=== PATIENT | male | born 1970 | race African-American/Black ===

== ENCOUNTER 2022-06-26 11:44 | Emergency (ER) | payer OTHER, MEDICAID, SELFPAY ==
[2022-06-26] VITALS (10 sets, daily range): BP systolic 149–173; BP diastolic 75–88; PULSE 65–74; RESP 14–33; TEMP 36.2; O2SAT 97–100
--- NOTE | ~2022-06-26 | CT_ITS ---
EXAMINATION: CT brain wo con DATE: 06/26/2022 12:21 INDICATION: Slurred speech. Right hemiparesis. TECHNIQUE: Computed tomography (CT) of the head was performed without intravenous contrast. The mA wa s adjusted according to patient size. Iterative reconstruction technique was employed. The dose-lengt h product was 605.33 mGy-cm. COMPARISON: Head CT 07/01/2013, brain MRI 07/01/2013 FINDINGS: There is a 6 mm hyperdense mass in the jagruti. There are scattered areas of low attenuation i n the cerebral white matter. There is an old infarct in right cerebellum. There is no acute ischemic infarct. The ventricles are normal in size. There is mild mucosal thickening in the paranasal sinuses . There are likely changes of left ocular lens replacement surgery. The mastoid air cells are normal. IMPRESSION: 1. 6 mm hyperdense mass in the jagruti, new from 07/01/2013. The differential diagnosis includes acute he morrhage, neoplasm, and cavernoma. Brain MRI without and with contrast is recommended. 2. Old infarct in right cerebellum. 3. Moderate nonspecific cerebral white matter disease, which likely represents chronic small vessel i schemic disease, worsened from 07/01/2013. Reviewed, dictated and finalized at location A. IMPRESSION: 1. 6 mm hyperdense mass in the jagruti, new from 07/01/2013. The differential diagn osis includes acute hemorrhage, neoplasm, and cavernoma. Brain MRI without and with contrast is recommended. 2. Old infarct in right cerebellum. 3. Moderate nonspecific cerebral white matter disease, which likely represents chronic small vessel ischemic disease, worsened from 07/01/2013.
--- NOTE | ~2022-06-26 | XR_ITS ---
EXAMINATION: XR chest 1V DATE: 06/26/2022 12:25 INDICATION: Right hemiparesis. TECHNIQUE: A single frontal view of the chest was obtained. COMPARISON: Chest 2 views 03/27/2015 FINDINGS: There is mild atelectasis in the lower lung zones. No pleural effusion or pneumothorax. The heart size is normal. IMPRESSION: 1. Mild atelectasis in the lower lung zones. Reviewed, dictated and finalized at location A.
--- NOTE | 2022-06-26 11:49 | ECG_ITS ---
Measurements Intervals [place] Rate: 65 P: 38 MD: 167 QRS: 54 QRSD: 88 T: 209 QT: 415 QTc: 431 Interpretive Statements SINUS RHYTHM LEFT VENTRICULAR HYPERTROPHY AND ST-T CHANGE PROBABLE REPOLARIZATION ABNORMALITY ABNORMAL ECG NO PREVIOUS ECG AVAILABLE FOR COMPARISON Electronically Signed On 06-26-2022 16:50:28 CDT by Mac Danielson M.D.
[2022-06-26 11:56] LABS: Glucose Point of Care 399 mg/dl (65-105)
[2022-06-26 12:22] LABS: Basophils Absolute Auto 0.1 K/mm3 (0.0-0.1); Basophils Percent Auto 1.1 % (0.2-1.2); Eosinophils Absolute Auto 0.3 K/mm3 (0-0.3); Eosinophils Percent Auto 3.3 % (0-4.4); Hematocrit 40.4 % (42.0-52.0); Hemoglobin 14.1 g/dL (14.0-18.0); Immature Granulocyte Absolute 0.03 K/mm3 (0.00-0.031); Immature Granulocyte Percent A 0.3 % (0-0.5); Lymphocytes Absolute Auto 1.46 K/mm3 (0.9-3.2); Lymphocytes Percent Auto 16.5 % (18.3-44.2); Mean Corpuscular HGB Conc 34.9 g/dl (32-36); Mean Corpuscular Hemoglobin 29.1 pg (26-34); Mean Corpuscular Volume 83.5 fl (80-100); Mean Platelet Volume 12.3 fl (7.4-10.4); Monocytes Absolute Auto 0.6 K/mm3 (0.1-0.6); Monocytes Percent Auto 6.2 % (2.6-8.5); Neutrophils Absolute Auto 6.4 K/mm3 (1.3-6.7); Neutrophils Percent Auto 72.6 % (45.5-73.1); Platelet Count Result 209 k/mm3 (150-375); Red Blood Count 4.84 M/mm3 (4.6-6.20); Red Cell Distribution Width 12.4 % (11.5-14.5); White Blood Count 8.9 K/mm3 (4.5-10.0)
[2022-06-26 12:29] LABS: INR 1.1; Prothrombin Time 13.6 Seconds (11.1-14.7)
[2022-06-26 12:35] LABS: Alanine Aminotransferase 67 U/L (6-50); Albumin Level 4.5 g/dL (3.5-5.1); Alkaline Phosphatase 127 U/L (38-126); Anion Gap 14 mmol/L (8-16); Aspartate Amino Transferase 34 U/L (17-59); Bilirubin,Total 0.4 mg/dL (0.2-1.3); Blood Urea Nitrogen 34 mg/dL (9-20); Calcium 9.3 mg/dL (8.4-10.2); Carbon Dioxide 25 mmol/L (22-30); Chloride 97 mmol/L (98-107); Estimated CRCL calculation 72 ml/min; Estimated Glomerular Filt Rate 60; Glucose 376 mg/dL (65-110); Potassium 4.4 mmol/L (3.4-5.0); Sodium 136 mmol/L (137-145)
[2022-06-26 12:44] LABS: Troponin I 0.027 ng/mL (0.000-0.034)
--- NOTE | 2022-06-26 13:14 | ED.NEUROSD ---
HPI - Neuro Symptoms/Deficit General Chief Complaint: Suspected CVA Stated Complaint: slurred speech and weakness Time Seen by Provider: 06/26/22 12:58 History of Present Illness HPI Narrative: Patient is a 52-year-old male who presents ER with concern for new stroke symptoms. Patient has history of CVA in the past that left him with residual right-sided weakness where he drags his right foot while walking and has some tremor in his right arm. Last known normal was yesterday 06/25/2022 at 10 AM. He then had multiple falls at home. He began slurring his speech more began having more difficulty using his right side. He seems to have persistently poor balance since yesterday. There is mild improvement after eating patient declined going to be evaluated. He had a PCP appointment today but after going to his mother's house it was decided he should be evaluated in the emergency room. Patient takes a baby aspirin. He denies any injury or pain at this time. He reports he has taken his antihypertensives but has not taken any of his diabetes medication. Related Data Home Medications Medication Instructions Recorded Confirmed aspirin 81 mg tablet,delayed 81 mg PO DAILY 02/20/21 04/07/22 release (Adult Low Dose Aspirin) baclofen 10 mg tablet 10 mg PO QHS 07/21/21 04/07/22 clonidine HCl 0.2 mg tablet 0.2 mg PO BID 10/13/21 04/07/22 Allergies Allergy/AdvReac Type Severity Reaction Status Date / Time No Known Allergies Allergy Verified 06/26/22 13:18 Review of Systems Review of Systems: All systems reviewed & are unremarkable except as noted in HPI and below Constitutional: Constitutional: Denies chills, Denies fever(s) and Denies headache(s) Eyes: Eyes: Denies change in vision and Denies photophobia ENT: Denies nasal congestion and Denies sore throat Cardiovascular: Cardiovascular: Denies chest pain and Denies palpitations [facility] Past Medical History Medical History CKD (chronic kidney disease) stage 3, GFR 30-59 ml/min Dyslipidemia Essential (primary) hypertension History of stroke with residual effects Type 2 diabetes mellitus without complications Family History Family History Other Diabetes mellitus Family history of allergic disorder Family history of coronary artery disease Social History Social History (Updated 04/07/22 @ 13:35 by Sintia Parnell) Smoking status: Never smoker Alcohol intake: current Substance use: never Substance use type: does not use Gender identity (if verbalized by the patient): Male Exam Narrative: GENERAL: Well-appearing, well-nourished, and in no acute distress. HEAD: Normocephalic, atraumatic. EYES: PERRL and EOMI. ENT: Mucous membranes moist. CHEST: Clear to auscultation. No respiratory distress. HEART: Regular rate and rhythm. Normal peripheral pulses. ABDOMEN: Soft, nontender, nondistended. EXTREMITIES: Normal range of motion. No edema. SKIN: Warm, dry, no rash. NEURO: Mild expressive aphasia and dysarthria. Right upper extremity drift with difficulty with finger-nose testing the affected extremity. No lower extremity drift. No facial droop. Alert and oriented x3. Course Course Emergency Course: Discussed case with Kennedy MALIK at [facility] with the neurosurgical team. Recommends transfer to the [facility] ER and also recommends Cardene drip with a goal systolic blood pressure of less than 160 [address]iscuss[address] case with Dr. Jay in the ER who has accepted the patient. Vital Signs Vital signs: Vital Signs Temperature 97.2 F L 06/26/22 11:52 Pulse Rate 66 06/26/22 11:52 Respiratory Rate 14 06/26/22 11:52 Blood Pressure 165/83 H 06/26/22 11:52 Pulse Oximetry 100 06/26/22 11:52 Oxygen Delivery Room Air 06/26/22 11:52 Temperature 97.2 F L 06/26/22 11:52 Pulse Rate 67 06/26/22 13:15 Respiratory Rate 33 H
--- NOTE | 2022-06-26 13:18 | PC.NURSE ---
Pt has PMH of CVA, has left sided residuals to RIGHT leg and RIGHT arm/hand.
[2022-06-26] MEDS: niCARdipine 20 MG/200 ML 20 MG/200 ML BAG 50 MG IV CONT (13:36)
== END 2022-06-26 14:21 | disposition short-term general hospital (02) ==
PROVIDERS: Emergency Medicine; Emergency Provider Emergency Medicine; PCP Family Medicine
DX: I61.3 Nontraumatic intracerebral hemorrhage in brain stem (principal); E11.22 Type 2 diabetes mellitus with diabetic chronic kidney disease; I12.9 Hypertensive chronic kidney disease with stage 1 through stage 4 chronic kidney disease, or unspecified chronic kidney disease; N18.30 Chronic kidney disease, stage 3 unspecified; Z79.82 Long term (current) use of aspirin
CPT/HCPCS: 36415; 70450; 71045; 80053; 82948; 84484; 85025; 85610; 85730; 93005; 96365; 99285

== ENCOUNTER 2022-08-07 11:17 | Observation (INO) | payer OTHER, MEDICAID, SELFPAY ==
[2022-08-07] VITALS (34 sets, daily range): BP systolic 165–211; BP diastolic 83–99; PULSE 66–106; RESP 17–32; TEMP 36.4; O2SAT 87–100
--- NOTE | ~2022-08-07 | XR_ITS ---
EXAMINATION: XR abdomen/kub 1V DATE: 08/08/2022 00:06 INDICATION: Abdominal distention TECHNIQUE: A supine view of the abdomen on 2 radiographs was obtained. COMPARISON: None. FINDINGS: Large amount of gas throughout the colon. Small to moderate amount of colonic stool primarily in the proximal colon. No dilated small bowel to suggest obstruction. Lung bases are clear. Heart size is no rmal. Mild to moderate lower lumbar spondylosis. IMPRESSION: 1. Nonspecific large amount of gas scattered throughout the colon with no dilated gas-filled small raul wel to suggest obstruction. Reviewed, dictated and finalized at location A. HOUSE COORDINATOR IMPRESSION: 1. Nonspecific large amount of gas scattered throughout the colon with no dilat ed gas-filled small bowel to suggest obstruction.
--- NOTE | ~2022-08-07 | XR_ITS ---
XR chest 1V portable 08/07/2022 14:57 Indication: Weakness. History of hypertension. Stroke. Procedure: AP portable chest Comparison: 06/26/2022 Findings: Mildly elevated right diaphragm. Right basilar atelectasis. No evidence for pleural effusio n, edema or pneumothorax. Impression: 1: Right basilar atelectasis. Reviewed, dictated and finalized at location A. AND ALCOHOL TREATMENT SPECIALIST Impression: 1: Right basilar atelectasis.
--- NOTE | ~2022-08-07 | CT_ITS ---
EXAMINATION: CT brain wo con DATE: 08/07/2022 15:22 INDICATION: Increased lethargy. TECHNIQUE: Computed tomography (CT) of the head was performed without intravenous contrast. The dose- length product was 605.33 mGy-cm. Automated exposure control and iterative reconstruction technique w ere employed. COMPARISON: CT dated 06/26/2022 FINDINGS: Decreased size of hyperdense lesion in the jagruti, likely resolving hemorrhage. There is a ch ronic infarct of the left side of the jagruti there is a chronic right cerebellar infarction. No ventric ulomegaly or midline shift. There are scattered moderate periventricular and subcortical white matter changes, most likely related to small vessel ischemic disease (microangiopathy). Paranasal sinuses a nd mastoids are pneumatized. No significant mucosal thickening. No depressed skull fractures. IMPRESSION: 1. Decreased size of hyperdense focus in the posterior aspect of the jagruti, likely resolving hemorrhag e, compared with 06/26/2022. Consider correlation with MRI without and with contrast. 2: Chronic lacunar infarction of the jagruti. Chronic right cerebellar infarction. 3: Chronic age-related findings. Reviewed, dictated and finalized at location A. GER OF SECURITY IMPRESSION: 1. Decreased size of hyperdense focus in the posterior aspect of the jagruti, like ly resolving hemorrhage, compared with 06/26/2022. Consider correlation with MR I without and with contrast. 2: Chronic lacunar infarction of the jagruti. Chronic right cerebellar infarction . 3: Chronic age-related findings.
--- NOTE | 2022-08-07 11:43 | ECG_ITS ---
Measurements Intervals [place] Rate: 71 P: 39 CT: 175 QRS: 66 QRSD: 89 T: 180 QT: 371 QTc: 404 Interpretive Statements SINUS RHYTHM POSSIBLE LEFT ATRIAL ENLARGEMENT [-0.1mV P-WAVE IN V1/V2] LEFT VENTRICULAR HYPERTROPHY WITH SECONDARY REPOLARIZATION ABNORMALITIES COMPARED TO ECG 06/26/2022 12:00:49 NO SIGNIFICANT CHANGES Electronically Signed On 08-07-2022 17:25:34 MUD CLEANER OPERATOR by Ariel Lott M.D.
[2022-08-07 12:52] LABS: Basophils Absolute Auto 0.1 K/mm3 (0.0-0.1); Basophils Percent Auto 1.1 % (0.2-1.2); Eosinophils Absolute Auto 0.5 K/mm3 (0-0.3); Eosinophils Percent Auto 5.6 % (0-4.4); Hematocrit 39.7 % (42.0-52.0); Hemoglobin 13.3 g/dL (14.0-18.0); Immature Granulocyte Absolute 0.02 K/mm3 (0.00-0.031); Immature Granulocyte Percent A 0.2 % (0-0.5); Lymphocytes Absolute Auto 1.47 K/mm3 (0.9-3.2); Lymphocytes Percent Auto 18.3 % (18.3-44.2); Mean Corpuscular HGB Conc 33.5 g/dl (32-36); Mean Corpuscular Volume 86.5 fl (80-100); Mean Platelet Volume 11.7 fl (7.4-10.4); Monocytes Absolute Auto 0.6 K/mm3 (0.1-0.6); Monocytes Percent Auto 7.2 % (2.6-8.5); Neutrophils Absolute Auto 5.4 K/mm3 (1.3-6.7); Neutrophils Percent Auto 67.6 % (45.5-73.1); Platelet Count Result 260 k/mm3 (150-375); Red Blood Count 4.59 M/mm3 (4.6-6.20); Red Cell Distribution Width 12.3 % (11.5-14.5); White Blood Count 8.1 K/mm3 (4.5-10.0)
[2022-08-07 13:01] LABS: Alanine Aminotransferase 22 U/L (6-50); Albumin Level 4.8 g/dL (3.5-5.1); Alkaline Phosphatase 96 U/L (38-126); Anion Gap 6 mmol/L (8-16); Aspartate Amino Transferase 28 U/L (17-59); Bilirubin,Total 0.3 mg/dL (0.2-1.3); Blood Urea Nitrogen 41 mg/dL (9-20); Calcium 9.7 mg/dL (8.4-10.2); Carbon Dioxide 28 mmol/L (22-30); Chloride 104 mmol/L (98-107); Estimated Glomerular Filt Rate 56; Glucose 104 mg/dL (65-110); Potassium 4.7 mmol/L (3.4-5.0); Sodium 138 mmol/L (137-145)
[2022-08-07 13:02] LABS: INR 1.1; Prothrombin Time 13.9 Seconds (11.1-14.7)
[2022-08-07 13:03] LABS: Partial Thromboplastin Time 35.2 SECONDS (22.3-36.8)
[2022-08-07] MEDS: SODIUM CHLORIDE 0.9% IV 1,000 ML 999 ML IV CONT (15:01)
--- NOTE | 2022-08-07 15:28 | ED.AMS ---
HPI - Altered Mental Status General Chief Complaint: Altered Mental Status Stated Complaint: altered mental A&Ox2 normal, current, CVA 1 month Time Seen by Provider: 08/07/22 14:24 Source: patient, family (mother) and RN notes reviewed Mode of arrival: wheelchair Limitations: other (aphasia from CVA) History of Present Illness HPI narrative: This is a 52 year old male with history of uncontrolled hypertension, CVA with right side deficits who presents from home for evaluation of increased lethargy. His mother is at bedside to assist in history. She states patient has history of 2 CVA. He suffered his first stroke years ago and he has right side weakness from that CVA, and he suffered a hemorrhagic CVA 2 months. After this most recent stroke he had worsening right side weakness and new aphasia. [facility] was [facility]. He was discharged from [facility] 3 weeks ago to home. He has home health coming to the house. She states patient has been more lethargic today . She did not give patient any of his medications today. She states patient had been dealing with constipation so she had to give him Sennakot and he had diarrhea last night and the previous night. Patient denies chest pain or abdominal pain. Related Data Home Medications Medication Instructions Recorded Confirmed aspirin 81 mg tablet,delayed 81 mg PO DAILY 02/20/21 04/07/22 release (Adult Low Dose Aspirin) Allergies Allergy/AdvReac Type Severity Reaction Status Date / Time No Known Allergies Allergy Verified 08/07/22 11:17 Review of Systems Review of Systems: All systems reviewed & are unremarkable except as noted in HPI and below Constitutional: Constitutional: Denies chills, Reports fatigue and Denies fever(s) ENT: Denies nasal congestion and Denies sore throat Cardiovascular: Cardiovascular: Denies chest pain, Denies rapid heart rate and Denies radiating jaw, neck or arm pain Respiratory: Respiratory: Denies chest congestion and Denies dyspnea Gastrointestinal: Gastrointestinal: Denies abdominal pain, Denies nausea and Denies vomiting Neurologic: Denies dizziness, Denies headache(s) and Reports focal weakness PMFSH Past Medical History Medical History CKD (chronic kidney disease) stage 3, GFR 30-59 ml/min Dyslipidemia Essential (primary) hypertension History of stroke with residual effects Type 2 diabetes mellitus without complications Family History Family History Other Diabetes mellitus Family history of allergic disorder Family history of coronary artery disease Social History Social History Smoking status: Never smoker Alcohol intake: current Substance use: never Substance use type: does not use Gender identity (if verbalized by the patient): Male Exam Const: General: alert and ill appearing Other: oriented x 2, baseline, some aphasia able HENMT: Head: normal to inspection Throat: posterior oropharynx normal and uvula midline Eyes: Pupils: Equal, round and reactive pupils present EOM: EOMs intact bilaterally Chest: Chest palpation & inspection: normal inspection of the chest Resp: Effort & Inspection: normal respiratory effort Auscultation: clear to auscultation bilaterally Cardio: Rate: regular rate Rhythm: regular rhythm Heart sounds: no murmurs GI: GI Palp: Yes Soft to palpation, No Tenderness to palpation present (GI), No Guarding due to palpation present (GI) and No Rigid due to palpation Auscultation: normal bowel sounds Skin: General skin exam: normal color Rashes: no rashes Wounds: no wounds Neuro: General: oriented to person, oriented to place and CN's II-XI intact bilaterally Cranial nerves: Yes CN's II-XII intact bilaterally Speech: aphasia Motor exam (neuro): Abnormal motor strength present
[2022-08-07 15:58] LABS: Influenza A QL RT-PCR Negative (Negative); Influenza B QL RT-PCR Negative (Negative); SARS-CoV-2 RNA PCR Negative
[2022-08-07 16:41] LABS: INR 1.1
[2022-08-07 16:42] LABS: Partial Thromboplastin Time 34.8 SECONDS (22.3-36.8)
[2022-08-07] MEDS: carvediloL 3.125 MG TABLET PO (16:42)
[2022-08-07] MEDS: amLODIPine BESYLATE 5 MG TABLET 10 MG PO (16:43)
[2022-08-07] MEDS: hydrALAZINE HCL 20 MG/ML VIAL 10 MG IV PUSH ×3 (16:43→23:29)
[2022-08-07 17:21] LABS: Appearance Urine Clear (Clear); Bilirubin Urine Negative (Negative); Blood Urine Negative (Negative); Color Urine Yellow (Yellow); Glucose Urine UA Trace mg/dL (Negative); Ketones Urine Negative (Negative); Leukocyte Esterase Ur 1+ LEU/UL (Negative); Nitrate Urine Negative (Negative); Protein Urine 1+ mg/dL (Negative); Urobilinogen Urine 0.2 mg/dL (<2.0); pH Urine 5.5 (5.0-9.0)
[2022-08-07 17:28] LABS: Bacteria Urine Trace /hpf; Mucus Urine Rare /lpf; RBC Urine 0-2 /hpf (0-2); Squamous Epithelial Cell Urine Rare /hpf (Few); WBC Urine 21-30 /hpf
[2022-08-07 17:29] LABS: Add Urine Microscopic? YES
[2022-08-07 17:43] LABS: Glucose Point of Care 113 mg/dl (65-105)
[2022-08-07] MEDS: LABETALOL HCL INJ 100 MG/20 ML VIAL 20 MG IV PUSH (18:36)
--- NOTE | 2022-08-07 20:42 | PM.IMHP ---
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 The patient was discharged from [facility] and was taken to [facility]. The patient recently was discharged from the rehab unit and is staying with his mother. He has a history of uncontrolled hypertension. The patient had his 1st stroke years ago and he has right-sided weakness from that CVA, and he suffered a hemorrhagic CVA 2 months ago. The patient has been receiving home health and they noticed that the patient was more lethargic today. The patient's abdomen is distended and he went a week without having a bowel movement. His mother gave him several medications and then gave him Senokot had diarrhea last night and the previous night. When I touch the patient's abdomen he was crying and saying I am sorry mom sorry mom. Head CT today was read as the following1. Decreased size of hyperdense focus in the posterior aspect of the jagruti, likely resolving hemorrhage, compared with 06/26/2022. Consider correlation with MRI without and with contrast. 2:? Chronic lacunar infarction of the jagruti. Chronic right cerebellar infarction. 3:? Chronic age-related findings. Chest x-ray was read as right basilar atelectasis. H&H is 13.3 and 39.7. Creatinine is 1.6 which appears to be his baseline. His blood sugars 113. The patient is negative for influenza A/B and COVID. Urinalysis was negative. Patient's blood pressure was elevated today and family was having difficulty getting his blood pressure down. The patient had a blood pressure of 211/94. The patient was given IV fluids, Norvasc, Coreg, hydralazine x3, labetalol, clonidine and Rocephin x1. For possible UTI. Neurology has been consulted. The patient is being admitted to observation status on the date of service of 08/07/2022. Review of Systems Review of Systems: See HPI All systems reviewed & are unremarkable except as noted in HPI and below Constitutional: Constitutional: Reports as per HPI and Reports no additional constitutional complaints Eyes: Eyes: Reports as per HPI and Reports no additional eye complaints ENT: Reports system reviewed and no additional complaints, except as documented and Reports Normal hearing present Cardiovascular: Cardiovascular: Reports no additional cardiovascular complaints Respiratory: Respiratory: Reports no additional respiratory complaints and Reports no additional respiratory complaints Gastrointestinal: Gastrointestinal: Reports as per HPI and Reports no additional gastrointestinal complaints Musculoskeletal: Musculoskeletal: Reports no additional musculoskeletal complaints Integumentary/Breasts: Skin/Breast: Reports system reviewed and no additional complaints, except as docu and Reports as per HPI Neurologic: Reports system reviewed and no additional complaints, except as documented, Reports as per HPI and Reports Normal hearing present Psychiatric: Psychiatric: Reports no additional psychiatric complaints and Reports as per HPI Endocrine: Endocrine: Reports no additional endocrine complaints Hematologic/Lymphatic: Hematologic/Lymphatic: Reports no additional hematologic/lymphatic complaints Allergic/Immunologic: Allergic/Immunologic: Reports no additional allergic/immunologic complaints [facility] Past Medical History Medical History (Updated 08/07/22 @ 22:58 by Ashley Austin NP) CKD (chronic kidney disease) stage 3, GFR 30-59 ml/min Dyslipidemia Essential (primary) hypertension History of seizure History of stroke with residual effects Type 2 diabetes mellitus without complications Family History Family History Other Diabetes mellitus Family history of allergic disorder Family history of coronary artery disease Social History
[2022-08-07] MEDS: LORazepam INJ (*CRX) 2 MG/ML VIAL 0.5 MG IV PUSH (23:29)
[2022-08-07] MEDS: ONDANSETRON INJ 4 MG/2 ML VIAL IV PUSH (23:29)
[2022-08-08] VITALS (87 sets, daily range): BP systolic 149–187; BP diastolic 69–137; PULSE 86–113; RESP 12–38; TEMP 36.8–37.1; O2SAT 96–100
[2022-08-08 00:10] LABS: Hemoglobin A1C 10.4 % (<5.7); Lactic Acid Reflex 1.1 mmol/L (0.7-2.0)
[2022-08-08] MEDS: ONDANSETRON INJ 4 MG/2 ML VIAL IV PUSH ×2 (04:43→10:52)
[2022-08-08 05:56] LABS: Basophils Absolute Auto 0.1 K/mm3 (0.0-0.1); Basophils Percent Auto 0.8 % (0.2-1.2); Eosinophils Absolute Auto 0.3 K/mm3 (0-0.3); Eosinophils Percent Auto 2.8 % (0-4.4); Hematocrit 38.7 % (42.0-52.0); Hemoglobin 12.9 g/dL (14.0-18.0); Immature Granulocyte Absolute 0.04 K/mm3 (0.00-0.031); Immature Granulocyte Percent A 0.3 % (0-0.5); Lymphocytes Absolute Auto 1.09 K/mm3 (0.9-3.2); Lymphocytes Percent Auto 9.5 % (18.3-44.2); Mean Corpuscular HGB Conc 33.3 g/dl (32-36); Mean Platelet Volume 11.9 fl (7.4-10.4); Monocytes Absolute Auto 0.7 K/mm3 (0.1-0.6); Monocytes Percent Auto 5.7 % (2.6-8.5); Neutrophils Absolute Auto 9.3 K/mm3 (1.3-6.7); Neutrophils Percent Auto 80.9 % (45.5-73.1); Platelet Count Result 267 k/mm3 (150-375); Red Blood Count 4.45 M/mm3 (4.6-6.20); Red Cell Distribution Width 12.3 % (11.5-14.5); White Blood Count 11.4 K/mm3 (4.5-10.0)
[2022-08-08 06:04] LABS: Lactic Acid Reflex 1.1 mmol/L (0.7-2.0)
[2022-08-08 06:05] LABS: Alanine Aminotransferase 25 U/L (6-50); Albumin Level 4.9 g/dL (3.5-5.1); Alkaline Phosphatase 99 U/L (38-126); Anion Gap 11 mmol/L (8-16); Aspartate Amino Transferase 30 U/L (17-59); Bilirubin,Total 0.5 mg/dL (0.2-1.3); Blood Urea Nitrogen 31 mg/dL (9-20); Calcium 9.8 mg/dL (8.4-10.2); Carbon Dioxide 26 mmol/L (22-30); Chloride 102 mmol/L (98-107); Estimated Glomerular Filt Rate > 60; Glucose 160 mg/dL (65-110); Lipase 156 U/L (23-300); Magnesium 1.5 mg/dL (1.6-2.3); Phosphorus 3.4 mg/dL (2.5-4.5); Potassium 4.7 mmol/L (3.4-5.0); Sodium 139 mmol/L (137-145)
--- NOTE | 2022-08-08 10:21 | WPDNEURCNPN ---
Assessment and Plan Assessment and plan (1) UTI (urinary tract infection): Code(s): N39.0 - Urinary tract infection, site not specified Status: Acute (2) Hypertension, uncontrolled: Code(s): I10 - Essential (primary) hypertension Status: Acute (3) History of stroke with residual effects: Code(s): I69.30 - Unspecified sequelae of cerebral infarction Status: Acute Plan Mr. Bland is a 52 year old male with a history of HTN, HLD, CKD, DM, and pontinue hemorrhage, presenting for worsening lethargy. CT head showed resolving hemorrhage and no acute changes. His UA was concerning for UTI, which is likely the cause of lethargy. He has improved since starting on antibiotics. - No further neurological work-up needed at this time. Consult date: 08/08/22 Time Seen: 10:22 Reason for consult: Lethargy HPI: Corky Bland is a 52 year old male with a history of prior strokes, including most recent hemorrhagic stroke 2 months ago, CKD, HLD, uncontrolled HTN, and type 2 diabetes melitis presenting due to worsening lethargy. Patient had a pontine hemorrhage which was evaluated at [facility]. He was discharged to [facility] afterwards, and is currently in the care of his mother. She noted that he was more lethargic yesterday, but did not notice any new focal symptoms. At baseline, patient has residual right sided weakness and aphasia. Patient was brought into [facility] ED, where he was AOx2, which is his baseline. His BP was in the 180s systolic. CT head showed resolving hemorrhage in the posterior aspect of the jagruti as well as chronic infarcts in the jagruti and R cerebellum. UA was concerning for UTI. Patient was subsequently started on antibiotics and admitted for further care. Mother and sister at bedside this morning. They feels that he looks much better today and is close to his baseline. Patient denies any complaints this morning and also expressed that he feels better. Review of Systems Constitutional: Constitutional: Reports fatigue and Reports lethargy Eyes: Eyes: Reports no additional eye complaints ENT: Reports system reviewed and no additional complaints, except as documented Cardiovascular: Cardiovascular: Reports no additional cardiovascular complaints Respiratory: Respiratory: Reports no additional respiratory complaints Gastrointestinal: Gastrointestinal: Reports no additional gastrointestinal complaints Genitourinary: Genitourinary: Reports as per HPI Musculoskeletal: Musculoskeletal: Reports no additional musculoskeletal complaints Integumentary/Breasts: Skin/Breast: Reports system reviewed and no additional complaints, except as docu Neurologic: Reports as per HPI Psychiatric: Psychiatric: Reports no additional psychiatric complaints PMFSH Past Medical History Medical History CKD (chronic kidney disease) stage 3, GFR 30-59 ml/min Dyslipidemia Essential (primary) hypertension History of seizure History of stroke with residual effects Type 2 diabetes mellitus without complications Family History Family History Other Diabetes mellitus Family history of allergic disorder Family history of coronary artery disease Social History Social History Social History: The patient typically lives with his but she is currently in the hospital so he has been staying with his mother and his sister has been helping out. He has 3 children and is disabled. Lifelong nonsmoker. Code status full code Smoking status: Never smoker Alcohol intake: current Substance use: never Substance use type: does not use Gender identity (if verbalized by the patient): Male Meds Home Medications and Allergies Home Medications Medication Instructions Recorded Confirmed Type aspirin 81 mg tablet,delayed 81 mg PO
[2022-08-08 10:31] LABS: Glucose Point of Care 122 mg/dl (65-105)
--- NOTE | 2022-08-08 10:40 | PC.NURSE ---
Melina social service technician to patient's room to check on patient. Melina social service technician found emesis on patient's floor. Melina, reported to grant writer and cleaned up patient's room and patient.
--- NOTE | 2022-08-08 10:52 | PC.NURSE ---
Zofran given IV per prn order for patient's continued nausea and vomiting. Holding patient's medication for Zofran to take therapeutic effect before administering medications.
--- NOTE | 2022-08-08 11:10 | PC.NURSE ---
Patient cleaned up and gown changed. Patient transferred to chair so bed could be changed. ED stretcher removed and hospital bed brought in for patient comfort and safety.
[2022-08-08] MEDS: ASPIRIN 81 MG ENTERIC TABLET PO (11:28)
[2022-08-08] MEDS: carvediloL 3.125 MG TABLET PO ×2 (11:28→21:20)
[2022-08-08] MEDS: SIMETHICONE 80 MG TAB.CHEW PO ×2 (11:28→21:20)
[2022-08-08] MEDS: lisinopriL 20 MG TABLET 40 MG PO (11:28)
--- NOTE | 2022-08-08 11:41 | PC.NURSE ---
Chief Service Dispatcher contacted Dr. Cheek, hospitalist and made him aware of patient's vomiting episodes. Per Dr. Cheek keep monitoring patient. Collaborated with Dr. Cheek about a possible ST swallow assessment, per Dr. Cheek okay to order speech therapy swallow evaluation.
--- NOTE | 2022-08-08 13:49 | PCSTNOTE ---
Please refer to the Bedside Swallow Evaluation in the EMR. Please note, silent aspiration cannot be ruled out at bedside.
[2022-08-08] MEDS: hydrALAZINE HCL 20 MG/ML VIAL 10 MG IV PUSH (17:16)
--- NOTE | 2022-08-08 17:24 | PM.IMPN ---
Progress Note: A&P Assessment and Plan (1) Altered mental status: Code(s): R41.82 - Altered mental status, unspecified Status: Acute Assessment and Plan: Patient suffered a hemorrhagic stroke in May. He had right-sided weakness from prior stroke but this worsened. He also developed new aphasia. He was at rehab facility but has been home for the past 3 weeks now. Patient was on to be lethargic and confused and brought to the emergency room for evaluation. There is a notation that the patient was constipated but then developed diarrhea. KUB does not suggest stool impaction or significant constipation. Urinalysis noted he may have UTI which could be causing his altered mental status. Consider altered mental status related to hypertension. Patient's mental status by large has returned to baseline. Continue to follow. (2) UTI (urinary tract infection): Code(s): N39.0 - Urinary tract infection, site not specified Status: Acute Assessment and Plan: UA noted. Urine culture pending. -continue with Rocephin. -tailor antibiotics to urine and blood cultures. (3) Hypertension, uncontrolled: Code(s): I10 - Essential (primary) hypertension Status: Acute Assessment and Plan: Patient has chronic hypertension. -Blood pressure not well controlled here. -Home medications have not been reconciled yet -Clonidine patch ordered -continue with Coreg and Lisinopril -p.r.n. hydralazine available as needed -add norvasc today. 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 More recently, patient with hemorrhagic CVA in May [facility] resulting in worsening right-sided weakness and aphasia. -Head CT showing decrease in size of the hyperdense focus in the jagruti. Also with chronic lacunar infarct in the jagruti and right cerebellar infarct. -neurology consult was greatly be appreciated. -continue with aspirin and atorvastatin. -family is having difficulty taking care the patient at this time. life skills coordinator were consulted to discuss options (5) Dyslipidemia: Code(s): E78.5 - Hyperlipidemia, unspecified Status: Acute Assessment and Plan: -continue with atorvastatin (6) Type 2 diabetes mellitus without complications: Qualifiers: Diabetes mellitus assisted insulin use: without termite treater use Qualified Code(s): E11.9 - Type 2 diabetes mellitus without complications Code(s): E11.9 - Type 2 diabetes mellitus without complications Status: Acute Assessment and Plan: A1c 10.4. The patient's blood glucose was reviewed on 08/08 Glucose remains well controlled. Continue AccuCheks covering with sliding scale. Hypoglycemia protocol available as needed. Continue to monitor. Resume meds once clarified Subjective Date/time seen: 08/08/22 17:24 Interval history: 52yo male with hx of CVA and HTN here for altered mental status. Patient denies CP, SOB, n/v or abd pain. Voiding normally without dysuria or hematuria. He is having normal bowel movements. No recent changes in medications. Patient denies any history of dysphagia. He denies any symptoms of dysphagia or odynophagia eating his dinner tonight. Exam Narrative: AF 98.7 167/99 94 21 98% ra Gen - NARD sitting up feeding himself dinner. Chest - Bibasilar inspiratory crackles otherwise clear. Normal respiratory rate. CV - RRR S1/S2 Abd - Soft, NT/ND, Positive BS Ext - No pedal edema. Neuro - Alert and oriented x4. Very mild dysarthric speech. Right hemiparesis. Psych - Nml mood and affect Skin - Warm and dry Objective Data Vital Signs Vital Signs: Vital Signs - 24 hr 08/07/22 18:39 08/07/22 18:16 08/07/22 18:46 Temperature Pulse
[2022-08-08 17:55] LABS: Glucose Point of Care 154 mg/dl (65-105)
--- NOTE | 2022-08-08 19:40 | ADMGEN ---
This patient, Corky Bland, was admitted to IMU Room 231-01 at 1655 from ER. Patient/family oriented to hospital policies and general routines including ID bracelet, bed and alarms, visiting hours, pain management, procedures, bathroom and other care routines, personal items, smoking policy, room service/diet, and visiting hours. Information on how to activate the Rapid Response Team has been discussed. Patient/Family are encouraged to report perceived risks to care and to ask questions if they do not understand what they are told or what they should do.
[2022-08-08 20:35] LABS: Glucose Point of Care 209 mg/dl (65-105)
[2022-08-08] MEDS: amLODIPine BESYLATE 5 MG TABLET PO (21:21)
[2022-08-08] MEDS: ATORVASTATIN 40 MG TABLET PO (21:21)
[2022-08-09] VITALS (13 sets, daily range): BP systolic 137–175; BP diastolic 70–87; PULSE 86–107; RESP 16–24; TEMP 36.5–37; O2SAT 95–98
[2022-08-09 08:41] LABS: Glucose Point of Care 148 mg/dl (65-105)
[2022-08-09] MEDS: amLODIPine BESYLATE 5 MG TABLET 10 MG PO (09:50)
[2022-08-09] MEDS: lisinopriL 20 MG TABLET 40 MG PO (09:50)
[2022-08-09] MEDS: SIMETHICONE 80 MG TAB.CHEW PO ×4 (09:50→21:19)
[2022-08-09] MEDS: ASPIRIN 81 MG ENTERIC TABLET PO (09:50)
[2022-08-09] MEDS: carvediloL 3.125 MG TABLET PO ×2 (09:51→21:19)
[2022-08-09 10:17] LABS: Hematocrit 41.7 % (42.0-52.0); Hemoglobin 13.7 g/dL (14.0-18.0); Mean Corpuscular HGB Conc 32.9 g/dl (32-36); Mean Corpuscular Hemoglobin 29.4 pg (26-34); Mean Corpuscular Volume 89.5 fl (80-100); Mean Platelet Volume 11.9 fl (7.4-10.4); Platelet Count Result 304 k/mm3 (150-375); Red Blood Count 4.66 M/mm3 (4.6-6.20); Red Cell Distribution Width 12.6 % (11.5-14.5); White Blood Count 11.4 K/mm3 (4.5-10.0)
[2022-08-09 10:36] LABS: Albumin Level 4.8 g/dL (3.5-5.1); Anion Gap 10 mmol/L (8-16); Blood Urea Nitrogen 29 mg/dL (9-20); Calcium 9.7 mg/dL (8.4-10.2); Carbon Dioxide 27 mmol/L (22-30); Chloride 107 mmol/L (98-107); Estimated Glomerular Filt Rate 56; Glucose 148 mg/dL (65-110); Magnesium 1.8 mg/dL (1.6-2.3); Phosphorus 3.7 mg/dL (2.5-4.5); Potassium 4.6 mmol/L (3.4-5.0); Sodium 144 mmol/L (137-145)
[2022-08-09 11:51] LABS: Glucose Point of Care 221 mg/dl (65-105)
[2022-08-09] MEDS: INSULIN ASPART (*BKC) 100 UNITS/ML SUB-Q (12:24)
--- NOTE | 2022-08-09 13:45 | PC.NURSE ---
Per Dr. Lott no bolus on heparin for PTT 70.4. Just increase rate per protocol.
[2022-08-09 17:52] LABS: Glucose Point of Care 179 mg/dl (65-105)
--- NOTE | 2022-08-09 18:01 | PM.IMPN ---
Progress Note: A&P Assessment and Plan (1) Altered mental status: Code(s): R41.82 - Altered mental status, unspecified Status: Acute Assessment and Plan: The patient has hx of CVAs in the past with residual right sided weakness. More recently, patient with hemorrhagic CVA in May resulting in worsening right-sided weakness and aphasia treated [facility]. He was at rehab facility but has been home for the past 3 weeks now. Patient was noted to be lethargic and confused and brought to the emergency room for evaluation. Patient with UTI which could be causing his altered mental status. Consider altered mental status related to hypertension. Patient's mental status back to baseline. Continue to follow. (2) UTI (urinary tract infection): Code(s): N39.0 - Urinary tract infection, site not specified Status: Acute Assessment and Plan: UA noted. Urine culture growing Enterococcus -started on Rocephin emperically. -BCx NGTD -Change to Amoxicillin (3) Hypertension, uncontrolled: Code(s): I10 - Essential (primary) hypertension Status: Acute Assessment and Plan: Patient has chronic hypertension. -Blood pressure not well controlled here. 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 More recently, patient with hemorrhagic CVA in May treated [facility] resulting in worsening right-sided weakness and aphasia. -Head CT here showing decrease in size of the hyperdense focus in the jagruti. Also with chronic lacunar infarct in the jagruti and right cerebellar infarct. -neurology consult was greatly be appreciated. -continue with aspirin and atorvastatin. -family is having difficulty taking care the patient at this time. 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 The patient's blood glucose was reviewed on 08/09 Glucose more elevated Continue AccuCheks covering with sliding scale. Hypoglycemia protocol available as needed. Continue to monitor. Resume Lantus at lower dose (7) CKD (chronic kidney disease) stage 3, GFR 30-59 ml/min: Qualifiers: Chronic kidney disease stage 3 subtype: stage 3a (GFR 45-59) Qualified Code(s): N18.31 - Chronic kidney disease, stage 3a Code(s): N18.30 - Chronic kidney disease, stage 3 unspecified Status: Acute Assessment and Plan: Cr 1.6 today and appears to be within his baseline. Follow Subjective Date/time seen: 08/09/22 18:01 Interval history: 52yo male with hx of CVA and HTN here for altered mental status. No complaints today. No chest pain or shortness of breath. No nausea or vomiting Exam Narrative: AF 98.5 152/77 107 24 98% ra Gen - NARD Chest -few basilar rhonchi otherwise clear. CV - RRR S1/S2, 3/6 systolic murmur LUSB. Telemetry showing no alarms Abd - Soft, NT/ND, Positive BS Ext - No pedal edema. Neuro - Alert and appropriate. Very mild dysarthric speech. Right hemiparesis. Psych - Nml mood and affect Skin - Warm and dry Objective Data Vital Signs Vital Signs: Vital Signs - 24 hr 08/08/22 20:00 08/08
[2022-08-09] MEDS: cloNIDine HCL 0.1 MG TABLET 0.3 MG PO (21:18)
[2022-08-09] MEDS: hydrALAZINE HCL 50 MG TABLET 100 MG PO (21:18)
[2022-08-09] MEDS: ATORVASTATIN 40 MG TABLET PO (21:18)
[2022-08-09] MEDS: INSULIN GLARGINE (*BKC) 100 UNITS/ML 18 UNITS SUB-Q (21:19)
[2022-08-09] MEDS: AMOXICILLIN 500 MG CAPSULE PO (23:12)
[2022-08-10] VITALS (8 sets, daily range): BP systolic 105–172; BP diastolic 61–84; PULSE 68–91; RESP 16–20; TEMP 36.2–36.5; O2SAT 94–98
--- NOTE | 2022-08-10 | ECHO_ITS ---
Patient Info Name: Corky Bland Age: 52 years : 1970 Gender: Male Ht: 73 in Wt: 210 lbs BSA: 2.23 m2 HR: 71 bpm BP: 144 / 77 mmHg Technical Quality: Good Exam Date: 08/10/2022 9:53 AM Exam Location: [facility] Patient Status: Outpatient Admit Date: 08/07/2022 Staff Ordering Physician: Rick Cheek MD Prevention Coordinator: Torsten Hendrickson, CHRIS, RT Attending Provider: Liz Felix MD Exam Type: CA echo doppler color flow Study Info Indications R01.1 - Cardiac murmur, unspecified Complete two-dimensional, color flow and Doppler transthoracic echocardiogram is performed. Strain analysis performed. Summary 1. Complete two-dimensional, color flow and Doppler transthoracic echocardiogram is performed. 2. Left ventricular chamber dimension is normal. 3. Left ventricular systolic function is normal, estimated at 65-70%. 4. There is severe concentric increased left ventricular wall thickness. 5. The left ventricular diastolic function is grade I diastolic dysfunction. 6. E/e' 10 is mildly elevated. 7. Global longitudinal strain is abnormal at -9.7%. 8. There is mild aortic valve sclerosis. 9. The mitral valve has mildly thickened leaflets and moderately calcified annulus. 10. Moderately non-obstructive systolic anterior motion of the mitral anterior leaflet. 11. There is mild mitral valve regurgitation. Left Ventricle E/e' 10 is mildly elevated. Global longitudinal strain is abnormal at -9.7%. Left ventricular chamber dimension is normal. Left ventricular systolic function is normal, estimated at 65-70%. There is severe concentric increased left ventricular wall thickness. The left ventricular diastolic function is grade I diastolic dysfunction. Right Ventricle Right ventricular systolic function is normal and with normal TAPSE 2.5 cm. Right ventricular chamber dimension is normal. Left Atria Left atrial chamber dimension is normal. Right Atria Right atrial chamber dimension is normal. Aortic Valve The aortic valve is trileaflet. There is mild aortic valve sclerosis. There is no aortic valve stenosis. There is no aortic valve regurgitation. Pulmonic Valve There is no pulmonic regurgitation. Mitral Valve The mitral valve has mildly thickened leaflets and moderately calcified annulus. Moderately non-obstructive systolic anterior motion of the mitral anterior leaflet. There is no mitral valve stenosis. There is mild mitral valve regurgitation. Tricuspid Valve There is no tricuspid valve regurgitation. Pericardium/Pleural There is no pericardial effusion. Inferior Vena Cava Normal inferior vena cava with >50% collapse upon inspiration consistent with normal right atrial pressure, 5 mmHg. Aorta The aortic root size at the sinus of Valsalva is normal. Left Ventricular Outflow Tract Name Value Normal LVOT 2D LVOT Diameter 2.0 cm LVOT Doppler LVOT Peak Gradient 5 mmHg LVOT Mean Gradient 2 mmHg LVOT VTI 20 cm LVOT VTI/AV VTI Ratio 0.7
[2022-08-10] MEDS: hydrALAZINE HCL 20 MG/ML VIAL 10 MG IV PUSH (00:52)
[2022-08-10 05:47] LABS: Hematocrit 40.8 % (42.0-52.0); Hemoglobin 13.3 g/dL (14.0-18.0); Mean Corpuscular HGB Conc 32.6 g/dl (32-36); Mean Corpuscular Hemoglobin 28.8 pg (26-34); Mean Corpuscular Volume 88.3 fl (80-100); Mean Platelet Volume 12.3 fl (7.4-10.4); Platelet Count Result 283 k/mm3 (150-375); Red Blood Count 4.62 M/mm3 (4.6-6.20); Red Cell Distribution Width 12.5 % (11.5-14.5); White Blood Count 12.6 K/mm3 (4.5-10.0)
[2022-08-10 05:50] LABS: Albumin Level 4.6 g/dL (3.5-5.1); Anion Gap 9 mmol/L (8-16); Blood Urea Nitrogen 33 mg/dL (9-20); Calcium 9.6 mg/dL (8.4-10.2); Carbon Dioxide 30 mmol/L (22-30); Chloride 106 mmol/L (98-107); Estimated Glomerular Filt Rate 43; Glucose 150 mg/dL (65-110); Phosphorus 3.9 mg/dL (2.5-4.5); Potassium 4.1 mmol/L (3.4-5.0); Sodium 145 mmol/L (137-145)
[2022-08-10] MEDS: hydrALAZINE HCL 50 MG TABLET 100 MG PO (05:54)
[2022-08-10] MEDS: AMOXICILLIN 500 MG CAPSULE PO ×2 (05:54→13:31)
[2022-08-10] MEDS: cloNIDine HCL 0.1 MG TABLET 0.3 MG PO (05:54)
[2022-08-10 07:58] LABS: Glucose Point of Care 186 mg/dl (65-105)
[2022-08-10] MEDS: carvediloL 3.125 MG TABLET PO (08:17)
[2022-08-10] MEDS: metFORMIN HCL 500 MG TABLET 1000 MG PO (08:17)
[2022-08-10] MEDS: ASPIRIN 81 MG ENTERIC TABLET PO (08:18)
[2022-08-10] MEDS: amLODIPine BESYLATE 5 MG TABLET 10 MG PO (08:18)
[2022-08-10] MEDS: lisinopriL 20 MG TABLET 40 MG PO (08:18)
[2022-08-10] MEDS: INSULIN ASPART (*BKC) 100 UNITS/ML SUB-Q (08:18)
[2022-08-10] MEDS: SIMETHICONE 80 MG TAB.CHEW PO ×2 (08:18→13:31)
--- NOTE | 2022-08-10 10:13 | PM.DS ---
DS: Admitting Diagnosis Discharge Date 08/10/22 Admitting Diagnosis Altered mental status DS: Discharge Diagnosis Discharge Diagnosis (1) Altered mental status: Code(s): R41.82 - Altered mental status, unspecified Status: Acute (2) UTI (urinary tract infection): Code(s): N39.0 - Urinary tract infection, site not specified Status: Acute (3) Hypertension, uncontrolled: Code(s): I10 - Essential (primary) hypertension Status: Acute (4) History of CVA (cerebrovascular accident): Code(s): Z86.73 - Personal history of transient ischemic attack (TIA), and cerebral infarction without residual deficits Status: Acute (5) Dyslipidemia: Code(s): E78.5 - Hyperlipidemia, unspecified Status: Acute (6) Type 2 diabetes mellitus without complications: Qualifiers: 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 Please see H&P for details. Hospital Course: The patient has hx of CVAs in the past with residual right sided weakness. More recently, patient with hemorrhagic CVA in May resulting in worsening right-sided weakness and aphasia [facility]. He was at a rehab facility but has been home for the past 3 weeks now.? Patient was noted to be lethargic and confused and brought to the emergency room for evaluation. Head CT here showing decrease in size of the hyperdense focus in the jagruti. Also with chronic lacunar infarct in the jagruti and right cerebellar infarct. Neurology consulted. COVID and influenza negative. Patient with UA concerning for UTI so IV abx started. His altered mental status felt related to the UTI. Patient's mental status returned to his baseline. Urine culture grew Enterococcus sensitive to Ampicillin. Abx changed to Amoxicillin. Murmur noted so Echo ordered and is pending. Patient has chronic hypertension. Blood pressure was not well controlled initially due difficulty getting an accurate medication list. Once he was back on his home medications, his blood pressure improved. A1c 10.4. The patient's blood glucose was monitored with AccuCheks covering with sliding scale.? Hypoglycemia protocol was available as needed.?Lantus dose decreased due to soft glucose values. Metformin continued since he has been taking this without issue. He has CKD and his creatinine runs 1.4-2.3 range over the past year. Cr was 1.6 and climbed to 2.0 (1.3 felt to be spurious) felt related to above. Also, he was on Lisinopril here but actually this was not a home medication so this was stopped at discharge. Suspect this will improve now that the inciting issue is being treated and off the MARIANNE inhibitor. Plan to repeat labs as outpatient. Patient feels well. He is walking to the bathroom with a walker. He overall did well and was able to be discharged home on 08/10/22 Status at Discharge Cognitive/behavioral status at discharge: stable Time Spent with Patient Time attestation: Total time spent providing and/or coordinating discharge services: 32 minutes Time spent: Greater than 30 minutes Exam Narrative: AF 97.2 105/63 81 16 98% ra Gen - NARD Chest -few basilar rhonchi with distant BS. CV - RRR S1/S2, 3/6 systolic murmur LUSB. Telemetry showing no alarms Abd - Soft, NT/ND, Positive BS Ext - No pedal edema. Neuro - Alert and appropriate. Very mild dysarthric speech. Right hemip
[2022-08-10 11:45] LABS: Glucose Point of Care 196 mg/dl (65-105)
--- NOTE | 2022-08-15 13:34 | PC.NURSE ---
Blood cx are negative. Dr. Adia nicole.
--- NOTE | 2022-08-15 13:46 | PC.NURSE ---
Echo results faxed to PCP.
== END 2022-08-10 14:01 | disposition home health service (06) ==
LOC: ANHED 19:31 → ANHIMU 22:00
PROVIDERS: Nurse Practitioner; Admitting Provider Family Medicine; Emergency Provider General Practice; PCP Family Medicine; Visit Provider Internal Medicine
DX: I63.9 Cerebral infarction, unspecified (principal); R41.82 Altered mental status, unspecified; N39.0 Urinary tract infection, site not specified; E78.5 Hyperlipidemia, unspecified; R29.708 NIHSS score 8; I69.351 Hemiplegia and hemiparesis following cerebral infarction affecting right dominant side; I69.320 Aphasia following cerebral infarction; I12.9 Hypertensive chronic kidney disease with stage 1 through stage 4 chronic kidney disease, or unspecified chronic kidney disease; E11.22 Type 2 diabetes mellitus with diabetic chronic kidney disease; N18.30 Chronic kidney disease, stage 3 unspecified; R53.83 Other fatigue; Z20.822 Contact with and (suspected) exposure to COVID-19; J98.11 Atelectasis; K59.00 Constipation, unspecified; I08.0 Rheumatic disorders of both mitral and aortic valves; R19.7 Diarrhea, unspecified; F10.90 Alcohol use, unspecified, uncomplicated; Z79.82 Long term (current) use of aspirin; Z79.4 Long term (current) use of insulin; Z79.52 Long term (current) use of systemic steroids; Z79.899 Other long term (current) drug therapy; Z79.891 Long term (current) use of opiate analgesic
CPT/HCPCS: 36415; 70450; 71045; 74018; 80053; 80069; 81001; 82948; 83036; 83605; 83690; 83735; 84100; 84443; 85025; 85027; 85610; 85730; 87040; 87086; 87147; 87181; 87186; 87636; 92610; 93005; 93306; 96361; 96365; 96366; 96374; 96375; 96376; 99285; A9270; G0378; J0360; J0696; J1815; J2060; J2405; J7030

== ENCOUNTER 2022-08-19 13:16 | Outpatient (NON) | payer OTHER, MEDICAID, SELFPAY ==
[2022-08-19 13:39] LABS: Alanine Aminotransferase 23 U/L (6-50); Alkaline Phosphatase 76 U/L (38-126); Anion Gap 6 mmol/L (8-16); Aspartate Amino Transferase 26 U/L (17-59); Basophils Absolute Auto 0.1 K/mm3 (0.0-0.1); Basophils Percent Auto 1.1 % (0.2-1.2); Bilirubin,Total 0.3 mg/dL (0.2-1.3); Blood Urea Nitrogen 24 mg/dL (9-20); Calcium 9.2 mg/dL (8.4-10.2); Carbon Dioxide 26 mmol/L (22-30); Chloride 100 mmol/L (98-107); Cholesterol 80 mg/dL (0-200); Eosinophils Absolute Auto 0.4 K/mm3 (0-0.3); Eosinophils Percent Auto 6.5 % (0-4.4); Estimated Glomerular Filt Rate > 60; Glucose 89 mg/dL (65-110); HDL Direct 25 mg/dL; Hematocrit 32.7 % (42.0-52.0); Immature Granulocyte Absolute 0.01 K/mm3 (0.00-0.031); Immature Granulocyte Percent A 0.2 % (0-0.5); Immature Platelet Fraction Pct 11.7 % (0.9-11.2); Lymphocytes Absolute Auto 1.31 K/mm3 (0.9-3.2); Lymphocytes Percent Auto 22.9 % (18.3-44.2); Mean Corpuscular HGB Conc 33.6 g/dl (32-36); Mean Corpuscular Hemoglobin 29.6 pg (26-34); Mean Corpuscular Volume 87.9 fl (80-100); Monocytes Absolute Auto 0.4 K/mm3 (0.1-0.6); Monocytes Percent Auto 7.2 % (2.6-8.5); Neutrophils Absolute Auto 3.6 K/mm3 (1.3-6.7); Neutrophils Percent Auto 62.1 % (45.5-73.1); Platelet Count Result 218 k/mm3 (150-375); Potassium 4.6 mmol/L (3.4-5.0); Red Blood Count 3.72 M/mm3 (4.6-6.20); Red Cell Distribution Width 12.8 % (11.5-14.5); Sodium 132 mmol/L (137-145); Triglycerides 125 mg/dL (<150); White Blood Count 5.7 K/mm3 (4.5-10.0)
[2022-08-19 14:10] LABS: LDL Cholesterol Direct < 30 mg/dL
== END 2022-08-19 13:17 | disposition home or self-care (01) ==
LOC: HOME HLTH 13:22
PROVIDERS: PCP Family Medicine; Visit Provider Nurse Practitioner
DX: N18.31 Chronic kidney disease, stage 3a (principal); I10 Essential (primary) hypertension; R33.9 Retention of urine, unspecified; E78.5 Hyperlipidemia, unspecified
CPT/HCPCS: 80053; 80061; 85025; 85055

== ENCOUNTER 2022-09-22 13:29 | Outpatient (CLI) | payer OTHER, MEDICAID, SELFPAY ==
[2022-09-22 14:03] LABS: Alanine Aminotransferase 24 U/L (6-50); Albumin Level 4.5 g/dL (3.5-5.1); Alkaline Phosphatase 88 U/L (38-126); Anion Gap 11 mmol/L (8-16); Aspartate Amino Transferase 35 U/L (17-59); Bilirubin,Total 0.5 mg/dL (0.2-1.3); Blood Urea Nitrogen 25 mg/dL (9-20); Calcium 9.4 mg/dL (8.4-10.2); Carbon Dioxide 22 mmol/L (22-30); Chloride 102 mmol/L (98-107); Estimated Glomerular Filt Rate > 60; Glucose 170 mg/dL (65-110); Magnesium 1.6 mg/dL (1.6-2.3); Potassium 4.5 mmol/L (3.4-5.0); Sodium 135 mmol/L (137-145)
== END 2022-09-22 13:30 | disposition home or self-care (01) ==
PROVIDERS: PCP Family Medicine
DX: I10 Essential (primary) hypertension (principal); N18.30 Chronic kidney disease, stage 3 unspecified; E78.2 Mixed hyperlipidemia; Z86.73 Personal history of transient ischemic attack (TIA), and cerebral infarction without residual deficits; E11.69 Type 2 diabetes mellitus with other specified complication; Z79.4 Long term (current) use of insulin
CPT/HCPCS: 36415; 80053; 83735

== ENCOUNTER 2022-12-03 11:52 | Outpatient (CLI) | payer MEDICAID, SELFPAY ==
[2022-12-03 12:35] LABS: Anion Gap 12 mmol/L (8-16); Blood Urea Nitrogen 22 mg/dL (9-20); Calcium 9.7 mg/dL (8.4-10.2); Carbon Dioxide 26 mmol/L (22-30); Chloride 101 mmol/L (98-107); Cholesterol 113 mg/dL (0-200); Estimated Glomerular Filt Rate > 60; Glucose 101 mg/dL (65-110); HDL Direct 33 mg/dL; Potassium 4.3 mmol/L (3.4-5.0); Sodium 139 mmol/L (137-145); Triglycerides 149 mg/dL (<150)
[2022-12-03 12:45] LABS: LDL Cholesterol Direct 50 mg/dL
== END 2022-12-03 11:53 | disposition home or self-care (01) ==
PROVIDERS: PCP Family Medicine; Visit Provider Internal Medicine Cardiovascular Disease
DX: I10 Essential (primary) hypertension (principal); E78.5 Hyperlipidemia, unspecified
CPT/HCPCS: 36415; 80048; 80061

== ENCOUNTER 2023-03-08 10:23 | Outpatient (CLI) | payer OTHER, SELFPAY ==
--- NOTE | ~2023-03-08 | XR_ITS ---
Clinical Indication: Chronic cough PA and lateral views of the chest: Comparison: 08/07/2022 Findings: The lungs are clear, without evidence of focal consolidation or pleural effusion. Cardiome diastinal silhouette is within normal limits. Bones and soft tissues are unremarkable. Impression: Normal chest. Reviewed, dictated and finalized at location . Impression: Normal chest.
[2023-03-08 12:26] LABS: Anion Gap 8 mmol/L (8-16); Blood Urea Nitrogen 20 mg/dL (9-20); Calcium 10.1 mg/dL (8.4-10.2); Carbon Dioxide 28 mmol/L (22-30); Chloride 103 mmol/L (98-107); Cholesterol 131 mg/dL (0-200); Estimated Glomerular Filt Rate > 60; Glucose 106 mg/dL (65-110); HDL Direct 41 mg/dL; Potassium 4.6 mmol/L (3.4-5.0); Sodium 139 mmol/L (137-145); Triglycerides 132 mg/dL (<150)
[2023-03-08 12:37] LABS: LDL Cholesterol Direct 50 mg/dL
[2023-03-08 13:04] LABS: Vitamin D 25 Hydroxy 73.4 ng/mL
[2023-03-08 13:31] LABS: Folic Acid > 20.0 ng/mL (2.76->20)
[2023-03-11 21:29] LABS: PSA, Free 0.17 ng/mL; PSA, Total 0.3 ng/mL (<=4.0)
== END 2023-03-08 10:24 | disposition home or self-care (01) ==
PROVIDERS: PCP Nurse Practitioner; Visit Provider Nurse Practitioner
DX: E78.5 Hyperlipidemia, unspecified (principal); R53.1 Weakness; E55.9 Vitamin D deficiency, unspecified; R33.9 Retention of urine, unspecified; R05.3 Chronic cough
CPT/HCPCS: 36415; 71046; 80048; 80061; 82306; 82607; 82746; 84153; 84154; 84443

== ENCOUNTER 2023-04-09 13:41 | Emergency (ER) | payer OTHER, SELFPAY ==
[2023-04-09] VITALS (13 sets, daily range): BP systolic 142–179; BP diastolic 47–83; PULSE 61–67; RESP 14–32; TEMP 36.6; O2SAT 98–100
--- NOTE | ~2023-04-09 | XR_ITS ---
EXAMINATION: XR chest 2V DATE: 04/09/2023 14:14 INDICATION: Shortness of breath. Chest pain. TECHNIQUE: Frontal and lateral views of the chest were obtained. COMPARISON: Chest 2 views 03/08/2023 FINDINGS: There is no pneumonia, pleural effusion, or pneumothorax. The heart size is normal. IMPRESSION: 1. No acute cardiopulmonary disease. Reviewed, dictated and finalized at location A.
--- NOTE | ~2023-04-09 | CT_ITS ---
EXAMINATION: CT brain wo con DATE: 04/09/2023 17:04 INDICATION: dysphagia . TECHNIQUE: Computed tomography (CT) of the head was performed without intravenous contrast. The mA wa s adjusted according to patient size. Iterative reconstruction technique was employed. The dose-lengt h product was 605.33 mGy-cm. COMPARISON: 08/07/2022. FINDINGS: No acute intracranial hemorrhage or extra-axial fluid collection. No hydrocephalus, mass, or herniation. No acute ischemic infarct. Unremarkable dural venous sinus attenuation. No acute osseous abnormality. Small retention cyst or polyp in the right sphenoid sinus, the remaining aerated spaces are clear. Mild atrophy and moderate chronic white matter change. Atherosclerotic intracranial calcification. Fo courtney old left basal ganglia lacunar, pontine, and right cerebellar infarcts. Focal calcification in th e midline posterior jagruti in a site of prior hemorrhage. Bilateral lens replacements. IMPRESSION: No acute intracranial process. Reviewed, dictated and finalized at location K.
--- NOTE | 2023-04-09 13:43 | ECG_ITS ---
Measurements Intervals [place] Rate: 67 P: 52 [place]: 164 QRS: 75 QRSD: 88 T: 128 QT: 405 QTc: 428 Interpretive Statements SINUS RHYTHM NONSPECIFIC ST & T-WAVE ABNORMALITY COMPARED TO ECG 08/07/2022 15:32:39 NO SIGNIFICANT CHANGES Electronically Signed On 04-09-2023 14:30:24 CDT by Maliha Cates M.D.
[2023-04-09 14:01] LABS: Basophils Absolute Auto 0.1 K/mm3 (0.0-0.1); Basophils Percent Auto 1.3 % (0.2-1.2); Eosinophils Absolute Auto 0.7 K/mm3 (0-0.3); Eosinophils Percent Auto 10.5 % (0-4.4); Hematocrit 38.3 % (42.0-52.0); Hemoglobin 12.5 g/dL (14.0-18.0); Immature Granulocyte Absolute 0.03 K/mm3 (0.00-0.031); Immature Granulocyte Percent A 0.4 % (0-0.5); Lymphocytes Absolute Auto 1.36 K/mm3 (0.9-3.2); Lymphocytes Percent Auto 19.6 % (18.3-44.2); Mean Corpuscular HGB Conc 32.6 g/dl (32-36); Mean Corpuscular Hemoglobin 28.7 pg (26-34); Mean Platelet Volume 11.5 fl (7.4-10.4); Monocytes Absolute Auto 0.5 K/mm3 (0.1-0.6); Monocytes Percent Auto 7.1 % (2.6-8.5); Neutrophils Absolute Auto 4.2 K/mm3 (1.3-6.7); Neutrophils Percent Auto 61.1 % (45.5-73.1); Platelet Count Result 239 k/mm3 (150-375); Red Blood Count 4.35 M/mm3 (4.6-6.20); Red Cell Distribution Width 13.2 % (11.5-14.5); White Blood Count 6.9 K/mm3 (4.5-10.0)
[2023-04-09 14:13] LABS: Alanine Aminotransferase 27 U/L (6-50); Albumin Level 4.7 g/dL (3.5-5.1); Alkaline Phosphatase 65 U/L (38-126); Anion Gap 11 mmol/L (8-16); Aspartate Amino Transferase 26 U/L (17-59); Bilirubin,Total 0.3 mg/dL (0.2-1.3); Blood Urea Nitrogen 24 mg/dL (9-20); Calcium 9.8 mg/dL (8.4-10.2); Carbon Dioxide 27 mmol/L (22-30); Chloride 100 mmol/L (98-107); Estimated CRCL calculation 78 ml/min; Estimated Glomerular Filt Rate > 60; Glucose 182 mg/dL (65-110); Potassium 4.4 mmol/L (3.4-5.0); Sodium 138 mmol/L (137-145)
--- NOTE | 2023-04-09 17:10 | ED.SOB ---
HPI - SOB/Dyspnea General Chief Complaint: Shortness of Breath/Dyspnea Stated Complaint: sob Time Seen by Provider: 04/09/23 16:14 Source: patient and family Limitations: physical limitation History of Present Illness HPI Narrative: Patient is a 52-year-old male presents to the emergency department accompanied by family for difficulty breathing and chest tightness. HPI is limited secondary to patient's history of aphasia, patient is able to answer with 1-2 word answers. Patient states he woke up with this and felt tightness throughout both sides of his chest, nonradiating, denies history of this in the past, admits associate shortness of breath, and states that he did not have that last night prior to going to bed, believes that it started sometime around 10 or 11 AM and he has not tried anything for it, has not noticed anything making the chest tightness better or worse. Patient states for the past 2 days he has been experiencing difficulty swallowing which he is never had in the past. Family notes that patient's current breathing pattern is how he typically breathes when asked about his rapid breathing. Family states that the patient is currently pending multiple advanced testing including MRI as an outpatient. Patient denies any new numbness or weakness. Patient has a history of right-sided hemiparalysis from a stroke. Patient denies dizziness, diplopia, vision changes, abnormal coordination, confusion, cough, fever, abdominal pain, vomiting, nausea, diarrhea, melena, hematochezia, rash, dysuria, hematuria, urinary frequency, urinary urgency, headache, recent injuries, recent illness. Patient has a taking of his medications as prescribed without any recent changes. Patient denies history of blood clots and denies use of blood thinners. Patient denies unilateral lower extremity swelling. Patient denies history of smoking or asthma. Related Data Home Medications Medication Instructions Recorded Confirmed amlodipine 10 mg tablet 10 mg PO DAILY 08/08/22 08/08/22 atorvastatin 40 mg tablet (Lipitor) 40 mg PO QHS 08/08/22 08/08/22 insulin lispro 100 unit/mL 5 units subcut BIDWM 08/08/22 08/08/22 subcutaneous solution (Humalog U-100 Insulin) Allergies Allergy/AdvReac Type Severity Reaction Status Date / Time No Known Allergies Allergy Verified 04/09/23 16:17 [facility] Past Medical History Medical History CKD (chronic kidney disease) stage 3, GFR 30-59 ml/min Dyslipidemia Essential (primary) hypertension History of seizure History of stroke with residual effects Type 2 diabetes mellitus without complications Family History Family History Other Diabetes mellitus Family history of allergic disorder Family history of coronary artery disease Social History Social History Social History: The patient typically lives with his but she is currently in the hospital so he has been staying with his mother and his sister has been helping out. He has 3 children and is disabled. Lifelong nonsmoker. Code status full code Smoking status: Never smoker Alcohol intake: unknown Substance use: unknown Substance use type: does not use Lack of Transportation: No Lack of Food: Never True Current Housing: I Have Housing Concerned About Future Housing: No Difficulty Paying Gas/Electric Bills: No Difficulty Paying for Meds: No Currently Unemployed: No Education: Decline to Answer Difficulty w/ Childcare or Family Care: No Living arrangements: with family Occupation/Education: unemployed Gender identity (if verbalized by the patient): Male Spiritual care concerns: No Exam Const: General: alert Limitations: physical limitations (History of right-sided hemiparalysis, aphasia) HENMT: Head: normal to inspection Mouth: Yes dry mu
[2023-04-09 18:53] LABS: INR 1.1; Prothrombin Time 14.2 Seconds (11.1-14.7)
[2023-04-09 18:56] LABS: Magnesium 1.6 mg/dL (1.6-2.3)
[2023-04-09 18:57] LABS: D Dimer 0.49 ug/mL (<0.48)
[2023-04-09 19:08] LABS: NT Pro B Type Natriuretic Pept 288 pg/mL (19.9-100); Troponin I < 0.012 ng/mL (0.000-0.034)
[2023-04-09] MEDS: LACTATED RINGERS 1,000 ML 999 ML IV CONT (20:32)
--- NOTE | 2023-04-09 22:35 | PC.NURSE ---
Report called to Haroon BRISCOE @[id number]. Transport for pt to [facility] set for [id number]
== END 2023-04-09 23:49 | disposition short-term general hospital (02) ==
PROVIDERS: Emergency Provider Student in an Organized Health Care Education/Training Program; PCP Nurse Practitioner
DX: R13.10 Dysphagia, unspecified (principal); I12.9 Hypertensive chronic kidney disease with stage 1 through stage 4 chronic kidney disease, or unspecified chronic kidney disease; E11.22 Type 2 diabetes mellitus with diabetic chronic kidney disease; N18.30 Chronic kidney disease, stage 3 unspecified; E78.5 Hyperlipidemia, unspecified; Z79.4 Long term (current) use of insulin; Z86.73 Personal history of transient ischemic attack (TIA), and cerebral infarction without residual deficits
CPT/HCPCS: 36415; 70450; 71046; 80053; 83735; 83880; 84484; 85025; 85380; 85610; 85730; 86850; 86900; 86901; 93005; 96360; 99285; J7120

== ENCOUNTER 2023-11-21 09:49 | Observation (INO) | payer OTHER, SELFPAY ==
[2023-11-21] VITALS (8 sets, daily range): BP systolic 126–156; BP diastolic 71–98; PULSE 61–73; RESP 16–22; TEMP 36.2–38.9; O2SAT 91–99; BMI 24.4
--- NOTE | ~2023-11-21 | XR_ITS ---
XR chest 2V 11/21/2023 10:35 Indication: Fever Procedure: 2 view chest Comparison: Comparison to multiple prior studies sequentially, with oldest reviewed study dated 05/31. Findings: Heart size normal. No focal air space disease, pulmonary edema, pleural effusion or suspect ed pneumothorax. Impression: 1: No acute cardiopulmonary disease. Reviewed, dictated and finalized at location A. Impression: 1: No acute cardiopulmonary disease.
--- NOTE | 2023-11-21 09:56 | ECG_ITS ---
Measurements Intervals [place] Rate: 65 P: 26 [place]: 175 QRS: 65 QRSD: 93 T: 142 QT: 408 QTc: 426 Interpretive Statements SINUS RHYTHM LEFT VENTRICULAR HYPERTROPHY AND ST-T CHANGE BORDERLINE ST-T WAVE ABNORMALITY- INF/HIGH LAT LEADS BASELINE ARTIFACT- I, II, III, AVR, AVL, AVF, V1, V4 BORDERLINE ECG COMPARED TO ECG 04/09/2023 13:53:16 LEFT VENTRICULAR HYPERTROPHY NOW PRESENT Electronically Signed On 11-21-2023 12:15:59 CDT by Adonis Dent D.O.
[2023-11-21] MEDS: ACETAMINOPHEN 650 MG SUPPOSITORY 975 MG RECTAL (10:09)
[2023-11-21] MEDS: SODIUM CHLORIDE 0.9% IV 1,000 ML 999 ML IV CONT (10:10)
[2023-11-21 10:26] LABS: Bacteria Urine None Seen /hpf; RBC Urine 0-2 /hpf (0-2); Squamous Epithelial Cell Urine None Seen /hpf (Few); WBC Urine 0-5 /hpf (0-3)
[2023-11-21 10:28] LABS: Appearance Urine Clear (Clear); Color Urine Yellow (Yellow)
[2023-11-21 10:29] LABS: Bilirubin Urine Negative (Negative); Blood Urine Negative (Negative); Glucose Urine UA Negative (Negative); Ketones Urine Trace mg/dL (Negative); Leukocyte Esterase Ur Negative LEU/UL (Negative); Nitrate Urine Negative (Negative); Protein Urine 2+ mg/dL (Negative); Specific Grav Ur 1.025 (1.001-1.035)
[2023-11-21 10:30] LABS: Add Urine Microscopic? YES
--- NOTE | 2023-11-21 10:50 | ED.AMS ---
HPI - Altered Mental Status General Chief Complaint: Altered Mental Status Stated Complaint: ams Time Seen by Provider: 11/21/23 09:50 Source: family and EMS Mode of arrival: EMS Limitations: no limitations History of Present Illness HPI narrative: 53-year-old male presenting with altered mental status. Patient is alert and oriented times 0, nonverbal since the stroke a few years ago with right-sided deficits. family says he has been more weak and had a fever so they called EMS. Related Data Home Medications Medication Instructions Recorded Confirmed amlodipine 10 mg tablet 10 mg PO DAILY 08/08/22 08/08/22 atorvastatin 40 mg tablet (Lipitor) 40 mg PO QHS 08/08/22 08/08/22 insulin lispro 100 unit/mL 5 units subcut BIDWM 08/08/22 08/08/22 subcutaneous solution (Humalog U-100 Insulin) Allergies Allergy/AdvReac Type Severity Reaction Status Date / Time No Known Allergies Allergy Verified 04/09/23 16:17 Review of Systems Review of Systems: All systems reviewed & are unremarkable except as noted in HPI and below PMFSH Past Medical History Medical History CKD (chronic kidney disease) stage 3, GFR 30-59 ml/min Dyslipidemia Essential (primary) hypertension History of seizure History of stroke with residual effects Type 2 diabetes mellitus without complications Family History Family History Other Diabetes mellitus Family history of allergic disorder Family history of coronary artery disease Social History Social History Social History: The patient typically lives with his but she is currently in the hospital so he has been staying with his mother and his sister has been helping out. He has 3 children and is disabled. Lifelong nonsmoker. Code status full code Smoking status: Never smoker Alcohol intake: unknown Substance use: unknown Substance use type: does not use Lack of Transportation: No Lack of Food: Never True Current Housing: I Have Housing Concerned About Future Housing: No Difficulty Paying Gas/Electric Bills: No Difficulty Paying for Meds: No Currently Unemployed: No Education: Decline to Answer Difficulty w/ Childcare or Family Care: No Living arrangements: with family Occupation/Education: unemployed Gender identity (if verbalized by the patient): Male Spiritual care concerns: No Exam Narrative: Constitutional: Generally well appearing, no acute distress Head: Atraumatic, no deformities. Eyes: Pupils equal, round, and reactive to light. Neck: Supple, no tracheal deviation, no JVD. ENMT: Mucous membranes moist Cardiovascular: S1, S2 auscultated. No murmurs, rubs, or gallops. No S3/S4. Normal Distal pulses. No peripheral edema. Respiratory: Lung sounds equal. No wheezes, rales, or rhonchi. Gastrointestinal: Abdomen was soft and non-tender. Non-distended. No rebound or guarding. Genitourinary: Deferred Musculoskeletal: Right upper and lower extremity contracture Skin: No rashes. Neurological: right upper and lower extremity contracture. Mental Status: Awake, looking around the room. Nonverbal. Following basic commands Course Vital Signs Vital signs: Vital Signs Temperature 38.9 C H 11/21/23 09:49 Pulse Rate 73 11/21/23 09:49 Respiratory Rate 20 11/21/23 09:49 Pulse Oximetry 96 11/21/23 09:49 Oxygen Delivery Room Air 11/21/23 09:49 Temperature 36.7 C 11/21/23 12:22 Pulse Rate 70 11/21/23 12:22 Respiratory Rate 16 11/21/23 12:22 Blood Pressure 148/93 H 11/21/23 12:22 Pulse Oximetry 99 11/21/23 12:22 Oxygen Delivery Room Air 11/21/23 09:57 MDM - Altered Mental Status MDM Narrative Medical decision making narrative: 53-year-old female with history of stroke with profound residual deficits who is nonv
[2023-11-21 11:25] LABS: Basophils Absolute Auto 0.1 K/mm3 (0.0-0.1); Basophils Percent Auto 1.1 % (0.2-1.2); Eosinophils Absolute Auto 0.2 K/mm3 (0-0.3); Eosinophils Percent Auto 3.2 % (0-4.4); Hemoglobin 11.9 g/dL (14.0-18.0); Immature Granulocyte Absolute 0.01 K/mm3 (0.00-0.031); Immature Granulocyte Percent A 0.2 % (0-0.5); Lymphocytes Absolute Auto 0.66 K/mm3 (0.9-3.2); Lymphocytes Percent Auto 11.7 % (18.3-44.2); Mean Corpuscular HGB Conc 32.2 g/dl (32-36); Mean Corpuscular Hemoglobin 28.9 pg (26-34); Mean Corpuscular Volume 89.8 fl (80-100); Mean Platelet Volume 11.9 fl (7.4-10.4); Monocytes Absolute Auto 0.8 K/mm3 (0.1-0.6); Monocytes Percent Auto 13.5 % (2.6-8.5); Neutrophils Percent Auto 70.3 % (45.5-73.1); Platelet Count Result 181 k/mm3 (150-375); Red Blood Count 4.12 M/mm3 (4.6-6.20); Red Cell Distribution Width 13.3 % (11.5-14.5); White Blood Count 5.6 K/mm3 (4.5-10.0)
[2023-11-21 11:39] LABS: INR 1.1; Partial Thromboplastin Time 35.3 Seconds (22.3-36.8); Prothrombin Time 15.1 Seconds (11.1-14.7)
[2023-11-21 11:40] LABS: Alanine Aminotransferase 37 U/L (6-50); Albumin Level 4.4 g/dL (3.5-5.1); Alkaline Phosphatase 86 U/L (38-126); Anion Gap 5 mmol/L (8-16); Aspartate Amino Transferase 25 U/L (17-59); Bilirubin,Total 0.5 mg/dL (0.2-1.3); Blood Urea Nitrogen 20 mg/dL (9-20); CRP 0.8 mg/dL (<1.0); Calcium 9.6 mg/dL (8.4-10.2); Carbon Dioxide 32 mmol/L (22-30); Chloride 105 mmol/L (98-107); Estimated CRCL calculation 66 ml/min; Estimated Glomerular Filt Rate > 60; Glucose 115 mg/dL (65-110); Potassium 3.9 mmol/L (3.4-5.0); Sodium 142 mmol/L (137-145)
[2023-11-21 12:02] LABS: Influenza A QL RT-PCR Negative (Negative); Influenza B QL RT-PCR Negative (Negative); RSV RNA, RT-PCR Negative (Negative); SARS-CoV-2 RNA PCR Positive (Negative)
--- NOTE | 2023-11-21 12:18 | PC.NURSE ---
2 techs attempted to ambulate pt with a walker. pt unable to ambulate with walker. per family, pt able to typically ambulate at home. family states they are not comfortable with pt being discharged home unable to ambulate.
--- NOTE | 2023-11-21 15:05 | PC.NURSE ---
This patient, Corky Bland, was admitted to 3 [facility] Surg Room 311-01. Patient/family oriented to hospital policies and general routines including ID bracelet, bed and alarms, visiting hours, pain management, procedures, bathroom and other care routines, personal items, smoking policy, room service/diet, and visiting hours. Information on how to activate the Rapid Response Team has been discussed. Patient/Family are encouraged to report perceived risks to care and to ask questions if they do not understand what they are told or what they should do.
--- NOTE | 2023-11-21 15:49 | PM.IMHP ---
H&P: HPI History of Present Illness Date/Time: 11/21/23 16:15 Chief Complaint: Fever and weakness. Narrative: This is a 53-year-old male with history of stroke and residual dysarthria and right-sided deficits, hypertension, and insulin-dependent diabetes mellitus who presented to the emergency department via EMS from home for evaluation of fever and weakness. He is able to provide some history but a majority the following is obtained via a review of his EMR as well as information provided by his family members. He has been increasingly weak the last day or so and has been running a fever. Family members are having difficulties caring for him because he is so weak and is unable to assist them with transferring. Temperature was 102? F on arrival with stable blood pressures. He tested positive for SARS-CoV-2 by PCR. Chest x-ray was normal. Labs did not show any significant change from baseline. He was given a L normal saline bolus as he looks dry on exam and he is being admitted in this setting for further care as he is too weak to go home. At the time my evaluation he feels okay and he complains only of hunger. He endorses mild body aches and a nonproductive cough. He denies headache, sore throat, chest pain, nausea, vomiting, diarrhea, and dysuria. Review of Systems Review of Systems: Unable to obtain from patient given his clinical condition. [facility] Past Medical History Medical History Cerebrovascular accident (05/2022) Residual aphasia and right-sided deficits. Chronic anemia Chronic kidney disease, stage 3 Dyslipidemia Essential (primary) hypertension Insulin dependent type 2 diabetes mellitus Psoriasis Seizure Family History Family History Other Diabetes mellitus Family history of allergic disorder Family history of coronary artery disease Social History Social History (Updated 11/21/23 @ 15:59 by Brandy Boo PA-C) Social History: Surrogate medical decision maker: Alicia Bland (spouse) or Shena Bland (mother). Code status: Full code. Smoking status: Never smoker Alcohol intake: unknown Substance use: never Substance use type: does not use Do You Feel Safe in your Home?: Yes Lack of Transportation: No Lack of Food: Never True Current Housing: I Have Housing Concerned About Future Housing: Decline to Answer Difficulty Paying Gas/Electric Bills: Decline to Answer Difficulty Paying for Meds: Decline to Answer Currently Unemployed: Decline to Answer Education: Don't Know Difficulty w/ Childcare or Family Care: Decline to Answer Living arrangements: with family Occupation/Education: unemployed Spiritual care concerns: No Meds Home Medications and Allergies Home Medications Medication Instructions Recorded Confirmed Type atorvastatin 40 mg tablet (Lipitor) 40 mg PO QHS 08/08/22 11/21/23 History blood sugar diagnostic ([facility] 11/21/23 11/21/23 History Verio test strips) carboxymethylcellulose sodium 1 % 1 drp EACH EYE TID 11/21/23 11/21/23 History eye liquid gel drops carvedilol 12.5 mg tablet 12.5 mg PO Q12H 11/21/23 11/21/23 History escitalopram oxalate 20 mg tablet 20 mg PO HS 11/21/23 11/21/23 History hydralazine 25 mg tablet 25 mg PO TID Anxiety,itching 11/21/23 11/21/23 History hydrochlorothiazide 25 mg tablet 25 mg PO DAILY 11/21/23 11/21/23 History insulin glargine 100 unit/mL (3 17 unit subcut HS 11/21/23 11/21/23 History mL) subcutaneous pen (Lantus Solostar U-100 Insulin) insulin lispro 100 unit/mL 5 unit subcut TIDWM 11/21/23 11/21/23 History subcutaneous solution (Humalog U-100 Insulin) lancets 33 gauge ([facility] 11/21/23 11/21/23 History Plus Lancet) metformin 500 mg tablet 500 mg PO DAILY 11/21/23 11/21/23 History nifedipine 90 mg tablet,extended 90 mg PO DAILY 11/21/23 11/21/23 History release 24 hr
[2023-11-21] MEDS: REMDESIVIR 200 MG/NS 250 ML 200 MG/250 ML BAG 250 MG IVPB (17:20)
[2023-11-21] MEDS: SODIUM CHLORIDE 0.9% IV 1,000 ML 100 ML IV CONT (17:20)
[2023-11-21 17:24] LABS: Glucose Point of Care 90 mg/dl (65-105)
[2023-11-21 20:36] LABS: Glucose Point of Care 84 mg/dl (65-105)
[2023-11-21] MEDS: ATORVASTATIN 40 MG TABLET PO (22:29)
[2023-11-21] MEDS: carvediloL 12.5 MG TABLET PO (22:29)
[2023-11-21] MEDS: ESCITALOPRAM OXALATE 10 MG TABLET 20 MG PO (22:30)
[2023-11-21] MEDS: hydrALAZINE HCL 25 MG TABLET PO (22:30)
[2023-11-22] VITALS (7 sets, daily range): BP systolic 126–166; BP diastolic 55–81; PULSE 56–80; RESP 18–20; TEMP 36.2–37.1; O2SAT 92–99
[2023-11-22 06:54] LABS: Hematocrit 36.1 % (42.0-52.0); Hemoglobin 11.3 g/dL (14.0-18.0); Mean Corpuscular HGB Conc 31.3 g/dl (32-36); Mean Corpuscular Hemoglobin 28.5 pg (26-34); Mean Corpuscular Volume 90.9 fl (80-100); Mean Platelet Volume 11.9 fl (7.4-10.4); Platelet Count Result 167 k/mm3 (150-375); Red Blood Count 3.97 M/mm3 (4.6-6.20); Red Cell Distribution Width 13.2 % (11.5-14.5); White Blood Count 5.2 K/mm3 (4.5-10.0)
[2023-11-22 07:10] LABS: Anion Gap 9 mmol/L (8-16); Blood Urea Nitrogen 16 mg/dL (9-20); CRP 0.7 mg/dL (<1.0); Calcium 9.2 mg/dL (8.4-10.2); Carbon Dioxide 25 mmol/L (22-30); Chloride 103 mmol/L (98-107); Estimated CRCL calculation 96 ml/min; Estimated Glomerular Filt Rate > 60; Glucose 91 mg/dL (65-110); Lactate Dehydrogenase 165 U/L (120-246); Magnesium 1.9 mg/dL (1.6-2.3); Potassium 3.7 mmol/L (3.4-5.0); Sodium 137 mmol/L (137-145)
[2023-11-22 07:47] LABS: Glucose Point of Care 86 mg/dl (65-105)
[2023-11-22] MEDS: hydrALAZINE HCL 25 MG TABLET PO ×3 (09:58→18:40)
[2023-11-22] MEDS: ARTIFICIAL TEARS OPHTH SOLN 15 ML BOTTLE 1 DROP EACH EYE ×3 (09:58→18:40)
[2023-11-22] MEDS: carvediloL 12.5 MG TABLET PO ×2 (09:59→20:56)
[2023-11-22] MEDS: hydroCHLOROthiazide 25 MG TABLET PO (10:00)
[2023-11-22] MEDS: TRIAMCINOLONE ACET 0.1% CREAM 80 GM TUBE 1 APPLIC TOPICAL ×2 (10:00→18:39)
[2023-11-22] MEDS: PANTOPRAZOLE 40 MG TABLET PO (10:00)
[2023-11-22] MEDS: NIFEdipine 30 MG TAB.ER.24 90 MG PO (10:00)
[2023-11-22] MEDS: TAMSULOSIN HCL 0.4 MG CAPSULE PO (10:00)
--- NOTE | 2023-11-22 11:09 | PM.IMPN ---
Progress Note: A&P Assessment and Plan (1) COVID: Code(s): U07.1 - COVID-19 Status: Acute Assessment and Plan: Stable not requiring oxygen, chest x-ray reveals no acute cardiopulmonary disease On RA, SpO2 99% -continue remdesivir1/5 doses received - continue telemetry monitoring - continue oxygen titration therapy to maintain SpO2 above 93% p.r.n. (2) Generalized weakness: Code(s): R53.1 - Weakness Status: Acute Assessment and Plan: suspect secondary to COVID dx -patient is bedbound, reports made by family the patient was difficult to transfer, due to his increased weakness - initiate fall precaution -PT eval and treat (3) Insulin dependent type 2 diabetes mellitus: Code(s): E11.9 - Type 2 diabetes mellitus without complications; Z79.4 - long-term (current) use of insulin Status: Acute Assessment and Plan: 08/07/22 10.4 - recheck A1c - continue bedside glucose management ACHS -continue home insulin Lantus 17 units subQ (4) Essential (primary) hypertension: Code(s): I10 - Essential (primary) hypertension Status: Acute Assessment and Plan: -continue home medication continue home medication Hydralazine continue home medication Nifedipine (5) Dyslipidemia: Code(s): E78.5 - Hyperlipidemia, unspecified Status: Acute Assessment and Plan: -continue home medication atorvastatin Plan Continue home medications: VTE Prophylaxis: enoxaparin subQ DIET: diabetic consistent carbohydrate Anticipated hospital stay: > 2 days Code Status: full Subjective Date/time seen: 11/22/23 11:09 Interval history: chief complaint, fever and weakness HPI per chart review: 53-year-old male with history of stroke and residual dysarthria and right-sided deficits, hypertension, and insulin-dependent diabetes mellitus who presented to the emergency department via EMS from home for evaluation of fever and weakness. He is able to provide some history but a majority the following is obtained via a review of his EMR as well as information provided by his family members. He has been increasingly weak the last day or so and has been running a fever. Family members are having difficulties caring for him because he is so weak and is unable to assist them with transferring. Temperature was 102? F on arrival with stable blood pressures. He tested positive for SARS-CoV-2 by PCR. Chest x-ray was normal. Labs did not show any significant change from baseline. He was given a L normal saline bolus as he looks dry on exam and he is being admitted in this setting for further care as he is too weak to go home. At the time my evaluation he feels okay and he complains only of hunger. He endorses mild body aches and a nonproductive cough. He denies headache, sore throat, chest pain, nausea, vomiting, diarrhea, and dysuria. Interval Hx:11/21 Patient seen this morning he is resting, in no acute distress not requiring oxygen, he is able to provide HPI he denies any overnight events, to include SOB, chest pain, fever chills nausea vomiting. He reports he lives at home with his mother who is his primary caregiver. He denies any close sick contacts. Review of Systems Review of Systems: All systems reviewed & are unremarkable except as noted in HPI and below Exam Narrative: General: Chronically ill-appearing male in the semi-Harvey position in bed. HEENT: PERRL, EOMI. Sclera anicteric. Tacky mucous membranes. Neck: Supple. Respiratory: Lungs are clear to auscultation bilaterally. Cardiovascular: Regular rate and rhythm with S1-S2. Gastrointestinal: Abdomen is soft, nontender, and nondistended with positive bowel sounds. Skin: Warm and dry. No rash or lesions on limited exam. Extremities: No cyanosis, clubbing, or edema. Radial and pedal pulses intact. Neurological: Alert. Cranial nerves 2-12 are grossly intact. Suffers from dysarthria and mild expre
[2023-11-22 11:30] LABS: Glucose Point of Care 153 mg/dl (65-105)
--- NOTE | 2023-11-22 16:06 | PCRCNOTE ---
RT spoke to patient. Patient stated his family might be able to bring in his home CPAP unit. RN will call family.
[2023-11-22 16:35] LABS: Glucose Point of Care 86 mg/dl (65-105)
[2023-11-22 20:24] LABS: Glucose Point of Care 164 mg/dl (65-105)
[2023-11-22] MEDS: ATORVASTATIN 40 MG TABLET PO (20:56)
[2023-11-22] MEDS: ESCITALOPRAM OXALATE 10 MG TABLET 20 MG PO (20:56)
[2023-11-22] MEDS: INSULIN GLARGINE (*BKC) 100 UNITS/ML 17 UNITS SUB-Q (20:57)
[2023-11-22] MEDS: REMDESIVIR 100 MG/NS 250 ML 100 MG/250 ML BAG 250 MG IVPB (21:02)
[2023-11-23 04:32] VITALS: BP 140/71; PULSE 57; RESP 18; TEMP 36.4; O2SAT 90
[2023-11-23 07:36] LABS: Glucose Point of Care 103 mg/dl (65-105)
[2023-11-23 09:02] VITALS: PULSE 64
[2023-11-23] MEDS: carvediloL 12.5 MG TABLET PO ×2 (09:02→20:25)
[2023-11-23] MEDS: NIFEdipine 30 MG TAB.ER.24 90 MG PO (09:02)
[2023-11-23] MEDS: TAMSULOSIN HCL 0.4 MG CAPSULE PO (09:02)
[2023-11-23] MEDS: PANTOPRAZOLE 40 MG TABLET PO (09:02)
[2023-11-23] MEDS: hydrALAZINE HCL 25 MG TABLET PO ×3 (09:03→17:33)
[2023-11-23] MEDS: ARTIFICIAL TEARS OPHTH SOLN 15 ML BOTTLE 1 DROP EACH EYE ×3 (09:03→17:32)
[2023-11-23] MEDS: hydroCHLOROthiazide 25 MG TABLET PO (09:03)
[2023-11-23] MEDS: ENOXAPARIN 40 MG/0.4 ML SYRINGE SUB-Q (09:03)
[2023-11-23] MEDS: TRIAMCINOLONE ACET 0.1% CREAM 80 GM TUBE 1 APPLIC TOPICAL ×2 (09:03→17:32)
[2023-11-23 09:05] VITALS: O2SAT 96
[2023-11-23 09:15] LABS: Alanine Aminotransferase 32 U/L (6-50); Albumin Level 4.1 g/dL (3.5-5.1); Alkaline Phosphatase 75 U/L (38-126); Aspartate Amino Transferase 36 U/L (17-59); Basophils Absolute Auto 0.1 K/mm3 (0.0-0.1); Basophils Percent Auto 0.8 % (0.2-1.2); Bilirubin,Total 0.5 mg/dL (0.2-1.3); Eosinophils Absolute Auto 0.4 K/mm3 (0-0.3); Eosinophils Percent Auto 5.8 % (0-4.4); Hematocrit 35.7 % (42.0-52.0); Hemoglobin 11.8 g/dL (14.0-18.0); Immature Granulocyte Absolute 0.02 K/mm3 (0.00-0.031); Immature Granulocyte Percent A 0.3 % (0-0.5); Lymphocytes Absolute Auto 1.34 K/mm3 (0.9-3.2); Lymphocytes Percent Auto 22.2 % (18.3-44.2); Mean Corpuscular HGB Conc 33.1 g/dl (32-36); Mean Corpuscular Hemoglobin 29.1 pg (26-34); Mean Corpuscular Volume 87.9 fl (80-100); Mean Platelet Volume 11.7 fl (7.4-10.4); Monocytes Absolute Auto 0.7 K/mm3 (0.1-0.6); Monocytes Percent Auto 11.3 % (2.6-8.5); Neutrophils Absolute Auto 3.6 K/mm3 (1.3-6.7); Neutrophils Percent Auto 59.6 % (45.5-73.1); Platelet Count Result 190 k/mm3 (150-375); Red Blood Count 4.06 M/mm3 (4.6-6.20); Red Cell Distribution Width 12.7 % (11.5-14.5)
[2023-11-23 09:20] LABS: INR 1.1; Prothrombin Time 14.6 Seconds (11.1-14.7)
[2023-11-23 09:27] LABS: Anion Gap 8 mmol/L (8-16); Blood Urea Nitrogen 22 mg/dL (9-20); Calcium 9.2 mg/dL (8.4-10.2); Carbon Dioxide 27 mmol/L (22-30); Chloride 101 mmol/L (98-107); Estimated CRCL calculation 80 ml/min; Estimated Glomerular Filt Rate > 60; Glucose 102 mg/dL (65-110); Potassium 3.6 mmol/L (3.4-5.0); Sodium 136 mmol/L (137-145)
[2023-11-23 10:25] LABS: Hemoglobin A1C 5.6 % (<5.7)
[2023-11-23 11:29] LABS: Glucose Point of Care 156 mg/dl (65-105)
--- NOTE | 2023-11-23 13:39 | PM.IMPN ---
Progress Note: A&P Assessment and Plan (1) COVID: Code(s): U07.1 - COVID-19 Status: Acute Assessment and Plan: Stable not requiring oxygen, chest x-ray reveals no acute cardiopulmonary disease On RA, SpO2 99% -continue remdesivir2/5 doses received - continue telemetry monitoring - continue oxygen titration therapy to maintain SpO2 above 93% p.r.n. - 11/23/2023 continue plan above (2) Generalized weakness: Code(s): R53.1 - Weakness Status: Acute Assessment and Plan: suspect secondary to COVID dx -patient is bedbound, reports made by family the patient was difficult to transfer, due to his increased weakness - initiate fall precaution -PT eval and treat (3) Insulin dependent type 2 diabetes mellitus: Code(s): E11.9 - Type 2 diabetes mellitus without complications; Z79.4 - senior living (current) use of insulin Status: Acute Assessment and Plan: 08/07/22 10.4 - recheck A1c - continue bedside glucose management ACHS -continue home insulin Lantus 17 units subQ -11-22 consult -continue plan above (4) Essential (primary) hypertension: Code(s): I10 - Essential (primary) hypertension Status: Acute Assessment and Plan: -continue home medication continue home medication Hydralazine continue home medication Nifedipine 11-22 -continue plan above (5) Dyslipidemia: Code(s): E78.5 - Hyperlipidemia, unspecified Status: Acute Assessment and Plan: -continue home medication atorvastatin Plan Continue home medications: VTE Prophylaxis: enoxaparin subQ DIET: diabetic consistent carbohydrate Anticipated hospital stay: > 2 days Code Status: full Subjective Date/time seen: 11/23/23 13:39 Interval history: chief complaint, fever and weakness HPI per chart review: 53-year-old male with history of stroke and residual dysarthria and right-sided deficits, hypertension, and insulin-dependent diabetes mellitus who presented to the emergency department via EMS from home for evaluation of fever and weakness. He is able to provide some history but a majority the following is obtained via a review of his EMR as well as information provided by his family members. He has been increasingly weak the last day or so and has been running a fever. Family members are having difficulties caring for him because he is so weak and is unable to assist them with transferring. Temperature was 102? F on arrival with stable blood pressures. He tested positive for SARS-CoV-2 by PCR. Chest x-ray was normal. Labs did not show any significant change from baseline. He was given a L normal saline bolus as he looks dry on exam and he is being admitted in this setting for further care as he is too weak to go home. At the time my evaluation he feels okay and he complains only of hunger. He endorses mild body aches and a nonproductive cough. He denies headache, sore throat, chest pain, nausea, vomiting, diarrhea, and dysuria. Interval Hx:11/21 Patient seen this morning he is resting, in no acute distress not requiring oxygen, he is able to provide HPI he denies any overnight events, to include SOB, chest pain, fever chills nausea vomiting. He reports he lives at home with his mother who is his primary caregiver. He denies any close sick contacts. 11/22: patient seen this morning he denies any overnight events denies any SOB patient requiring only RA. Review of Systems Review of Systems: All systems reviewed & are unremarkable except as noted in HPI and below Exam Narrative: General: Chronically ill-appearing male in the semi-Harvey position in bed. HEENT: PERRL, EOMI. Sclera anicteric. Tacky mucous membranes. Neck: Supple. Respiratory: Lungs are clear to auscultation bilaterally. Cardiovascular: Regular rate and rhythm with S1-S2. Gastrointestinal: Abdomen is soft, nontender, and nondistended with positive bowel sounds. Skin: Warm and dry. No ra
[2023-11-23 13:58] VITALS: BP 151/77; PULSE 55; RESP 22; TEMP 36.5; O2SAT 98
[2023-11-23 16:34] LABS: Glucose Point of Care 70 mg/dl (65-105)
--- NOTE | 2023-11-23 16:38 | PC.NURSE ---
PCT notified this RN of blood glucose 70, juice given to patient will recheck blood glucose at 1700.
[2023-11-23 17:34] LABS: Glucose Point of Care 98 mg/dl (65-105)
[2023-11-23 19:50] VITALS: BP 156/72; PULSE 64; RESP 22; TEMP 36.5; O2SAT 95
[2023-11-23 20:25] VITALS: PULSE 64
[2023-11-23] MEDS: ATORVASTATIN 40 MG TABLET PO (20:25)
[2023-11-23] MEDS: ESCITALOPRAM OXALATE 10 MG TABLET 20 MG PO (20:25)
[2023-11-23] MEDS: REMDESIVIR 100 MG/NS 250 ML 100 MG/250 ML BAG 250 MG IVPB (20:27)
[2023-11-23 21:03] LABS: Glucose Point of Care 136 mg/dl (65-105)
[2023-11-24 04:30] VITALS: BP 166/79; PULSE 58; RESP 22; TEMP 35.8; O2SAT 95
[2023-11-24 07:44] LABS: Glucose Point of Care 101 mg/dl (65-105)
[2023-11-24 08:50] VITALS: O2SAT 100
[2023-11-24] MEDS: NIFEdipine 30 MG TAB.ER.24 90 MG PO (08:52)
[2023-11-24] MEDS: TAMSULOSIN HCL 0.4 MG CAPSULE PO (08:52)
[2023-11-24 08:53] VITALS: PULSE 74
[2023-11-24] MEDS: carvediloL 12.5 MG TABLET PO ×2 (08:53→22:06)
[2023-11-24] MEDS: PANTOPRAZOLE 40 MG TABLET PO (08:53)
[2023-11-24] MEDS: hydrALAZINE HCL 25 MG TABLET PO ×3 (08:54→17:03)
[2023-11-24] MEDS: hydroCHLOROthiazide 25 MG TABLET PO (08:54)
[2023-11-24] MEDS: ARTIFICIAL TEARS OPHTH SOLN 15 ML BOTTLE 1 DROP EACH EYE ×3 (08:55→17:03)
[2023-11-24] MEDS: TRIAMCINOLONE ACET 0.1% CREAM 80 GM TUBE 1 APPLIC TOPICAL ×2 (08:55→17:03)
[2023-11-24] MEDS: ENOXAPARIN 40 MG/0.4 ML SYRINGE SUB-Q (08:59)
[2023-11-24 11:25] LABS: Glucose Point of Care 138 mg/dl (65-105)
--- NOTE | 2023-11-24 13:08 | PM.IMPN ---
Progress Note: A&P Assessment and Plan (1) Acute conjunctivitis, bilateral: Code(s): H10.33 - Unspecified acute conjunctivitis, bilateral Status: Acute Assessment and Plan: Significant bilateral conjunctivitis noted. Initiate Vigamox and prednisolone drops, may DC tomorrow if any improvement. (2) COVID: Code(s): U07.1 - COVID-19 Status: Acute Assessment and Plan: Stable not requiring oxygen, chest x-ray reveals no acute cardiopulmonary disease On RA, SpO2 99% -continue remdesivir2/5 doses received - continue telemetry monitoring - continue oxygen titration therapy to maintain SpO2 above 93% p.r.n. - 11/23/2023 continue plan above 11/23: Can discontinue remdesivir (3) Generalized weakness: Code(s): R53.1 - Weakness Status: Acute Assessment and Plan: suspect secondary to COVID dx -patient is bedbound, reports made by family the patient was difficult to transfer, due to his increased weakness - initiate fall precaution -PT eval and treat (4) Insulin dependent type 2 diabetes mellitus: Code(s): E11.9 - Type 2 diabetes mellitus without complications; Z79.4 - assisted (current) use of insulin Status: Acute Assessment and Plan: 08/07/22 10.4 - recheck A1c - continue bedside glucose management ACHS -continue home insulin Lantus 17 units subQ -11-22 consult -continue plan above (5) Essential (primary) hypertension: Code(s): I10 - Essential (primary) hypertension Status: Acute Assessment and Plan: -continue home medication continue home medication Hydralazine continue home medication Nifedipine 11-22 -continue plan above (6) Dyslipidemia: Code(s): E78.5 - Hyperlipidemia, unspecified Status: Acute Assessment and Plan: -continue home medication atorvastatin Plan Continue home medications: VTE Prophylaxis: enoxaparin subQ DIET: diabetic consistent carbohydrate Disposition: Plan to discharge home, possibly tomorrow 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 He is able to provide some history but a majority the following is obtained via a review of his EMR as well as information provided by his family members. He has been increasingly weak the last day or so and has been running a fever. Family members are having difficulties caring for him because he is so weak and is unable to assist them with transferring. Temperature was 102? F on arrival with stable blood pressures. He tested positive for SARS-CoV-2 by PCR. Chest x-ray was normal. Labs did not show any significant change from baseline. He was given a L normal saline bolus as he looks dry on exam and he is being admitted in this setting for further care as he is too weak to go home. At the time my evaluation he feels okay and he complains only of hunger. He endorses mild body aches and a nonproductive cough. He denies headache, sore throat, chest pain, nausea, vomiting, diarrhea, and dysuria. Interval Hx:11/21 Patient seen this morning he is resting, in no acute distress not requiring oxygen, he is able to provide HPI he denies any overnight events, to include SOB, chest pain, fever chills nausea vomiting. He reports he lives at home with his mother who is his primary caregiver. He denies any close sick contacts. 11/22: patient seen this morning he denies any overnight events denies any SOB patient requiring only RA. 11/23: Patient seen today complains of bilateral eye pain and irritation. He denies any difficulty breathing denies nausea
[2023-11-24] MEDS: prednisoLONE ACETATE 1% OPHTH 5 ML 1 DROP EACH EYE ×2 (13:34→22:09)
[2023-11-24] MEDS: MOXIFLOXACIN HCL 0.5% 3 ML OPHTH SOLN 1 DROP EACH EYE ×2 (13:34→22:10)
[2023-11-24 13:52] VITALS: BP 119/61; PULSE 56; RESP 16; TEMP 36.3; O2SAT 99
[2023-11-24 16:36] LABS: Glucose Point of Care 118 mg/dl (65-105)
[2023-11-24 20:00] VITALS: BP 138/64; PULSE 59; RESP 18; TEMP 36.6; O2SAT 98
[2023-11-24 20:56] LABS: Glucose Point of Care 105 mg/dl (65-105)
[2023-11-24 22:06] VITALS: PULSE 59
[2023-11-24] MEDS: ESCITALOPRAM OXALATE 10 MG TABLET 20 MG PO (22:06)
[2023-11-24] MEDS: ATORVASTATIN 40 MG TABLET PO (22:07)
[2023-11-24] MEDS: INSULIN GLARGINE (*BKC) 100 UNITS/ML 17 UNITS SUB-Q (22:10)
[2023-11-25 04:30] VITALS: BP 147/76; PULSE 58; RESP 22; TEMP 36.2; O2SAT 98
[2023-11-25] MEDS: MOXIFLOXACIN HCL 0.5% 3 ML OPHTH SOLN 1 DROP EACH EYE (06:28)
[2023-11-25 07:18] LABS: Basophils Absolute Auto 0.1 K/mm3 (0.0-0.1); Basophils Percent Auto 0.8 % (0.2-1.2); Eosinophils Absolute Auto 0.4 K/mm3 (0-0.3); Eosinophils Percent Auto 5.7 % (0-4.4); Hematocrit 37.3 % (42.0-52.0); Hemoglobin 12.4 g/dL (14.0-18.0); Immature Granulocyte Absolute 0.02 K/mm3 (0.00-0.031); Immature Granulocyte Percent A 0.3 % (0-0.5); Lymphocytes Absolute Auto 1.92 K/mm3 (0.9-3.2); Lymphocytes Percent Auto 29.7 % (18.3-44.2); Mean Corpuscular HGB Conc 33.2 g/dl (32-36); Mean Corpuscular Hemoglobin 29.2 pg (26-34); Mean Corpuscular Volume 87.8 fl (80-100); Mean Platelet Volume 11.9 fl (7.4-10.4); Monocytes Absolute Auto 0.4 K/mm3 (0.1-0.6); Monocytes Percent Auto 6.8 % (2.6-8.5); Neutrophils Absolute Auto 3.7 K/mm3 (1.3-6.7); Neutrophils Percent Auto 56.7 % (45.5-73.1); Platelet Count Result 214 k/mm3 (150-375); Red Blood Count 4.25 M/mm3 (4.6-6.20); Red Cell Distribution Width 12.7 % (11.5-14.5); White Blood Count 6.5 K/mm3 (4.5-10.0)
[2023-11-25 07:20] LABS: INR 1.2; Prothrombin Time 15.3 Seconds (11.1-14.7)
[2023-11-25 07:32] LABS: Alanine Aminotransferase 30 U/L (6-50); Albumin Level 4.2 g/dL (3.5-5.1); Alkaline Phosphatase 78 U/L (38-126); Anion Gap 5 mmol/L (4-12); Aspartate Amino Transferase 25 U/L (17-59); Bilirubin,Total 0.4 mg/dL (0.2-1.3); Blood Urea Nitrogen 27 mg/dL (9-20); Calcium 9.6 mg/dL (8.4-10.2); Carbon Dioxide 31 mmol/L (22-30); Chloride 102 mmol/L (98-107); Estimated CRCL calculation 73 ml/min; Estimated Glomerular Filt Rate > 60; Glucose 102 mg/dL (65-110); Phosphorus 3.9 mg/dL (2.5-4.5); Potassium 3.9 mmol/L (3.4-5.0); Sodium 138 mmol/L (137-145)
[2023-11-25 08:11] LABS: Glucose Point of Care 95 mg/dl (65-105)
[2023-11-25] MEDS: hydroCHLOROthiazide 25 MG TABLET PO (08:51)
[2023-11-25] MEDS: hydrALAZINE HCL 25 MG TABLET PO (08:51)
[2023-11-25] MEDS: NIFEdipine 30 MG TAB.ER.24 90 MG PO (08:51)
[2023-11-25 08:52] VITALS: PULSE 58
[2023-11-25] MEDS: TAMSULOSIN HCL 0.4 MG CAPSULE PO (08:52)
[2023-11-25] MEDS: PANTOPRAZOLE 40 MG TABLET PO (08:52)
[2023-11-25] MEDS: carvediloL 12.5 MG TABLET PO (08:52)
[2023-11-25] MEDS: TRIAMCINOLONE ACET 0.1% CREAM 80 GM TUBE 1 APPLIC TOPICAL (08:54)
[2023-11-25] MEDS: prednisoLONE ACETATE 1% OPHTH 5 ML 1 DROP EACH EYE (08:54)
[2023-11-25] MEDS: ARTIFICIAL TEARS OPHTH SOLN 15 ML BOTTLE 1 DROP EACH EYE (08:55)
[2023-11-25] MEDS: ENOXAPARIN 40 MG/0.4 ML SYRINGE SUB-Q (08:57)
--- NOTE | 2023-11-25 10:39 | PM.DS ---
DS: Admitting Diagnosis Discharge Date 11/25/2023 Admitting Diagnosis COVID, generalized weakness, insulin-dependent type 2 diabetes mellitus, essential hypertension, dyslipidemia DS: Discharge Diagnosis Discharge Diagnosis (1) Acute conjunctivitis, bilateral: Code(s): H10.33 - Unspecified acute conjunctivitis, bilateral Status: Acute (2) COVID: Code(s): U07.1 - COVID-19 Status: Acute (3) Generalized weakness: Code(s): R53.1 - Weakness Status: Acute (4) Insulin dependent type 2 diabetes mellitus: Code(s): E11.9 - Type 2 diabetes mellitus without complications; Z79.4 - buttermaker (current) use of insulin Status: Acute (5) Essential (primary) hypertension: Code(s): I10 - Essential (primary) hypertension Status: Acute (6) Dyslipidemia: Code(s): E78.5 - Hyperlipidemia, unspecified Status: Acute DS: Summary Hospital Course Hospital Course: This is a 53-year-old male patient with a history of stroke with residual right-sided deficits and dysarthria who was admitted for COVID with fever and weakness. Patient is usually cared for at home by family but he was too weak to assist with transfers which is unusual for him. Patient did receive 3 days of remdesivir which was discontinued because he was on room air with no respiratory involvement and had otherwise improved. Yesterday on evaluation found that patient has significant bilateral conjunctivitis and initiated eye drops of moxifloxacin and prednisolone. Today eyes are feeling slightly better. Patient has no further complaints and family will come and pick him up. Education provided regarding the need for further eye exam. Status at Discharge Cognitive/behavioral status at discharge: Awake alert slow to respond but he appears oriented Functional status at discharge: wheelchair bound Overall status at discharge: patient is progressing back to baseline Time Spent with Patient Time attestation: Total time spent providing and/or coordinating discharge services: 35 minutes Time spent: Greater than 30 minutes Exam Narrative: General: Chronically ill-appearing male in the semi-Harvey position in bed. HEENT: PERRL, EOMI. Significant conjunctivitis noted bilaterally with the erythema and clearish drainage. Tacky mucous membranes. Neck: Supple. Respiratory: Lungs are clear to auscultation bilaterally. Cardiovascular: Regular rate and rhythm with S1-S2. Gastrointestinal: Abdomen is soft, nontender, and nondistended with positive bowel sounds. Skin: Warm and dry. Papular Rash noted to the thorax on limited exam. Extremities: No cyanosis, clubbing, or edema. Radial and pedal pulses intact. Neurological: Alert. Cranial nerves 2-12 are grossly intact. Suffers from dysarthria and mild expressive aphasia. He speaks a few words and is easy to understand. No obvious facial asymmetry. Right upper extremity is contracted. Obvious weakness in the right upper and lower extremities however he is able to move them. Psychiatric: Pleasant and cooperative with appropriate mood. DS: Data Data Completed and Pending Completed studies during hospitalization: Chest x-ray Labs on day of discharge: Labs from last 24 hours 11/25/23 11/25/23 11/24/23 07:51 06:52 20:03 WBC 6.5 RBC 4.25 L Hgb 12.4 L Hct 37.3 L MCV 87.8 MCH 29.2 MCHC 33.2 RDW 12.7 Plt Count 214 MPV 11.9 H Immature Gran % (Auto) 0.3 Neut % (Auto) 56.7 Lymph % (Auto) 29.7 [place] % (Auto) 6.8 Eos % (Auto) 5.7 H Baso % (Auto) 0.8 Lymph # (Auto) 1.92 [place] # (Auto) 0.4 Eos # (Auto) 0.4 H Baso # (Auto) 0.1 Abs Immat Gran (auto) 0.02 Absolute Neuts (auto) 3.7 Absolute Nucleated RBC 0.000 Nucleated RBC % 0.0 PT 15.3 H INR 1.2 Sodium 138 Potassium 3.9 Chloride 102 Carbon Dioxide 31 H Anion Gap 5 L BUN 27 H Creatinine 1.20 Estim Creat Clear Calc
== END 2023-11-25 12:15 | disposition home or self-care (01) ==
LOC: ANHED 12:45 → ANH3MEDSUR 14:49
PROVIDERS: General Practice; Nurse Practitioner; Physician Assistant; Admitting Provider Internal Medicine; Emergency Provider Emergency Medicine; PCP Nurse Practitioner; Visit Provider Family Medicine
DX: U07.1 COVID-19 (principal); H10.33 Unspecified acute conjunctivitis, bilateral; I69.322 Dysarthria following cerebral infarction; I69.351 Hemiplegia and hemiparesis following cerebral infarction affecting right dominant side; I12.9 Hypertensive chronic kidney disease with stage 1 through stage 4 chronic kidney disease, or unspecified chronic kidney disease; E11.22 Type 2 diabetes mellitus with diabetic chronic kidney disease; D63.1 Anemia in chronic kidney disease; N18.30 Chronic kidney disease, stage 3 unspecified; E78.5 Hyperlipidemia, unspecified; L40.9 Psoriasis, unspecified; Z79.4 Long term (current) use of insulin; Z79.84 Long term (current) use of oral hypoglycemic drugs; Z79.899 Other long term (current) drug therapy
CPT/HCPCS: 36415; 71046; 80048; 80053; 80069; 80076; 81001; 82728; 82948; 83036; 83605; 83615; 83735; 85025; 85027; 85610; 85730; 86140; 87040; 87637; 93005; 96361; 96365; 96372; 99285; A9270; G0378; G0379; J0248; J1650; J1815; J7030

== ENCOUNTER 2024-02-22 22:05 | Emergency (ER) | payer OTHER, SELFPAY ==
--- NOTE | ~2024-02-22 | CT_ITS ---
Clinical Indication: Chest pain, altered mental status CT Scan of the Chest, Abdomen, and Pelvis with Contrast: Technique: Contiguous sections were acquired throughout the chest, abdomen, and pelvis after intraven ous administration of 100 cc of Omnipaque 350. Dose reduction technique was used on this scan by uti lizing automated exposure control and iterative reconstruction technique. The dose-length product (DL P) was 1238.86 mGy-cm. Findings: There is no evidence of any significant mediastinal, hilar or axillary lymphadenopathy. The mediastin al soft tissues appear normal. No aortic aneurysm or dissection. No central pulmonary embolus seen. There is no evidence of pleural or pericardial effusion. The lungs are clear, aside from minimal dependent atelectatic changes. The liver, spleen, pancreas, gallbladder, adrenals and right kidney are within normal limits. 7 mm hy podense left renal mass present, partially exophytic (axial image 147), indeterminate by Hounsfield u nits. There are atherosclerotic calcifications of the aorta. No abdominal aortic aneurysm or dissecti on. No lymphadenopathy. No bowel obstruction or bowel wall thickening. Large amount of stool present at the rectum and sigmoi d colon, compatible with fecal impaction/constipation. Probable ingested hyperdensity at the gastric antrum versus possibly contrast extravasation/hemorrhage. Urinary bladder is unremarkable. No pelvic mass seen. No ascites. Impression: Fecal impaction/constipation. Suspected ingested hyperdense material at the gastric antrum versus possibly contrast examination/hem orrhage. Correlate clinically. 7 mm indeterminate left renal mass. Consider follow-up pre and postcontrast MR CT to attempt to evalu ate for cystic versus solid lesion. Reviewed, dictated and finalized at [facility]. Impression: Fecal impaction/constipation. Suspected ingested hyperdense material at the gastric antrum versus possibly co ntrast examination/hemorrhage. Correlate clinically. 7 mm indeterminate left renal mass. Consider follow-up pre and postcontrast MR CT to attempt to evaluate for cystic versus solid lesion.
--- NOTE | ~2024-02-22 | CT_ITS ---
CT head without contrast Indication: Altered mental status COMPARISON: 04/09/2023 Technique: Serial scans were obtained through the brain without the administration of contrast. Dose reduction technique was used on this scan by utilizing automated exposure control and iterative recon struction technique. The dose-length product (DLP) was 605.33 mGy-cm. Findings: There is no evidence of intracranial hemorrhage, mass lesion, or acute infarct. The ventri cles and subarachnoid spaces are dilated, consistent with mild atrophy. Probable chronic lacunar infa rct in the left jagruti. Tiny focal hyperdensity in the posterior jagruti is stable from prior exam. Low at tenuation regions are seen within the periventricular white matter bilaterally, likely representing c hanges from chronic microvascular ischemic disease. There is no evidence of edema, mass effect or mi dline shift. The visualized paranasal sinuses and mastoid air cells are clear. Impression: No intracranial hemorrhage, mass, or acute infarct. Atrophy and chronic findings, as above. Reviewed, dictated and finalized at location . Impression: No intracranial hemorrhage, mass, or acute infarct. Atrophy and chronic findings, as above.
--- NOTE | ~2024-02-22 | XR_ITS ---
XR chest 2V Ordering provider: Edna New MD History: 53 years Male with . cp, stroke x1 yr, rt side paralyzed, altered mental x1 day . Comparison: November 21, 2023 FINDINGS: MEDIASTINUM: The cardiac silhouette is not enlarged. LUNGS: No effusion or pneumothorax. Prominent markings in the lower lobes. Atelectatic changes are po ssible. OTHER: Dilated bowel loops are seen in the abdomen. Further evaluation advised. No free air under the diaphragm. IMPRESSION: Prominent markings in the lower lobes with possible atelectatic changes in the left lung base. Reviewed, dictated and finalized at location A.
[2024-02-22 22:07] VITALS: BP 116/67; PULSE 71; RESP 20; TEMP 36.6; O2SAT 96
[2024-02-22 22:26] VITALS: BP 116/67; PULSE 66; RESP 22; O2SAT 100
--- NOTE | 2024-02-22 22:32 | ECG_ITS ---
Test Date: 2024-02-22 22:13:14 Measurements Intervals [place] Rate: 64 P: 34 MI: 160 QRS: 64 QRSD: 100 T: 88 QT: 434 QTc: 451 Interpretive Statements SINUS RHYTHM LEFT VENTRICULAR HYPERTROPHY AND ST-T CHANGE [VOLTAGE CRITERIA PLUS ST/T ABNORMALITY] No previous ECG available for comparison Electronically Signed On 02-23-2024 11:51:24 CDT by Maliha Cates M.D.
[2024-02-22 23:16] LABS: Basophils Absolute Auto 0.1 K/mm3 (0.0-0.1); Basophils Percent Auto 0.8 % (0.2-1.2); Eosinophils Absolute Auto 0.4 K/mm3 (0-0.3); Eosinophils Percent Auto 3.7 % (0-4.4); Immature Granulocyte Absolute 0.04 K/mm3 (0.00-0.031); Immature Granulocyte Percent A 0.4 % (0-0.5); Lymphocytes Absolute Auto 1.43 K/mm3 (0.9-3.2); Lymphocytes Percent Auto 12.9 % (18.3-44.2); Mean Corpuscular Hemoglobin 30.2 pg (26-34); Mean Corpuscular Volume 86.4 fl (80-100); Mean Platelet Volume 11.7 fl (7.4-10.4); Monocytes Absolute Auto 0.7 K/mm3 (0.1-0.6); Monocytes Percent Auto 5.9 % (2.6-8.5); Neutrophils Absolute Auto 8.5 K/mm3 (1.3-6.7); Neutrophils Percent Auto 76.3 % (45.5-73.1); Platelet Count Result 277 k/mm3 (150-375); Red Blood Count 4.63 M/mm3 (4.6-6.20); Red Cell Distribution Width 13.4 % (11.5-14.5); White Blood Count 11.1 K/mm3 (4.5-10.0)
[2024-02-22 23:26] LABS: INR 1.1; Prothrombin Time 14.4 Seconds (11.1-14.7)
[2024-02-22 23:27] LABS: Partial Thromboplastin Time 31.9 Seconds (22.3-36.8)
[2024-02-22 23:42] LABS: Potassium 4.6 mmol/L (3.4-5.0)
[2024-02-22 23:45] LABS: Alanine Aminotransferase 18 U/L (6-50); Alkaline Phosphatase 121 U/L (38-126); Anion Gap 11 mmol/L (4-12); Aspartate Amino Transferase 25 U/L (17-59); Bilirubin,Total 0.5 mg/dL (0.2-1.3); Blood Urea Nitrogen 36 mg/dL (9-20); Carbon Dioxide 30 mmol/L (22-30); Chloride 101 mmol/L (98-107); Estimated CRCL calculation 56 ml/min; Estimated Glomerular Filt Rate 56; Glucose 136 mg/dL (65-110); Lipase 174 U/L (23-300); Sodium 142 mmol/L (137-145)
[2024-02-22 23:52] LABS: Troponin I < 0.012 ng/mL (0.000-0.034)
--- NOTE | 2024-02-23 00:26 | ED.CHESTPAIN ---
HPI - Chest Pain General Chief Complaint: Chest Pain Stated Complaint: CP/ABDOMINAL PAIN Time Seen by Provider: 02/23/24 00:17 Source: patient and family (mother and sister) Mode of arrival: EMS Limitations: clinical condition History of Present Illness HPI narrative: Patient presents with report of an episode of sudden onset low substernal chest pain versus epigastric pain after using the bathroom. Patient had a bowel movement (formed per , non bloody) and then was reportedly altered per family, unable to answer family. Patient usually A&O x1 at baseline after a stroke. History of 2 strokes, one in 2021 (which left with R sided deficits and difficulty speaking) and one approximately 1-2 years before that. JESUS was 8:30. Possibly short of breath. Unknown history of stress test or cardiac catheterization. No complaint/concern for lower extremity edema. History of insulin dependent (and metformin) diabetes, HTN, HLD. No prior history of AR. Non smoker. No 1st degree family history of AR before age 65 though patient's grandmother did. Ambulates with a walker. Patient denies any Nausea/vomiting. They report he had generalized weakness and was diaphoretic. Has a PCP (Terra / Jj), eye surgeon, and a neurologist (Dr Cano through [facility] in [place]). Related Data Home Medications Medication Instructions Recorded Confirmed atorvastatin 40 mg tablet (Lipitor) 40 mg PO QHS 08/08/22 11/21/23 blood sugar diagnostic (OneTouch 11/21/23 11/21/23 Verio test strips) carboxymethylcellulose sodium 1 % 1 drp EACH EYE TID 11/21/23 11/21/23 eye liquid gel drops carvedilol 12.5 mg tablet 12.5 mg PO Q12H 11/21/23 11/21/23 escitalopram oxalate 20 mg tablet 20 mg PO HS 11/21/23 11/21/23 hydralazine 25 mg tablet 25 mg PO TID Anxiety,itching 11/21/23 11/21/23 hydrochlorothiazide 25 mg tablet 25 mg PO DAILY 11/21/23 11/21/23 insulin glargine 100 unit/mL (3 17 unit subcut HS 11/21/23 11/21/23 mL) subcutaneous pen (Lantus Solostar U-100 Insulin) insulin lispro 100 unit/mL 5 unit subcut TIDWM 11/21/23 11/21/23 subcutaneous solution (Humalog U-100 Insulin) lancets 33 gauge (OneTouch Delica 11/21/23 11/21/23 Plus Lancet) metformin 500 mg tablet 500 mg PO DAILY 11/21/23 11/21/23 nifedipine 90 mg tablet,extended 90 mg PO DAILY 11/21/23 11/21/23 release 24 hr omeprazole 20 mg capsule,delayed 20 mg PO DAILY 11/21/23 11/21/23 release pen needle, diabetic 32 gauge x 11/21/23 11/21/23 (TRUEplus Pen Needle) tamsulosin 0.4 mg capsule 0.4 mg PO DAILY 11/21/23 11/21/23 triamcinolone acetonide 0.1 % 1 applic topical BID 11/21/23 11/21/23 topical cream Allergies Allergy/AdvReac Type Severity Reaction Status Date / Time No Known Allergies Allergy Verified 11/21/23 17:01 [facility] Past Medical History Medical History Cerebrovascular accident (05/2022) Residual aphasia and right-sided deficits. Chronic anemia Chronic kidney disease, stage 3 Dyslipidemia Essential (primary) hypertension Insulin dependent type 2 diabetes mellitus Psoriasis Seizure Family History Family History Grandparent Acute myocardial infarction, Onset Age: 65 Other Diabetes mellitus Family history of allergic disorder Family history of coronary artery disease Social History Social History (Updated 11/21/23 @ 15:59 by Brandy Boo PA-C) Social History: Surrogate medical decision maker: Alicia lBand (spouse) or Shena Bland (mother). Code status: Full code. Smoking status: Never smoker Alcohol intake: unknown Substance use: never Substance use type: does not use Do You Feel Safe in your Home?: Yes Lack of Transportation: No Lack of Food: Never True Current Housing: I Have Housing Concerned About Future Housing: Decline to Answer Difficulty Paying Gas/Electric Bills: Decline to Answer Difficulty Paying for
--- NOTE | 2024-02-23 01:30 | ECG_ITS ---
Test Date: 2024-02-23 02:16:13 Measurements Intervals [place] Rate: 67 P: 50 [place]: 187 QRS: 70 QRSD: 98 T: 150 QT: 389 QTc: 412 Interpretive Statements SINUS RHYTHM LEFT VENTRICULAR HYPERTROPHY AND ST-T CHANGE [VOLTAGE CRITERIA PLUS ST/T ABNORMALITY] BASELINE ARTIFACT LIMITS INTERPRETATION Compared to ECG 02/22/2024 22:13:14 No significant changes Electronically Signed On 02-23-2024 11:52:36 CDT by Maliha Cates M.D.
[2024-02-23] MEDS: SODIUM CHLORIDE 0.9% IV 1,000 ML 999 ML IV CONT (02:20)
[2024-02-23 03:07] LABS: Troponin I < 0.012 ng/mL (0.000-0.034)
[2024-02-23 03:13] LABS: Magnesium 2.1 mg/dL (1.6-2.3)
[2024-02-23 03:20] LABS: Lactic Acid Reflex 0.7 mmol/L (0.7-2.0)
[2024-02-23] MEDS: ESCITALOPRAM OXALATE 10 MG TABLET 20 MG PO (06:04)
[2024-02-23 07:39] VITALS: BP 120/70; PULSE 68; RESP 16; O2SAT 98
== END 2024-02-23 07:40 | disposition home or self-care (01) ==
PROVIDERS: Emergency Provider Student in an Organized Health Care Education/Training Program; PCP Nurse Practitioner
DX: R07.2 Precordial pain (principal); N17.9 Acute kidney failure, unspecified; N28.89 Other specified disorders of kidney and ureter; K59.00 Constipation, unspecified; R10.13 Epigastric pain; D72.829 Elevated white blood cell count, unspecified; I69.920 Aphasia following unspecified cerebrovascular disease; I69.951 Hemiplegia and hemiparesis following unspecified cerebrovascular disease affecting right dominant side; D64.9 Anemia, unspecified; E11.22 Type 2 diabetes mellitus with diabetic chronic kidney disease; I12.9 Hypertensive chronic kidney disease with stage 1 through stage 4 chronic kidney disease, or unspecified chronic kidney disease; N18.30 Chronic kidney disease, stage 3 unspecified; E78.5 Hyperlipidemia, unspecified; L40.9 Psoriasis, unspecified; Z79.84 Long term (current) use of oral hypoglycemic drugs; Z79.4 Long term (current) use of insulin; Z79.899 Other long term (current) drug therapy; R93.5 Abnormal findings on diagnostic imaging of other abdominal regions, including retroperitoneum; I51.7 Cardiomegaly
CPT/HCPCS: 36415; 70450; 71046; 71275; 74174; 80053; 83605; 83690; 83735; 84484; 85025; 85610; 85730; 93005; 96360; 99284; A9270; J7030; Q9967

== ENCOUNTER 2024-08-17 22:40 | Emergency (ER) | payer OTHER, SELFPAY ==
--- NOTE | ~2024-08-17 | XR_ITS ---
Portable chest x-ray Comparison: 02/22/2024 Clinical History: Chest pain Findings: Lungs are clear, without focal consolidation or pleural effusion. Cardiomediastinal silho uette is stable. Bones and soft tissues are unremarkable. Impression: Clear lungs. Reviewed, dictated and finalized at location . [facility] Impression: Clear lungs.
[2024-08-17 22:42] VITALS: BP 168/75; PULSE 74; RESP 18; TEMP 36.4; O2SAT 98
--- NOTE | 2024-08-17 23:10 | ECG_ITS ---
Test Date: 2024-08-17 23:43:11 Measurements Intervals [place] Rate: 73 P: 47 GA: 183 QRS: 66 QRSD: 96 T: 102 QT: 417 QTc: 460 Interpretive Statements SINUS RHYTHM LEFT VENTRICULAR HYPERTROPHY AND ST-T CHANGE Compared to ECG 02/23/2024 02:16:13 NO SIGNIFICANT CHANGES Electronically Signed On 08-18-2024 12:14:09 [facility] by Maliha Cates M.D.
[2024-08-17 23:58] LABS: Basophils Absolute Auto 0.1 K/mm3 (0.0-0.1); Eosinophils Absolute Auto 0.6 K/mm3 (0-0.3); Eosinophils Percent Auto 6.9 % (0-4.4); Hematocrit 40.3 % (42.0-52.0); Hemoglobin 13.1 g/dL (14.0-18.0); Immature Granulocyte Absolute 0.02 K/mm3 (0.00-0.031); Immature Granulocyte Percent A 0.2 % (0-0.5); Lymphocytes Absolute Auto 1.97 K/mm3 (0.9-3.2); Lymphocytes Percent Auto 22.2 % (18.3-44.2); Mean Corpuscular HGB Conc 32.5 g/dl (32-36); Mean Corpuscular Volume 89.2 fl (80-100); Mean Platelet Volume 11.8 fl (7.4-10.4); Monocytes Absolute Auto 0.7 K/mm3 (0.1-0.6); Monocytes Percent Auto 7.4 % (2.6-8.5); Neutrophils Absolute Auto 5.5 K/mm3 (1.3-6.7); Neutrophils Percent Auto 62.3 % (45.5-73.1); Platelet Count Result 203 k/mm3 (150-375); Red Blood Count 4.52 M/mm3 (4.6-6.20); Red Cell Distribution Width 13.4 % (11.5-14.5); White Blood Count 8.9 K/mm3 (4.5-10.0)
[2024-08-18 00:01] VITALS: O2SAT 99
[2024-08-18 00:03] VITALS: PULSE 73
[2024-08-18 00:09] LABS: Alanine Aminotransferase 33 U/L (6-50); Albumin Level 4.6 g/dL (3.5-5.1); Alkaline Phosphatase 100 U/L (38-126); Anion Gap 6 mmol/L (4-12); Aspartate Amino Transferase 29 U/L (17-59); Bilirubin,Total 0.3 mg/dL (0.2-1.3); Blood Urea Nitrogen 39 mg/dL (9-20); Calcium 9.9 mg/dL (8.4-10.2); Carbon Dioxide 32 mmol/L (22-30); Chloride 107 mmol/L (98-107); Estimated Glomerular Filt Rate > 60; Glucose 129 mg/dL (65-110); Lipase 162 U/L (23-300); Potassium 4.3 mmol/L (3.4-5.0); Prothrombin Time 13.5 Seconds (11.1-14.7); Sodium 145 mmol/L (137-145)
[2024-08-18 00:10] LABS: Partial Thromboplastin Time 33.8 Seconds (22.3-36.8)
[2024-08-18 00:19] LABS: Troponin I < 0.012 ng/mL (0.000-0.034)
[2024-08-18] MEDS: ASPIRIN 81 MG CHEWABLE TABLET 324 MG PO (00:22)
[2024-08-18 00:49] LABS: Influenza A QL RT-PCR Negative (Negative); Influenza B QL RT-PCR Negative (Negative); RSV RNA, RT-PCR Negative (Negative); SARS-CoV-2 RNA PCR Negative (Negative)
[2024-08-18 01:30] VITALS: PULSE 68; RESP 15; O2SAT 99
[2024-08-18 02:41] VITALS: BP 161/84; PULSE 64; RESP 16; O2SAT 99
[2024-08-18 02:47] LABS: Troponin I < 0.012 ng/mL (0.000-0.034)
--- NOTE | 2024-08-18 03:23 | ED_ITS ---
HPI - General Adult General Chief complaint: Chest Pain Stated complaint: chest pain Time Seen by Provider: 08/17/24 23:15 History of Present Illness HPI narrative: This is a 54-year-old male with history of multiple strokes who has limited speech presenting for cough. Patient has been coughing for the last several days. Patient indicated to his family that is making his chest hurt. They then brought him to hospital for evaluation today. He has not noted any fevers, nausea vomiting or diarrhea. Patient does not swallow very well in frequently coughs eating. Related Data Home Medications ?Medication ?Instructions ?Recorded ?Confirmed ?Last Taken ?Type atorvastatin 40 mg tablet (Lipitor) 40 mg PO QHS 08/08/22 03/22/24 Unknown History blood sugar diagnostic ([facility] 11/21/23 03/22/24 Unknown History Verio test strips) carboxymethylcellulose sodium 1 % 1 drp EACH EYE TID 11/21/23 03/22/24 Unknown History eye liquid gel drops carvedilol 12.5 mg tablet 12.5 mg PO Q12H 11/21/23 03/22/24 Unknown History escitalopram oxalate 20 mg tablet 20 mg PO HS 11/21/23 03/22/24 Unknown History hydralazine 25 mg tablet 25 mg PO TID Anxiety,itching 11/21/23 03/22/24 Unknown History hydrochlorothiazide 25 mg tablet 25 mg PO DAILY 11/21/23 03/22/24 Unknown History insulin glargine 100 unit/mL (3 17 unit subcut HS 11/21/23 03/22/24 Unknown History mL) subcutaneous pen (Lantus Solostar U-100 Insulin) insulin lispro 100 unit/mL 5 unit subcut TIDWM 11/21/23 03/22/24 Unknown History subcutaneous solution (Humalog U-100 Insulin) lancets 33 gauge (OneTouch Delica 11/21/23 03/22/24 Unknown History Plus Lancet) metformin 500 mg tablet 500 mg PO DAILY 11/21/23 03/22/24 Unknown History nifedipine 90 mg tablet,extended 90 mg PO DAILY 11/21/23 03/22/24 Unknown History release 24 hr omeprazole 20 mg capsule,delayed 20 mg PO DAILY 11/21/23 03/22/24 Unknown History release pen needle, diabetic 32 gauge x 11/21/23 03/22/24 Unknown History (TRUEplus Pen Needle) tamsulosin 0.4 mg capsule 0.4 mg PO DAILY 11/21/23 03/22/24 Unknown History triamcinolone acetonide 0.1 % 1 applic topical BID 11/21/23 03/22/24 Unknown History topical cream Allergies Allergy/AdvReac Type Severity Reaction Status Date / Time No Known Allergies Allergy Verified 08/17/24 22:43 [facility] Past Medical History Medical History Cerebrovascular accident (05/2022) Residual aphasia and right-sided deficits. Chronic anemia Chronic kidney disease, stage 3 Dyslipidemia Essential (primary) hypertension Insulin dependent type 2 diabetes mellitus Psoriasis Seizure Family History Family History Grandparent Acute myocardial infarction, Onset Age: 65 Other Diabetes mellitus Family history of allergic disorder Family history of coronary artery disease Social History Social History (Updated 11/21/23 @ 15:59 by Brandy Boo PA-C) Social History: Surrogate medical decision maker: Alicia Bland (spouse) or Shena Bland (mother). Code status: Full code. Smoking status: Never smoker Alcohol intake: unknown Substance use: never Substance use type: does not use Do You Feel Safe in your Home?: Yes Lack of Transportation: No Lack of Food: Never True Current Housing: I Have Housing Concerned About Future Housing: Decline to Answer Difficulty Paying Gas/Electric Bills: Decline to Answer Difficulty Paying for Meds: Decline to Answer Currently Unemployed: Decline to Answer Education: Don't Know Difficulty w/ Childcare or Family Care: Decline to Answer Living arrangements: with family Occupation/Education: unemployed Spiritual care concerns: No Exam 2 Narrative: APPEARANCE: No apparent distress. Nonverbal, Head: atraumatic. EYES: EOMI, NOSE: Atraumatic NECK: Trachea midline RESPIRATORY: No increased rate of breathing, ctab CARDIOVASCULAR: RRR, no peripheral ABDOMINAL: Non-distended soft nontender MUSCULOSKELETAl: No obvious deformities NEURO: Alert. right upper extremity is contracted, moves other extremities to command SKIN:: Warm, dry. Normal color PSYCHIATRIC: Normal affect Course Vital Signs Vital signs: Vital Signs Temperature 97.6 F 08/17/24 22:42 Pulse Rate 74 08/17/24 22:42 Respiratory Rate 18 12/19/24 22:42 Blood Pressure 168/75 H 08/17/24 22:42 Pulse Oximetry 98 08/17/24 22:42 Oxygen Delivery Room Air 08/17/24 22:42 Temperature 97.6 F 08/17/24 22:42 Pulse Rate 64 08/18/24 02:41 Respiratory Rate 16 08/18/24 02:41 Blood Pressure 161/84 H 08/18/24 02:41 Pulse Oximetry 99 08/18/24 02:41 Oxygen Delivery Room Air 08/18/24 00:01 Medical Decision Making MDM Narrative Medical decision making narrative: -Course: 54 year nonverbal male presenting with cough and chest pain. Patient's workup including laboratory studies, chest x-ray EKG and troponin x2 were unremarkable. viral swabs were negative. White blood cell count is normal. afebrile. Patient has stable vital signs and has no distress. Patient has a chronic cough and frequently coughs while eating. I don't see any evidence of aspiration pneumonia at this time. On re-evaluation the patient says he is feeling better. Patient will be discharged back home. He can return if he develops any new or worsening symptoms. -DDX includes but is not limited to: Viral syndrome, aspiration pneumonia, aspiration pneumonitis, sepsis, dehydration -Co-morbidities complicating care: multiple strokes -Independent interpretation of studies: labs and imaging reviewed -Shared decision making / Disposition: discharge Vital Signs Vital Signs: Vital Signs Temperature 97.6 F 08/17/24 22:42 Pulse Rate 74 08/17/24 22:42 Respiratory Rate 18 08/17/24 22:42 Blood Pressure 168/75 H 08/17/24 22:42 Pulse Oximetry 98 08/17/24 22:42 Oxygen Delivery Room Air 08/17/24 22:42 Temperature 97.6 F 08/17/24 22:42 Pulse Rate 64 08/18/24 02:41 Respiratory Rate 16 08/18/24 02:41 Blood Pressure 161/84 H 08/18/24 02:41 Pulse Oximetry 99 08/18/24 02:41 Oxygen Delivery Room Air 08/18/24 00:01 Lab Data 08/17/24 23:54 08/17/24 23:54 Labs: Lab Results 08/17/24 08/18/24 Range/Units 23:54 02:20 WBC 8.9 (4.5-10.0) K/mm3 RBC 4.52 L (4.6-6.20) M/mm3 Hgb 13.1 L (14.0-18.0) g/dL Hct 40.3 L (42.0-52.0) % MCV 89.2 (80-100) fl MCH 29.0 (26-34) pg MCHC 32.5 (32-36) g/dl RDW 13.4 (11.5-14.5) % Plt Count 203 (150-375) k/mm3 MPV 11.8 H (7.4-10.4) fl Immature Gran % (Auto) 0.2 (0-0.5) % Neut % (Auto) 62.3 (45.5-73.1) % Lymph % (Auto) 22.2 (18.3-44.2) % [place] % (Auto) 7.4 (2.6-8.5) % Eos % (Auto) 6.9 H (0-4.4) % Baso % (Auto) 1.0 (0.2-1.2) % Lymph # (Auto) 1.97 (0.9-3.2) K/mm3 [place] # (Auto) 0.7 H (0.1-0.6) K/mm3 Eos # (Auto) 0.6 H (0-0.3) K/mm3 Baso # (Auto) 0.1 (0.0-0.1) K/mm3 Abs Immat Gran (auto) 0.02 (0.00-0.031) K/mm3 Absolute Neuts (auto) 5.5 (1.3-6.7) K/mm3 Absolute Nucleated RBC 0.000 (0.0-0.012) K/mm3 Nucleated RBC % 0.0 (0.0-0.2) % PT 13.5 (11.1-14.7) Seconds INR 1.0 APTT 33.8 (22.3-36.8) Seconds Sodium 145 (137-145) mmol/L Potassium 4.3 (3.4-5.0) mmol/L Chloride 107 (98-107) mmol/L Carbon Dioxide 32 H (22-30) mmol/L Anion Gap 6 (4-12) mmol/L BUN 39 H (9-20) mg/dL Creatinine 1.40 H (0.7-1.3) mg/dL Estim Creat Clear Calc Not Reportable Estimated GFR > 60 (59 - ) Glucose 129 H (65-110) mg/dL Calcium 9.9 (8.4-10.2) mg/dL Total Bilirubin 0.3 (0.2-1.3) mg/dL AST 29 (17-59) U/L ALT 33 (6-50) U/L Alkaline Phosphatase 100 (38-126) U/L Troponin I < 0.012 < 0.012 (0.000-0.034) ng/mL Total Protein 9.0 H (6.3-8.2) g/dL Albumin 4.6 (3.5-5.1) g/dL Lipase 162 (23-300) U/L Influenza A (RT-PCR) Negative (Negative) Influenza B (RT-PCR) Negative (Negative) RSV (RT-PCR) Negative (Negative) SARS-CoV-2 RNA (RT-PCR) Negative (Negative) Discharge Plan Discharge Clinical Impression: Cough Patient Disposition: Home, Self-Care Condition: Stable Instructions: Antibiotic Form, Acute Cough (ED) Additional Instructions: please follow-up with your primary care physician the next several days. If his symptoms are getting worse, develops fevers, or productive cough then he should return to ED for immediately for re-evaluation. Patient Language: Barb[place] Prescriptions: No Action atorvastatin [Lipitor] 40 mg tablet 40 mg PO QHS metformin 500 mg tablet 500 mg PO DAILY carvedilol 12.5 mg tablet 12.5 mg PO Q12H hydralazine 25 mg tablet 25 mg PO TID (DME) OneTouch Verio test strips Strip MISCELLANEOUS triamcinolone acetonide 0.1 % cream 1 applic TOPICAL BID Rx Instructions: to rash on legs, and body tamsulosin 0.4 mg capsule 0.4 mg PO DAILY nifedipine 90 mg tablet extended release 24hr 90 mg PO DAILY omeprazole 20 mg capsule,delayed release(DR/EC) 20 mg PO DAILY hydrochlorothiazide 25 mg tablet 25 mg PO DAILY escitalopram oxalate 20 mg tablet 20 mg PO HS insulin glargine [Lantus Solostar U-100 Insulin] 100 unit/mL (3 mL) insulin pen 17 unit SUBCUT HS (DME) pen needle, diabetic [TRUEplus Pen Needle] 32 gauge x 5/32 needle MISCELLANEOUS (DME) lancets [OneTouch Delica Plus Lancet] 33 gauge misc MISCELLANEOUS insulin lispro [Humalog U-100 Insulin] 100 unit/mL solution 5 unit subcut TIDWM Rx Instructions: if blood sugar greater than 160 carboxymethylcellulose sodium 1 % Drops, Liquid Gel 1 drp EACH EYE TID acetaminophen 500 mg capsule 1,000 mg PO Q6H PRN (Reason: pain) Qty: 20 0RF Follow-up/Referrals: Terri,Roseanne Rao ANP [Primary Care Provider] -
[2024-08-18 03:59] VITALS: BP 172/86; PULSE 65; RESP 18; O2SAT 98
== END 2024-08-18 04:00 | disposition home or self-care (01) ==
PROVIDERS: Emergency Provider Emergency Medicine; PCP Nurse Practitioner
DX: R05.9 Cough, unspecified (principal); Z79.4 Long term (current) use of insulin; N18.30 Chronic kidney disease, stage 3 unspecified; E78.5 Hyperlipidemia, unspecified; E11.22 Type 2 diabetes mellitus with diabetic chronic kidney disease; I12.9 Hypertensive chronic kidney disease with stage 1 through stage 4 chronic kidney disease, or unspecified chronic kidney disease; I69.320 Aphasia following cerebral infarction; Z20.822 Contact with and (suspected) exposure to COVID-19
CPT/HCPCS: 36415; 71045; 80053; 83690; 84484; 85025; 85610; 85730; 87637; 93005; 99284; A9270

== ENCOUNTER 2024-10-03 20:44 | Emergency (ER) | payer OTHER, SELFPAY ==
--- OUTSIDE RECORDS SUMMARY | 2024-10-03 20:46 | XMS_ITS | Encounter Summary ---
Author Organization [facility] Address [address] [place] [address] Care Team Providers Care Health Service Coordinator Name Role Phone Roseanne Murray NP Primary Care Provider [phone] Encounter Details Date Type Department Care Team (Late st Contact Info) Description 08/09/2022 Grovact Message Enc [facility] Medical Group Family Medicine - [place] [address] [place], [place] [address] Roseanne Murray NP [address] [place], [place] [id number] Depends Social History Tobacco Use Types Packs/Day Years Used Date Smoking Tobacco: Never Passive Smoke Exposure: Never Smokeless Tobacco: Never Alcohol Use Standard Drinks/Week Comments Never 0 (1 standard drink = 0.6 oz pur e alcohol) PHQ-2 Answer Date Recorded PHQ-2 Score - If the patient scores above 3, please move on to questions 3-9 2 08/05/2022 Sex and Gender Information Value Date Recorded Sex Assigned at Male 09/13/2024 11:12 AM MOTOR VEHICLE SALESPERSON Legal Sex Male 2:56 PM MOTOR VEHICLE SALESPERSON Gender Identity Not on file Sexual Orientation Not on file COVID-19 Exposure Response Date Recorded In the last 10 days, have sara u been in contact with someone who was confirmed or suspected to have Coronavirus/COVID-19? No / Unsure 08/11/2022 11:43 AM MOTOR VEHICLE SALESPERSON documented as of this encounter Functional Status documented as of this encounter Mental Status * Question Answer Entry Date Author Status Because of a physical, mental, or emotional condition, do you have serious difficulty concentrating, remembering, or making decisions? Yes 08/12/2022 2:05 PM MOTOR VEHICLE SALESPERSON Melinda Noonan R N Active documented in this encounter Plan of Treatment Upcoming Encounters Date Type Department Care Team (Late st Contact Info) Description 11/16/2024 1:20 PM CDT Office Visit [facility] Medical Group Multispecialty Care - [facility] [address] [facility], [address] [place] [address] Nirmal Leo MD [address] [place] [address] documented as of this encounter Visit Diagnoses Not on filedocumented in this encounter Additional Health Concerns Infection Onset Date Last Indicated Resolved Time COVID-19 Rule Out 08/11/2022 08/11/2022 08/11/2022 3:02 PM MOTOR VEHICLE SALESPERSON Assessment Noted Time PHQ-9 Depression Total Score: 4 08/05/20 1:27 PM MOTOR VEHICLE SALESPERSON documented as of this encounter Care Teams Health Service Coordinator Relationship Specialty Start Date End Date Roseanne Murray NP [address] [place] [address] PCP - General NURSE PRACTITIONER 07/31/22 documented as of this encounter
--- OUTSIDE RECORDS SUMMARY | 2024-10-03 20:46 | XMS_ITS | Encounter Summary ---
Author Organization [facility] Address [address] [place] [address] Care Team Providers Care Continuous Towel Roller Name Role Phone Roseanne Murray NP Primary Care Provider [phone] Encounter Details Date Type Department Care Team (Late st Contact Info) Description 08/26/[address] MyCChirp [address] [facility] Medical [facility] Multispecialty Care - [facility] [address] [facility], [address] [place] [id number] Nirmal Leo MD [address] [place] [address] MRI/MRA Social History Tobacco Use Types Packs/Day Years Used Date Smoking Tobacco: Never Passive Smoke Exposure: Never Smokeless Tobacco: Never Alcohol Use Standard Drinks/Week Comments Never 0 (1 standard drink = 0.6 oz pur e alcohol) OASIS D0700: Social Isolation Answer Da te Recorded Frequency of experiencing loneliness or isolatio n Never 11/19/2022 OASIS A1250: Transportation Answer Date Recorded Lack of Transportation (Medical) No 11/19/2022 Lack of Transportation (Non-Medical) No 11/19/2022 Patient Unable or Declines to Respond No 11/19/2022 OASIS B1300: Health Literacy Answer Bob e Recorded Frequency of needing help to read materials from doctor or pharmacy Often 11/19/2022 Humiliation, Afraid, Rape, and Kick questionnair e Answer Date Recorded Within the last year, have y ou been afraid of your partner or ex-partner? No 04/10/2023 Within the last year, have y ou been humiliated or emotionally abused in other ways by your partner or ex-partner? No Within the last year, have y ou been kicked, hit, slapped, or otherwise physically hurt by your partner or ex-partner? No 04/10/2023 Within the last year, have y ou been raped or forced to have any kind of sexual activity by your partner or ex-partner? No 04/10/2023 Overall Financial Resource Strain (CARDIA) Answe r Date Recorded How hard is it for you to pa y for the very basics like food, housing, medical care, and heating? Not hard at all 04/10/2023 PHQ-2 Answer Date Recorded Patient Health Questionnaire-2 Score 0 03/17/2023 Hunger Vital Sign Answer Date Recorded Within the past 12 months, y ou worried that your food would run out before you got the money to buy more. Never true 04/10/20 23 Within the past 12 months, t he food you bought just didn't last and you didn't have money to get more. Never true 04/10/2023 PRAPARE - Transportation Answer Date Re corded In the past 12 months, has l ack of transportation kept you from medical appointments or from getting medications? No 03/30 In the past 12 months, has l ack of transportation kept you from meetings, work, or from getting things needed for daily living? No 04/10/2023 Housing Stability Vital Sign Answer Bob e Recorded In the last 12 months, was t here a time when you were not able to pay the mortgage or rent on time? No 04/10/2023 In the last 12 months, how many places have you lived? 2 04/10/2023 In the last 12 months, was t here a time when you did not have a steady place to sleep or slept in a half-way (including now)? No 04/10/2023 Sex and Gender Information Value Date Recorded Sex Assigned at Male 09/13/2024 11:12 AM FILM COATER Legal Sex Male 2:56 PM FILM COATER Gender Identity Not on file Sexual Orientation Not on file Occupation Industry Job Start Date Job End Date disabled Not on file Not on file Not on file documented as of this encounter Functional Status * Are you deaf or do you have serious difficulty hearing Answer Date of Assessment Author Status No 04/10/2023 1:22 AM CDT Bridgette Proctor RN Active * Are you blind or do you have serious difficulty seeing, even when wearing glasses? Answer Date of Assessment Author Status No 04/10/2023 1:22 AM SUET Bridgette Proctor RN Active * Do you have serious difficulty walking or climbing stairs? Answer Date of Assessment Author Status Yes 04/10/2023 1:22 AM Bridgette Bocanegra RN Active * Do you have difficulty dressing or bathing? Answer Date of Assessment Author Status Yes 04/10/2023 1:22 AM CDT Bridgette Proctor RN Active * Because of a physical, mental, or emotional condition, do you have difficulty doing errands alone such as visiting a doctor's office or shopping? Answer Date of Assessment Author Status Yes 04/10/2023 1:22 AM SUET Bridgette Proctor RN Active documented as of this encounter Mental Status * Because of a physical, mental, or emotional condition, do you have serious difficulty concentrating, remembering, or making decisions? Answer Entry Date Author Status No 04/10/2023 1:22 AM CDT Bridgette Proctor RN Active documented in this encounter Progress Notes * Zaina Dallas RN - 08/26/2023 12:24 PM CST Please advise COATER documented in this encounter Plan of Treatment Upcoming Encounters Date Type Department Care Team (Late st Contact Info) Description 11/16/2024 1:20 PM CDT Office Visit [facility] Multispecialty Care [address], [address] [place] [address] Nirmal Leo MD [address] [place] [address] documented as of this encounter Visit Diagnoses Not on filedocumented in this encounter Additional Health Concerns Assessment Noted Time PHQ-9 Depression Total Score: 4 08/05/20 22 1:27 PM FILM COATER documented as of this encounter Care Teams Continuous Towel Roller Relationship Specialty Start Date End Date Roseanne Murray NP [address] [place] [address] PCP - General NURSE PRACTITIONER 07/31/22 documented as of this encounter
--- OUTSIDE RECORDS SUMMARY | 2024-10-03 20:46 | XMS_ITS | Encounter Summary ---
Author Organization [facility] Address [address] [place] [address] Care Team Providers Care Caving Guide Name Role Phone Roseanne Murray NP Primary Care Provider [phone] Encounter Details Date Type Department Care Team (Late st Contact Info) Description 12/12/2022 Stolen Couch Gamest Message Enc [facility] Medical Group Family Medicine - [place] [address] [place], [place] [address] Roseanne Murray NP [address] [place], [place] [address] Meds Social History Tobacco Use Types Packs/Day Years [...] materials from doctor or pharmacy Often 11/19/2022 PHQ-2 Answer Date Recorded Patient Health Questionnaire-2 Score 0 11/17/2022 Sex and Gender Information Value Date Recorded Sex Assigned at Male 09/13/2024 11:12 AM INTERIOR DESIGN PROFESSOR Legal Sex Male 2:56 PM INTERIOR DESIGN PROFESSOR Gender Identity Not on file Sexual Orientation Not on file 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 No / Unsure 12/14/2022 12:30 PM CDT documented as of this encounter Functional Status * RETIRED Are you deaf or do you have serious difficulty hearing Answer Date of Assessment Author Status No 08/12/2022 2:05 PM INTERIOR DESIGN PROFESSOR Activ e * RETIRED Are you blind or do you have serious difficulty seeing, even when wearing glasses? Answer Date of Assessment Author Status No 08/12/2022 2:05 PM INTERIOR DESIGN PROFESSOR Activ e * Do you have serious difficulty walking or climbing stairs? Answer Date of Assessment Author Status No 08/12/2022 2:05 PM INTERIOR DESIGN PROFESSOR Melinda Noonan RN Active * Do you have difficulty dressing or bathing? Answer Date of Assessment Author Status No 08/12/2022 2:05 PM Melinda Headley RN Active * Because of a physical, mental, or emotional condition, do you have difficulty doing errands alone such as visiting a doctor's office or shopping? Answer Date of Assessment Author Status No 08/12/2022 2:05 PM Melinda Headley RN Active documented as of this encounter Mental Status * Because of a physical, mental, or emotional condition, do you have serious difficulty concentrating, remembering, or making decisions? Answer Entry Date Author Status Yes 08/12/2022 2:05 PM Melinda Headley RN Active documented in this encounter Plan of Treatment Upcoming Encounters Date Type Department Care Team (Late st Contact Info) Description 11/16/2024 1:20 PM CDT Office Visit [facility] Medical Group [facility]pecialty Care - [facility] [address] [facility], [address] [place] [address] Nirmal Leo MD [address] [place] [address] documented as of this encounter Visit Diagnoses Not on filedocumented in this encounter Additional Health Concerns Assessment Noted Time PHQ-9 Depression Total Score: 4 08/05/20 22 1:27 PM INTERIOR DESIGN PROFESSOR documented as of this encounter Care Teams Caving Guide Relationship Specialty Start Date End Date Roseanne Murray NP [address] [place] [address] PCP - General NURSE PRACTITIONER 07/31/22 documented as of this encounter
--- OUTSIDE RECORDS SUMMARY | 2024-10-03 20:46 | XMS_ITS | Encounter Summary ---
Author Organization [facility] Address [address] [place] [address] Care Team Providers Care Patient Accounts Coordinator Name Role Phone Roseanne Murray NP Primary Care Provider [phone] [phone] Encounter Details Date Type Department Care Team (Late st Contact Info) Description 03/07/2024 Nakina Systemst Message Enc [facility] Medical Group Family Medicine - [place] [address] [facility] [address] [facility] [address] [place], [place] [address] Roseanne Murray NP [address] [place], [place] [address] Urine test Social History Tobacco Use Types Packs/Day Years [...] Date Recorded Patient Health Questionnaire-2 Score 0 10/28/2023 Hunger Vital Sign Answer Date Recorded Within the past 12 months, y ou worried that your food would run out before you got the money to buy more. Never true 04/10/20 Within the past 12 months, t he [...] place to sleep or slept in a longterm (including now)? No 04/10/2023 Sex and Gender Information Value Date Recorded Sex Assigned at Male 09/13/2024 11:12 AM CASING IN LINE SETTER Legal Sex Male 2:56 PM CASING IN LINE SETTER Gender Identity Not on file Sexual Orientation [...] Proctor RN Active * Do you have difficulty dressing or bathing? Answer Date of Assessment Author Status Yes 04/10/2023 1:22 AM SUET Bridgette Proctor RN Active * Because of [...] Date Author Status No 04/10/2023 1:22 AM SUET Bridgette Proctor RN Active documented in this encounter Plan of Treatment Upcoming Encounters Date Type Department Care Team (Late st Contact Info) Description 11/16/2024 1:20 PM CDT Office Visit [facility] Medical Group Multispecialty Care - [facility] [address] [facility], [address] [place] [phone] Nirmal Leo MD [address] [place] [address] documented as of this encounter Visit Diagnoses Not on filedocumented in this encounter Additional Health Concerns Assessment Noted Time PHQ-9 Depression Total Score: 4 08/05/20 22 1:27 PM CASING IN LINE SETTER documented as of this encounter Care Teams Patient Accounts Coordinator Relationship Specialty Start Date End Date Roseanne Murray NP [address] [place] [address] PCP - General NURSE PRACTITIONER 07/31/22 documented as of this encounter
--- OUTSIDE RECORDS SUMMARY | 2024-10-03 20:46 | XMS_ITS | Encounter Summary ---
Author Organization [facility] Address [address] [place] [address] Care Team Providers Care Warehouse Material Handler Name Role Phone Roseanne Murray NP Primary Care Provider [phone] Reason for Visit * Reason Onset Date Comments Urinary Retention 10/03/2024 Encounter Details Date Type Department Care Team (Late st Contact Info) Description 10/03/2024 Telephone [facility] Medical Group Family Medicine - [place] [address] [facility] [address] [facility] [address] [place], [place] [address] Roseanne Murray, [place] [address] [place] [address] Urinary Retention Social History Tobacco Use Types Packs/Day Years [...] place to sleep or slept in a custodial (including now)? No 04/10/2023 Sex and Gender Information Value Date Recorded Sex Assigned at Male 09/13/2024 11:12 AM MEDICAL DIRECTOR OF HOSPICE Legal Sex Male 2:56 PM MEDICAL DIRECTOR OF HOSPICE Gender Identity Not on file Sexual Orientation Not on file Occupation Industry Job Start Date Job End Date disabled Not on file Not on file Not on file documented as of this encounter Functional Status * Are you deaf or do you have serious difficulty hearing Answer Date of Assessment Author Status No 04/10/2023 1:22 AM Bridgette Bocanegra RN Active * Are you blind or do you have serious difficulty seeing, even when wearing glasses? Answer Date of Assessment Author Status No 04/10/2023 1:22 AM Bridgette Bocanegra RN Active * Do you have serious difficulty walking or climbing stairs? Answer Date of Assessment Author Status Yes 04/10/2023 1:22 AM Bridgette Bocanegra RN Active * Do you have difficulty dressing or bathing? Answer Date of Assessment Author Status Yes 04/10/2023 1:22 AM Bridgette Bocanegra RN Active * Because of a physical, mental, or emotional condition, do you have difficulty doing errands alone such as visiting a doctor's office or shopping? Answer Date of Assessment Author Status Yes 04/10/2023 1:22 AM Bridgette Bocanegra RN Active documented as of this encounter Mental Status * Because of a physical, mental, or emotional condition, do you have serious difficulty concentrating, remembering, or making decisions? Answer Entry Date Author Status No 04/10/2023 1:22 AM Bridgette Bocanegra RN Active documented in this encounter Progress Notes * Roseanne Murray NP - 10/03/2024 1:35 PM CST Noted by concerns is the decrease in urine output that is why. CAL DIRECTOR OF HOSPICE * Barbara Ayala MA - 10/03/2024 12:24 PM CST Brown called back in and Corky refused to go to the ER. Brown said he is not in any discomfort and his stomach is not tender of anything. She will keep an eye on him closely and if symptoms worsen orcontinue she will take him to the ER CAL DIRECTOR OF HOSPICE * Barbara Ayala MA - 10/03/2024 12:19 PM CST I called and [facility] for Brown to call me back CAL DIRECTOR OF HOSPICE * Jim Jc - 10/03/2024 12:07 PM CST Pts emergency contact called Ayesha regarding pt, her earlier call she was told that Corky needs togo the ER, she has some more questions, she seemed a little frustrated that she couldn't speak withMelanie and she would handle it herself. CAL DIRECTOR OF HOSPICE * Barbara Ayala MA - 10/03/2024 11:43 AM CST Brown informed and will take to the hospital. CAL DIRECTOR OF HOSPICE * Roseanne Murray NP - 10/03/2024 9:51 AM CST He has hx of chronic kidney disease and in the past when this occurred he needed to seek ER care for IV fluids to prevent renal failure so if he is not voiding it is probably best given his history to get labs in the ER, IV fluids, UA testing, they can do a bladder scan as well to see if he is retaining fluid which we can't do that here. CAL DIRECTOR OF HOSPICE * Allyson Call - 10/03/2024 9:44 AM CST Ayesha called in, she thinks Corky might have a uti. He isn't urinating very much. She said he willl go 13-14 hours without urinating. She stopped in to see if she could cotton picker operator a cup to catch a urine sample at home and then drop it back off. I gave her one just in case. Please advise. CAL DIRECTOR OF HOSPICE documented in this encounter Plan of Treatment Upcoming Encounters Date Type Department Care Team (Late st Contact Info) Description 11/16/2024 1:20 PM CDT Office Visit [facility] Medical Group Multispecialty Care - [facility] [address] [facility], [address] [place] [address] Nirmal Leo MD [address] [place] [address] documented as of this encounter Visit Diagnoses Not on filedocumented in this encounter Additional Health Concerns Assessment Noted Time PHQ-9 Depression Total Score: 4 08/05/20 22 1:27 PM MEDICAL DIRECTOR OF HOSPICE documented as of this encounter Care Teams Warehouse Material Handler Relationship Specialty Start Date End Date Roseanne Murray NP [address] [place] [address] PCP - General NURSE PRACTITIONER 07/31/22 documented as of this encounter
--- OUTSIDE RECORDS SUMMARY | 2024-10-03 20:46 | XMS_ITS | Clinical Summary ---
Author Organization [facility] Address [address] [place] [address] Care Team Providers Care Sales Specialist Name Role Phone Roseanne Murray NP Primary Care Provider [phone] Allergies No known active allergies Medications Blood Glucose Monitoring Suppl (Zaiseoul VERIO) w/Device KitIndications:Ty pe 2 diabetes mellitus with other neurologic complication, with long-term current use of insulin ([facility]) Use to check blood sugars TID 1 kit 022 Active senna-docusate (SENOKOT-S) 8.6-50 MG tabletIndications :stool softener Take 1 tablet by mouth 2 (two) times daily. 90 tablet 1 022 Active Spacer/Aero-Holdi ng Chambers DeviceIndications :Cough, unspecified type Use with Albuterol 1 each 023 Active hydrOXYzine (ATARAX) 10 MG tabletIndications :Itching,Anxiety TAKE 1 TABLET BY MOUTH THREE TIMES DAILY NEEDED FOR ITCHING OR ANXIETY 30 tablet 024 Active prednisoLONE acetate (PRED FORTE) 1 % ophthalmic suspension Place 1 drop into both eyes every 12 (twelve) hours. 024 Active moxifloxacin (VIGAMOX) 0.5 % ophthalmic solution 1 drop 3 (three) times daily. Active Lancets (PhoneJoy SolutionsTOUCH DELICA PLUS [id number]) MiscIndications:T ype 2 diabetes mellitus with other neurologic complication, with long-term current use of insulin ([facility]) 1 Lancet by Does not apply route 3 (three) times daily. 300 each 1 024 Active Glucose Blood (PhoneJoy SolutionsTOUCH VERIO) test stripIndications: Type 2 diabetes mellitus with other neurologic complication, with long-term current use of insulin ([facility]) Use to check blood sugar three times daily 300 strip 3 024 Active HUMALOG 100 UNIT/ML injection (VIAL)Indications :diabetes Inject 5 Units into the skin 3 (three) times daily with meals. Hold if blood sugar is < 180. 10 mL 3 024 Active tamsulosin (FLOMAX) 0.4 MG CapIndications:St age 5 chronic kidney disease, unspecified whether stage 3a or 3b CKD ([facility]) Take 1 capsule by mouth once daily 90 capsule 1 024 Active albuterol (ACCUNEB) 1.25 MG/3ML nebulizer solutionIndicatio ns:Chronic cough USE 1 VIAL IN NEBULIZER EVERY 6 HOURS NEEDED FOR WHEEZING 90 mL 024 Active NIFEdipine XL (PROCARDIA XL) 90 MG 24 hr tablet Take 1 tablet (90 mg total) by mouth daily. DO NOT BREAK OR CRUSH TABLET 90 tablet 1 024 Active TRUEPLUS 5-BEVEL PEN NEEDLES 32G X 4 MM MiscIndications:T ype 2 diabetes mellitus with stage 3a chronic kidney disease, with long-term current use of insulin ([facility]) INJECT INTO THE SKIN SUBCUTANEOUSLY ONCE AT NIGHT 100 each 024 Active omeprazole (PRILOSEC) 20 MG capsuleIndication s:Chronic cough Take 1 capsule by mouth once daily 90 capsule 024 Active triamcinolone (KENALOG) 0.1 % creamIndications: Rash APPLY TOPICALLY TO THE AFFECTED AREA(S) TWICE DAILY 80 g 024 Active LANTUS SOLOSTAR 100 UNIT/ML injection (PEN)Indications: Type 2 diabetes mellitus with stage 3a chronic kidney disease, with long-term current use of insulin ([facility]) INJECT 17 UNITS SUBCUTANEOUSLY NIGHTLY AT BEDTIME FOR DIABETES 15 mL 025 Active carvedilol (COREG) 12.5 MG tabletIndications :Primary hypertension TAKE 1 TABLET BY MOUTH TWICE DAILY FOR HIGH BLOOD PRESSURE 180 tablet 1 025 Active atorvastatin (LIPITOR) 40 MG tabletIndications :Cerebrovascular accident (CVA), unspecified mechanism ([facility]),Hyperlip idemia, unspecified hyperlipidemia type TAKE 1 TABLET BY MOUTH NIGHTLY AT BEDTIME 90 tablet 1 025 Active metFORMIN (GLUCOPHAGE) 500 MG tabletIndications :Type 2 diabetes mellitus with other neurologic complication, with long-term current use of insulin ([facility]) Take 1 tablet by mouth once daily with breakfast 90 tablet 1 025 Active hydroCHLOROthiazi de (HYDRODIURIL) 25 MG tabletIndications :Primary hypertension Take 1 tablet by mouth once daily 90 tablet 025 Active hydrALAZINE (APRESOLINE) 25 MG tabletIndications :Primary hypertension TAKE 1 TABLET BY MOUTH EVERY 8 HOURS 90 tablet 1 025 Active escitalopram (LEXAPRO) 20 MG tabletIndications :Anxiety and depression Take 1 tablet by mouth once daily 90 tablet 1 025 Active escitalopram (LEXAPRO) 20 MG tabletIndications :Anxiety and depression Take 1 tablet by mouth once daily 90 tablet 1 024 2024 Discontinued hydroCHLOROthiazi de (HYDRODIURIL) 25 MG tabletIndications :Primary hypertension Take 1 tablet by mouth once daily 90 tablet 1 024 2024 Discontinued carvedilol (COREG) 12.5 MG tabletIndications :Primary hypertension take 1 tablet by mouth twice daily for high blood pressure 180 tablet 024 2024 Discontinued atorvastatin (LIPITOR) 40 MG tabletIndications :Cerebrovascular accident (CVA), unspecified mechanism ([facility]),Hyperlip idemia, unspecified hyperlipidemia type TAKE 1 TABLET BY MOUTH NIGHTLY AT BEDTIME 90 tablet 024 2024 Discontinued metFORMIN (GLUCOPHAGE) 500 MG tabletIndications :Type 2 diabetes mellitus with other neurologic complication, with long-term current use of insulin ([facility]) Take 1 tablet by mouth once daily with breakfast 90 tablet 024 2024 Discontinued hydrALAZINE (APRESOLINE) 25 MG tabletIndications :Primary hypertension TAKE 1 TABLET BY MOUTH EVERY 8 HOURS 90 tablet 024 2024 Discontinued Active Problems Problem Noted Date Diagnosed Date Left renal mass 02/28/2024 Overview (02/28/2024): 7mm left renal mass noted from CT scan of abd/pelvis on 02/22/24. Will follow up with Dr. Caballero about this. Has an appointment on March 20. Assessment & Plan (02/28/2024 5:05 PM CDT): 7mm left renal mass noted from CT scan of abd/pelvis on 02/22/24. Will follow up with Dr. Caballero about this. Has an appointment on March 20. Dysphagia 04/10/2023 Spasticity 01/28/2023 Anxiety and depression 09/30/2022 Constipation, unspecified constipation type 07/30 Urinary retention 08/17/2022 [place] 08/05/2022 HUGO (acute kidney injury) 07/01/2022 Type 2 diabetes mellitus wit h stage 3a chronic kidney disease, with long-term current use of insulin ([facility]) 07/01/2022 Right sided weakness 06/26/2022 Chronic kidney disease, stage 3a ([facility]) 10/27/2021 Cerebrovascular accident (CVA) ([facility]) 02/19/2021 Right leg weakness 12/12/2020 Bence Ayala proteinuria 09/29/2017 Primary hypertension 09/06/2017 Encounters Date Type Department Care Team Description 10/03/2024 Telephone [facility] [address] [place] [address] Roseanne Murray NP Urinary Retention 08/31/2024 MyChart Message Enc [facility] [place] [address] [place] [address] Roseanne Murray NP Depends Approval 08/24/[address] [place] [address] Roseanne Murray NP Supplies ([facility]) 08/21/2024 12:40 PM ELEMENTARY ART TEACHER Office Visit [address] [place] [address] Roseanne Murray NP Diabetes (Patient presents for a 3 month follow up diabetes ) 08/21/2024 Travel 08/18/2024 Scan [employer] INFO SRVCS Scanned, [facility] Image (SCAN) 08/16/2024 Telephone [facility] [place] [address] [facility] [place] [phone] Nirmal Leo MD Appointment Request 08/02/2024 Telephone [facility] - [address] [place] [address] Roseanne Murray NP Orders ([facility]) from Last 3 Months Immunizations Name Administration Dates Next Due Fluzone (IIV3, Trivalent, 0.5 ML Prefilled Syrin ge) 08/21/2024 Fluzone 6 Months+ Quad (0.5 mL Prefilled Syringe ) 07/20/2023 Pneumococcal (Prevnar 20) 07/20/2023 Tdap (Boostrix) 08/21/2024 Family History Medical History Relation Comments Hypertension Brother Mental Health Brother Retardation/Learning Difficulties Brother Asthma Daughter Alcohol Abuse Father Diabetes Father Drug Abuse Father Arthritis Maternal Aunt 1 Cancer Maternal Aunt 2 Stroke Maternal Aunt 2 Cancer Maternal Aunt 3 Depression Maternal Aunt 4 Depression Maternal Aunt 5 Diabetes Maternal Grandfather Arthritis Maternal Grandmother Diabetes Maternal Grandmother Heart Disease Maternal Grandmother Hypertension Maternal Grandmother Pacemaker Maternal Grandmother Arthritis Mother Coronary artery disease Mother Diabetes Mother Hyperlipidemia Mother Hypertension Mother ICD Mother Kidney Disease Mother Stent Cardiac Mother Thyroid Disease Mother Retardation/Learning Difficulties Sister Asthma Son Relation Status Comments Brother Alive Daughter Father Maternal Aunt 1 Maternal Aunt 2 Maternal Aunt 3 Maternal Aunt 4 Maternal Aunt 5 Maternal Grandfather Maternal Grandmother Mother Alive Paternal Grandmother Sister Alive Son Social History Tobacco Use Types Packs/Day Years Used Date Smoking Tobacco: Never Passive Smoke Exposure: Never Smokeless Tobacco: Never Tobacco Cessation:Counseling Given: No Alcohol Use Standard Drinks/Week Comments Never 0 [...] No 11/19/2022 OASIS B1300: Health Literacy Answer Obb e Recorded Frequency of needing help to [...] place to sleep or slept in a senior living (including now)? No 04/10/2023 Sex and Gender Information Value Date Recorded Sex Assigned at Male 09/13/2024 11:12 AM ELEMENTARY ART TEACHER Legal Sex Male 2:56 PM ELEMENTARY ART TEACHER Gender Identity Not on file Sexual Orientation Not on file Occupation Industry Job Start Date Job End Date disabled Not on file Not on file Not on file Last Filed Vital Signs Vital Sign Reading Time Taken Comments Blood Pressure 118/64 08/21/2024 12:44 PM ELEMENTARY ART TEACHER Pulse 58 08/21/2024 12:44 PM ELEMENTARY ART TEACHER Temperature 36.2 ??C (97.1 ??F) 08/21/2024 12:[address] Respiratory Rate 18 08/21/2024 12:44 PM ELEMENTARY ART TEACHER Oxygen Saturation 98% 08/21/2024 12:44 PM ELEMENTARY ART TEACHER Inhaled Oxygen Concentration - - Weight 88.5 kg (195 lb) 08/21/2024 12:44 PM ELEMENTARY ART TEACHER Height 185.4 cm (6' 1 ) 05/11/2024 1:44 PM CDT Body Mass Index 25.73 05/11/2024 1:44 PM CDT Plan of Treatment Upcoming Encounters Date Type Department Care Team (Late st Contact Info) Description 11/16/2024 1:20 PM CDT Office Visit [facility] - [facility] [address], [address] [place] [phone] Nirmal Leo MD [address] [place] [address] Health Maintenance Due Date Last Done Comments Colorectal Cancer Screening Colonoscopy (10 Years) 1972 Kidney Health Evaluation 1972 Diabetes: Retinopathy Eye Exam 1990 Hepatitis C 1990 Hepatitis B Vaccines (1 of 3 - 19+ 3-dose series) 1991 Zoster Vaccines (1 of 2) 2022 COVID-19 Vaccine ( season) 2024 ASCVD LDL 08/04/2024 08/04/2023, 03/30, 12/03/2022 Lipid Panel 08/04/2024 08/04/2023, 03/30, 12/03/2022 PHQ-2 (Physician [place]) 08/30/2024 10/28/2023 Hemoglobin A1C 02/19/2025 08/21/2024, 12/0 01/2023, 04/10/2023, Additional history exists Annual Physical 08/21/2025 08/21/2024 DTaP, Tdap and Td Vaccines (2 - Td or Tdap) 08/21/2034 08/21/2024 Pneumococcal Vaccine: Pediatrics (0 to 5 Years) and At-Risk Patients (6 to 64 Years) Completed 07/20/2023 Influenza Adult Completed 08/21/2024, 07/20/2023 Meningococcal B Vaccine Aged Out No l onger eligible based on patient's age to complete this topic Meningococcal Vaccine Aged Out No stephen rekha eligible based on patient's age to complete this topic RSV Immunizations Under 20 Months Aged Out No longer eligible based on patient's age to complete this topic Procedures Procedure Name Priority Date/Time Associated Diagnosis Comments COLLECT.CAPILLARY (FNGR,HEEL,EAR) Routine 08/21/2024 12:47 PM ELEMENTARY ART TEACHER Type 2 diabetes mellitus with other neurologic complication, with long-term current use of insulin ([facility]) HEMOGLOBIN, GLYCOSYLATED Routine 08/21/2024 Type 2 diabetes mellitus with other neurologic complication, with long-term current use of insulin ([facility]) IMAGE GENERIC 08/18/2024 LIPID PANEL Routine 08/04/2023 2:09 PM ELEMENTARY ART TEACHER Hyperlipidemia, unspecified hyperlipidemia type from Last 3 Months or Most Recently Relevant to Health Maintenance Results * A1C (BACK OFFICE) (08/21/2024) HGB A1C 5.9 % [address], [place] 08/21/2024 us Roseanne Murray FINISHING AREA SUPERVISOR LABORATORY Final Res ult [address], [place] [address] [place] [address], [place] [phone] * IMAGE GENERIC (08/18/2024) Anatomical Region Laterality Modality Other 08/18/2024 us Doc [facility] Scanned SCANNING Final Resu lt * LIPID PANEL (08/04/2023 2:09 PM ELEMENTARY ART TEACHER) CHOLESTEROL 100 <200 MG/DL 08/04/2023 7:45 PM ELEMENTARY ART TEACHER [facility] TRIGLYCERIDES 82 <150 MG/DL 08/04/2023 7:45 PM ELEMENTARY ART TEACHER [facility] HDL 43 >40 MG/DL 08/04/2023 7:45 PM ELEMENTARY ART TEACHER [facility] LDL-C 41 <100 MG/DL 08/04/2023 7:45 PM ELEMENTARY ART TEACHER [facility] VLDL CALCULATION 16 5 - 28 MG/DL 08/04/2023 7:45 PM ELEMENTARY ART TEACHER [facility] CHOL/HDL RATIO 2.3 0.0 - 4.0 08/04/2023 7:45 PM ELEMENTARY ART TEACHER [facility] LDL/HDL 1.0 0.41 - 2.13 08/04/2023 7:45 PM ELEMENTARY ART TEACHER [facility] NON HDL CHOLESTEROL 57 <140 MG/DL 08/04/2023 7:45 PM ELEMENTARY ART TEACHER [facility] 08/04/2023 2:09 PM ELEMENTARY ART TEACHER Roseanne Murray FINISHING AREA SUPERVISOR LABORATORY Final Res ult [facility] [place] [address] [place] [address], [place] [phone] from Last 3 Months or Most Recently Relevant to Health Maintenance Insurance [employer] Advance Directives * Full Code (Latest Code Status on File) Date Activated Date Inactivated Comments 04/10/2023 12:56 AM 04/11/2023 4:48 PM * Full Code Date Activated Date Inactivated Comments 11/11/2022 2:26 PM 04/10/2023 12:44 AM * Full Code Date Activated Date Inactivated Comments 08/11/2022 7:19 PM 08/14/2022 6:26 PM Care Teams Sales Specialist Relationship Specialty Start Date End Date Roseanne Murray NP [address] [place] [address] PCP - General NURSE PRACTITIONER 07/31/22
--- OUTSIDE RECORDS SUMMARY | 2024-10-03 20:46 | XMS_ITS | Encounter Summary ---
Author Organization [facility] Address [address] [place] [address] Care Team Providers Care Gameplay Engineer Name Role Phone Roseanne Murray NP Primary Care Provider [phone] Encounter Details Date Type Department Care Team (Latest Contact Info) Description 09/08/2022 Justin.TV Message Enc [facility] [address] [place] [address] Roel Riojas MD,PHD Blood Pressure numbers 09/08/2022 Social History Tobacco Use Types Packs/Day Years [...] Sex Assigned at Male 09/13/2024 11:12 AM ON CALL Legal Sex Male 2:56 PM ON CALL Gender Identity Not on file Sexual Orientation Not on file 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 No / Unsure 08/17/2022 2:11 PM ON CALL documented as of this encounter Functional Status * RETIRED Are you deaf or do you have serious difficulty hearing Answer Date of Assessment Author Status No 08/12/2022 2:05 PM ON CALL Activ e * RETIRED Are you blind or do you have serious difficulty seeing, even when wearing glasses? Answer Date of Assessment Author Status No 08/12/2022 2:05 PM ON CALL Activ e * Do you have serious difficulty walking or climbing stairs? Answer Date of Assessment Author Status No 08/12/2022 2:05 PM ON CALL Melinda Noonan RN Active * Do you have difficulty dressing or bathing? Answer Date of Assessment Author Status No 08/12/2022 2:05 PM ON CALL Melinda Noonan RN Active * Because of a physical, mental, or emotional condition, do you have difficulty doing errands alone such as visiting a doctor's office or shopping? Answer Date of Assessment Author Status No 08/12/2022 2:05 PM ON CALL Melinda Noonan RN Active documented as of this encounter Mental Status * Because of a physical, mental, or emotional condition, do you have serious difficulty concentrating, remembering, or making decisions? Answer Entry Date Author Status Yes 08/12/2022 2:05 PM ON CALL Melinda Noonan RN Active documented in this encounter Progress Notes * Roel Riojas MD,PHD - 09/10/2022 2:58 PM CST Excellent blood pressure. CALL * Carisa Wilson RN - 09/08/2022 4:20 PM CST . CALL documented in this encounter Plan of Treatment Upcoming Encounters Date Type Department Care Team (Late st Contact Info) Description 11/16/2024 1:20 PM CDT Office Visit [facility] Multispecialty Care - [address], [address] [place] [address] Nirmal Leo MD [address] [place] [address] documented as of this encounter Visit Diagnoses Not on filedocumented in this encounter Additional Health Concerns Assessment Noted Time PHQ-9 Depression Total Score: 4 08/05/20 22 1:27 PM ON CALL documented as of this encounter Care Teams Gameplay Engineer Relationship Specialty Start Date End Date Roseanne Murray NP [address] [place] [address] PCP - General NURSE PRACTITIONER 07/31/22 documented as of this encounter
--- OUTSIDE RECORDS SUMMARY | 2024-10-03 20:46 | XMS_ITS | Encounter Summary ---
Author Organization [facility] Address [address] [place] [address] Care Team Providers Care Computer Networker Name Role Phone Roseanne Murray NP Primary Care Provider [phone] Encounter Details Date Type Department Care Team (Late st Contact Info) Description 06/08/2024 Ringz.TVt Message Enc [facility] - [facility] [address] [facility] [place], [place] [address] Roseanne Murray CONCERT PIANIST [address] [place], [place] [address] Skin issues Social History Tobacco Use Types Packs/Day Years [...] place to sleep or slept in a skilled nursing (including now)? No 04/10/2023 Sex and Gender Information Value Date Recorded Sex Assigned at Male 09/13/2024 11:12 AM CLASS 1 OWNER OPERATOR Legal Sex Male 2:56 PM CLASS 1 OWNER OPERATOR Gender Identity Not on file Sexual Orientation [...] Description 11/16/2024 1:20 PM CDT Office Visit [facility] Multispecialty Care - [facility] [address] [facility], [address] [place] [phone] Nirmal Leo MD [address] [place] [address] documented as of this encounter Visit Diagnoses Not on filedocumented in this encounter Additional Health Concerns Assessment Noted Time PHQ-9 Depression Total Score: 4 08/05/20 22 1:27 PM CLASS 1 OWNER OPERATOR documented as of this encounter Care Teams Computer Networker Relationship Specialty Start Date End Date Roseanne Murray NP [address] [place] [address] PCP - General NURSE PRACTITIONER 07/31/22 documented as of this encounter
--- OUTSIDE RECORDS SUMMARY | 2024-10-03 20:46 | XMS_ITS | Encounter Summary ---
Author Organization [facility] Address [address] [place] [address] Care Team Providers Care Associate Editor Name Role Phone Roseanne Murray NP Primary Care Provider [phone] Encounter Details Date Type Department Care Team (Late st Contact Info) Description 10/06/2023 Voter Gravity Message Enc [facility] Multispecialty Care - [facility] [address], [address] [place] [phone] Misha, [facility] Provider CPAP Social History Tobacco Use Types Packs/Day Years [...] place to sleep or slept in a snf (including now)? No 04/10/2023 Sex and Gender Information Value Date Recorded Sex Assigned at Male 09/13/2024 11:12 AM UNDERGROUND ELECTRICIAN Legal Sex Male 2:56 PM UNDERGROUND ELECTRICIAN Gender Identity Not on file Sexual Orientation Not on file Occupation Industry Job Start Date Job End Date disabled Not on file Not on file Not on file documented as of this encounter Functional Status * Are you deaf or do you have serious difficulty hearing Answer Date of Assessment Author Status No 04/10/2023 1:22 AM SUET Bridgette Proctor RN Active * Are you [...] Bocanegra RN Active documented in this encounter Plan of Treatment Upcoming Encounters Date Type Department Care Team (Late st Contact Info) Description 11/16/2024 1:20 PM CDT Office Visit [facility] Multispecialty Care - [facility] [address], [address] [place] [phone] Nirmal Leo MD [address] [place] [address] documented as of this encounter Visit Diagnoses Not on filedocumented in this encounter Additional Health Concerns Assessment Noted Time PHQ-9 Depression Total Score: 4 08/05/20 22 1:27 PM UNDERGROUND ELECTRICIAN documented as of this encounter Care Teams Associate Editor Relationship Specialty Start Date End Date Roseanne Murray NP [address] [place] [address] PCP - General NURSE PRACTITIONER 07/31/22 documented as of this encounter
--- OUTSIDE RECORDS SUMMARY | 2024-10-03 20:46 | XMS_ITS | Encounter Summary ---
Author Organization [facility] Address [address] [place] [address] Care Team Providers Care Flame Cutting Machine Operator Name Role Phone Roseanne Murray NP Primary Care Provider [phone] Encounter Details Date Type Department Care Team (Late st Contact Info) Description 08/31/2024 Pointstict Message Enc [facility] Family Medicine - [place] [address] [place], [place] [address] Roseanne Murray NP [address] [place], [place] [address] Depends Approval Social History Tobacco Use Types Packs/Day Years [...] Sex Assigned at Male 09/13/2024 11:12 AM PUNCHBOARD FILLING MACHINE OPERATOR Legal Sex Male 2:56 PM PUNCHBOARD FILLING MACHINE OPERATOR Gender Identity Not on file Sexual [...] Description 11/16/2024 1:20 PM CDT Office Visit [facility]pecialty Care - [facility] [address], [address] [place] [phone] Nirmal Leo MD [address] [place] [address] documented as of this encounter Visit Diagnoses Not on filedocumented in this encounter Additional Health Concerns Assessment Noted Time PHQ-9 Depression Total Score: 4 08/05/20 22 1:27 PM PUNCHBOARD FILLING MACHINE OPERATOR documented as of this encounter Care Teams Flame Cutting Machine Operator Relationship Specialty Start Date End Date Roseanne Murray NP [address] [place] [address] [place] [address] PCP - General NURSE PRACTITIONER 07/31/22 documented as of this encounter
--- OUTSIDE RECORDS SUMMARY | 2024-10-03 20:46 | XMS_ITS | Encounter Summary ---
Author Organization [facility] Address [address] [place] [address] Care Team Providers Care Burner Tender Name Role Phone Roseanne Murray NP Primary Care Provider +1 [phone] Encounter Details Date Type Department Care Team (Late st Contact Info) Description 12/09/2022 Basisnote AG Message Enc [facility], [address] [address] [place], [facility] Provider Lab results Social History Tobacco Use Types Packs/Day Years [...] Sex Assigned at Male 09/13/2024 11:12 AM ASPHALT DISTRIBUTOR OPERATOR Legal Sex Male 2:56 PM ASPHALT DISTRIBUTOR OPERATOR Gender Identity Not on file Sexual Orientation Not on file 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 No / Unsure 11/30/2022 2:19 PM CDT documented as of this encounter Functional Status * RETIRED Are you deaf or do you have serious difficulty hearing Answer Date of Assessment Author Status No 08/12/2022 2:05 PM ASPHALT DISTRIBUTOR OPERATOR Activ e * RETIRED Are you blind or do you have serious difficulty seeing, even when wearing glasses? Answer Date of Assessment Author Status No 08/12/2022 2:05 PM ASPHALT DISTRIBUTOR OPERATOR Activ e * Do you have serious difficulty walking or climbing stairs? Answer Date of Assessment Author Status No 08/12/2022 2:05 PM ASPHALT DISTRIBUTOR OPERATOR Melinda Noonan RN Active * Do you have difficulty dressing or bathing? Answer Date of Assessment Author Status No 08/12/2022 2:05 PM ASPHALT DISTRIBUTOR OPERATOR Melinda Noonan RN Active * Because of a physical, mental, or emotional condition, do you have difficulty doing errands alone such as visiting a doctor's office or shopping? Answer Date of Assessment Author Status No 08/12/2022 2:05 PM ASPHALT DISTRIBUTOR OPERATOR Melinda Noonan RN Active documented as of this encounter Mental Status * Because of a physical, mental, or emotional condition, do you have serious difficulty concentrating, remembering, or making decisions? Answer Entry Date Author Status Yes 08/12/2022 2:05 PM ASPHALT DISTRIBUTOR OPERATOR Melinda Noonan RN Active documented in this encounter Plan of Treatment Upcoming Encounters Date Type Department Care Team (Late st Contact Info) Description 11/16/2024 1:20 PM CDT Office Visit [facility] Medical Group Multispecialty Care - [address], [address] [place] [address] Nirmal Leo MD [address] [place] [address] documented as of this encounter Visit Diagnoses Not on filedocumented in this encounter Additional Health Concerns Assessment Noted Time PHQ-9 Depression Total Score: 4 08/05/20 22 1:27 PM ASPHALT DISTRIBUTOR OPERATOR documented as of this encounter Care Teams Burner Tender Relationship Specialty Start Date End Date Roseanne Murray NP [address] [place] [address] PCP - General NURSE PRACTITIONER 07/31/22 documented as of this encounter
--- OUTSIDE RECORDS SUMMARY | 2024-10-03 20:46 | XMS_ITS | Encounter Summary ---
Author Organization [facility] Address [address] [place] [address] Care Team Providers Care Supervisor Mold Yard Name Role Phone Roseanne Murray NP Primary Care Provider +1 [phone] Encounter Details Date Type Department Care Team (Late st Contact Info) Description 03/09/2023 FREECULTR Message Enc [facility] Medical Group Family Medicine - [place] [address] [place] [address] Misha, [facility] Provider Chest xray Social History Tobacco Use Types Packs/Day Years [...] Date Recorded Patient Health Questionnaire-2 Score 0 01/28/2023 Sex and Gender Information Value Date Recorded Sex Assigned at Male 09/13/2024 11:12 AM CLAM GROWER Legal Sex Male 2:56 PM CLAM GROWER Gender Identity Not on file Sexual Orientation Not on file 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 No / Unsure 02/12/2023 12:25 PM CDT documented as of this encounter Functional Status * RETIRED Are you deaf or do you have serious difficulty hearing Answer Date of Assessment Author Status No 08/12/2022 2:05 PM CLAM GROWER Activ e * RETIRED Are you blind or do you have serious difficulty seeing, even when wearing glasses? Answer Date of Assessment Author Status No 08/12/2022 2:05 PM CLAM GROWER Activ e * Do you have serious difficulty walking or climbing stairs? Answer Date of Assessment Author Status No 08/12/2022 2:05 PM CLAM GROWER Melinda Noonan RN Active * Do you have difficulty dressing or bathing? Answer Date of Assessment Author Status No 08/12/2022 2:05 PM CLAM GROWER Melinda Noonan RN Active * Because of a physical, mental, or emotional condition, do you have difficulty doing errands alone such as visiting a doctor's office or shopping? Answer Date of Assessment Author Status No 08/12/2022 2:05 PM CLAM GROWER Melinda Noonan RN Active documented as of [...] Description 11/16/2024 1:20 PM CDT Office Visit [facility] Medical Group Multispecialty Care - [address], [address] [place] [address] Nirmal Leo MD [address] [place], [place] [address], [place] [address] documented as of this encounter Visit Diagnoses Not on filedocumented in this encounter Additional Health Concerns Assessment Noted Time PHQ-9 Depression Total Score: 4 08/05/20 22 1:27 PM CLAM GROWER documented as of this encounter Care Teams Supervisor Mold Yard Relationship Specialty Start Date End Date Roseanne Murray NP [address] [place] [address] PCP - General NURSE PRACTITIONER 07/31/22 documented as of this encounter
--- OUTSIDE RECORDS SUMMARY | 2024-10-03 20:46 | XMS_ITS | Encounter Summary ---
Author Organization [facility] Address [address] [place] [address] Care Team Providers Care Zipper Setter Chainstitch Name Role Phone Roseanne Murray NP Primary Care Provider +1 [phone] Encounter Details Date Type Department Care Team (Late st Contact Info) Description 03/08/2024 MONOQIt Message Enc [facility] Medical Group Family Medicine - [place] [address] [facility] [address] [place], [place] [address] Roseanne Murray NP [address] [place], [place] [address] Schedule testing Social History Tobacco Use Types Packs/Day Years [...] Sex Assigned at Male 09/13/2024 11:12 AM E COMMERCE MARKETING ANALYST Legal Sex Male 2:56 PM E COMMERCE MARKETING ANALYST Gender Identity Not on file Sexual Orientation [...] 11/16/2024 1:20 PM CDT Office Visit [facility] Medical Group Multispecialty Care - [facility] [address] [facility], [address] [place] [phone] Nirmal Leo MD [address] [place] [address] documented as of this encounter Visit Diagnoses Not on filedocumented in this encounter Additional Health Concerns Assessment Noted Time PHQ-9 Depression Total Score: 4 08/05/20 22 1:27 PM E COMMERCE MARKETING ANALYST documented as of this encounter Care Teams Zipper Setter Chainstitch Relationship Specialty Start Date End Date Roseanne Murray NP [address] [place] [address] PCP - General NURSE PRACTITIONER 07/31/22 documented as of this encounter
--- OUTSIDE RECORDS SUMMARY | 2024-10-03 20:46 | XMS_ITS | Encounter Summary ---
Author Organization [facility] Address [address] [place] [address] Care Team Providers Care Laundry Superintendent Name Role Phone Roseanne Murray NP Primary Care Provider +1 -[phone] Encounter Details Date Type Department Care Team (Late st Contact Info) Description 01/03/2024 Built In Message Enc [facility] [address] [place] [address] Kendall Greene MD [facility], [address] [place] [address] BP numbers Social History Tobacco Use Types Packs/Day Years [...] place to sleep or slept in a prison (including now)? No 04/10/2023 Sex and Gender Information Value Date Recorded Sex Assigned at Male 09/13/2024 11:12 AM GERIATRIC NURSE PRACTITIONER Legal Sex Male 2:56 PM GERIATRIC NURSE PRACTITIONER Gender Identity Not on file Sexual Orientation [...] Description 11/16/2024 1:20 PM CDT Office Visit [facility] Medical Group Multispecialty Care - [facility] [address] [facility], [address] [place] [phone] Nirmal Leo MD [address] [place] [address] documented as of this encounter Visit Diagnoses Not on filedocumented in this encounter Additional Health Concerns Assessment Noted Time PHQ-9 Depression Total Score: 4 08/05/20 22 1:27 PM GERIATRIC NURSE PRACTITIONER documented as of this encounter Care Teams Laundry Superintendent Relationship Specialty Start Date End Date Roseanne Murray NP [address] [place] [address] PCP - General NURSE PRACTITIONER 07/31/22 documented as of this encounter
--- OUTSIDE RECORDS SUMMARY | 2024-10-03 20:46 | XMS_ITS | Encounter Summary ---
Author Organization [facility] Address [address] [place] [address] Care Team Providers Care Scrip Clerk Name Role Phone Roseanne Murray NP Primary Care Provider [phone] [phone] Encounter Details Date Type Department Care Team (Late st Contact Info) Description 12/08/2022 Abstract [facility], [address] [address] Jose David MA Social History Tobacco Use Types Packs/Day Years [...] Sex Assigned at Male 09/13/2024 11:12 AM HOUSE WORKER GENERAL Legal Sex Male 2:56 PM HOUSE WORKER GENERAL Gender Identity Not on file Sexual Orientation Not on file 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 Answer Date of Assessment Author Status No 08/12/2022 2:05 PM HOUSE WORKER GENERAL Activ e * Do you have serious difficulty walking or climbing stairs? Answer Date of Assessment Author Status No 08/12/2022 2:05 PM HOUSE WORKER GENERAL Melinda Noonan RN Active * Do you have difficulty dressing or bathing? Answer Date of Assessment Author Status No 08/12/2022 2:05 PM HOUSE WORKER GENERAL Melinda Noonan RN Active * Because of a physical, mental, or emotional condition, do you have difficulty doing errands alone such as visiting a doctor's office or shopping? Answer Date of Assessment Author Status No 08/12/2022 2:05 PM HOUSE WORKER GENERAL Melinda Noonan RN Active documented as of [...] Description 11/16/2024 1:20 PM CDT Office Visit [facility] Medical Group Multispecialty Care - [address], [address] [place] [phone] Nirmal Leo MD [address] [place] [address] documented as of this encounter Procedures Procedure Name Priority Date/Time Associated Diagnosis Comments BASIC METABOLIC PANEL Routine 12/03/2022 LIPID PANEL Routine 12/03/2022 documented in this encounter Results * LIPID PANEL (12/03/2022) CHOLESTEROL 113 HDL 33 TRIGLYCERIDES 149 DIRECT LDL 50 12/03/2022 us Default History Genericprovider LABORATORY Final Result * BASIC METABOLIC PANEL (12/03/2022) SODIUM S/P/B 139 POTASSIUM S/P/B 4.3 CO2 26 CHLORIDE S/P/B 101 GLUCOSE 101 mg/dL CALCIUM S/P/B 9.7 BUN 22 CREATININE S/P/B 1.0 0.7 - 1.3 EGFR NON-AFR. AMER. >60 <=90 12/03/2022 us Default History Genericprovider LABORATORY Final Result documented in this encounter Visit Diagnoses Not on filedocumented in this encounter Additional Health Concerns Assessment Noted Time PHQ-9 Depression Total Score: 4 08/05/20 22 1:27 PM HOUSE WORKER GENERAL documented as of this encounter Care Teams Scrip Clerk Relationship Specialty Start Date End Date Roseanne Murray NP [address] [place] [address] PCP - General NURSE PRACTITIONER 07/31/22 documented as of this encounter
--- OUTSIDE RECORDS SUMMARY | 2024-10-03 20:46 | XMS_ITS | Encounter Summary ---
Author Organization [facility] Address [address] [place] [address] Care Team Providers Care Senior Controller Name Role Phone Roseanne Murray NP Primary Care Provider +1 [phone] Encounter Details Date Type Department Care Team (Late st Contact Info) Description 08/28/2022 [employer] Message Enc [facility] Medical [facility] Family Medicine - [place] [address] [facility] [address] [place], [place] [address] Roseanne Murray NP [address] [place], [place] [address] Medicine Options Social History Tobacco Use Types Packs/Day Years [...] Sex Assigned at Male 09/13/2024 11:12 AM SUPERVISOR TANK HOUSE Legal Sex Male 2:56 PM SUPERVISOR TANK HOUSE Gender Identity Not on file Sexual Orientation Not on file COVID-19 Exposure Response Date Recorded In the last 10 days, have sara u been in contact with someone who was confirmed or suspected to have Coronavirus/COVID-19? No / Unsure 08/17/2022 2:11 PM SUPERVISOR TANK HOUSE documented as of this encounter Functional Status * RETIRED Are you deaf or do you have serious difficulty hearing Answer Date of Assessment Author Status No 08/12/2022 2:05 PM SUPERVISOR TANK HOUSE Activ e * RETIRED Are you blind or do you have serious difficulty seeing, even when wearing glasses? Answer Date of Assessment Author Status No 08/12/2022 2:05 PM SUPERVISOR TANK HOUSE Activ e * Do you have serious difficulty walking or climbing stairs? Answer Date of Assessment Author Status No 08/12/2022 2:05 PM SUPERVISOR TANK HOUSE Melinda Noonan RN Active * Do you have difficulty dressing or bathing? Answer Date of Assessment Author Status No 08/12/2022 2:05 PM Melinda Headley RN Active * Because of a physical, mental, or emotional condition, do you have difficulty doing errands alone such as visiting a doctor's office or shopping? Answer Date of Assessment Author Status No 08/12/2022 2:05 PM SUPERVISOR TANK HOUSE Melinda Noonan RN Active documented as of this encounter Mental Status * Because of a physical, mental, or emotional condition, do you have serious difficulty concentrating, remembering, or making decisions? Answer Entry Date Author Status Yes 08/12/2022 2:05 PM Melinda Headley RN Active documented in this encounter Progress Notes * Roseanne Murray NP - 09/01/2022 8:17 AM CST Barbara pt will need an apt to discuss anxiety/depressant medication or a video visit to discuss. Eduardo ok with Home health but we would need to know who they want to use. I thought he already had home health with [facility]?? [employer] documented in this encounter Plan of Treatment Upcoming Encounters Date Type Department Care Team (Late st Contact Info) Description 11/16/2024 1:20 PM CDT Office Visit [facility] Medical Group Multispecialty Care - [facility] [address] [facility], [address] [place] [address] Nirmal Leo MD [address] [place] [address] documented as of this encounter Visit Diagnoses Not on filedocumented in this encounter Additional Health Concerns Assessment Noted Time PHQ-9 Depression Total Score: 4 08/05/20 22 1:27 PM SUPERVISOR TANK HOUSE documented as of this encounter Care Teams Senior Controller Relationship Specialty Start Date End Date Roseanne Murray NP [address] [place] [address] PCP - General NURSE PRACTITIONER 07/31/22 documented as of this encounter
--- OUTSIDE RECORDS SUMMARY | 2024-10-03 20:46 | XMS_ITS | Encounter Summary ---
Author Organization [facility] Address [address] [place] [address] Care Team Providers Care Data Security Analyst Name Role Phone Roseanne Murray NP Primary Care Provider +1 [phone] Encounter Details Date Type Department Care Team (Late st Contact Info) Description 03/09/2023 Qbakat Message Enc [facility] Medical Group Family Medicine - [place] [address] [place] [address] Misha, [facility] Provider Lab's Social History Tobacco Use Types Packs/Day Years [...] Sex Assigned at Male 09/13/2024 11:12 AM MANAGER FLORAL Legal Sex Male 2:56 PM MANAGER FLORAL Gender Identity Not on file Sexual Orientation Not on file 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 Answer Date of Assessment Author Status No 08/12/2022 2:05 PM MANAGER FLORAL Activ e * Do you have serious difficulty walking or climbing stairs? Answer Date of Assessment Author Status No 08/12/2022 2:05 PM MANAGER FLORAL Mleinda Noonan RN Active * Do you have difficulty dressing or bathing? Answer Date of Assessment Author Status No 08/12/2022 2:05 PM MANAGER FLORAL Melinda Noonan RN Active * Because of a physical, mental, or emotional condition, do you have difficulty doing errands alone such as visiting a doctor's office or shopping? Answer Date of Assessment Author Status No 08/12/2022 2:05 PM MANAGER FLORAL Melinda Noonan RN Active documented as of [...] [facility] Multispecialty Care - [address], [address] [place] [address] Nirmal Leo MD [address] [place], [place] [address], [place] [address] documented as of this encounter Visit Diagnoses Not on filedocumented in this encounter Additional Health Concerns Assessment Noted Time PHQ-9 Depression Total Score: 4 08/05/20 22 1:27 PM MANAGER FLORAL documented as of this encounter Care Teams Data Security Analyst Relationship Specialty Start Date End Date Roseanne Murary NP [address] [place] [address] PCP - General NURSE PRACTITIONER 07/31/22 documented as of this encounter
--- OUTSIDE RECORDS SUMMARY | 2024-10-03 20:46 | XMS_ITS | Encounter Summary ---
Author Organization [facility] Address [address] [place] [address] Care Team Providers Care Wet Crown Blocking Operator Name Role Phone Roseanne Murray NP Primary Care Provider +1 [phone] Encounter Details Date Type Department Care Team (Late st Contact Info) Description 09/19/[address] [facility] Medical Group Family Medicine - [place] [address] [facility] [address] [place], [place] [address] Roseanne Murray NP [address] [place], [place] [address] Burning eyes Social History Tobacco Use Types Packs/Day Years [...] place to sleep or slept in a fpc (including now)? No 04/10/2023 Sex and Gender Information Value Date Recorded Sex Assigned at Male 09/13/2024 11:12 AM RECONCILIATION ACCOUNTANT Legal Sex Male 2:56 PM RECONCILIATION ACCOUNTANT Gender Identity Not on file Sexual Orientation [...] 1:20 PM CDT Office Visit [facility] Medical [facility] Multispecialty Care - [facility] [address] [facility], [address] [place] [phone] Nirmal Leo MD [address] [place] [address] documented as of this encounter Visit Diagnoses Not on filedocumented in this encounter Additional Health Concerns Assessment Noted Time PHQ-9 Depression Total Score: 4 08/05/20 22 1:27 PM RECONCILIATION ACCOUNTANT documented as of this encounter Care Teams Wet Crown Blocking Operator Relationship Specialty Start Date End Date Roseanne Murray NP [address] [place] [address] [place] [address] PCP - General NURSE PRACTITIONER 07/31/22 documented as of this encounter
--- OUTSIDE RECORDS SUMMARY | 2024-10-03 20:46 | XMS_ITS | Encounter Summary ---
Author Organization [facility] Address [address] [place] [address] Care Team Providers Care Acid Splicer Name Role Phone Roseanne Murray CORNER CUTTER Primary Care Provider +1 -[phone] Encounter Details Date Type Department Care Team (Late st Contact Info) Description 02/22/2023 [employer] Messengert Message Enc [facility] Medical Group Family Medicine - [place] [address] [facility] [address] [place], [place] [address] Roseanne Murray NP [address] [place], [place] [address] Referral/cough/incre ased weakness Social History Tobacco Use Types Packs/Day Years [...] Sex Assigned at Male 09/13/2024 11:12 AM FOOD PRODUCTION SUPERVISOR Legal Sex Male 2:56 PM FOOD PRODUCTION SUPERVISOR Gender Identity Not on file Sexual Orientation Not on file 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 Answer Date of Assessment Author Status No 08/12/2022 2:05 PM FOOD PRODUCTION SUPERVISOR Activ e * Do you have serious difficulty walking or climbing stairs? Answer Date of Assessment Author Status No 08/12/2022 2:05 PM FOOD PRODUCTION SUPERVISOR Melinda Noonan RN Active * Do you [...] documented in this encounter Progress Notes * Barbara Ayala MA - 02/23/2023 1:55 PM CDT Appointment made for 02/24/23 documented in this encounter Plan of Treatment Upcoming Encounters Date Type Department Care Team (Late st Contact Info) Description 11/16/2024 1:20 PM CDT Office Visit [facility] Medical Group Multispecialty Care - [facility] [address] [facility], [address] [place] [address] Nirmal Leo MD [address] [place] [address] documented as of this encounter Visit Diagnoses Not on filedocumented in this encounter Additional Health Concerns Assessment Noted Time PHQ-9 Depression Total Score: 4 08/05/20 22 1:27 PM FOOD PRODUCTION SUPERVISOR documented as of this encounter Care Teams Acid Splicer Relationship Specialty Start Date End Date Roseanne Murray NP [address] [place] [address] PCP - General NURSE PRACTITIONER 07/31/22 documented as of this encounter
--- OUTSIDE RECORDS SUMMARY | 2024-10-03 20:46 | XMS_ITS | Encounter Summary ---
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 No / Unsure 09/30/2022 2:48 PM REGULATORY PROCESS MANAGER documented as of this encounter Functional Status * RETIRED Are you deaf or do you have serious difficulty hearing Answer Date of Assessment Author Status No 08/12/2022 2:05 PM REGULATORY PROCESS MANAGER Activ e * RETIRED Are you blind or do you have serious difficulty seeing, even when wearing glasses? Answer Date of Assessment Author Status No 08/12/2022 2:05 PM REGULATORY PROCESS MANAGER Activ e * Do you have serious difficulty walking or climbing stairs? Answer Date of Assessment Author Status No 08/12/2022 2:05 PM REGULATORY PROCESS MANAGER Melinda Noonan RN Active * Do you have difficulty dressing or bathing? Answer Date of Assessment Author Status No 08/12/2022 2:05 PM REGULATORY PROCESS MANAGER Melinda Noonan RN Active * Because of a physical, mental, or emotional condition, do you have difficulty doing errands alone such as visiting a doctor's office or shopping? Answer Date of Assessment Author Status No 08/12/2022 2:05 PM REGULATORY PROCESS MANAGER Melinda Noonan RN Active documented as of this encounter Mental Status * Because of a physical, mental, or emotional condition, do you have serious difficulty concentrating, remembering, or making decisions? Answer Entry Date Author Status Yes 08/12/2022 2:05 PM REGULATORY PROCESS MANAGER Melinda Noonan RN Active documented in this encounter Plan of Treatment Upcoming Encounters Date Type Department Care Team (Late st Contact Info) Description 11/16/2024 1:20 PM CDT Office Visit [facility] Medical Group Multispecialty Care - [address], [address] [place] [phone] Nirmal Leo MD [address] [place] [address] documented as of this encounter Procedures Procedure Name Priority Date/Time Associated Diagnosis Comments COMPREHENSIVE METABOLIC PANEL Routine 09/22/2022 MAGNESIUM Routine 09/22/2022 documented in this encounter Results * COMPREHENSIVE METABOLIC PANEL (09/22/2022) SODIUM S/P/B 135 GLUCOSE 170 mg/dL AST 35 BUN 25 CREATININE S/P/B 1.20 0.7 - 1.3 CALCIUM S/P/B 9.4 POTASSIUM S/P/B 4.9 CHLORIDE S/P/B 102 ALT 24 GFR ESTIMATE >60 us Default History Genericprovider LABORATORY Final Result * MAGNESIUM (09/22/2022) MAGNESIUM 1.6 us Default History Genericprovider LABORATORY Final Result documented in this encounter Visit Diagnoses Not on filedocumented in this encounter Additional Health Concerns Assessment Noted Time PHQ-9 Depression Total Score: 4 08/05/20 22 1:27 PM REGULATORY PROCESS MANAGER documented as of this encounter Care Teams Price Lister Relationship Specialty Start Date End Date Roseanne Murray NP [address] [place] [address] PCP - General NURSE PRACTITIONER 07/31/22 documented as of this encounter
--- OUTSIDE RECORDS SUMMARY | 2024-10-03 20:46 | XMS_ITS | Encounter Summary ---
Author Organization [facility] Address [address] [place] [address] Care Team Providers Care Audio Visual Production Specialist Name Role Phone Roseanne Murray STOVE MECHANIC Primary Care Provider [phone] [phone] Encounter Details Date Type Department Care Team (Late st Contact Info) Description 04/07/2023 P[employer] (PTG)t Message Enc [facility] Medical Group Family Medicine - [place] [address] [place], [place] [address] Roseanne Murray, STOVE MECHANIC [address] [place], [place] [address] Handicap placard Social History Tobacco Use Types Packs/Day Years [...] place to sleep or slept in a alf (including now)? 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 Yes 04/10/2023 1:22 AM Bridgette Bocanegra RN Active Do you have difficulty dressing or bathing? Yes 04/10/2023 1:22 AM Fredy Bocanegra RN Active Because of a physical, mental, or emotional condition, do you have difficulty doing errands alone such as visiting a doctor's office or shopping? Yes 04/10/2023 1:22 AM Bridgette Bocanegra RN Active * RETIRED Are you deaf or do you have serious difficulty hearing Answer Date of Assessment Author Status No 08/12/2022 2:05 PM SLITTER HELPER Activ e * RETIRED Are you blind or do you have serious difficulty seeing, even when wearing glasses? Answer Date of Assessment Author Status No 08/12/2022 2:05 PM SLITTER HELPER Activ e * Do you have serious difficulty walking or climbing stairs? Answer Date of Assessment Author Status No 08/12/2022 2:05 PM Melinda Headley RN Active * Do you have difficulty [...] serious difficulty concentrating, remembering, or making decisions? No 04/10/2023 1:22 AM Bridgette Bocanegra RN Active * Because of a physical, mental, or emotional condition, do you have serious difficulty concentrating, remembering, or making decisions? Answer Entry Date Author Status Yes 08/12/2022 2:05 PM SLITTER HELPER Melinda Noonan RN Active documented in this encounter Plan of Treatment Upcoming Encounters Date Type Department Care Team (Late st Contact Info) Description 11/16/2024 1:20 PM CDT Office Visit [facility] Medical Group Multispecialty Care - [facility] [address] [facility], [address] [place] [address] Nirmal Leo MD [address] [place] [address] documented as of this encounter Visit Diagnoses Not on filedocumented in this encounter Additional Health Concerns Assessment Noted Time PHQ-9 Depression Total Score: 4 08/05/20 1:27 PM SLITTER HELPER documented as of this encounter Care Teams Audio Visual Production Specialist Relationship Specialty Start Date End Date Roseanne Murray NP [address] [place] [address] PCP - General NURSE PRACTITIONER 07/31/22 documented as of this encounter
--- OUTSIDE RECORDS SUMMARY | 2024-10-03 20:46 | XMS_ITS | Encounter Summary ---
Author Organization [facility] Address [address] [place] [address] Care Team Providers Care Department Chair Name Role Phone Roseanne Murray NP Primary Care Provider [phone] [phone] Encounter Details Date Type Department Care Team (Late st Contact Info) Description 04/21/2024 Therapy Plan [facility] Medical Group Multispecialty Care - [facility] [address] [facility], [address] [place] [address] Nirmal Leo MD [address] [place] [address] Social History Tobacco Use Types Packs/Day Years [...] place to sleep or slept in a jail (including now)? No 04/10/2023 Sex and Gender Information Value Date Recorded Sex Assigned at Male 09/13/2024 11:12 AM PIPE PROCESSOR Legal Sex Male 2:56 PM PIPE PROCESSOR Gender Identity Not on file Sexual Orientation [facility] - [address], [address] [place] [address] Nirmal Leo MD [address] [place] [address] documented as of this encounter Visit Diagnoses Not on filedocumented in this encounter Additional Health Concerns Assessment Noted Time PHQ-9 Depression Total Score: 4 08/05/20 22 1:27 PM PIPE PROCESSOR documented as of this encounter Care Teams Department Chair Relationship Specialty Start Date End Date Roseanne Murray NP [address] [place] [address] PCP - General NURSE PRACTITIONER 07/31/22 documented as of this encounter
[2024-10-03 20:50] VITALS: BP 139/71; PULSE 73; RESP 18; TEMP 36.3; O2SAT 100
--- NOTE | 2024-10-03 21:35 | PC.NURSE ---
Daughter at desk stating that she was told by pt's mother that he often has these issues and does ok overnight. States she plans to call his urologist in the morning. Encouraged pt and daughter to stay for MSE, but declined.
--- OUTSIDE RECORDS SUMMARY | 2024-10-03 21:49 | XMS_ITS | Encounter Summary ---
Author Organization [facility] Address [address] [place] [address] Care Team Providers Care Performance Engineer Name Role Phone Roseanne Murray NP Primary Care Provider [phone] [phone] Encounter Details Date Type Department Care Team (Late st Contact Info) Description 03/09/2023 Initiate Systems Message Enc [facility] Medical Group Family Medicine - [place] [address] [place] [address] Misha, [facility] Provider Chest xray Social History Tobacco [...] Sex Assigned at Male 09/13/2024 11:12 AM FLOOR FINISHER Legal Sex Male 2:56 PM FLOOR FINISHER Gender Identity Not on file Sexual Orientation Not on file 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 Answer Date of Assessment Author Status No 08/12/2022 2:05 PM FLOOR FINISHER Activ e * Do you have serious difficulty walking or climbing stairs? Answer Date of Assessment Author Status No 08/12/2022 2:05 PM FLOOR FINISHER Melinda Noonan RN Active * Do you have difficulty dressing or bathing? Answer Date of Assessment Author Status No 08/12/2022 2:05 PM FLOOR FINISHER Melinda Noonan RN Active * Because of a physical, mental, or emotional condition, do you have difficulty doing errands alone such as visiting a doctor's office or shopping? Answer Date of Assessment Author Status No 08/12/2022 2:05 PM FLOOR FINISHER Melinda Noonan RN Active documented as of this encounter Mental Status * Because of a physical, mental, or emotional condition, do you have serious difficulty concentrating, remembering, or making decisions? Answer Entry Date Author Status Yes 08/12/2022 2:05 PM Melinda Headlye RN Active documented in this encounter Plan of Treatment Upcoming Encounters Date Type Department Care Team (Late st Contact Info) Description 11/16/2024 1:20 PM CDT Office Visit [facility] Medical Group Multispecialty Care - [address], [address] [place] [address] Nirmal Leo MD [address] [place], [place] [address], [place] [address] documented as of this encounter Visit Diagnoses Not on filedocumented in this encounter Additional Health Concerns Assessment Noted Time PHQ-9 Depression Total Score: 4 08/05/20 22 1:27 PM FLOOR FINISHER documented as of this encounter Care Teams Performance Engineer Relationship Specialty Start Date End Date Roseanne Murray NP [address] [place] [address] PCP - General NURSE PRACTITIONER 07/31/22 documented as of this encounter
--- OUTSIDE RECORDS SUMMARY | 2024-10-03 21:49 | XMS_ITS | Encounter Summary ---
Author Organization [facility] Address [address] [place] [address] Care Team Providers Care Medical Management Trainer Name Role Phone Roseanne Murray NP Primary Care Provider [phone] [phone] Encounter Details Date Type Department Care Team (Late st Contact Info) Description 10/06/2023 Dianxin Message Enc [facility] Medical Group Multispecialty Care - [facility] [address] [facility], [address] [place] [address] Misha, [facility] Provider CPAP Social History Tobacco Use Types [...] place to sleep or slept in a retirement (including now)? No 04/10/2023 Sex and Gender Information Value Date Recorded Sex Assigned at Male 09/13/2024 11:12 AM AUTOMATIC MOUNTER Legal Sex Male 2:56 PM AUTOMATIC MOUNTER Gender Identity Not on file Sexual Orientation [...] Date Author Status No 04/10/2023 1:22 AM Bridegtte Bocanegra RN Active documented in this encounter Plan of Treatment Upcoming Encounters Date Type Department Care Team (Late st Contact Info) Description 11/16/2024 1:20 PM CDT Office Visit [facility] Medical Group Multispecialty Care - [facility] [address] [facility], [address] [place] [phone] Nirmal Leo MD [address] [place] [address] documented as of this encounter Visit Diagnoses Not on filedocumented in this encounter Additional Health Concerns Assessment Noted Time PHQ-9 Depression Total Score: 4 08/05/20 22 1:27 PM AUTOMATIC MOUNTER documented as of this encounter Care Teams Medical Management Trainer Relationship Specialty Start Date End Date Roseanne Murray NP [address] [place] [address] PCP - General NURSE PRACTITIONER 07/31/22 documented as of this encounter
--- OUTSIDE RECORDS SUMMARY | 2024-10-03 21:49 | XMS_ITS | Encounter Summary ---
Author Organization [facility] Address [address] [place] [address] Care Team Providers Care Stripper And Opaquer Apprentice Name Role Phone Roseanne Murray PIPE BENDER Primary Care Provider [phone] [phone] Encounter Details Date Type Department Care Team (Late st Contact Info) Description 04/07/2023 CleanEdisont Message Enc [facility] Medical Group Family Medicine - [place] [address] [facility] [address] [place], [place] [address] Roseanne Murray, PIPE BENDER [address] [place], [place] [address] Handicap placard Social History Tobacco Use Types [...] place to sleep or slept in a long-term (including now)? No 04/10/2023 Sex and Gender Information Value Date Recorded Sex Assigned at Male 09/13/2024 11:12 AM FELT STRIP FINISHER Legal Sex Male 2:56 PM FELT STRIP FINISHER Gender Identity Not on file Sexual Orientation Not on file Occupation Industry Job Start Date Job End Date [employer] Not on file Not on file Not [...] Assessment Author Status No 08/12/2022 2:05 PM FELT STRIP FINISHER Activ e * RETIRED Are you blind or do you have serious difficulty seeing, even when wearing glasses? Answer Date of Assessment Author Status No 08/12/2022 2:05 PM FELT STRIP FINISHER Activ e * Do you have serious difficulty walking or climbing stairs? Answer Date of Assessment Author Status No 08/12/2022 2:05 PM Melinda Headlye RN Active * Do you have difficulty [...] Date Author Status Yes 08/12/2022 2:05 PM FELT STRIP FINISHER Melinda Noonan RN Active documented in this encounter Plan of Treatment Upcoming Encounters Date Type Department Care Team (Late st Contact Info) Description 11/16/2024 1:20 PM CDT Office Visit [facility] Medical Group Multispecialty Care - [facility] [address] [facility], [address] [place] [address] Nirmal Leo MD [address] [place] [address] documented as of this encounter Visit Diagnoses Not on filedocumented in this encounter Additional Health Concerns Assessment Noted Time PHQ-9 Depression Total Score: 4 08/05/20 1:27 PM FELT STRIP FINISHER documented as of this encounter Care Teams Stripper And Opaquer Apprentice Relationship Specialty Start Date End Date Roseanne Murray NP [address] [place] [address] PCP - General NURSE PRACTITIONER 07/31/22 documented as of this encounter
--- OUTSIDE RECORDS SUMMARY | 2024-10-03 21:49 | XMS_ITS | Encounter Summary ---
Author Organization [facility] Address [address] [place] [address] Care Team Providers Care Link Trainer Teacher Name Role Phone Roseanne Murray NP Primary Care Provider [phone] [phone] Encounter Details Date Type Department Care Team (Late st Contact Info) Description 09/19/2023 zervedt Message Enc [facility] Medical Group Family Medicine - [place] [address] [facility] [address] [place], [place] [address] Roseanne Murray NP [address] [place], [place] [address] Burning eyes Social History Tobacco Use Types [...] place to sleep or slept in a care home (including now)? No 04/10/2023 Sex and Gender Information Value Date Recorded Sex Assigned at Male 09/13/2024 11:12 AM RIPSAWYER Legal Sex Male 2:56 PM RIPSAWYER Gender Identity Not on file Sexual Orientation [...] Description 11/16/2024 1:20 PM CDT Office Visit [facility] Care - [facility] [address] [facility], [address] [place] [phone] Nirmal Leo MD [address] [place] [address] documented as of this encounter Visit Diagnoses Not on filedocumented in this encounter Additional Health Concerns Assessment Noted Time PHQ-9 Depression Total Score: 4 08/05/20 22 1:27 PM RIPSAWYER documented as of this encounter Care Teams Link Trainer Teacher Relationship Specialty Start Date End Date Roseanne Murray NP [address] [place] [address] PCP - General NURSE PRACTITIONER 07/31/22 documented as of this encounter
--- OUTSIDE RECORDS SUMMARY | 2024-10-03 21:49 | XMS_ITS | Encounter Summary ---
Author Organization [facility] Address [address] [place] [address] Care Team Providers Care Professor Of Biochemistry Name Role Phone Roseanne Murray NP Primary Care Provider +1 [phone] Reason for Visit * Reason Onset Date Comments Urinary Retention 10/03/2024 Encounter Details Date Type Department Care Team (Late st Contact Info) Description 10/03/2024 Telephone [facility] Family Medicine - [place] [address] [facility] [address] [place], [place] [address] Roseanne Murray, K[place] [address] [place] [address] Urinary Retention Social History Tobacco Use Types [...] place to sleep or slept in a [facility] (including now)? No 04/10/2023 Sex and Gender Information Value Date Recorded Sex Assigned at Male 09/13/2024 11:12 AM LINE MANAGER Legal Sex Male 2:56 PM LINE MANAGER Gender Identity Not on file Sexual [...] decrease in urine output that is why. MANAGER * Barbara Ayala MA - 10/03/2024 12:24 PM CST Brown called back in and Corky refused to go to the ER. Brown said he is not in any discomfort and his stomach is not tender of anything. She will keep an eye on him closely and if symptoms worsen orcontinue she will take him to the ER MANAGER * Barbara Ayala MA - 10/03/2024 12:19 PM CST I called and [facility] for Brown to call me back MANAGER * Jim Jc - 10/03/2024 12:07 PM CST Pts emergency contact called Ayesha regarding pt, her earlier call she was told that Corky needs togo the ER, she has some more questions, she seemed a little frustrated that she couldn't speak withMelanie and she would handle it herself. MANAGER * Barbara Ayala MA - 10/03/2024 11:43 AM CST Brown informed and will take to the hospital. MANAGER * Roseanne Murray NP - 10/03/2024 9:51 [...] fluid which we can't do that here. MANAGER * Allyson Call - 10/03/2024 9:44 AM CST Ayesha called in, she thinks Corky might have a uti. He isn't urinating very much. She said he willl go 13-14 hours without urinating. She stopped in to see if she could coal picker a cup to catch a urine sample at home and then drop it back off. I gave her one just in case. Please advise. MANAGER documented in this encounter Plan of Treatment Upcoming Encounters Date Type Department Care Team (Late st Contact Info) Description 11/16/2024 1:20 PM CDT Office Visit [facility] Mult[facility]pecialty Care - [facility] [address] [facility], [address] [place] [address] Nirmal Leo MD [address] [place] [address] documented as of this encounter Visit Diagnoses Not on filedocumented in this encounter Additional Health Concerns Assessment Noted Time PHQ-9 Depression Total Score: 4 08/05/20 22 1:27 PM LINE MANAGER documented as of this encounter Care Teams Professor Of Biochemistry Relationship Specialty Start Date End Date Roseanne Murray NP [address] [place] [address] PCP - General NURSE PRACTITIONER 07/31/22 documented as of this encounter
--- OUTSIDE RECORDS SUMMARY | 2024-10-03 21:49 | XMS_ITS | Encounter Summary ---
Author Organization [facility] Address [address] [place] [address] Care Team Providers Care Air Operations Manager Name Role Phone Roseanne Murray NP Primary Care Provider [phone] [phone] Encounter Details Date Type Department Care Team (Late st Contact Info) Description 03/08/2024 Ocapit Message Enc [facility] Medical Group Family Medicine - [place] [address] [facility] [address] [place], [place] [address] Roseanne Murray NP [address] [place], [place] [address] Schedule testing Social History Tobacco Use Types [...] place to sleep or slept in a long term (including now)? No 04/10/2023 Sex and Gender Information Value Date Recorded Sex Assigned at Male 09/13/2024 11:12 AM AFTERNOON NANNY Legal Sex Male 2:56 PM AFTERNOON NANNY Gender Identity Not on file Sexual Orientation [...] Description 11/16/2024 1:20 PM CDT Office Visit [facility] Medical Group Multispecialty Care - [facility] [address] [facility], [address] [place] [phone] Nirmal Leo MD [address] [place] [address] documented as of this encounter Visit Diagnoses Not on filedocumented in this encounter Additional Health Concerns Assessment Noted Time PHQ-9 Depression Total Score: 4 08/05/20 22 1:27 PM AFTERNOON NANNY documented as of this encounter Care Teams Air Operations Manager Relationship Specialty Start Date End Date Roseanne Murray NP [address] [place] [address] PCP - General NURSE PRACTITIONER 07/31/22 documented as of this encounter
--- OUTSIDE RECORDS SUMMARY | 2024-10-03 21:49 | XMS_ITS | Encounter Summary ---
Author Organization [facility] Address [address] [place] [address] Care Team Providers Care Crisis Nurse Name Role Phone Roseanne Murray NP Primary Care Provider [phone] [phone] Encounter Details Date Type Department Care Team (Late st Contact Info) Description 06/08/2024 Levo Leaguet Message Enc [facility] Medical Group Family Medicine - [place] [address] [facility] [address] [place], [place] [address] Roseanne Murray COUNTERINTELLIGENCE AGENT [address] [place], [place] [address] Skin issues Social History Tobacco Use Types [...] place to sleep or slept in a nursing home (including now)? No 04/10/2023 Sex and Gender Information Value Date Recorded Sex Assigned at Male 09/13/2024 11:12 AM RESTAURANT KITCHEN AND SERVICE MANAGER Legal Sex Male 2:56 PM RESTAURANT KITCHEN AND SERVICE MANAGER Gender Identity Not on file Sexual [...] Description 11/16/2024 1:20 PM CDT Office Visit [facility] Medical Group Multispecialty Care - [facility] [address] [facility], [address] [place] [phone] Nirmal Leo MD [address] [place] [address] documented as of this encounter Visit Diagnoses Not on filedocumented in this encounter Additional Health Concerns Assessment Noted Time PHQ-9 Depression Total Score: 4 08/05/20 22 1:27 PM RESTAURANT KITCHEN AND SERVICE MANAGER documented as of this encounter Care Teams Crisis Nurse Relationship Specialty Start Date End Date Roseanne Murray NP [address] [place] [address] PCP - General NURSE PRACTITIONER 07/31/22 documented as of this encounter
--- OUTSIDE RECORDS SUMMARY | 2024-10-03 21:49 | XMS_ITS | Encounter Summary ---
Author Organization [facility] Address [address] [place] [address] Care Team Providers Care Nurse Emergency Name Role Phone Roseanne Murray ER MANAGER Primary Care Provider +1 [phone] Encounter Details Date Type Department Care Team (Late st Contact Info) Description 02/22/2023 MyCKore Virtual Machinest Message Enc [facility] Medical Group Family Medicine - [place] [address] [facility] [address] [place], [place] [address] Roseanne Murray NP [address] [place], [place] [address] Referral/cough/incre ased weakness Social History Tobacco Use [...] Assigned at Male 09/13/2024 11:12 AM FOOD SERVICES COORDINATOR Legal Sex Male 2:56 PM FOOD SERVICES COORDINATOR Gender Identity Not on file Sexual Orientation Not on file 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 Answer Date of Assessment Author Status No 08/12/2022 2:05 PM FOOD SERVICES COORDINATOR Activ e * Do you have serious difficulty walking or climbing stairs? Answer Date of Assessment Author Status No 08/12/2022 2:05 PM FOOD SERVICES COORDINATOR Melinda Noonan RN Active * Do you [...] [facility] - [facility] [address] [facility], [address] [place] [address] Nirmal Leo MD 3 [place] [address] documented as of this encounter Visit Diagnoses Not on filedocumented in this encounter Additional Health Concerns Assessment Noted Time PHQ-9 Depression Total Score: 4 08/05/20 22 1:27 PM FOOD SERVICES COORDINATOR documented as of this encounter Care Teams Nurse Emergency Relationship Specialty Start Date End Date Roseanne Murray NP [address] [place] [address] PCP - General NURSE PRACTITIONER 07/31/22 documented as of this encounter
--- OUTSIDE RECORDS SUMMARY | 2024-10-03 21:49 | XMS_ITS | Encounter Summary ---
Author Organization [facility] Address [address] [place] [address] Care Team Providers Care Inspector Rough Castings Name Role Phone Roseanne Murray NP Primary Care Provider +1 [phone] Encounter Details Date Type Department Care Team (Late st Contact Info) Description 08/31/2024 GZ.comt Message Enc [facility] Medical Group Family Medicine - [place] [address] [facility] [address] [place], [place] [address] Roseanne Murray NP [address] [place], [place] [address] Depends Approval Social History Tobacco Use Types [...] Sex Assigned at Male 09/13/2024 11:12 AM COMPUTER SYSTEMS AUDITOR Legal Sex Male 2:56 PM COMPUTER SYSTEMS AUDITOR Gender Identity Not on file Sexual Orientation [...] Description 11/16/2024 1:20 PM CDT Office Visit [facility] Medical Group Multispecialty Care - [facility] [address] [facility], [address] [place] [phone] Nirmal Leo MD 3 [place] [address] documented as of this encounter Visit Diagnoses Not on filedocumented in this encounter Additional Health Concerns Assessment Noted Time PHQ-9 Depression Total Score: 4 08/05/20 22 1:27 PM COMPUTER SYSTEMS AUDITOR documented as of this encounter Care Teams Inspector Rough Castings Relationship Specialty Start Date End Date Roseanne Murray NP [address] [place] [address] PCP - General NURSE PRACTITIONER 07/31/22 documented as of this encounter
--- OUTSIDE RECORDS SUMMARY | 2024-10-03 21:49 | XMS_ITS | Clinical Summary ---
Author Organization [facility] Address [address] [place] [address] Care Team Providers Care Assistant Name Role Phone Roseanne Murray NP Primary Care Provider +1 [phone] Allergies No known active allergies Medications Blood Glucose Monitoring Suppl (JamLegend VERIO) w/Device KitIndications:Ty pe 2 diabetes mellitus with other neurologic complication, with long-term current use of insulin ([facility]) Use to check blood sugars TID [...] drop 3 (three) times daily. Active Lancets (Gekko Global MarketsTOUCH DELICA PLUS [id number]) MiscIndications:T ype 2 diabetes mellitus with other neurologic complication, with long-term current use of insulin ([facility]) 1 Lancet by Does not apply route 3 (three) times daily. 300 each 1 024 Active Glucose Blood (Gekko Global MarketsTOUCH VERIO) test stripIndications: Type 2 diabetes mellitus with other neurologic complication, with long-term current use of insulin ([facility]) Use to check blood sugar three times daily 300 strip 3 024 Active HUMALOG 100 UNIT/ML injection (VIAL)Indications :diabetes Inject 5 Units into the skin 3 (three) times daily with meals. Hold if blood sugar is < 180. 10 mL 3 024 Active tamsulosin (FLOMAX) 0.4 MG CapIndications:St age 5 chronic kidney disease, unspecified whether stage 3a or 3b CKD ([facility]) Take 1 capsule by mouth once [...] disease, with long-term current use of insulin ([facility]) INJECT INTO THE SKIN SUBCUTANEOUSLY ONCE [...] disease, with long-term current use of insulin ([facility]) INJECT 17 UNITS SUBCUTANEOUSLY NIGHTLY AT BEDTIME FOR DIABETES 15 mL 025 Active carvedilol (COREG) 12.5 MG tabletIndications :Primary hypertension TAKE 1 TABLET BY MOUTH TWICE DAILY FOR HIGH BLOOD PRESSURE 180 tablet 1 025 Active atorvastatin (LIPITOR) 40 MG tabletIndications :Cerebrovascular accident (CVA), unspecified mechanism ([facility]),Hyperlip idemia, unspecified hyperlipidemia type TAKE 1 TABLET BY MOUTH NIGHTLY AT BEDTIME 90 tablet 1 025 Active metFORMIN (GLUCOPHAGE) 500 MG tabletIndications :Type 2 diabetes mellitus with other neurologic complication, with long-term current use of insulin ([facility]) Take 1 tablet by mouth once [...] MG tabletIndications :Cerebrovascular accident (CVA), unspecified mechanism ([facility]),Hyperlip idemia, unspecified hyperlipidemia type TAKE 1 TABLET BY MOUTH NIGHTLY AT BEDTIME 90 tablet 024 2024 Discontinued metFORMIN (GLUCOPHAGE) 500 MG tabletIndications :Type 2 diabetes mellitus with other neurologic complication, with long-term current use of insulin ([facility]) Take 1 tablet by mouth once [...] disease, with long-term current use of insulin ([facility]) 07/01/2022 Right sided weakness 06/26/2022 Chronic kidney disease, stage 3a ([facility]) 10/27/2021 Cerebrovascular accident (CVA) ([facility]) 02/19/2021 Right leg weakness 12/12/2020 Bence Ayala proteinuria 09/29/2017 Primary hypertension 09/06/2017 Encounters Date Type Department Care Team Description 10/03/2024 Telephone [facility] [address] [place] [address] Roseanne Murray NP Urinary Retention 08/31/2024 MyChart Message Enc [facility] - [place] [address] [place] [address] Roseanne Murray NP Depends Approval 08/24/[address] [place] [address] Roseanne Murray NP Supplies ([facility]) 08/21/2024 12:40 PM SALOONKEEPER Office Visit [address] [place] [address] Roseanne Murray NP Diabetes (Patient presents for a 3 month follow up diabetes ) 08/21/2024 Travel 08/18/2024 Scan [employer] INFO SRVCS Scanned, Doc Med Group Image (SCAN) 08/16/2024 Telephone [facility] [place] [address] [facility] [address] [place] [phone] Nirmal Leo MD Appointment Request 08/02/2024 Telephone [facility] - [address] [place] [address] Roseanne Murray NP Orders (Comprehensive Prosthetics and [...] Sex Assigned at Male 09/13/2024 11:12 AM SALOONKEEPER Legal Sex Male 2:56 PM SALOONKEEPER Gender Identity Not on file Sexual Orientation Not on file Occupation Industry Job Start Date Job End Date disabled Not on file Not on file Not on file Last Filed Vital Signs Vital Sign Reading Time Taken Comments Blood Pressure 118/64 08/21/2024 12:44 PM SALOONKEEPER Pulse 58 08/21/2024 12:44 PM SALOONKEEPER Temperature 36.2 ??C (97.1 ??F) 08/21/2024 12:[address] Respiratory Rate 18 08/21/2024 12:44 PM SALOONKEEPER Oxygen Saturation 98% 08/21/2024 12:44 PM SALOONKEEPER Inhaled Oxygen Concentration - - Weight 88.5 kg (195 lb) 08/21/2024 12:44 PM SALOONKEEPER Height 185.4 cm (6' 1 ) 05/11/2024 1:44 PM CDT Body Mass Index 25.73 05/11/2024 1:44 PM CDT Plan of Treatment Upcoming Encounters Date Type Department Care Team (Late st Contact Info) Description 11/16/2024 1:20 PM CDT Office Visit [facility] Medical Group Multispecialty Care - [facility] [address] [facility], [address] [place] [phone] Nirmal Leo MD [address] [place] [address] Health Maintenance Due Date Last Done Comments Colorectal Cancer Screening Colonoscopy (10 Years) 1972 Kidney Health Evaluation 1972 Diabetes: Retinopathy Eye Exam 1990 Hepatitis C 1990 Hepatitis B Vaccines (1 of 3 - 19+ 3-dose series) 1991 Zoster Vaccines (1 of 2) 2022 COVID-19 Vaccine ( season) 2024 ASCVD LDL 08/04/2024 08/04/2023, 03/30, 12/03/2022 Lipid Panel 08/04/2024 08/04/2023, 03/30, 12/03/2022 PHQ-2 (Physician [place]) 08/30/2024 10/28/2023 Hemoglobin A1C 02/19/2025 08/21/2024, 12/0 [...] Comments COLLECT.CAPILLARY (FNGR,HEEL,EAR) Routine 08/21/2024 12:47 PM SALOONKEEPER Type 2 diabetes mellitus with other neurologic complication, with long-term current use of insulin ([facility]) HEMOGLOBIN, GLYCOSYLATED Routine 08/21/2024 Type 2 diabetes mellitus with other neurologic complication, with long-term current use of insulin ([facility]) IMAGE GENERIC 08/18/2024 LIPID PANEL Routine 08/04/2023 2:09 PM SALOONKEEPER Hyperlipidemia, unspecified hyperlipidemia type from Last 3 Months or Most Recently Relevant to Health Maintenance Results * A1C (BACK OFFICE) (08/21/2024) HGB A1C 5.9 % [address] [place] 08/21/2024 us Roseanne Murray COMMUNICATIONS STATION MANAGER LABORATORY Final Res ult [address] [place] [address] [place] [address], [place] [phone] * IMAGE GENERIC (08/18/2024) Anatomical Region Laterality Modality Other 08/18/2024 us Doc Med Group Scanned SCANNING Final Resu lt * LIPID PANEL (08/04/2023 2:09 PM SALOONKEEPER) CHOLESTEROL 100 <200 MG/DL 08/04/2023 7:45 PM SALOONKEEPER [facility] TRIGLYCERIDES 82 <150 MG/DL 08/04/2023 7:45 PM SALOONKEEPER [facility] HDL 43 >40 MG/DL 08/04/2023 7:45 PM SALOONKEEPER [facility] LDL-C 41 <100 MG/DL 08/04/2023 7:45 PM SALOONKEEPER [facility] VLDL CALCULATION 16 5 - 28 MG/DL 08/04/2023 7:45 PM SALOONKEEPER [facility] CHOL/HDL RATIO 2.3 0.0 - 4.0 08/04/2023 7:45 PM SALOONKEEPER [facility] LDL/HDL 1.0 0.41 - 2.13 08/04/2023 7:45 PM SALOONKEEPER [facility] NON HDL CHOLESTEROL 57 <140 MG/DL 08/04/2023 7:45 PM SALOONKEEPER [facility] 08/04/2023 2:09 PM SALOONKEEPER Roseanne Murray COMMUNICATIONS STATION MANAGER LABORATORY Final Res ult [facility] [place] [address] [place] [address], [place] [phone] from Last 3 Months or Most Recently [...] 7:19 PM 08/14/2022 6:26 PM Care Teams Assistant Relationship Specialty Start Date End Date Roseanne Murray NP [address] [place] [address] [place] [address] PCP - General NURSE PRACTITIONER 07/31/22
--- OUTSIDE RECORDS SUMMARY | 2024-10-03 21:49 | XMS_ITS | Encounter Summary ---
Author Organization [facility] Address [address] [place] [address] Care Team Providers Care Sprue Cutting Press Operator Name Role Phone Roseanne Murray NP Primary Care Provider +1 [phone] Encounter Details Date Type Department Care Team (Late st Contact Info) Description 08/26/2023 MyCMilano Worldwidet Message Enc [facility] Medical Group Multispecialty Care - [facility] [address] [facility], [address] [place] [phone] Nirmal eLo MD 3 [place] [address] MRI/MRA Social History Tobacco Use Types Packs/Day [...] Sex Assigned at Male 09/13/2024 11:12 AM CAR PINCHER Legal Sex Male 2:56 PM CAR PINCHER Gender Identity Not on file Sexual Orientation [...] - 08/26/2023 12:24 PM CST Please advise PINCHER documented in this encounter Plan of Treatment Upcoming Encounters Date Type Department Care Team (Late st Contact Info) Description 11/16/2024 1:20 PM CDT Office Visit [facility] Medical Group Multispecialty Care [address] [place] [address] Nirmal Leo MD [address] [place] [address] documented as of this encounter Visit Diagnoses Not on filedocumented in this encounter Additional Health Concerns Assessment Noted Time PHQ-9 Depression Total Score: 4 08/05/20 22 1:27 PM CAR PINCHER documented as of this encounter Care Teams Sprue Cutting Press Operator Relationship Specialty Start Date End Date Roseanne Murray NP [address] [place] [address] PCP - General NURSE PRACTITIONER 07/31/22 documented as of this encounter
--- OUTSIDE RECORDS SUMMARY | 2024-10-03 21:49 | XMS_ITS | Encounter Summary ---
Author Organization [facility] Address [address] [place] [address] Care Team Providers Care Studio Hand Name Role Phone Roseanne Murray NP Primary Care Provider +1 [phone] Encounter Details Date Type Department Care Team (Late st Contact Info) Description 04/21/[address] [facility] Medical Group Multispecialty Care - [facility] [address] [facility], [address] [place] [address] Nirmal Leo MD [address] [place] [address] Social History Tobacco Use Types Packs/Day Years [...] Sex Assigned at Male 09/13/2024 11:12 AM ORDER ENTRY REPRESENTATIVE Legal Sex Male 2:56 PM ORDER ENTRY REPRESENTATIVE Gender Identity Not on file Sexual Orientation [...] 1:20 PM CDT Office Visit [facility] Medical Group Multispecialty Care - [address], [address] [place] [address] Nirmal Leo MD [address] [place] [address] documented as of this encounter Visit Diagnoses Not on filedocumented in this encounter Additional Health Concerns Assessment Noted Time PHQ-9 Depression Total Score: 4 08/05/20 22 1:27 PM ORDER ENTRY REPRESENTATIVE documented as of this encounter Care Teams Studio Hand Relationship Specialty Start Date End Date Roseanne Murray NP [address] [place] [address] PCP - General NURSE PRACTITIONER 07/31/22 documented as of this encounter
--- OUTSIDE RECORDS SUMMARY | 2024-10-03 21:49 | XMS_ITS | Encounter Summary ---
Author Organization [facility] Address [address] [place] [address] Care Team Providers Care Meat Boner Name Role Phone Roseanne Murray NP Primary Care Provider +1 [phone] Encounter Details Date Type Department Care Team (Late st Contact Info) Description 03/09/2023 Splasht Message Enc [facility] Medical Group Family Medicine - [place] [address] [place] [address] Misha, [facility] Provider Lab's Social History Tobacco Use [...] Sex Assigned at Male 09/13/2024 11:12 AM MIX HOUSE OPERATOR Legal Sex Male 2:56 PM MIX HOUSE OPERATOR Gender Identity Not on file Sexual Orientation Not on file 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 Answer Date of Assessment Author Status No 08/12/2022 2:05 PM MIX HOUSE OPERATOR Activ e * Do you have serious difficulty walking or climbing stairs? Answer Date of Assessment Author Status No 08/12/2022 2:05 PM MIX HOUSE OPERATOR Melinda Noonan RN Active * Do you have difficulty dressing or bathing? Answer Date of Assessment Author Status No 08/12/2022 2:05 PM MIX HOUSE OPERATOR Melinda Noonan RN Active * Because of a physical, mental, or emotional condition, do you have difficulty doing errands alone such as visiting a doctor's office or shopping? Answer Date of Assessment Author Status No 08/12/2022 2:05 PM MIX HOUSE OPERATOR Melinda Noonan RN Active documented as [...] Description 11/16/2024 1:20 PM CDT Office Visit [facility] Medical Group Multispecialty Care - [address], [address] [place] [address] Nirmal Leo MD [address] [place], [place] [address], [place] [address] documented as of this encounter Visit Diagnoses Not on filedocumented in this encounter Additional Health Concerns Assessment Noted Time PHQ-9 Depression Total Score: 4 08/05/20 22 1:27 PM MIX HOUSE OPERATOR documented as of this encounter Care Teams Meat Boner Relationship Specialty Start Date End Date Roseanne Murray NP [address] [place] [address] PCP - General NURSE PRACTITIONER 07/31/22 documented as of this encounter
--- OUTSIDE RECORDS SUMMARY | 2024-10-03 21:49 | XMS_ITS | Encounter Summary ---
Author Organization [facility] Address [address] [place] [address] Care Team Providers Care Blow Down Helper Name Role Phone Roseanne Murray NP Primary Care Provider +1 -[phone] Encounter Details Date Type Department Care Team (Late st Contact Info) Description 08/09/2022 Polaris Design Systemst Message Enc [facility] Medical Group Family Medicine - [place] [address] [facility] [address] [place], [place] [address] Roseanne Murray NP [address] [place], [place] [address] Depends Social History Tobacco Use Types Packs/Day [...] Sex Assigned at Male 09/13/2024 11:12 AM WELLNESS NURSE Legal Sex Male 2:56 PM WELLNESS NURSE Gender Identity Not on file Sexual Orientation Not on file COVID-19 Exposure Response Date Recorded In the last 10 days, have sara u been in contact with someone who was confirmed or suspected to have Coronavirus/COVID-19? No / Unsure 08/11/2022 11:43 AM WELLNESS NURSE documented as of this encounter Functional Status documented as of this encounter Mental Status * Question Answer Entry Date Author Status Because of a physical, mental, or emotional condition, do you have serious difficulty concentrating, remembering, or making decisions? Yes 08/12/2022 2:05 PM WELLNESS NURSE Melinda Noonan R N Active documented in this encounter Plan of Treatment Upcoming Encounters Date Type Department Care Team (Late st Contact Info) Description 11/16/2024 1:20 PM CDT Office Visit [facility] Medical Group Multispecialty Care - [facility] [address] [facility], [address] [place] [address] Nirmal Leo MD 3 [place] [address] documented as of this encounter Visit Diagnoses Not on filedocumented in this encounter Additional Health Concerns Infection Onset Date Last Indicated Resolved Time COVID-19 Rule Out 08/11/2022 08/11/2022 08/11/2022 3:02 PM WELLNESS NURSE Assessment Noted Time PHQ-9 Depression Total Score: 4 08/05/20 1:27 PM WELLNESS NURSE documented as of this encounter Care Teams Blow Down Helper Relationship Specialty Start Date End Date Roseanne Murray NP [address] [place] [address] PCP - General NURSE PRACTITIONER 07/31/22 documented as of this encounter
--- OUTSIDE RECORDS SUMMARY | 2024-10-03 21:49 | XMS_ITS | Encounter Summary ---
Author Organization [facility] Address [address] [place] [address] Care Team Providers Care Nanotechnician Name Role Phone Roseanne Murray NP Primary Care Provider +1 [phone] Encounter Details Date Type Department Care Team (Late st Contact Info) Description 03/07/2024 Segmentt Message Enc [facility] Medical Group Family Medicine - [place] [address] [facility] [address] [place], [place] [address] Roseanne Murray NP [address] [place], [place] [address] Urine test Social History Tobacco Use Types [...] place to sleep or slept in a intermediate (including now)? No 04/10/2023 Sex and Gender Information Value Date Recorded Sex Assigned at Male 09/13/2024 11:12 AM MIDDLE SCHOOL HUMANITIES TEACHER Legal Sex Male 2:56 PM MIDDLE SCHOOL HUMANITIES TEACHER Gender Identity Not on file Sexual [...] Description 11/16/2024 1:20 PM CDT Office Visit [facility] Medical Group Multispecialty Care - [facility] [address] [facility], [address] [place] [phone] Nirmal Leo MD 3 [place] [address] documented as of this encounter Visit Diagnoses Not on filedocumented in this encounter Additional Health Concerns Assessment Noted Time PHQ-9 Depression Total Score: 4 08/05/20 22 1:27 PM MIDDLE SCHOOL HUMANITIES TEACHER documented as of this encounter Care Teams Nanotechnician Relationship Specialty Start Date End Date Roseanne Murray NP [address] [place] [address] PCP - General NURSE PRACTITIONER 07/31/22 documented as of this encounter
--- OUTSIDE RECORDS SUMMARY | 2024-10-03 21:49 | XMS_ITS | Encounter Summary ---
Author Organization [facility] Address [address] [place] [address] Care Team Providers Care Production Miner Name Role Phone Roseanne Murray NP Primary Care Provider +1 [phone] Encounter Details Date Type Department Care Team (Late st Contact Info) Description 01/03/2024 Hallspot Message Enc [facility] [address] [place] [address] Kendall Greene MD [facility], [address] [place] [address] BP numbers Social History Tobacco [...] Sex Assigned at Male 09/13/2024 11:12 AM DOUGHNUT DOUGH MIXER Legal Sex Male 2:56 PM DOUGHNUT DOUGH MIXER Gender Identity Not on file Sexual Orientation [...] [facility]ty Care - [facility] [address] [facility], [address] [place] [phone] Nirmal Leo MD [address] [place] [address] documented as of this encounter Visit Diagnoses Not on filedocumented in this encounter Additional Health Concerns Assessment Noted Time PHQ-9 Depression Total Score: 4 08/05/20 22 1:27 PM DOUGHNUT DOUGH MIXER documented as of this encounter Care Teams Production Miner Relationship Specialty Start Date End Date Roseanne Murray NP [address] [place] [address] PCP - General NURSE PRACTITIONER 07/31/22 documented as of this encounter
--- OUTSIDE RECORDS SUMMARY | 2024-10-03 21:50 | XMS_ITS | Encounter Summary ---
Author Organization [facility] Address [address] [place] [address] Care Team Providers Care Distribution Lineman Name Role Phone Roseanne Murray NP Primary Care Provider [phone] [phone] Encounter Details Date Type Department Care Team (Late st Contact Info) Description 12/08/2022 Abstract [facility], [address] [address] Jose David MA Social History Tobacco Use [...] Sex Assigned at Male 09/13/2024 11:12 AM BRIDGE/STRUCTURE INSPECTION TEAM LEADER Legal Sex Male 2:56 PM BRIDGE/STRUCTURE INSPECTION TEAM LEADER Gender Identity Not on file Sexual Orientation Not on file Occupation Industry Job Start Date Job End Date [employer] Not on file Not on file Not [...] Assessment Author Status No 08/12/2022 2:05 PM BRIDGE/STRUCTURE INSPECTION TEAM LEADER Activ e * RETIRED Are you blind or do you have serious difficulty seeing, even when wearing glasses? Answer Date of Assessment Author Status No 08/12/2022 2:05 PM BRIDGE/STRUCTURE INSPECTION TEAM LEADER Activ e * Do you have serious difficulty walking or climbing stairs? Answer Date of Assessment Author Status No 08/12/2022 2:05 PM BRIDGE/STRUCTURE INSPECTION TEAM LEADER Melinda Noonan RN Active * Do you have difficulty dressing or bathing? Answer Date of Assessment Author Status No 08/12/2022 2:05 PM BRIDGE/STRUCTURE INSPECTION TEAM LEADER Melinda Noonan RN Active * Because of a physical, mental, or emotional condition, do you have difficulty doing errands alone such as visiting a doctor's office or shopping? Answer Date of Assessment Author Status No 08/12/2022 2:05 PM BRIDGE/STRUCTURE INSPECTION TEAM LEADER Melinda Noonan RN Active documented as of [...] Description 11/16/2024 1:20 PM CDT Office Visit [facility] Multispecialty Care - [address], [address] [place] [phone] Nirmal Leo MD [address] [place] [address] documented as of this encounter Procedures Procedure [...] Total Score: 4 08/05/20 22 1:27 PM BRIDGE/STRUCTURE INSPECTION TEAM LEADER documented as of this encounter Care Teams Distribution Lineman Relationship Specialty Start Date End Date Roseanne Murray NP [address] [place] [address] PCP - General NURSE PRACTITIONER 07/31/22 documented as of this encounter
--- OUTSIDE RECORDS SUMMARY | 2024-10-03 21:50 | XMS_ITS | Encounter Summary ---
Author Organization [facility] Address [address] [place] [address] Care Team Providers Care Lead Quality Control Technician Name Role Phone Roseanne Murray NP Primary Care Provider [phone] [phone] Encounter Details Date Type Department Care Team (Late st Contact Info) Description 12/09/2022 PhatNoise Message Enc [facility] [facility], [address] [address] [employer], [facility] Provider Lab results Social History Tobacco Use [...] Sex Assigned at Male 09/13/2024 11:12 AM AVIATION CONSULTANT Legal Sex Male 2:56 PM AVIATION CONSULTANT Gender Identity Not on file Sexual Orientation Not on file 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 Answer Date of Assessment Author Status No 08/12/2022 2:05 PM AVIATION CONSULTANT Activ e * Do you have serious difficulty walking or climbing stairs? Answer Date of Assessment Author Status No 08/12/2022 2:05 PM AVIATION CONSULTANT Melinda Noonan RN Active * Do you have difficulty dressing or bathing? Answer Date of Assessment Author Status No 08/12/2022 2:05 PM AVIATION CONSULTANT Melinda Noonan RN Active * Because of a physical, mental, or emotional condition, do you have difficulty doing errands alone such as visiting a doctor's office or shopping? Answer Date of Assessment Author Status No 08/12/2022 2:05 PM AVIATION CONSULTANT Melinda Noonan RN Active documented as of this encounter Mental Status * Because of a physical, mental, or emotional condition, do you have serious difficulty concentrating, remembering, or making decisions? Answer Entry Date Author Status Yes 08/12/2022 2:05 PM AVIATION CONSULTANT Melinda Noonan RN Active documented in this encounter Plan of Treatment Upcoming Encounters Date Type Department Care Team (Late st Contact Info) Description 11/16/2024 1:20 PM CDT Office Visit [facility] Medical Group Multispecialty Care - [address], [address] [place] [address] Nirmal Leo MD [address] [place] [address] documented as of this encounter Visit Diagnoses Not on filedocumented in this encounter Additional Health Concerns Assessment Noted Time PHQ-9 Depression Total Score: 4 08/05/20 22 1:27 PM AVIATION CONSULTANT documented as of this encounter Care Teams Lead Quality Control Technician Relationship Specialty Start Date End Date Roseanne Murray NP [address] [place] [address] PCP - General NURSE PRACTITIONER 07/31/22 documented as of this encounter
--- OUTSIDE RECORDS SUMMARY | 2024-10-03 21:50 | XMS_ITS | Encounter Summary ---
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 No / Unsure 09/30/2022 2:48 PM STEEL LAYER documented as of this encounter Functional Status * RETIRED Are you deaf or do you have serious difficulty hearing Answer Date of Assessment Author Status No 08/12/2022 2:05 PM STEEL LAYER Activ e * RETIRED Are you blind or do you have serious difficulty seeing, even when wearing glasses? Answer Date of Assessment Author Status No 08/12/2022 2:05 PM STEEL LAYER Activ e * Do you have serious difficulty walking or climbing stairs? Answer Date of Assessment Author Status No 08/12/2022 2:05 PM STEEL LAYER Melinda Noonan RN Active * Do you have difficulty dressing or bathing? Answer Date of Assessment Author Status No 08/12/2022 2:05 PM STEEL LAYER Melinda Noonan RN Active * Because of a physical, mental, or emotional condition, do you have difficulty doing errands alone such as visiting a doctor's office or shopping? Answer Date of Assessment Author Status No 08/12/2022 2:05 PM STEEL LAYER Melinda Noonan RN Active documented as of this encounter Mental Status * Because of a physical, mental, or emotional condition, do you have serious difficulty concentrating, remembering, or making decisions? Answer Entry Date Author Status Yes 08/12/2022 2:05 PM STEEL LAYER Melinda Noonan RN Active documented in this encounter Plan of Treatment Upcoming Encounters Date Type Department Care Team (Late st Contact Info) Description 11/16/2024 1:20 PM CDT Office Visit [facility] Medical Group Multispecialty Care - [address], [address] [place] [phone] Nirmal Leo MD [address] [place] [address] documented as of this encounter Procedures Procedure [...] Total Score: 4 08/05/20 22 1:27 PM STEEL LAYER documented as of this encounter Care Teams Revenue Stamper Relationship Specialty Start Date End Date Roseanne Murray NP [address] [place] [address] PCP - General NURSE PRACTITIONER 07/31/22 documented as of this encounter
--- OUTSIDE RECORDS SUMMARY | 2024-10-03 21:50 | XMS_ITS | Encounter Summary ---
Author Organization [facility] Address [address] [place] [address] Care Team Providers Care Small Offset Printer Name Role Phone Roseanne Murray NP Primary Care Provider [phone] [phone] Encounter Details Date Type Department Care Team (Late st Contact Info) Description 08/28/2022 Airbritet Message Enc [facility] Medical Group Family Medicine - [place] [address] [facility] [address] [place], [place] [address] Roseanne Murray NP [address] [place] [address] [place], [place] [address] Medicine Options Social History Tobacco Use Types [...] Sex Assigned at Male 09/13/2024 11:12 AM BANKRUPTCY ATTORNEY Legal Sex Male 2:56 PM BANKRUPTCY ATTORNEY Gender Identity Not on file Sexual Orientation Not on file COVID-19 Exposure Response Date Recorded In the last 10 days, have sara u been in contact with someone who was confirmed or suspected to have Coronavirus/COVID-19? No / Unsure 08/17/2022 2:11 PM BANKRUPTCY ATTORNEY documented as of this encounter Functional Status * RETIRED Are you deaf or do you have serious difficulty hearing Answer Date of Assessment Author Status No 08/12/2022 2:05 PM BANKRUPTCY ATTORNEY Activ e * RETIRED Are you blind or do you have serious difficulty seeing, even when wearing glasses? Answer Date of Assessment Author Status No 08/12/2022 2:05 PM BANKRUPTCY ATTORNEY Activ e * Do you have serious difficulty walking or climbing stairs? Answer Date of Assessment Author Status No 08/12/2022 2:05 PM BANKRUPTCY ATTORNEY Melinda Noonan RN Active * Do you have difficulty dressing or bathing? Answer Date of Assessment Author Status No 08/12/2022 2:05 PM Melinda Headley RN Active * Because of a physical, mental, or emotional condition, do you have difficulty doing errands alone such as visiting a doctor's office or shopping? Answer Date of Assessment Author Status No 08/12/2022 2:05 PM BANKRUPTCY ATTORNEY Melinda Noonan RN Active documented as of [...] he already had home health with Ruddy?? RUPTCY ATTORNEY documented in this encounter Plan of Treatment Upcoming Encounters Date Type Department Care Team (Late st Contact Info) Description 11/16/2024 1:20 PM CDT Office Visit [facility] Medical Group Multispecialty Care - [facility] [address] [facility], [address] [place] [address] Nirmal Leo MD [address] [place] [address] documented as of this encounter Visit Diagnoses Not on filedocumented in this encounter Additional Health Concerns Assessment Noted Time PHQ-9 Depression Total Score: 4 08/05/20 22 1:27 PM BANKRUPTCY ATTORNEY documented as of this encounter Care Teams Small Offset Printer Relationship Specialty Start Date End Date Roseanne Murray NP [address] [place] [address] PCP - General NURSE PRACTITIONER 07/31/22 documented as of this encounter
--- OUTSIDE RECORDS SUMMARY | 2024-10-03 21:50 | XMS_ITS | Encounter Summary ---
Author Organization [facility] Address [address] [place] [address] Care Team Providers Care Outbound Supervisor Name Role Phone Roseanne Murray NP Primary Care Provider [phone] [phone] Encounter Details Date Type Department Care Team (Latest Contact Info) Description 09/08/2022 Nodejitsu Message Enc 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 No / Unsure 08/17/2022 2:11 PM ELEMENTARY ART TEACHER documented as of this encounter Functional Status * RETIRED Are you deaf or do you have serious difficulty hearing Answer Date of Assessment Author Status No 08/12/2022 2:05 PM ELEMENTARY ART TEACHER Activ e * RETIRED Are you blind or do you have serious difficulty seeing, even when wearing glasses? Answer Date of Assessment Author Status No 08/12/2022 2:05 PM ELEMENTARY ART TEACHER Activ e * Do you have serious difficulty walking or climbing stairs? Answer Date of Assessment Author Status No 08/12/2022 2:05 PM ELEMENTARY ART TEACHER Melinda Noonan RN Active * Do you have difficulty dressing or bathing? Answer Date of Assessment Author Status No 08/12/2022 2:05 PM ELEMENTARY ART TEACHER Melinda Noonan RN Active * Because of a physical, mental, or emotional condition, do you have difficulty doing errands alone such as visiting a doctor's office or shopping? Answer Date of Assessment Author Status No 08/12/2022 2:05 PM ELEMENTARY ART TEACHER Melinda Noonan RN Active documented as of this encounter Mental Status * Because of a physical, mental, or emotional condition, do you have serious difficulty concentrating, remembering, or making decisions? Answer Entry Date Author Status Yes 08/12/2022 2:05 PM ELEMENTARY ART TEACHER Melinda Noonan RN Active documented in this encounter Progress Notes * Roel Riojas MD,PHD - 09/10/2022 2:58 PM CST Excellent blood pressure. ENTARY ART TEACHER * Carisa Wilson RN - 09/08/2022 4:20 PM CST . ENTARY ART TEACHER documented in this encounter Plan of Treatment Upcoming Encounters Date Type Department Care Team (Late st Contact Info) Description 11/16/2024 1:20 PM CDT Office Visit [facility] Medical Group Multispecialty Care - [address], [address] [place] [address] Nirmal Leo MD [address] [place] [address] documented as of this encounter Visit Diagnoses Not on filedocumented in this encounter Additional Health Concerns Assessment Noted Time PHQ-9 Depression Total Score: 4 08/05/20 22 1:27 PM ELEMENTARY ART TEACHER documented as of this encounter Care Teams Outbound Supervisor Relationship Specialty Start Date End Date Roseanne Murray NP [address] [place] [address] PCP - General NURSE PRACTITIONER 07/31/22 documented as of this encounter
--- OUTSIDE RECORDS SUMMARY | 2024-10-03 21:50 | XMS_ITS | Encounter Summary ---
Author Organization [facility] Address [address] [place] [address] Care Team Providers Care Baling Machine Operator Name Role Phone Roseanne Murray NP Primary Care Provider [phone] [phone] Encounter Details Date Type Department Care Team (Late st Contact Info) Description 12/12/2022 Mobovivot Message Enc 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 Answer Date of Assessment Author Status No 08/12/2022 2:05 PM SCOOP MACHINE OPERATOR Activ e * Do you have serious difficulty walking or climbing stairs? Answer Date of Assessment Author Status No 08/12/2022 2:05 PM SCOOP MACHINE OPERATOR Melinda Noonan RN Active * Do [...] Description 11/16/2024 1:20 PM CDT Office Visit [facility] Medical Group Multispecialty Care - [facility] [address] [facility], [address] [place] [address] Nirmal Leo MD [address] [place] [address] documented as of this encounter Visit Diagnoses Not on filedocumented in this encounter Additional Health Concerns Assessment Noted Time PHQ-9 Depression Total Score: 4 08/05/20 22 1:27 PM SCOOP MACHINE OPERATOR documented as of this encounter Care Teams Baling Machine Operator Relationship Specialty Start Date End Date Roseanne Murray NP [address] [place] [address] PCP - General NURSE PRACTITIONER 07/31/22 documented as of this encounter
== END 2024-10-03 21:35 | disposition left against medical advice (07) ==
PROVIDERS: PCP Nurse Practitioner
DX: R33.9 Retention of urine, unspecified (principal)
CPT/HCPCS: 99199

== ENCOUNTER 2025-03-09 16:37 | Emergency (ER) | payer SELFPAY ==
[2025-03-09 16:51] VITALS: BP 174/83; PULSE 63; RESP 16; TEMP 36.4; O2SAT 99
--- NOTE | 2025-03-09 17:14 | ED.SKABFB ---
HPI - Skin/Abscess/Foreign Bdy General Chief complaint: Skin/Abscess/Foreign Body Stated complaint: Bleeding Time Seen by Provider: 03/09/25 16:49 Source: family and RN notes reviewed Mode of arrival: wheelchair Limitations: no limitations History of Present Illness HPI narrative: Family present patient today complaining of bleeding biopsy site to the left lateral thigh. Patient had a biopsy done yesterday and states it has not stopped bleeding since. They took him in to the doctor's office this morning and had some silver nitrate applied and a dressing and states that the dressing is now saturated continues to bleed. States patient also has 2 wounds to the right thigh due to scratching. Patient has history of CVA 3 years ago and is wheelchair-bound and does tend to scratch himself. Related Data Home Medications ?Medication ?Instructions ?Recorded ?Confirmed ?Last Taken ?Type atorvastatin 40 mg tablet (Lipitor) 40 mg PO QHS 08/08/22 03/22/24 Unknown History blood sugar diagnostic ([facility] 11/21/23 03/22/24 Unknown History Verio test strips) carboxymethylcellulose sodium 1 % 1 drp EACH EYE TID 11/21/23 03/22/24 Unknown History eye liquid gel drops carvedilol 12.5 mg tablet 12.5 mg PO Q12H 11/21/23 03/22/24 Unknown History escitalopram oxalate 20 mg tablet 20 mg PO HS 11/21/23 03/22/24 Unknown History hydralazine 25 mg tablet 25 mg PO TID Anxiety,itching 11/21/23 03/22/24 Unknown History hydrochlorothiazide 25 mg tablet 25 mg PO DAILY 11/21/23 03/22/24 Unknown History insulin glargine 100 unit/mL (3 17 unit subcut HS 11/21/23 03/22/24 Unknown History mL) subcutaneous pen (Lantus Solostar U-100 Insulin) insulin lispro 100 unit/mL 5 unit subcut TIDWM 11/21/23 03/22/24 Unknown History subcutaneous solution (Humalog U-100 Insulin) lancets 33 gauge (OneTouch Delica 11/21/23 03/22/24 Unknown History Plus Lancet) metformin 500 mg tablet 500 mg PO DAILY 11/21/23 03/22/24 Unknown History nifedipine 90 mg tablet,extended 90 mg PO DAILY 11/21/23 03/22/24 Unknown History release 24 hr omeprazole 20 mg capsule,delayed 20 mg PO DAILY 11/21/23 03/22/24 Unknown History release pen needle, diabetic 32 gauge x 11/21/23 03/22/24 Unknown History (TRUEplus Pen Needle) tamsulosin 0.4 mg capsule 0.4 mg PO DAILY 11/21/23 03/22/24 Unknown History triamcinolone acetonide 0.1 % 1 applic topical BID 11/21/23 03/22/24 Unknown History topical cream Allergies Allergy/AdvReac Type Severity Reaction Status Date / Time No Known Allergies Allergy Verified 03/09/25 16:41 PMFSH Past Medical History Medical History (Reviewed 03/09/25 @ 17:17 by Elda Gill, [facility], ) Insulin dependent type 2 diabetes mellitus Chronic anemia Chronic kidney disease, stage 3 Seizure Cerebrovascular accident (05/2022) Residual aphasia and right-sided deficits. Psoriasis Dyslipidemia Essential (primary) hypertension Family History Family History (Reviewed 03/09/25 @ 17:17 by Elda Gill, [facility], ) Grandparent Acute myocardial infarction, Onset Age: 65 Other Diabetes mellitus Family history of allergic disorder Family history of coronary artery disease Social History Social History (Reviewed 03/09/25 @ 17:17 by Elda Gill, [facility], ) Social History: Surrogate medical decision maker: Ailcia Bland (spouse) or Shena Bland (mother). Code status: Full code. Smoking status: Never smoker Alcohol intake: unknown Substance use: never Substance use type: does not use Do You Feel Safe in your Home?: Yes Lack of Transportation: No Lack of Food: Never True Current Housing: I Have Housing Concerned About Future Housing: Decline to Answer Difficulty Paying Gas/Electric Bills: Decline to Answer Difficulty Paying for Meds: Decline to Answer Currently Unemployed: Decline to Answer Education: Don't Know Difficulty w/ Childcare or Family Care: Decline to Answer Living arrangements: with family Occupation/Education: unemployed Spiritual care concerns: No Comments At time of signature, I have reviewed and agree with nursing past medical, surgical, social and family history unless otherwise noted. Please see nursing chart for further information. There is no relevant family history pertinent to the presenting complaint Exam Narrative: GENERAL: Chronically ill-appearing, well-nourished, and in no acute distress. HEAD: Normocephalic, atraumatic. EYES: EOMI. No redness or drainage. Conjunctivae normal. ENT: Mucous membranes pink and moist. NECK: Normal AROM. CHEST: No respiratory distress. EXTREMITIES: Left thigh: Large clot formed over approximately 1 cm around biopsy site. No active bleeding. Dressing changed. Right thigh: 2 very superficial skin tears each measuring 0.5 x 0.5 square. No active bleeding. No redness, edema, drainage noted. Dressing changed. SKIN: Warm, dry, no rash. Capillary refill normal. Normal skin turgor. NEURO: Alert and oriented. Wheelchair bound. PSYCH: Normal affect. No signs of depression or anxiety. Course Course Level of Care: Express Care Visit Vital Signs Vital signs: Vital Signs Temperature 97.5 F L 03/09/25 16:51 Pulse Rate 63 03/09/25 16:51 Respiratory Rate 16 03/09/25 16:51 Blood Pressure 174/83 H 03/09/25 16:51 Pulse Oximetry 99 03/09/25 16:51 Temperature 97.5 F L 03/09/25 16:51 Pulse Rate 63 03/09/25 16:51 Respiratory Rate 16 03/09/25 16:51 Blood Pressure 174/83 H 03/09/25 16:51 Pulse Oximetry 99 03/09/25 16:51 Reviewed MDM - Skin/Abscess/Foreign Bdy MDM Narrative Medical decision making narrative: Patient is a 54-year-old male with history of CVA, aphasia, hemiplegia. Biopsy to the left thigh performed yesterday with some bleeding continuing into this morning. Silver nitrate performed this morning for hemostasis. Small skin tears due to scratching to the right thigh. Wounds were undressed and evaluated. Neither needed any intervention and were redressed. Vital signs stable at this time. Recommend continuing care instructions previously given by physician. Differential Diagnosis Differential diagnosis: Likely other (Laceration, abrasion, skin tear, bleeding wound) Critical Care Time Critical Care Time Critical Care Time: No Discharge Plan Discharge Clinical Impression: Visit for wound check Patient Disposition: Home Condition: Stable Additional Instructions: Continue to follow your wound care instructions from your doctor and change dressings accordingly. Your blood pressure was elevated above 120/80 today at Urgent Care. This puts you above the threshold for follow up. Please schedule a followup visit with your personal physician as soon as possible, for further evaluation and treatment. Even blood pressure exceeding 120/80 may indicate pre-hypertension. Patient Language: Senegalese Prescriptions: No Action atorvastatin [Lipitor] 40 mg tablet 40 mg PO QHS metformin 500 mg tablet 500 mg PO DAILY carvedilol 12.5 mg tablet 12.5 mg PO Q12H hydralazine 25 mg tablet 25 mg PO TID (DME) OneTouch Verio test strips Strip MISCELLANEOUS triamcinolone acetonide 0.1 % cream 1 applic TOPICAL BID Rx Instructions: to rash on legs, and body tamsulosin 0.4 mg capsule 0.4 mg PO DAILY nifedipine 90 mg tablet extended release 24hr 90 mg PO DAILY omeprazole 20 mg capsule,delayed release(DR/EC) 20 mg PO DAILY hydrochlorothiazide 25 mg tablet 25 mg PO DAILY escitalopram oxalate 20 mg tablet 20 mg PO HS insulin glargine [Lantus Solostar U-100 Insulin] 100 unit/mL (3 mL) insulin pen 17 unit SUBCUT HS (DME) pen needle, diabetic [TRUEplus Pen Needle] 32 gauge x 5/32 needle MISCELLANEOUS (DME) lancets [OneTouch Delica Plus Lancet] 33 gauge misc MISCELLANEOUS insulin lispro [Humalog U-100 Insulin] 100 unit/mL solution 5 unit subcut TIDWM Rx Instructions: if blood sugar greater than 160 carboxymethylcellulose sodium 1 % Drops, Liquid Gel 1 drp EACH EYE TID acetaminophen 500 mg capsule 1,000 mg PO Q6H PRN (Reason: pain) Qty: 20 0RF Follow-up/Referrals: PHYSICIAN,EDUCATIONAL AID [Primary Care Provider] - Time of Disposition: 17:04
== END 2025-03-09 17:07 | disposition home or self-care (01) ==
PROVIDERS: Emergency Provider Nurse Practitioner
DX: Z48.89 Encounter for other specified surgical aftercare (principal); I12.9 Hypertensive chronic kidney disease with stage 1 through stage 4 chronic kidney disease, or unspecified chronic kidney disease; E11.22 Type 2 diabetes mellitus with diabetic chronic kidney disease; N18.30 Chronic kidney disease, stage 3 unspecified; Z86.73 Personal history of transient ischemic attack (TIA), and cerebral infarction without residual deficits
CPT/HCPCS: 99212; G0463

== ENCOUNTER 2025-03-28 18:11 | Emergency (ER) | payer MEDICARE, MEDICAID, SELFPAY ==
--- OUTSIDE RECORDS SUMMARY | 2025-03-28 18:14 | XMS_ITS | Encounter Summary ---
Author Organization [facility] Address [address] [place] [address] Care Team Providers Care Tax Assistant Name Role Phone Roseanne Murray NP Primary Care Provider [phone] [phone] Encounter Details Date Type Department Care Team (Late st Contact Info) Description 03/07/2024 MyChart Message Enc [facility] Medical [facility] Family Medicine - [place] [address] [facility] [address] [place] [phone] Roseanne Murray NP [address] [place] [address] Urine test Social History Tobacco Use Types [...] Sex Assigned at Male 09/13/2024 11:12 AM CUSTOMER CONTACT REPRESENTATIVE Legal Sex Male 2:56 PM CUSTOMER CONTACT REPRESENTATIVE Gender Identity Male 01/01/2025 10:14 AM CDT Sexual Orientation Not on file Occupation Industry [...] Care Team (Late st Contact Info) Description 06/04/2025 1:15 PM CDT Office Visit [place] [facility] [address] [place] [address] Kendall Greene MD [facility], [address] [place] [address] documented as of this encounter Visit Diagnoses Not on filedocumented in this encounter Additional Health Concerns Assessment Noted Time PHQ-9 Depression Total Score: 4 08/05/20 22 1:27 PM CUSTOMER CONTACT REPRESENTATIVE documented as of this encounter Care Teams Tax Assistant Relationship Specialty Start Date End Date Roseanne Murray NP [address] [place] [address] PCP - General NURSE PRACTITIONER 07/31/22 documented as of this encounter
--- OUTSIDE RECORDS SUMMARY | 2025-03-28 18:14 | XMS_ITS | Encounter Summary ---
Author Organization [facility] Address [address] [place] [address] Care Team Providers Care Certified Social Workers In Health Care Name Role Phone Roseanne Murray PREDATORY ANIMAL HUNTER Primary Care Provider [phone] [phone] Encounter Details Date Type Department Care Team (Late st Contact Info) Description 03/09/2023 TuneGOhart Message Enc [facility] Medical Group Family Medicine - [place] [address] [facility] [address] [place] [address] Misha, [facility] Provider Chest xray Social History Tobacco Use [...] Sex Assigned at Male 09/13/2024 11:12 AM SQUADRON WORKER Legal Sex Male 2:56 PM SQUADRON WORKER Gender Identity Male 01/01/2025 10:14 AM CDT Sexual Orientation Not on file 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 Answer Date of Assessment Author Status No 08/12/2022 2:05 PM SQUADRON WORKER Activ e * Do you have serious difficulty walking or climbing stairs? Answer Date of Assessment Author Status No 08/12/2022 2:05 PM SQUADRON WORKER Melinda Noonan RN Active * Do you have difficulty dressing or bathing? Answer Date of Assessment Author Status No 08/12/2022 2:05 PM SQUADRON WORKER Melinda Noonan RN Active * Because of a physical, mental, or emotional condition, do you have difficulty doing errands alone such as visiting a doctor's office or shopping? Answer Date of Assessment Author Status No 08/12/2022 2:05 PM SQUADRON WORKER Melinda Noonan RN Active documented as of this encounter Mental Status * Because of a physical, mental, or emotional condition, do you have serious difficulty concentrating, remembering, or making decisions? Answer Entry Date Author Status Yes 08/12/2022 2:05 PM SQUADRON WORKER Melinda Noonan RN Active documented in this encounter Plan of Treatment Upcoming Encounters Date Type Department Care Team (Late st Contact Info) Description 06/04/2025 1:15 PM CDT Office Visit [place] [facility] [address] [place] [address] Kendall Greene MD [facility], [address] [place] [address] documented as of this encounter Visit Diagnoses Not on filedocumented in this encounter Additional Health Concerns Assessment Noted Time PHQ-9 Depression Total Score: 4 08/05/20 22 1:27 PM SQUADRON WORKER documented as of this encounter Care Teams Certified Social Workers In Health Care Relationship Specialty Start Date End Date Roseanne Murray NP [address] [place] [address] PCP - General NURSE PRACTITIONER 07/31/22 documented as of this encounter
--- OUTSIDE RECORDS SUMMARY | 2025-03-28 18:14 | XMS_ITS | Encounter Summary ---
Author Organization [facility] Address [address] [place] [address] Care Team Providers Care Supervisor Mail Carriers Name Role Phone Roseanne Murray NP Primary Care Provider [phone] [phone] Encounter Details Date Type Department Care Team (Late st Contact Info) Description 04/07/2023 MyChart Message Enc [facility] Medical Group Family Medicine - [place] [address] [facility] [address] [place] [address] Roseanne Murray NP [address] [place] [address] [place] [address] Handicap placard Social History Tobacco Use Types [...] Sex Assigned at Male 09/13/2024 11:12 AM GAS PUMPING STATION SUPERVISOR Legal Sex Male 2:56 PM GAS PUMPING STATION SUPERVISOR Gender Identity Male 01/01/2025 10:14 AM CDT Sexual Orientation Not on file 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 Yes 04/10/2023 1:22 AM SUET Bridgette Proctor RN Active Do you have difficulty dressing or bathing? Yes 04/10/2023 1:22 AM SUET Fredy Proctor RN Active Because of a physical, mental, or emotional condition, do you have difficulty doing errands alone such as visiting a doctor's office or shopping? Yes 04/10/2023 1:22 AM Bridgette Bocanegra RN Active * RETIRED Are you deaf or do you have serious difficulty hearing Answer Date of Assessment Author Status No 08/12/2022 2:05 PM GAS PUMPING STATION SUPERVISOR Activ e * RETIRED Are you blind or do you have serious difficulty seeing, even when wearing glasses? Answer Date of Assessment Author Status No 08/12/2022 2:05 PM GAS PUMPING STATION SUPERVISOR Activ e * Do you have [...] 2:05 PM Melinda Headley RN Active * Question Answer Date of Assessment Author Status Are you deaf or do you have serious difficulty hearing No 04/10/2023 1:22 AM Bridgette Bocanegra RN Active Are you blind or do you have serious difficulty seeing, even when wearing glasses? No 04/10/2023 1:22 AM Bridgette Bocanegra RN Active * Calculated C-SSRS Risk Score (Lifetime/Recent) Answer Date of Assessment Author Status No Risk Indicated 04/10/2023 1:30 AM CDT Mitch Proctor RN Active * [place] Suicide Severity Rating Scale (Screener/Recent Self-Report) Question Answer Date of Assessment Author Status 1. Wish to be (Past 1 Month) No 04/10/2023 1:30 AM SUET Bridgette Proctor RN A ctive 2. Non-Specific Active Suicidal Thoughts (Past 1 Month) No 04/10/2023 1:30 AM CDT Bridgette Proctor RN A ctive 6. Suicidal Behavior (Lifetime) No 04/10/2023 1:30 AM CDT Bridgette Proctor RN A ctive documented as of this encounter Mental Status * Question Answer Entry Date Author Status Because of a physical, mental, or emotional condition, do you have serious difficulty concentrating, remembering, or making decisions? No 04/10/2023 1:22 AM SUET Bridgette Proctor RN Active * Because of a physical, mental, or emotional condition, do you have serious difficulty concentrating, remembering, or making decisions? Answer Entry Date Author Status Yes 08/12/2022 2:05 PM GAS PUMPING STATION SUPERVISOR Melinda Noonan RN Active documented in this encounter Plan of Treatment Upcoming Encounters Date Type Department Care Team (Late st Contact Info) Description 06/04/2025 1:15 PM CDT Office Visit [place] [facility] [address] [place] [address] Kendall Greene MD [facility], [address] [place] [address] documented as of this encounter Visit Diagnoses Not on filedocumented in this encounter Additional Health Concerns Assessment Noted Time PHQ-9 Depression Total Score: 4 08/05/20 22 1:27 PM GAS PUMPING STATION SUPERVISOR documented as of this encounter Care Teams Supervisor Mail Carriers Relationship Specialty Start Date End Date Roseanne Murray NP [address] [place] [address] PCP - General NURSE PRACTITIONER 07/31/22 documented as of this encounter
--- OUTSIDE RECORDS SUMMARY | 2025-03-28 18:14 | XMS_ITS | Encounter Summary ---
Author Organization [facility] Address [address] [place] [address] Care Team Providers Care Refinery Operator Polymerization Plant Name Role Phone Roseanne Murray FORM SETTER [address]AL [address] FORMS Primary Care Provider [phone] Encounter Details Date Type Department Care Team (Late st Contact Info) Description 03/09/2023 MyChart Message Enc [facility] Medical Group Family Medicine - [place] [address] [address] Mychart, [facility] Provider Lab's Social History Tobacco Use Types [...] Sex Assigned at Male 09/13/2024 11:12 AM SENIOR ERP CONSULTANT Legal Sex Male 2:56 PM SENIOR ERP CONSULTANT Gender Identity Male 01/01/2025 10:14 AM CDT Sexual Orientation Not on file 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 Answer Date of Assessment Author Status No 08/12/2022 2:05 PM SENIOR ERP CONSULTANT Activ e * Do you have serious difficulty walking or climbing stairs? Answer Date of Assessment Author Status No 08/12/2022 2:05 PM SENIOR ERP CONSULTANT Melinda Noonan RN Active * Do you have difficulty dressing or bathing? Answer Date of Assessment Author Status No 08/12/2022 2:05 PM SENIOR ERP CONSULTANT Melinda Noonan RN Active * Because of a physical, mental, or emotional condition, do you have difficulty doing errands alone such as visiting a doctor's office or shopping? Answer Date of Assessment Author Status No 08/12/2022 2:05 PM SENIOR ERP CONSULTANT Melinda Noonan RN Active documented as of this encounter Mental Status * Because of a physical, mental, or emotional condition, do you have serious difficulty concentrating, remembering, or making decisions? Answer Entry Date Author Status Yes 08/12/2022 2:05 PM SENIOR ERP CONSULTANT Melinda Noonan RN Active documented in this encounter Plan of Treatment Upcoming Encounters Date Type Department Care Team (Late st Contact Info) Description 06/04/2025 1:15 PM CDT Office Visit [place] [facility] [address] [place] [address] Kendall Greene MD [facility], [address] [place] [address] documented as of this encounter Visit Diagnoses Not on filedocumented in this encounter Additional Health Concerns Assessment Noted Time PHQ-9 Depression Total Score: 4 08/05/20 22 1:27 PM SENIOR ERP CONSULTANT documented as of this encounter Care Teams Refinery Operator Polymerization Plant Relationship Specialty Start Date End Date Roseanne Murray NP [address] [place] [address] PCP - General NURSE PRACTITIONER 07/31/22 documented as of this encounter
--- OUTSIDE RECORDS SUMMARY | 2025-03-28 18:14 | XMS_ITS | Encounter Summary ---
Author Organization [facility] Address [address] [place] [address] Care Team Providers Care Registered Nurses Name Role Phone Roseanne Murray SLOT ROUTER Primary Care Provider [phone] [phone] Encounter Details Date Type Department Care Team (Late st Contact Info) Description 01/03/2024 MyChart Message Enc [place] [facility] [address] [place] [address] Kendall Greene MD [facility], [address] [place] [address] BP numbers Social History Tobacco [...] Sex Assigned at Male 09/13/2024 11:12 AM MICROPHONE OPERATOR Legal Sex Male 2:56 PM MICROPHONE OPERATOR Gender Identity Male 01/01/2025 10:14 AM CDT [...] Description 06/04/2025 1:15 PM CDT Office Visit [place] [facility] [address] [place] [address] Kendall Greene MD [facility], [address] [place], [place] [id number] documented as of this encounter Visit Diagnoses Not on filedocumented in this encounter Additional Health Concerns Assessment Noted Time PHQ-9 Depression Total Score: 4 08/05/20 22 1:27 PM MICROPHONE OPERATOR documented as of this encounter Care Teams Registered Nurses Relationship Specialty Start Date End Date Roseanne Murray NP [address] [place] [address] PCP - General NURSE PRACTITIONER 07/31/22 documented as of this encounter
--- OUTSIDE RECORDS SUMMARY | 2025-03-28 18:14 | XMS_ITS | Encounter Summary ---
Author Organization [facility] Address [address] [place] [address] Care Team Providers Care Field Case Manager Name Role Phone Roseanne Murray NP Primary Care Provider [phone] [phone] Encounter Details Date Type Department Care Team (Late st Contact Info) Description 09/19/2023 MyChart Message Enc [facility] Medical Group Family Medicine - [place] [address] [facility] [address] [place] [address] Roseanne Murray NP [address] [place] [address] [place] [address] Burning eyes Social History Tobacco Use Types [...] Sex Assigned at Male 09/13/2024 11:12 AM AIR HOSE COUPLER Legal Sex Male 2:56 PM AIR HOSE COUPLER Gender Identity Male 01/01/2025 10:14 AM CDT [...] Description 06/04/2025 1:15 PM CDT Office Visit [place] [facility] [address] [place] [address] Kendall Greene MD [facility], [address] [place] [address] documented as of this encounter Visit Diagnoses Not on filedocumented in this encounter Additional Health Concerns Assessment Noted Time PHQ-9 Depression Total Score: 4 08/05/20 22 1:27 PM AIR HOSE COUPLER documented as of this encounter Care Teams Field Case Manager Relationship Specialty Start Date End Date Roseanne Murray NP [address] [place] [address] PCP - General NURSE PRACTITIONER 07/31/22 documented as of this encounter
--- OUTSIDE RECORDS SUMMARY | 2025-03-28 18:14 | XMS_ITS | Encounter Summary ---
Author Organization [facility] Address [address] [place] [address] Care Team Providers Care Nutrition Services Manager Name Role Phone Roseanne Murray NP Primary Care Provider [phone] [phone] Encounter Details Date Type Department Care Team (Late st Contact Info) Description 10/06/2023 LIFX Message Enc [facility] Medical Group Multispecialty Care - [address], [address] [place] [address] Misha, [facility] Provider CPAP Social History Tobacco Use [...] Sex Assigned at Male 09/13/2024 11:12 AM CENA Legal Sex Male 2:56 PM CENA Gender Identity Male 01/01/2025 10:14 AM CDT [...] AM CDT Bridgette Proctor RN Active * Do you [...] AM CDT Bridgette Proctor RN Active documented as of [...] Description 06/04/2025 1:15 PM CDT Office Visit [place] [facility] [address] [place] [address] Kendall Greene MD [facility], [address] [place] [address] documented as of this encounter Visit Diagnoses Not on filedocumented in this encounter Additional Health Concerns Assessment Noted Time PHQ-9 Depression Total Score: 4 08/05/20 22 1:27 PM CENA documented as of this encounter Care Teams Nutrition Services Manager Relationship Specialty Start Date End Date Roseanne Murray NP [address] [facility] [address] [place] [address] PCP - General NURSE PRACTITIONER 07/31/22 documented as of this encounter
--- OUTSIDE RECORDS SUMMARY | 2025-03-28 18:14 | XMS_ITS | Encounter Summary ---
Author Organization [facility] Address [address] [place] [address] Care Team Providers Care Sorter Lumber Straightener Name Role Phone Roseanne Murray NP Primary Care Provider [phone] [phone] Encounter Details Date Type Department Care Team (Late st Contact Info) Description 08/26/2023 MyChart Message Enc [facility] Medical Group Multispecialty Care - [address], [address] [place] [id number] Nirmal Leo MD [address] [place] [address] MRI/MRA Social History Tobacco Use Types Packs/Day [...] Sex Assigned at Male 09/13/2024 11:12 AM LEAD SIMULATION MODELING ENGINEER Legal Sex Male 2:56 PM LEAD SIMULATION MODELING ENGINEER Gender Identity Male 01/01/2025 10:14 AM CDT [...] - 08/26/2023 12:24 PM CST Please advise SIMULATION MODELING ENGINEER documented in this encounter Plan of Treatment Upcoming Encounters Date Type Department Care Team (Late st Contact Info) Description 06/04/2025 1:15 PM CDT Office Visit [place] [facility] [address] [place] [address] Kendall Greene MD [facility], [address] [place] [address] documented as of this encounter Visit Diagnoses Not on filedocumented in this encounter Additional Health Concerns Assessment Noted Time PHQ-9 Depression Total Score: 4 08/05/20 22 1:27 PM LEAD SIMULATION MODELING ENGINEER documented as of this encounter Care Teams Sorter Lumber Straightener Relationship Specialty Start Date End Date Roseanne Murray NP [address] [place] [address] PCP - General NURSE PRACTITIONER 07/31/22 documented as of this encounter
--- OUTSIDE RECORDS SUMMARY | 2025-03-28 18:14 | XMS_ITS | Encounter Summary ---
Author Organization [facility] Address [address] [place] [address] Care Team Providers Care Carbon Accountant Name Role Phone Roseanne Murray NP Primary Care Provider [phone] [phone] Encounter Details Date Type Department Care Team (Late st Contact Info) Description 08/31/2024 MyChart Message Enc [facility] Medical Group Family Medicine - [place] [address] [facility] [address] [place] [address] Roseanne Murray NP [address] [place] [address] [place] [address] Depends Approval Social History Tobacco Use Types [...] Sex Assigned at Male 09/13/2024 11:12 AM MANUFACTURING TECH Legal Sex Male 2:56 PM MANUFACTURING TECH Gender Identity Male 01/01/2025 10:14 AM CDT [...] Description 06/04/2025 1:15 PM CDT Office Visit [place] [facility] [address] [place] [address] Kendall Greene MD [facility], [address] [place] [address] documented as of this encounter Visit Diagnoses Not on filedocumented in this encounter Additional Health Concerns Assessment Noted Time PHQ-9 Depression Total Score: 4 08/05/20 22 1:27 PM MANUFACTURING TECH documented as of this encounter Care Teams Carbon Accountant Relationship Specialty Start Date End Date Roseanne Murray NP [address] [place] [address] PCP - General NURSE PRACTITIONER 07/31/22 documented as of this encounter
--- OUTSIDE RECORDS SUMMARY | 2025-03-28 18:14 | XMS_ITS | Clinical Summary ---
Author Organization [facility] Address [address] [place] [address] Care Team Providers Care Claims Counsel Name Role Phone Roseanne Murray NP Primary Care Provider [phone] Allergies No known active allergies Medications Blood Glucose Monitoring Suppl (ONETOUCH VERIO) w/Device KitIndications:Ty pe 2 diabetes mellitus with other neurologic complication, with long-term current use of insulin ([facility]) Use to check blood sugars TID [...] drop 3 (three) times daily. Active Lancets ([employer] Healthcare SolutionsTOUCH DELICA PLUS [id number]) MiscIndications:T ype 2 diabetes mellitus with other neurologic complication, with long-term current use of insulin ([facility]) 1 Lancet by Does not apply route 3 (three) times daily. 300 each 1 024 Active Glucose Blood ([employer] Healthcare SolutionsTOUCH VERIO) test stripIndications: Type 2 diabetes mellitus with other neurologic complication, with long-term current use of insulin ([facility]) Use to check blood sugar three times daily 300 strip 3 024 Active HUMALOG 100 UNIT/ML injection (VIAL)Indications :diabetes Inject 5 Units into the skin 3 (three) times daily with meals. Hold if blood sugar is < 180. 10 mL 3 024 Active albuterol (ACCUNEB) 1.25 MG/3ML nebulizer [...] disease, with long-term current use of insulin ([facility]) INJECT INTO THE SKIN SUBCUTANEOUSLY ONCE AT NIGHT 100 each 024 Active triamcinolone (KENALOG) 0.1 % creamIndications: Rash APPLY TOPICALLY TO THE AFFECTED AREA(S) TWICE DAILY 80 g 024 Active metFORMIN (GLUCOPHAGE) 500 MG tabletIndications :Type 2 diabetes mellitus with other neurologic complication, with long-term current use of insulin ([facility]) Take 1 tablet by mouth once daily with breakfast 90 tablet 1 025 Active hydroCHLOROthiazi de (HYDRODIURIL) 25 MG tabletIndications :Primary hypertension Take 1 tablet by mouth once daily 90 tablet 1 025 Active omeprazole (PRILOSEC) 20 MG capsuleIndication s:Chronic cough Take 1 capsule by mouth once daily 90 capsule 3 025 Active LANTUS SOLOSTAR 100 UNIT/ML injection (PEN)Indications: Type 2 diabetes mellitus with stage 3a chronic kidney disease, with long-term current use of insulin ([facility]) INJECT 17 UNITS SUBCUTANEOUSLY NIGHTLY AT BEDTIME 15 mL 2 025 Active tamsulosin (FLOMAX) 0.4 MG CapIndications:St age 5 chronic kidney disease, unspecified whether stage 3a or 3b CKD ([facility]) Take 1 capsule by mouth once daily 90 capsule 1 025 Active atorvastatin (LIPITOR) 40 MG tabletIndications :Hyperlipidemia, unspecified hyperlipidemia type,Cerebrovascu lar accident (CVA), unspecified mechanism ([facility]) Take 1 tablet (40 mg total) by mouth nightly at bedtime. at bedtime 90 tablet 3 025 Active VRAYLAR 1.5 MG capsuleIndication s:Severe recurrent major depression without psychotic features ([facility]) TAKE 1 CAPSULE BY MOUTH EVERY OTHER DAY 30 capsule 025 Active hydrALAZINE (APRESOLINE) 25 MG tabletIndications :Primary hypertension TAKE 1 TABLET BY MOUTH EVERY 8 HOURS 90 tablet 025 Active carvedilol (COREG) 12.5 MG tabletIndications :Primary hypertension TAKE 1 TABLET BY MOUTH TWICE DAILY FOR HIGH BLOOD PRESSURE 180 tablet 1 025 Active escitalopram (LEXAPRO) 20 MG tabletIndications :Anxiety and depression Take 1 tablet by mouth once daily 90 tablet 1 025 Active carvedilol (COREG) 12.5 MG tabletIndications :Primary hypertension TAKE 1 TABLET BY MOUTH TWICE DAILY FOR HIGH BLOOD PRESSURE 180 tablet 1 025 2024 Discontinued escitalopram (LEXAPRO) 20 MG tabletIndications :Anxiety and depression Take 1 tablet by mouth once daily 90 tablet 1 025 2024 Discontinued hydrALAZINE (APRESOLINE) 25 MG tabletIndications :Primary hypertension TAKE 1 TABLET BY MOUTH EVERY 8 HOURS 90 tablet 025 2024 Discontinued Active Problems Problem Noted Date Diagnosed Date Severe recurrent major depre ssion without psychotic features ([facility]) 12/13/2024 Overview (01/01/2025): At last office visit patient was started on cariprazine 1.5mg every other day to take in addition to his escitalopram 20mg daily. Pt's caregiver Ayesha reports that she has been giving him the medication every night. She notes he has been having some mild agitation and difficulty sleeping. Patient does report improvement in his depressive symptoms with use. Denies SI/HI. No tardive dyskinesia symptoms noted Assessment & Plan (01/01/2025 10:52 AM CDT): At this time patient to decrease Cariprazine 1.5mg back down to every other day since the medication can cause akathisia and could be affecting his sleep. Assessment & Plan (12/13/2024 4:09 PM CDT): Chronic condition not controlled. Due to severe depressive symptoms and on max of escitalopram will add on cariprazine 1.5mg every other day at this time until follow up. Discussed how to take and side effects. Would recommend CBT for pt. Findings activities he can do that he enjoys. Consider music/art therapy. If begins to have worsening suicidal thoughts/plan to seek ER care right away Informed pt/ex of walk in clinic that can also be utilized in [place] for mental health needs. Left renal mass 02/28/2024 Overview (02/28/2024): 7mm [...] disease, with long-term current use of insulin ([facility]) 07/01/2022 Right sided weakness 06/26/2022 Chronic kidney disease, stage 3a 10/27/2021 Cerebrovascular accident (CVA) ([facility]) 02/19/2021 Right leg weakness 12/12/2020 Bence Ayala proteinuria 09/29/2017 Primary hypertension 09/06/2017 Assessment & Plan (01/12/2025 12:06 PM CDT): BP elevated today. Will continue to monitor. Goal for BP to stay below 140/90. Will recheck in 2 weeks. Encounters Date Type Department Care Team Description 03/07/2025 Scan [employer] [facility] Scanned, [facility] 03/06/2025 3:00 PM CDT Office Visit [place] [id number] [place], [place] [id number] Roseanne Murray NP Cough (Caregiver talks about cough and sinus problems that may be all allergy related but she is unsure. He has very foul smelling sinus mucous and ingrown hair. ); Knee Pain (Patient is back in PT because he has been complaining about his right knee hurting. PT tells caregiver that he is hesitating to put any weight on that knee. He is needing an evaluation for wheelchair too. ); Depression (Caregiver says that his vraylar may need increased which had been discussed before because he has been crying a lot. ) 03/06/2025 Travel 01/23/2025 1:40 PM CDT Office Visit [facility] [address] [place], [place] [address] Roseanne Murray NP Dental Problem (Patient has swelling in his right check and sky line yarder says that he has a lump in his cheek. ) 01/23/2025 Travel 01/18/2025 Misha Message Enc [facility] [address] [place], [place] [id number] Misha, [facility] Provider Power wheelchair 01/13/2025 Results Follow-Up [address] [place] [address] Roseanne Murray NP PROSTATE SPECIFIC ANTIGEN,SCREENING, TSH W/REFLEX, LIPID PANEL, Additional followed-up results: 2 01/12/2025 11:00 AM CDT Office Visit [place] [id number] [facility] [place] [address] [place] [address] Roseanne Murray NP Edema (Patient presents with cna caregiver with c/o bilateral ankle swelling, right leg swelling, headache, has a friction burn on right leg from his brace is really sore. Caregiver noted he is just not him self.) 01/12/2025 - 01/12/2025 11:59 PM CDT Hospital Encounter [facility] [place] [address] Roseanne Murray NP Discharge Disposition: Home or Self Care (Routine Discharge) 01/12/2025 Travel 01/01/2025 10:00 AM CDT Office Visit [address] [place] [address] Roseanne Murray NP Depression (Patient presents to follow up on depression, he seems to be doing better, has troubles sleeping at night) 01/01/2025 Travel from Last 3 Months Immunizations Immunization Administration Dates Next Due Fluzone (IIV3, Trivalent, [...] Answer Date Recorded Patient Health Questionnaire-2 Score 5 12/13/2024 Hunger Vital Sign Answer Date Recorded Within the past 12 months, y ou worried that your food would run out before you got the money to buy more. Never true 08/12/20 23 Within the past 12 months, t [...] place to sleep or slept in a detention (including now)? No 04/10/2023 Sex and Gender Information Value Date Recorded Sex Assigned at Male 09/13/2024 11:12 AM REVERBERATORY FURNACE SUPERVISOR Legal Sex Male 2:56 PM REVERBERATORY FURNACE SUPERVISOR Gender Identity Male 01/01/2025 10:14 AM CDT Sexual Orientation Not on file Occupation Industry Job Start Date Job End Date disabled Not on file Not on file Not on file Last Filed Vital Signs Vital Sign Reading Time Taken Comments Blood Pressure 138/72 03/06/2025 3:43 PM CDT Pulse 61 03/06/2025 3:00 PM CDT Temperature 36.4 C (97.6 F) 03/06/2025 3:00 PM CDT Respiratory Rate 20 01/12/2025 11:0 3 AM CDT Oxygen Saturation 98% 03/06/2025 3:0 0 PM CDT Inhaled Oxygen Concentration - - Weight 84.4 kg (186 lb) 03/06/2025 3:00 PM CDT reported by caregiver Height 185.4 cm (6' 1) 03/06/2025 3:00 PM CDT Body Mass Index 24.54 03/06/2025 3:00 PM CDT Plan of Treatment Upcoming Encounters Date Type Department Care Team (Late st Contact Info) Description 06/04/2025 1:15 PM CDT Office Visit [place] [facility] [address] [place] [address] Kendall Greene MD Three [facility] [address] [place] [address] Health Maintenance Due Date Last Done Comments Colorectal Cancer Screening Colonoscopy (10 Years) 1972 Kidney Health Evaluation 1972 Diabetes: Retinopathy Eye Exam 1990 Hepatitis B Vaccines (1 of 3 - 19+ 3-dose series) 1991 Zoster Vaccines (1 of 2) 2022 COVID-19 Vaccine ( - season) 2024 Hemoglobin A1C 02/19/2025 08/21/2024, 120 01/2023, 04/10/2023, Additional history exists Annual Physical 08/21/2025 08/21/2024 Lipid Panel 01/12/2026 01/12/2025, 120 01/2023, 04/11/2023, Additional history exists DTaP, Tdap and Td Vaccines (2 - Td or Tdap) 08/21/2034 08/21/2024 Pneumococcal Vaccine: 50+ Years Completed 07/20/2023 PHQ-2 (Physician Knik) Completed 12/13/2024 Hepatitis C Completed 01/12/2025 Meningococcal B Vaccine Aged Out No l onger eligible based on patient's age to complete this topic Meningococcal Vaccine Aged Out No stephen rekha eligible based on patient's age to complete this topic RSV Immunizations Under 20 Months Aged Out No longer eligible based on patient's age to complete this topic Procedures Procedure Name Priority Date/Time Associated Diagnosis Comments COLLECTION VENOUS BLOOD VENIPUNCTURE Routine 01/12/2025 12:51 PM CDT Primary hypertension Screening for prostate cancer Screening for thyroid disorder Hyperlipidemia, unspecified hyperlipidemia type Need for hepatitis C screening test CBC W/DIFF AUTOMATED Routine 01/12/2025 12:08 PM CDT Primary hypertension COMPREHENSIVE METABOLIC PANEL Routine 01/12/2025 12:08 PM CDT Primary hypertension HEPATITIS C ANTIBODY Routine 01/12/2025 12:08 PM CDT Need for hepatitis C screening test LIPID PANEL Routine 01/12/2025 12:08 PM CDT Hyperlipidemia, unspecified hyperlipidemia type TSH W/REFLEX Routine 01/12/2025 12:08 PM CDT Primary hypertension Screening for thyroid disorder PROSTATE SPECIFIC ANTIGEN,SCREENING Routine 01/12/2025 12:08 PM CDT Screening for prostate cancer HEMOGLOBIN, GLYCOSYLATED Routine 08/21/2024 Type 2 diabetes mellitus with other neurologic complication, with long-term current use of insulin ([facility]) from Last 3 Months or Most Recently Relevant to Health Maintenance Results * TSH W/REFLEX (01/12/2025 12:08 PM CDT) TSH 3.225 0.358 - 3.740 uIU/ML 01/12/2025 7:55 PM CDT [facility] 01/12/2025 12:0 8 PM CDT Roseanne Murray NP LABORATORY Final Res ult Performing Organization Address City/[facility]/ZIP Co de Phone Number [facility] [address] [place] [address], [place] [phone] * PROSTATE SPECIFIC ANTIGEN,SCREENING (01/12/2025 12:08 PM CDT) PSA 0.46 <4.00 NG/ML 01/12/2025 7:56 PM CDT [facility] Comment: ASSAY PERFORMED BY [employer] IMMUNOASSAY METHODOLOGY USING SIEMENS DIMENSION REAGENT. PATIENT RESULTS DETERMINED BY ASSAYS FROM DIFFERENT MANUFACTURERS AND/OR BY DIFFERENT METHODS MAY NOT BE COMPARABLE. 01/12/2025 12:0 8 PM CDT Roseanne Murray NP LABORATORY Final Res ult [facility] [address] [place] [address], * (ABNORMAL) COMPREHENSIVE METABOLIC PANEL (01/12/2025 12:08 PM CDT) [facility] SODIUM S/P/B 140 136 - 145 MMOL/L 01/12/2025 7:55 PM CDT -[facility] POTASSIUM S/P/B 4.7 3.5 - 5.1 MMOL/L 01/12/2025 7:55 PM CDT -[facility] CHLORIDE S/P/B 102 98 - 107 MMOL/L 01/12/2025 7:55 PM CDT -[facility] CO2 34.2(H) 21 - 32 MMOL/L 01/12/2025 8:00 PM CDT -[facility] Comment:RESULTS CONFIRMED-TE ST REPEATED GLUCOSE 93 70 - 99 MG/DL 01/12/2025 7:55 PM CDT -[facility] BUN 26(H) 7 - 18 MG/DL 01/12/2025 7:55 PM CDT -[facility] CREATININE S/P/B 1.25 0.70 - 1.30 MG/DL 01/12/2025 7:55 PM CDT -[facility] CALCIUM S/P/B 9.9 8.4 - 10.5 MG/DL 01/12/2025 7:55 PM CDT -[facility] BILIRUBIN TOTAL S/P/B 0.3 0.2 - 1.0 MG/DL 01/12/2025 7:55 PM CDT [facility] ALKALINE PHOSPHATASE S/P/B 120(H) 45 - 115 U/L 01/12/2025 7:55 PM CDT [facility] AST 22 15 - 37 U/L 01/12/2025 7:55 PM CDT [facility] ALT 42 16 - 63 U/L 01/12/2025 7:55 PM CDT [facility] TOTAL PROTEIN S/P/B 8.3(H) 6.4 - 8.2 G/DL 01/12/2025 7:55 PM CDT [facility] ALBUMIN S/P/B 4.1 3.4 - 5.0 G/DL 01/12/2025 7:55 PM CDT [facility] ANION GAP 3.8(L) 5 - 15 MMOL/L 01/12/2025 8:00 PM CDT [facility] Comment:REFERENCE RANGE NOT ESTABLISHED OSMOLALITY (CALC) 294 MOSM/KG 025 7:55 PM CDT [facility] Comment:REFERENCE RANGE NOT ESTABLISHED GFR ESTIMATE 69(L) >90 ML/MIN/1. 73 M2 01/12/2025 7:55 PM CDT [facility] GFR NOTES GFR REFERENCE S: 01/12/2025 7:55 PM CDT [facility] Comment: THE ESTIMATED GFR IS CALCULATED USING THE 2020 CKD-EPI EQUATION. THE FOLLOWING CATEGORIES FOR GRADING RENAL FUNCTION ARE RECOMMENDED BY THE INTERNATIONAL SOCIETY OF NEPHROLOGY (KDIGO 2012 CLINICAL PRACTICE GUIDELINE). G1,NORMAL OR HIGH: >89 ml/min/1.73 m2 G2,MILDLY DECREASED: 60-89 ml/min/1.73 m2 G3A,MILDLY TO MODERATELY DECREASED: 45-59 ml/min/1.73 m2 G3B,MODERATELY TO SEVERELY DECREASED: 30-44 ml/min/1.73 m2 G4,SEVERELY DECREASED: 15-29 ml/min/1.73 m2 G5,KIDNEY FAILURE: <15 ml/min/1.73 m2 01/12/2025 12:0 8 PM CDT us Roseanne Murray NP LABORATORY Final Res ult [facility] [address] [facility] [address], * (ABNORMAL) LIPID PANEL (01/12/2025 12:08 PM CDT) CHOLESTEROL 206(H) <200 MG/DL 01/12/2025 7:55 PM CDT [facility] TRIGLYCERIDES 78 <150 MG/DL 01/12/2025 7:55 PM CDT [facility] HDL 64 >40 MG/DL 01/12/2025 7:55 PM CDT [facility] LDL-C 126(H) <100 MG/DL 01/12/2025 7:55 PM CDT [facility] VLDL CALCULATION 16 5 - 28 MG/DL 01/12/2025 7:55 PM CDT [facility] CHOL/HDL RATIO 3.2 0.0 - 4.0 01/12/2025 7:55 PM CDT [facility] LDL/HDL 2.0 0.41 - 2.13 01/12/2025 7:55 PM CDT [facility] NON HDL CHOLESTEROL 142(H) <140 MG/DL 01/12/2025 7:55 PM CDT [facility] 01/12/2025 12:0 8 PM CDT us Roseanne Murray NP LABORATORY Final Res ult [facility] [address] [place] [address], * HEPATITIS C ANTIBODY (01/12/2025 12:08 PM CDT) HEPATITIS C AB NON-REACTI VE NON-REACT [place] 01/13/2025 6:02 PM CDT [facility] Comment: ANTIBODIES TO HCV NOT DETECTED. DOES NOT EXCLUDE THE POSSIBILITY OF EXPOSURE TO HCV. 01/12/2025 12:0 8 PM CDT us Roseanne Katya Weinacht [facility] LABORATORY Final Res ult [facility] [address] [place] [address], [id number] * (ABNORMAL) CBC W/DIFF AUTOMATED (01/12/2025 12:08 PM CDT) WBC 6.67 4.00 - 10.80 x10'3/uL 01/12/2025 7:28 PM CDT [facility] RBC 4.86 4.50 - 6.10 x10'6/uL 01/12/2025 7:28 PM CDT [facility] HGB 13.9 13.0 - 18.0 G/DL 01/12/2025 7:28 PM CDT [facility] HCT 44.1 37.0 - 52.0 % 01/12/2025 7:28 PM CDT [facility] MCV 90.7 78.0 - 100.0 FL 01/12/2025 7:28 PM CDT [facility] MCH 28.6 27.0 - 31.0 PG 01/12/2025 7:28 PM CDT [facility] MCHC 31.5(L) 33.0 - 36.0 G/DL 01/12/2025 7:28 PM CDT [facility] RDW 12.9 11.5 - 14.5 % 01/12/2025 7:28 PM CDT [facility] PLT 238 150 - 350 x10'3/uL 01/12/2025 7:28 PM [facility]T [facility] MPV 12.7(H) 7.4 - 10.4 FL 01/12/2025 7:28 PM CDT [facility] DIFFERENTIAL TYPE AUTOMATED DIFFERENTIAL 01/12/2025 7:28 PM CDT [facility] NEUTROPHILS % 61.9 % 01/12/2025 7:28 PM CDT [facility] LYMPHOCYTES % 22.5 % 01/12/2025 7:28 PM CDT [facility] MONOCYTES % 7.2 % 01/12/2025 7:28 PM CDT [facility] EOSINOPHILS % 7.3 % 01/12/2025 7:28 PM CDT [facility] BASOPHILS % 1.0 % 01/12/2025 7:28 PM CDT [facility] IMMATURE GRANS % 0.1 % 01/12/2025 7:28 PM CDT [facility] ABS. NEUTROPHILS 4.12 1.60 - 8.30 x10'3/uL 01/12/2025 7:28 PM CDT [facility] ABS. LYMPHOCYTES 1.50 0.80 - 4.70 x10'3/uL 01/12/2025 7:28 PM CDT [facility] ABS. MONOCYTES 0.48 0.00 - 1.50 x10'3/uL 01/12/2025 7:28 PM CDT [facility] ABS. EOSINOPHILS 0.49(H) 0.00 - 0.40 x10'3/uL 01/12/2025 7:28 PM CDT [facility] ABS. BASOPHILS 0.07 0.00 - 0.20 x10'3/uL 01/12/2025 7:28 PM CDT [facility] ABS. IMMATURE GRANULOCYTES 0.01 0.00 - 0.03 x10'3/uL 01/12/2025 7:28 PM CDT [facility] 01/12/2025 12:0 8 PM CDT us Roseanne Murray NP LABORATORY Final Res ult [facility] [address] [place] [address], * A1C (BACK OFFICE) (08/21/2024) HGB A1C 5.9 % [address] [place] 08/21/2024 Roseanne Murray [facility] LABORATORY Final Res ult [address] [place] [address], [place] [phone] from Last 3 Months or Most Recently Relevant to Health Maintenance Insurance MEDICAID DEPT OF [address] Advance Directives * Full Code (Latest Code Status on File) Date Activated Date Inactivated Comments 04/10/2023 12:56 AM 04/11/2023 4:48 PM * Full Code Date Activated Date Inactivated Comments 11/11/2022 2:26 PM 04/10/2023 12:44 AM * Full Code Date Activated Date Inactivated Comments 08/11/2022 7:19 PM 08/14/2022 6:26 PM Care Teams Claims Counsel Relationship Specialty Start Date End Date Roseanne Murray NP [address] [place] [address] PCP - General NURSE PRACTITIONER 07/31/22
--- OUTSIDE RECORDS SUMMARY | 2025-03-28 18:14 | XMS_ITS | Encounter Summary ---
Author Organization [facility] Address [address] [place] [address] Care Team Providers Care Advice Line Rn Name Role Phone Roseanne [place] NP Primary Care Provider [phone] Encounter Details Date Type Department Care Team (Late st Contact Info) Description 03/08/2024 MyChart Message Enc [facility] Family [facility] - [place] [address] [facility] [address] [place] [phone] Roseanne Murray NP [address] [place] [address] [place] [address] Schedule testing Social History Tobacco Use Types [...] place to sleep or slept in a mcc (including now)? No 04/10/2023 Sex and Gender Information Value Date Recorded Sex Assigned at Male 09/13/2024 11:12 AM SPORTS SPECIALIST Legal Sex Male 2:56 PM SPORTS SPECIALIST Gender Identity Male 01/01/2025 10:14 AM CDT [...] Description 06/04/2025 1:15 PM CDT Office Visit [place] [facility] [address] [place] [address] Kendall Greene MD [facility], [address] [place] [address] documented as of this encounter Visit Diagnoses Not on filedocumented in this encounter Additional Health Concerns Assessment Noted Time PHQ-9 Depression Total Score: 4 08/05/20 22 1:27 PM SPORTS SPECIALIST documented as of this encounter Care Teams Advice Line Rn Relationship Specialty Start Date End Date Roseanne Murray NP [address] [place] [address] PCP - General NURSE PRACTITIONER 07/31/22 documented as of this encounter
--- OUTSIDE RECORDS SUMMARY | 2025-03-28 18:14 | XMS_ITS | Encounter Summary ---
Author Organization [facility] Address [address] [place] [address] Care Team Providers Care Stars Specialist Name Role Phone Roseanne Murray NP Primary Care Provider [phone] Encounter Details Date Type Department Care Team (Late st Contact Info) Description 04/21/2024 Therapy Plan [facility] Multispecialty Care - [address], [address] [place] [address] Nirmal Leo MD [address] [place] [address] Social History Tobacco Use Types Packs/Day Years [...] place to sleep or slept in a halfway (including now)? No 04/10/2023 Sex and Gender Information Value Date Recorded Sex Assigned at Male 09/13/2024 11:12 AM INFORMATION BROKER Legal Sex Male 2:56 PM INFORMATION BROKER Gender Identity Male 01/01/2025 10:14 AM CDT [...] Assessment Author Status No 04/10/2023 1:22 AM SEUT Bridgette Proctor RN Active * Do you [...] Description 06/04/2025 1:15 PM CDT Office Visit [place] [facility] [address] [place] [address] Kendall Greene MD [facility], [address] [place] [address] documented as of this encounter Visit Diagnoses Not on filedocumented in this encounter Additional Health Concerns Assessment Noted Time PHQ-9 Depression Total Score: 4 08/05/20 22 1:27 PM INFORMATION BROKER documented as of this encounter Care Teams Stars Specialist Relationship Specialty Start Date End Date Roseanne [place] NP [address] [place] [address] PCP - General NURSE PRACTITIONER 07/31/22 documented as of this encounter
--- OUTSIDE RECORDS SUMMARY | 2025-03-28 18:14 | XMS_ITS | Encounter Summary ---
Author Organization [facility] Address [address] [place] [address] Care Team Providers Care Water Engineer Name Role Phone Roseanne Murray NP Primary Care Provider +1 [phone] Encounter Details Date Type Department Care Team (Late st Contact Info) Description 06/08/2024 ArtBindert Message Enc [facility] Medical [facility] Family Medicine - [place] [address] [facility] [address] [place] [phone] Roseanne Murray NP [address] [place] [address] Skin issues Social History Tobacco Use Types [...] Sex Assigned at Male 09/13/2024 11:12 AM RESOLUTION SPECIALIST Legal Sex Male 2:56 PM RESOLUTION SPECIALIST Gender Identity Male 01/01/2025 10:14 AM [...] Description 06/04/2025 1:15 PM CDT Office Visit [place] [facility] [address] [place] [address] Kendall Greene MD [facility], [address] [place] [address] documented as of this encounter Visit Diagnoses Not on filedocumented in this encounter Additional Health Concerns Assessment Noted Time PHQ-9 Depression Total Score: 4 08/05/20 22 1:27 PM RESOLUTION SPECIALIST documented as of this encounter Care Teams Water Engineer Relationship Specialty Start Date End Date Roseanne Murray NP [address] [place] [address] PCP - General NURSE PRACTITIONER 07/31/22 documented as of this encounter
--- OUTSIDE RECORDS SUMMARY | 2025-03-28 18:15 | XMS_ITS | Encounter Summary ---
Author Organization [facility] Address [address] [place] [address] Care Team Providers Care Big Data Developer Name Role Phone Roseanne Murray COUNTY PROGRAM TECHNICIAN Primary Care Provider +1 [phone] Encounter Details Date Type Department Care Team (Late st Contact Info) Description 12/09/2022 DiscoveRX Message Enc [facility] [address] [id number] Misha, [facility] Provider Lab results Social History Tobacco [...] Sex Assigned at Male 09/13/2024 11:12 AM CEMENT TRUCK DRIVER Legal Sex Male 2:56 PM CEMENT TRUCK DRIVER Gender Identity Male 01/01/2025 10:14 AM CDT Sexual Orientation Not on file 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 Answer Date of Assessment Author Status No 08/12/2022 2:05 PM CEMENT TRUCK DRIVER Activ e * Do you have serious difficulty walking or climbing stairs? Answer Date of Assessment Author Status No 08/12/2022 2:05 PM CEMENT TRUCK DRIVER Melinda Noonan RN Active * Do you have difficulty dressing or bathing? Answer Date of Assessment Author Status No 08/12/2022 2:05 PM CEMENT TRUCK DRIVER Melinda Noonan RN Active * Because of [...] Description 06/04/2025 1:15 PM CDT Office Visit [place] [facility] [facility] [address] [facility] [address] [place] [address] Kendall Greene MD [facility] [address] [place] [address] documented as of this encounter Visit Diagnoses Not on filedocumented in this encounter Additional Health Concerns Assessment Noted Time PHQ-9 Depression Total Score: 4 08/05/20 22 1:27 PM CEMENT TRUCK DRIVER documented as of this encounter Care Teams Big Data Developer Relationship Specialty Start Date End Date Roseanne Murray NP [address] [place] [address] PCP - General NURSE PRACTITIONER 07/31/22 documented as of this encounter
--- OUTSIDE RECORDS SUMMARY | 2025-03-28 18:15 | XMS_ITS | Encounter Summary ---
Author Organization [facility] Address [address] [place] [address] Care Team Providers Care Floatlight Powder Mixer Name Role Phone Roseanne Murray NP Primary Care Provider +1 [phone] Encounter Details Date Type Department Care Team (Late st Contact Info) Description 12/08/2022 Abstract [facility], [address] [address] Jose David MA Social History Tobacco Use [...] Sex Assigned at Male 09/13/2024 11:12 AM RN DOCUMENTATION SPECIALIST Legal Sex Male 2:56 PM RN DOCUMENTATION SPECIALIST Gender Identity Male 01/01/2025 10:14 AM CDT Sexual Orientation Not on file 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 Answer Date of Assessment Author Status No 08/12/2022 2:05 PM RN DOCUMENTATION SPECIALIST Activ e * Do you have serious difficulty walking or climbing stairs? Answer Date of Assessment Author Status No 08/12/2022 2:05 PM RN DOCUMENTATION SPECIALIST Melinda Noonan RN Active * Do you have difficulty dressing or bathing? Answer Date of Assessment Author Status No 08/12/2022 2:05 PM RN DOCUMENTATION SPECIALIST Melinda Noonan RN Active * Because of a physical, mental, or emotional condition, do you have difficulty doing errands alone such as visiting a doctor's office or shopping? Answer Date of Assessment Author Status No 08/12/2022 2:05 PM RN DOCUMENTATION SPECIALIST Melinda Noonan RN Active documented as of this encounter Mental Status * Because of a physical, mental, or emotional condition, do you have serious difficulty concentrating, remembering, or making decisions? Answer Entry Date Author Status Yes 08/12/2022 2:05 PM RN DOCUMENTATION SPECIALIST Melinda Noonan RN Active documented in this encounter Plan of Treatment Upcoming Encounters Date Type Department Care Team (Late st Contact Info) Description 06/04/2025 1:15 PM CDT Office Visit [place] [place] [facility] [address] [place] [address] Kendall Greene MD [facility], [address] [place] [address] documented as of this encounter Procedures Procedure [...] Total Score: 4 08/05/20 22 1:27 PM RN DOCUMENTATION SPECIALIST documented as of this encounter Care Teams Floatlight Powder Mixer Relationship Specialty Start Date End Date Roseanne Murray NP [address] [place] [address] PCP - General NURSE PRACTITIONER 07/31/22 documented as of this encounter
--- OUTSIDE RECORDS SUMMARY | 2025-03-28 18:15 | XMS_ITS | Encounter Summary ---
Author Organization [facility] Address [address] [place] [address] Care Team Providers Care Technical Solutions Consultant Name Role Phone Roseanne Murray NP Primary Care Provider [phone] [phone] Encounter Details Date Type Department Care Team (Latest Contact Info) Description 09/08/2022 Game Nation Message Enc [facility] [address] [place] [address] Roel Riojas MD,PHD Blood Pressure [...] Sex Assigned at Male 09/13/2024 11:12 AM MELTER OPERATOR Legal Sex Male 2:56 PM MELTER OPERATOR Gender Identity Male 01/01/2025 10:14 AM CDT Sexual Orientation Not on file 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 No / Unsure 08/17/2022 2:11 PM MELTER OPERATOR documented as of this encounter Functional Status * RETIRED Are you deaf or do you have serious difficulty hearing Answer Date of Assessment Author Status No 08/12/2022 2:05 PM MELTER OPERATOR Activ e * RETIRED Are you blind or do you have serious difficulty seeing, even when wearing glasses? Answer Date of Assessment Author Status No 08/12/2022 2:05 PM MELTER OPERATOR Activ e * Do you have serious difficulty walking or climbing stairs? Answer Date of Assessment Author Status No 08/12/2022 2:05 PM MELTER OPERATOR Melinda Noonan RN Active * Do you have difficulty dressing or bathing? Answer Date of Assessment Author Status No 08/12/2022 2:05 PM MELTER OPERATOR Melinda Noonan RN Active * Because of a physical, mental, or emotional condition, do you have difficulty doing errands alone such as visiting a doctor's office or shopping? Answer Date of Assessment Author Status No 08/12/2022 2:05 PM MELTER OPERATOR Melinda Noonan RN Active documented as of this encounter Mental Status * Because of a physical, mental, or emotional condition, do you have serious difficulty concentrating, remembering, or making decisions? Answer Entry Date Author Status Yes 08/12/2022 2:05 PM MELTER OPERATOR Melinda Noonan RN Active documented in this encounter Progress Notes * Roel Riojas MD,PHD - 09/10/2022 2:58 PM CST Excellent blood pressure. ER OPERATOR * Carisa Wilson RN - 09/08/2022 4:20 PM CST . ER OPERATOR documented in this encounter Plan of Treatment Upcoming Encounters Date Type Department Care Team (Late st Contact Info) Description 06/04/2025 1:15 PM CDT Office Visit [facility] [address] [place] [address] Kendall Greene MD Three [facility], [address] [place] [address] documented as of this encounter Visit Diagnoses Not on filedocumented in this encounter Additional Health Concerns Assessment Noted Time PHQ-9 Depression Total Score: 4 08/05/20 22 1:27 PM MELTER OPERATOR documented as of this encounter Care Teams Technical Solutions Consultant Relationship Specialty Start Date End Date Roseanne Murray NP [address] [place] [address] PCP - General NURSE PRACTITIONER 07/31/22 documented as of this encounter
--- OUTSIDE RECORDS SUMMARY | 2025-03-28 18:15 | XMS_ITS | Encounter Summary ---
Author Organization [facility] Address [address] [place] [address] Care Team Providers Care Word Processing Machine Operator Name Role Phone Roseanne Murray NP Primary Care Provider [phone] [phone] Encounter Details Date Type Department Care Team (Late st Contact Info) Description 08/28/2022 MyCCloud Your Cart Message Enc [facility] Medical Group Family Medicine - [place] [address] [facility] [address] [place] [phone] Roseanne Murray NP [address] [place] [address] [place] [address] Medicine Options Social History Tobacco Use Types [...] Sex Assigned at Male 09/13/2024 11:12 AM BAND LOG MILL AND CARRIAGE OPERATOR Legal Sex Male 2:56 PM BAND LOG MILL AND CARRIAGE OPERATOR Gender Identity Male 01/01/2025 10:14 AM CDT Sexual Orientation Not on file COVID-19 Exposure Response Date Recorded In the last 10 days, have yo u been in contact with someone who was confirmed or suspected to have Coronavirus/COVID-19? No / Unsure 08/17/2022 2:11 PM BAND LOG MILL AND CARRIAGE OPERATOR documented as of this encounter Functional Status * RETIRED Are you deaf or do you have serious difficulty hearing Answer Date of Assessment Author Status No 08/12/2022 2:05 PM BAND LOG MILL AND CARRIAGE OPERATOR Activ e * RETIRED Are you blind or do you have serious difficulty seeing, even when wearing glasses? Answer Date of Assessment Author Status No 08/12/2022 2:05 PM BAND LOG MILL AND CARRIAGE OPERATOR Activ e * Do you have serious difficulty walking or climbing stairs? Answer Date of Assessment Author Status No 08/12/2022 2:05 PM BAND LOG MILL AND CARRIAGE OPERATOR Melinda Noonan RN Active * Do you have difficulty dressing or bathing? Answer Date of Assessment Author Status No 08/12/2022 2:05 PM BAND LOG MILL AND CARRIAGE OPERATOR Melinda Noonan RN Active * Because of a physical, mental, or emotional condition, do you have difficulty doing errands alone such as visiting a doctor's office or shopping? Answer Date of Assessment Author Status No 08/12/2022 2:05 PM BAND LOG MILL AND CARRIAGE OPERATOR Melinda Noonan RN Active documented as of this encounter Mental Status * Because of a physical, mental, or emotional condition, do you have serious difficulty concentrating, remembering, or making decisions? Answer Entry Date Author Status Yes 08/12/2022 2:05 PM Melinda Headley RN Active documented in this encounter Progress Notes * Roseanne Murray NP - 09/01/2022 8:17 AM CST Bar[place] pt will need an apt to discuss anxiety/depressant medication or a video visit to discuss. Eduardo ok with Home health but we would need to know who they want to use. I thought he already had home health with [facility]?? LOG MILL AND CARRIAGE OPERATOR documented in this encounter Plan of Treatment Upcoming Encounters Date Type Department Care Team (Late st Contact Info) Description 06/04/2025 1:15 PM CDT Office Visit [place] [facility] [address] [place] [address] Kendall Greene MD Three [facility], [address] [place] [address] documented as of this encounter Visit Diagnoses Not on filedocumented in this encounter Additional Health Concerns Assessment Noted Time PHQ-9 Depression Total Score: 4 08/05/20 22 1:27 PM BAND LOG MILL AND CARRIAGE OPERATOR documented as of this encounter Care Teams Word Processing Machine Operator Relationship Specialty Start Date End Date Roseanne Murray NP [address] [place] [address] PCP - General NURSE PRACTITIONER 07/31/22 documented as of this encounter
--- OUTSIDE RECORDS SUMMARY | 2025-03-28 18:15 | XMS_ITS | Encounter Summary ---
Author Organization [facility] Address [address] [place] [address] Care Team Providers Care Nursing Home Assistant Administrator Name Role Phone Roseanne Murray NP Primary Care Provider [phone] [phone] Encounter Details Date Type Department Care Team (Late st Contact Info) Description 10/04/2024 MyChart Message Enc [facility] Medical Group Family Medicine - [place] [address] [facility] [address] [place] [address] Roseanne Murray NP [address] [place] [address] [place] [address] Referral to Urology Social History Tobacco Use Types Packs/Day Years [...] Sex Assigned at Male 09/13/2024 11:12 AM ENROLLMENT MANAGEMENT COORDINATOR Legal Sex Male 2:56 PM ENROLLMENT MANAGEMENT COORDINATOR Gender Identity Male 01/01/2025 10:14 AM CDT [...] Progress Notes * Roseanne Murray NP - 10/04/2024 3:55 PM CST Ok to place referral. LLMENT MANAGEMENT COORDINATOR documented in this encounter Plan of Treatment Upcoming Encounters Date Type Department Care Team (Late st Contact Info) Description 06/04/2025 1:15 PM CDT Office Visit [place] [facility] [address] Kendall Greene MD Three [facility], [address] [place] [address] documented as of this encounter Visit Diagnoses Not on filedocumented in this encounter Additional Health Concerns Assessment Noted Time PHQ-9 Depression Total Score: 4 08/05/20 22 1:27 PM ENROLLMENT MANAGEMENT COORDINATOR documented as of this encounter Care Teams Nursing Home Assistant Administrator Relationship Specialty Start Date End Date Roseanne Murray NP [address] [place] [address] PCP - General NURSE PRACTITIONER 07/31/22 documented as of this encounter
--- OUTSIDE RECORDS SUMMARY | 2025-03-28 18:15 | XMS_ITS | Encounter Summary ---
Author Organization [facility] Address [address] [place] [address] Care Team Providers Care Frame Expander Name Role Phone Roseanne Murray NP Primary Care Provider [phone] [phone] Encounter Details Date Type Department Care Team (Late st Contact Info) Description 12/08/2024 MyChart Message Enc [facility] Medical Group Family Medicine - [place] [address] [facility] [address] [place] [address] Roseanne Murray, [place] [address] [place] [address] Increased Depression Social History Tobacco Use Types Packs/Day Years [...] Sex Assigned at Male 09/13/2024 11:12 AM TIRE RETREADER Legal Sex Male 2:56 PM TIRE RETREADER Gender Identity Male 01/01/2025 10:14 AM CDT [...] Progress Notes * Roseanne Murray NP - 12/11/2024 6:28 AM CDT For a med adjustment yes. documented in this encounter Plan of Treatment Upcoming Encounters Date Type Department Care Team (Late st Contact Info) Description 06/04/2025 1:15 PM CDT Office Visit [place] [facility] [address] [address] Kendall Greene MD Three [facility], [address] [place] [address] documented as of this encounter Visit Diagnoses Not on filedocumented in this encounter Additional Health Concerns Assessment Noted Time PHQ-9 Depression Total Score: 4 08/05/20 22 1:27 PM TIRE RETREADER documented as of this encounter Care Teams Frame Expander Relationship Specialty Start Date End Date Roseanne Murray NP [address] [place] [address] PCP - General NURSE PRACTITIONER 07/31/22 documented as of this encounter
--- OUTSIDE RECORDS SUMMARY | 2025-03-28 18:15 | XMS_ITS | Encounter Summary ---
Author Organization [facility] Address [address] [place] [address] Care Team Providers Care Evs Manager Name Role Phone Roseanne Murray NP Primary Care Provider +1 [phone] Encounter Details Date Type Department Care Team (Late st Contact Info) Description 12/12/2022 MyChart Message Enc [facility] Family Medicine - [place] [address] [facility] [address] [place] [phone] Roseanne Murray NP [address] [place] [address] [place] [address] Meds Social History Tobacco Use Types Packs/Day [...] Sex Assigned at Male 09/13/2024 11:12 AM CHILD WATCH ATTENDANT Legal Sex Male 2:56 PM CHILD WATCH ATTENDANT Gender Identity Male 01/01/2025 10:14 AM CDT Sexual Orientation Not on file 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 Answer Date of Assessment Author Status No 08/12/2022 2:05 PM CHILD WATCH ATTENDANT Activ e * Do you have serious difficulty walking or climbing stairs? Answer Date of Assessment Author Status No 08/12/2022 2:05 PM CHILD WATCH ATTENDANT Melinda Noonan RN Active * Do you [...] Description 06/04/2025 1:15 PM CDT Office Visit [place] [facility] [address] [place] [id number] Kendall Greene MD Three [facility], [address] [place] [address] documented as of this encounter Visit Diagnoses Not on filedocumented in this encounter Additional Health Concerns Assessment Noted Time PHQ-9 Depression Total Score: 4 08/05/20 22 1:27 PM CHILD WATCH ATTENDANT documented as of this encounter Care Teams Evs Manager Relationship Specialty Start Date End Date Roseanne Murray NP [address] [place] [address] PCP - General NURSE PRACTITIONER 07/31/22 documented as of this encounter
--- OUTSIDE RECORDS SUMMARY | 2025-03-28 18:15 | XMS_ITS | Encounter Summary ---
Author Organization [facility] Address [address] [place] [address] Care Team Providers Care Sane Rn Name Role Phone Roseanne Murray CONFIGURATION MANAGER Primary Care Provider [phone] -[phone] Encounter Details Date Type Department Care Team (Late st Contact Info) Description 01/18/2025 MyChart Message Enc [facility] Medical Group Family Medicine - [place] [address] [address] Misha, [facility] Provider Power wheelchair Social History Tobacco Use Types Packs/Day Years [...] place to sleep or slept in a correction (including now)? No 04/10/2023 Sex and Gender Information Value Date Recorded Sex Assigned at Male 09/13/2024 11:12 AM WHIRLEY OPERATOR Legal Sex Male 2:56 PM WHIRLEY OPERATOR Gender Identity Male 01/01/2025 10:14 AM [...] Description 06/04/2025 1:15 PM CDT Office Visit [place] [facility] [address] [place] [address] Kendall Greene MD [facility], [address] [place] [address] documented as of this encounter Visit Diagnoses Not on filedocumented in this encounter Additional Health Concerns Assessment Noted Time PHQ-9 Depression Total Score: 15 04/2 025 2:46 PM CDT documented as of this encounter Care Teams Sane Rn Relationship Specialty Start Date End Date Roseanne Murray NP [address] [place] [address] PCP - General NURSE PRACTITIONER 07/31/22 documented as of this encounter
--- OUTSIDE RECORDS SUMMARY | 2025-03-28 18:15 | XMS_ITS | Encounter Summary ---
Author Organization [facility] Address [address] [place] [address] Care Team Providers Care Press Offbearer Name Role Phone Roseanne Murray NP Primary Care Provider +1 -[phone] Encounter Details Date Type Department Care Team (Late st Contact Info) Description 08/09/2022 MyChart Message Enc [facility] Medical Group Family Medicine - [place] [address] [facility] [address] [place] [address] Roseanne Murray NP [address] [place] [address] Depends Social History Tobacco Use Types Packs/Day [...] Sex Assigned at Male 09/13/2024 11:12 AM ROLL INSPECTOR Legal Sex Male 2:56 PM ROLL INSPECTOR Gender Identity Male 01/01/2025 10:14 AM CDT Sexual Orientation Not on file COVID-19 Exposure Response Date Recorded In the last 10 days, have yo u been in contact with someone who was confirmed or suspected to have Coronavirus/COVID-19? No / Unsure 08/11/2022 11:43 AM ROLL INSPECTOR documented as of this encounter Functional Status * Calculated C-SSRS Risk Score (Lifetime/Recent) Answer Date of Assessment Author Status No Risk Indicated 08/11/2022 12:43 PM ROLL INSPECTOR Benjamin Darby RN Active * [place] Suicide Severity Rating Scale (Screener/Recent Self-Report) Question Answer Date of Assessment Author Status 1. Wish to be (Past 1 Month) No 08/11/2022 12:43 PM ROLL INSPECTOR Zaina Darby, RN Acti ve 2. Non-Specific Active Suicidal Thoughts (Past 1 Month) No 08/11/2022 12:43 PM ROLL INSPECTOR Zaina Darby RN Acti ve 6. Suicidal Behavior (Lifetime) No 08/11/2022 12:43 PM ROLL INSPECTOR Zaina Darby RN Acti ve documented as of this encounter Mental Status * Question Answer Entry Date Author Status Because of a physical, mental, or emotional condition, do you have serious difficulty concentrating, remembering, or making decisions? Yes 08/12/2022 2:05 PM ROLL INSPECTOR Melinda Noonan SLana Active documented in this encounter Plan of Treatment Upcoming Encounters Date Type Department Care Team (Late st Contact Info) Description 06/04/2025 1:15 PM CDT Office Visit [place] [facility] [address] [place] [address] Kendall Greene MD [facility], [address] [place] [address] documented as of this encounter Visit Diagnoses Not on filedocumented in this encounter Additional Health Concerns Infection Onset Date Last Indicated Resolved Time COVID-19 Rule Out 08/11/2022 08/11/2022 08/11/2022 3:02 PM ROLL INSPECTOR Assessment Noted Time PHQ-9 Depression Total Score: 4 08/05/20 22 1:27 PM ROLL INSPECTOR documented as of this encounter Care Teams Press Offbearer Relationship Specialty Start Date End Date Roseanne Murray NP [address] [place] [address] PCP - General NURSE PRACTITIONER 07/31/22 documented as of this encounter
--- OUTSIDE RECORDS SUMMARY | 2025-03-28 18:15 | XMS_ITS | Encounter Summary ---
Author Organization [facility] Address [address] [place] [address] Care Team Providers Care Motor Tester Name Role Phone Roseanne Murray LAUNCHING PAD MECHANIC Primary Care Provider [phone] [phone] Encounter Details Date Type Department Care Team (Late st Contact Info) Description 10/05/2022 Abstract [facility], [address] [address] Jose David MA Social History Tobacco Use [...] Sex Assigned at Male 09/13/2024 11:12 AM BREASTFEEDING PROGRAM COORDINATOR Legal Sex Male 2:56 PM BREASTFEEDING PROGRAM COORDINATOR Gender Identity Male 01/01/2025 10:14 AM CDT Sexual Orientation Not on file 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 No / Unsure 09/30/2022 2:48 PM BREASTFEEDING PROGRAM COORDINATOR documented as of this encounter Functional Status * RETIRED Are you deaf or do you have serious difficulty hearing Answer Date of Assessment Author Status No 08/12/2022 2:05 PM BREASTFEEDING PROGRAM COORDINATOR Activ e * RETIRED Are you blind or do you have serious difficulty seeing, even when wearing glasses? Answer Date of Assessment Author Status No 08/12/2022 2:05 PM BREASTFEEDING PROGRAM COORDINATOR Activ e * Do you have serious difficulty walking or climbing stairs? Answer Date of Assessment Author Status No 08/12/2022 2:05 PM BREASTFEEDING PROGRAM COORDINATOR Melinda Noonna RN Active * Do you have difficulty dressing or bathing? Answer Date of Assessment Author Status No 08/12/2022 2:05 PM BREASTFEEDING PROGRAM COORDINATOR Melinda Noonan RN Active * Because of a physical, mental, or emotional condition, do you have difficulty doing errands alone such as visiting a doctor's office or shopping? Answer Date of Assessment Author Status No 08/12/2022 2:05 PM BREASTFEEDING PROGRAM COORDINATOR Melinda Noonan RN Active documented as of this encounter Mental Status * Because of a physical, mental, or emotional condition, do you have serious difficulty concentrating, remembering, or making decisions? Answer Entry Date Author Status Yes 08/12/2022 2:05 PM BREASTFEEDING PROGRAM COORDINATOR Melinda Noonan RN Active documented in this encounter Plan of Treatment Upcoming Encounters Date Type Department Care Team (Late st Contact Info) Description 06/04/2025 1:15 PM CDT Office Visit [facility] [address] [place] [address] Kendall Greene MD [facility] [address] [place] [address] documented as of this encounter Procedures Procedure [...] Total Score: 4 08/05/20 22 1:27 PM BREASTFEEDING PROGRAM COORDINATOR documented as of this encounter Care Teams Motor Tester Relationship Specialty Start Date End Date Roseanne Murray NP [address] [place] [address] PCP - General NURSE PRACTITIONER 07/31/22 documented as of this encounter
--- OUTSIDE RECORDS SUMMARY | 2025-03-28 18:15 | XMS_ITS | Encounter Summary ---
Author Organization [facility] Address [address] [place] [address] Care Team Providers Care County Treasurer Name Role Phone oRseanne Murray NP Primary Care Provider [phone] [phone] Encounter Details Date Type Department Care Team (Late st Contact Info) Description 02/22/2023 MyChart Message Enc [facility] Family Medicine - [place] [address] [facility] [address] [place] [address] Roseanne Murray NP [address] [place] [address] [place] [address] Referral/cough/incre ased weakness Social History Tobacco Use [...] Sex Assigned at Male 09/13/2024 11:12 AM MACHINE FEATHEREDGER AND REDUCER Legal Sex Male 2:56 PM MACHINE FEATHEREDGER AND REDUCER Gender Identity Male 01/01/2025 10:14 AM CDT Sexual Orientation Not on file 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 Answer Date of Assessment Author Status No 08/12/2022 2:05 PM MACHINE FEATHEREDGER AND REDUCER Activ e * Do you have serious [...] PM CDT Office Visit [facility] [address] [place] [address] Kendall Greene MD [facility], [address] [place] [address] documented as of this encounter Visit Diagnoses Not on filedocumented in this encounter Additional Health Concerns Assessment Noted Time PHQ-9 Depression Total Score: 4 08/05/20 22 1:27 PM MACHINE FEATHEREDGER AND REDUCER documented as of this encounter Care Teams County Treasurer Relationship Specialty Start Date End Date Roseanne Murray NP [address] [place] [address] PCP - General NURSE PRACTITIONER 07/31/22 documented as of this encounter
[2025-03-28 18:25] VITALS: BP 192/80; PULSE 70; RESP 18; TEMP 36.6; O2SAT 100
--- NOTE | 2025-03-28 18:33 | ED.DENTAL ---
HPI - Dental/Oral General Chief complaint: Dental/Oral Stated complaint: RT side face swelling Time Seen by Provider: 03/28/25 18:33 Source: family Mode of arrival: ambulatory History of Present Illness HPI Narrative: 54-year-old male history of CVA presented with daughter who provides HPI. Endorses right-sided facial swelling, onset last night. Denies injury or facial wounds. She says it is likely related to his teeth, stating he had similar symptoms a few months ago, had an antibiotic which improved symptoms. Patient does not admit to pain at baseline. Daughter denies any other changes from baseline. patient is wheelchair-bound. MD Complaint: tooth pain Related Data Home Medications ?Medication ?Instructions ?Recorded ?Confirmed ?Last Taken ?Type atorvastatin 40 mg tablet (Lipitor) 40 mg PO QHS 08/08/22 03/22/24 Unknown History blood sugar diagnostic ([facility] 11/21/23 03/22/24 Unknown History Verio test strips) carboxymethylcellulose sodium 1 % 1 drp EACH EYE TID 11/21/23 03/22/24 Unknown History eye liquid gel drops carvedilol 12.5 mg tablet 12.5 mg PO Q12H 11/21/23 03/22/24 Unknown History escitalopram oxalate 20 mg tablet 20 mg PO HS 11/21/23 03/22/24 Unknown History hydralazine 25 mg tablet 25 mg PO TID Anxiety,itching 11/21/23 03/22/24 Unknown History hydrochlorothiazide 25 mg tablet 25 mg PO DAILY 11/21/23 03/22/24 Unknown History insulin glargine 100 unit/mL (3 17 unit subcut HS 11/21/23 03/22/24 Unknown History mL) subcutaneous pen (Lantus Solostar U-100 Insulin) insulin lispro 100 unit/mL 5 unit subcut TIDWM 11/21/23 03/22/24 Unknown History subcutaneous solution (Humalog U-100 Insulin) lancets 33 gauge ([facility] 11/21/23 03/22/24 Unknown History Plus Lancet) metformin 500 mg tablet 500 mg PO DAILY 11/21/23 03/22/24 Unknown History nifedipine 90 mg tablet,extended 90 mg PO DAILY 11/21/23 03/22/24 Unknown History release 24 hr omeprazole 20 mg capsule,delayed 20 mg PO DAILY 11/21/23 03/22/24 Unknown History release pen needle, diabetic 32 gauge x 11/21/23 03/22/24 Unknown History (TRUEplus Pen Needle) tamsulosin 0.4 mg capsule 0.4 mg PO DAILY 11/21/23 03/22/24 Unknown History triamcinolone acetonide 0.1 % 1 applic topical BID 11/21/23 03/22/24 Unknown History topical cream Allergies Allergy/AdvReac Type Severity Reaction Status Date / Time No Known Allergies Allergy Verified 03/09/25 16:41 Review of Systems Review of Systems: ROS limited, per Daughter CONSTITUTIONAL: Denies fever ENT: Denies rhinorrhea Reports right facial swelling CARDIOVASCULAR: Denies chest pain RESPIRATORY: Denies cough or dyspnea. SKIN: Denies rash, itching, or wounds to face. MUSCULOSKELETAL: Denies changes PMFSH Past Medical History Medical History Insulin dependent type 2 diabetes mellitus Chronic anemia Chronic kidney disease, stage 3 Seizure Cerebrovascular accident (05/2022) Residual aphasia and right-sided deficits. Psoriasis Dyslipidemia Essential (primary) hypertension Family History Family History Grandparent Acute myocardial infarction, Onset Age: 65 Other Diabetes mellitus Family history of allergic disorder Family history of coronary artery disease Social History Social History Social History: Surrogate medical decision maker: Alicia Bland (spouse) or Shena Bland (mother). Code status: Full code. Smoking status: Never smoker Alcohol intake: unknown Substance use: never Substance use type: does not use Do You Feel Safe in your Home?: Yes Lack of Transportation: No Lack of Food: Never True Current Housing: I Have Housing Concerned About Future Housing: Decline to Answer Difficulty Paying Gas/Electric Bills: Decline to Answer Difficulty Paying for Meds: Decline to Answer Currently Unemployed: Decline to Answer Education: Don't Know Difficulty w/ Childcare or Family Care: Decline to Answer Living arrangements: with family Occupation/Education: unemployed Spiritual care concerns: No Comments At time of signature, I have reviewed and agree with nursing past medical, surgical, social and family history unless otherwise noted. Please see nursing chart for further information. There is no relevant family history pertinent to the presenting complaint Exam Narrative: GENERAL: Does not appear in pain, no acute distress. HEAD: Normocephalic, atraumatic. EYES: Conjunctivae normal. ENT: Mild Right facial swelling location of #3 tooth, few caries, no significant gum swelling erythema or drainage. Mucous membranes pink and moist. TMs normal bilaterally. Throat normal. No uvular deviation or soft palate edema. no dysphagia, odynophagia, dysphonia, or dyspnea. NECK: Normal AROM. No lymphadenopathy. no induration below mandible, no neck pain. CHEST: Clear to auscultation. HEART: Regular rate and rhythm. SKIN: Warm, dry, Normal skin turgor. NEURO: Alert. W/C. Course Course Emergency Course: Patient is aware of diagnosis, understands and agrees to treatment plan. Anticipatory guidance given. Patient agrees to follow-up as directed and is aware of reasons to seek care at the emergency department. Portions of this record may have been created with voice recognition software Level of Care: Express Care Visit Vital Signs Vital signs: Vital Signs Temperature 97.9 F 03/28/25 18:25 Pulse Rate 70 03/28/25 18:25 Respiratory Rate 18 03/28/25 18:25 Blood Pressure 192/80 H 03/28/25 18:25 Pulse Oximetry 100 03/28/25 18:25 Oxygen Delivery Room Air 03/28/25 18:25 Temperature 97.9 F 03/28/25 18:25 Pulse Rate 70 03/28/25 18:25 Respiratory Rate 18 03/28/25 18:25 Blood Pressure 192/80 H 03/28/25 18:25 Pulse Oximetry 100 03/28/25 18:25 Oxygen Delivery Room Air 03/28/25 18:25 MDM - Dental/Oral MDM Narrative Medical decision making narrative: HPI and ROS limited, provided by dtr. Pt with hx CVA presented with dtr for right facial swelling. Pt does not discern pain. Shared decision making Will treat with abx as patient has had similar symptoms and was treated with antibiotics with improvement in the past. He is scheduled with a dentist in a few months. There are no focal signs of space occupying lesions that are compromising to the airway; Patient is non-toxic appearing. The floor of the mouth is soft with no signs of Renzo's Angina; Patient is without trismus or drooling and able to swallow secretions. Patient is felt appropriate for discharge home with dental follow up. Differential Diagnosis Differential diagnosis: Likely gingival abscess, dental caries, toothache, dental abscess, fracture of tooth, aphthous ulcer and other Discharge Plan Discharge Clinical Impression: Right facial swelling Patient Disposition: Home Condition: Stable Instructions: Antibiotic Form, Dental Abscess (ED) Additional Instructions: Take antibiotic as directed May apply heat or ice to the face Gentle brushing and flossing. Rinse mouth with warm salt water at least 2 times a day. Alternate Tylenol and ibuprofen as needed for pain Follow-up with the dentist as soon as possible Go to the ER for worsening symptoms or concerns Patient Language: Nepali Prescriptions: New amoxicillin-pot clavulanate 875-125 mg tablet 1 tablet PO Q12H 7 Days Qty: 14 0RF No Action atorvastatin [Lipitor] 40 mg tablet 40 mg PO QHS metformin 500 mg tablet 500 mg PO DAILY carvedilol 12.5 mg tablet 12.5 mg PO Q12H hydralazine 25 mg tablet 25 mg PO TID (DME) OneTouch Verio test strips Strip MISCELLANEOUS triamcinolone acetonide 0.1 % cream 1 applic TOPICAL BID Rx Instructions: to rash on legs, and body tamsulosin 0.4 mg capsule 0.4 mg PO DAILY nifedipine 90 mg tablet extended release 24hr 90 mg PO DAILY omeprazole 20 mg capsule,delayed release(DR/EC) 20 mg PO DAILY hydrochlorothiazide 25 mg tablet 25 mg PO DAILY escitalopram oxalate 20 mg tablet 20 mg PO HS insulin glargine [Lantus Solostar U-100 Insulin] 100 unit/mL (3 mL) insulin pen 17 unit SUBCUT HS (DME) pen needle, diabetic [TRUEplus Pen Needle] 32 gauge x 5/32 needle MISCELLANEOUS (DME) lancets [OneTouch Delica Plus Lancet] 33 gauge misc MISCELLANEOUS insulin lispro [Humalog U-100 Insulin] 100 unit/mL solution 5 unit subcut TIDWM Rx Instructions: if blood sugar greater than 160 carboxymethylcellulose sodium 1 % Drops, Liquid Gel 1 drp EACH EYE TID acetaminophen 500 mg capsule 1,000 mg PO Q6H PRN (Reason: pain) Qty: 20 0RF Follow-up/Referrals: Terri,MARIANN Ramirez [Primary Care Provider] - Time of Disposition: 18:39
== END 2025-03-28 18:44 | disposition home or self-care (01) ==
PROVIDERS: Emergency Provider Nurse Practitioner Family; PCP Nurse Practitioner
DX: R22.0 Localized swelling, mass and lump, head (principal); I12.9 Hypertensive chronic kidney disease with stage 1 through stage 4 chronic kidney disease, or unspecified chronic kidney disease; E11.22 Type 2 diabetes mellitus with diabetic chronic kidney disease; N18.30 Chronic kidney disease, stage 3 unspecified; Z79.4 Long term (current) use of insulin; Z79.84 Long term (current) use of oral hypoglycemic drugs; E78.5 Hyperlipidemia, unspecified; L40.9 Psoriasis, unspecified; I69.320 Aphasia following cerebral infarction; I69.351 Hemiplegia and hemiparesis following cerebral infarction affecting right dominant side
CPT/HCPCS: 99213; G0463

== ENCOUNTER 2025-05-18 10:37 | Emergency (ER) | payer MEDICARE, MEDICAID, SELFPAY ==
--- NOTE | ~2025-05-18 | CT_ITS ---
EXAMINATION: CT brain wo con DATE: 05/18/2025 10:57 INDICATION: Altered mental status. TECHNIQUE: Computed tomography (CT) of the head was performed without intravenous contrast. The mA was adjusted according to patient size. Iterative reconstruction technique was employed. The dose-length product was 681.00 mGy-cm. COMPARISON: Head CT 02/23/2024 FINDINGS: There are old infarcts in the cerebellum bilaterally. There are scattered areas of low attenuation in the cerebral white matter. There is an old infarct in the left basal ganglia. There is an old lacunar infarct in the jagruti. There is no intracranial hemorrhage, acute infarction, or abnormal intracranial mass lesion. The ventricles are normal in size. There is mild mucosal thickening in the paranasal sinuses. There is no acute intracranial hemorrhage, acute infarction, or abnormal mass lesion. The ventricles are normal and symmetric. The orbits and mastoid air cells are normal. IMPRESSION: 1. Old infarcts in the cerebellum, jagruti, and left basal ganglia. 2. Stable moderate nonspecific cerebral white matter disease, which likely represents chronic small vessel ischemic disease. Reviewed, dictated and finalized at location E. IMPRESSION: 1. Old infarcts in the cerebellum, jagruti, and left basal ganglia. 2. Stable moderate nonspecific cerebral white matter disease, which likely repr esents chronic small vessel ischemic disease.
--- NOTE | ~2025-05-18 | XR_ITS ---
Examination: XR chest 1V Clinical History: ams Comparison: 08/18/2024 Technique: Portable AP Findings: Heart size normal. Lungs clear. No acute bony abnormality. IMPRESSION: 1. No acute cardiopulmonary findings given portable technique. Reviewed, dictated and finalized at location R.
[2025-05-18 10:37] VITALS: BP 175/95; PULSE 65; RESP 17; O2SAT 97
--- NOTE | 2025-05-18 10:44 | ECG_ITS ---
Test Date: 2025-05-18 10:45:17 Measurements Intervals Ayr Rate: 68 P: 51 SC: 160 QRS: 60 QRSD: 94 T: 200 QT: 424 QTc: 453 Interpretive Statements SINUS RHYTHM POSSIBLE LEFT ATRIAL ENLARGEMENT [-0.1mV P-WAVE IN V1/V2] LEFT VENTRICULAR HYPERTROPHY AND ST-T CHANGE [VOLTAGE CRITERIA PLUS ST/T ABNORMALITY] ABNORMAL ECG Compared to ECG 08/17/2024 23:43:11 No significant changes Electronically Signed On 05-18-2025 13:05:51 CDT by Jeffery Conte M.D.
--- OUTSIDE RECORDS SUMMARY | 2025-05-18 10:47 | XMS_ITS | Encounter Summary ---
Author Organization [facility] Address [address] [place] [address] Care Team Providers Care Tennis Ball Cover Cementer Name Role Phone Roseanne Murray NP Primary Care Provider [phone] Encounter Details Date Type Department Care Team (Late st Contact Info) Description 04/07/2023 MyChart Message Enc [facility] Family Medicine - [place] [address] [facility] [address] [place] [address] Roseanne Murray NP [address] [place] [address] [place] [address] Handicap placard Social History Tobacco Use [...] Sex Assigned at Male 09/13/2024 11:12 AM SPINNERET PERSON Legal Sex Male 2:56 PM SPINNERET PERSON Gender Identity Male 01/01/2025 10:14 AM CDT Sexual Orientation Not on file 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 Answer Date of Assessment Author Status No 08/12/2022 2:05 PM SPINNERET PERSON Activ e * Do you have serious [...] Status No Risk Indicated 04/10/2023 1:30 AM SUET Mitch Proctor RN Active * [place] Suicide Severity Rating Scale (Screener/Recent Self-Report) Question Answer Date of Assessment Author Status 1. Wish to be (Past 1 Month) No 04/10/2023 1:30 AM Bridgette Bocanegra RN A ctive 2. Non-Specific Active Suicidal Thoughts (Past 1 Month) No 04/10/2023 1:30 AM SUET Bridgette Proctor RN A ctive 6. Suicidal Behavior (Lifetime) No 04/10/2023 1:30 AM SUET Bridgette Proctor RN A ctive documented as [...] Date Author Status Yes 08/12/2022 2:05 PM SPINNERET PERSON Melinda Nonoan RN Active documented in this encounter Plan of Treatment Upcoming Encounters Date Type Department Care Team (Late st Contact Info) Description 05/21/2025 9:00 AM CDT Home Care Visit [place] [address] [place] [address] [address] Alka Reyes RN 05/22/2025 12:00 PM CDT Home Care Visit [facility] [place] [address] [place] [address] Joey Vora, CVIR TECH 05/24/2025 11:00 AM CDT Home Care Visit [place] [address] [place] [address] [address] Joey Vora, CVIR TECH 05/29/2025 10:00 AM CDT Home Care Visit [place] [address] [place] [address] Joey Vora, CVIR TECH 05/31/2025 10:00 AM CDT Home Care Visit [facility] [address] [place] [address] Joey Vora, CVIR TECH 06/04/2025 1:15 PM CDT Office Visit [facility] [address] [place] [address] Kendall Greene MD [address] [facility] [address] [place] [address] 06/06/2025 8:00 AM CDT Appointment [place] [address] [place] [address] Shala La, PT [address] [place] [address] 06/07/2025 10:40 AM CDT Office Visit [facility] Family Medicine - [place] [address] [facility] [address] [place] [address] Roseanne Murray NP [address] [place] [id number] documented as of this encounter Visit Diagnoses Not on filedocumented in this encounter Additional Health Concerns Assessment Noted Time PHQ-9 Depression Total Score: 4 08/05/20 22 1:27 PM SPINNERET PERSON documented as of this encounter Care Teams Tennis Ball Cover Cementer Relationship Specialty Start Date End Date Roseanne Murray NP [address] [place] [address] PCP - General NURSE PRACTITIONER 07/31/22 documented as of this encounter
--- OUTSIDE RECORDS SUMMARY | 2025-05-18 10:47 | XMS_ITS | Encounter Summary ---
Author Organization [facility] Address [address] [place] [address] Care Team Providers Care Health Concierge Name Role Phone Roseanne Murray TURBINE ENGINE ASSEMBLER Primary Care Provider [phone] Encounter Details Date Type Department Care Team (Late st Contact Info) Description 03/09/2023 [employer] Message Enc [facility] Family Medicine - [place] [address] [facility] [address] [place] [address] Misha, [facility] Provider Chest xray Social History Tobacco [...] Sex Assigned at Male 09/13/2024 11:12 AM ARROW POINT ATTACHER Legal Sex Male 2:56 PM ARROW POINT ATTACHER Gender Identity Male 01/01/2025 10:14 AM CDT Sexual Orientation Not on file 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 Answer Date of Assessment Author Status No 08/12/2022 2:05 PM ARROW POINT ATTACHER Acti ve * Do you have serious difficulty walking or climbing stairs? Answer Date of Assessment Author Status No 08/12/2022 2:05 PM ARROW POINT ATTACHER Melinda Noonan RN Active * Do you have difficulty dressing or bathing? Answer Date of Assessment Author Status No 08/12/2022 2:05 PM ARROW POINT ATTACHER Melinda Noonan RN Active * Because of a physical, mental, or emotional condition, do you have difficulty doing errands alone such as visiting a doctor's office or shopping? Answer Date of Assessment Author Status No 08/12/2022 2:05 PM ARROW POINT ATTACHER Melinda Noonan RN Active documented as of this encounter Mental Status * Because of a physical, mental, or emotional condition, do you have serious difficulty concentrating, remembering, or making decisions? Answer Entry Date Author Status Yes 08/12/2022 2:05 PM ARROW POINT ATTACHER Melinda Noonan RN Active documented in this encounter Plan of Treatment Upcoming Encounters Date Type Department Care Team (Late st Contact Info) Description 05/21/2025 9:00 AM CDT Home Care Visit [facility] Home Care [address] [place] [address] Alka Reyes RN 05/22/2025 12:00 PM CDT Home Care Visit [facility] Home Care [place] [address] [place] [address] Joey Vora, QA INTERNSHIP 05/24/2025 11:00 AM CDT Home Care Visit [place] [address] [place] [address] Joey Vora, QA INTERNSHIP 05/29/2025 10:00 AM CDT Home Care Visit [facility] [place] [address] [place] [address] Joey Vora, QA INTERNSHIP 05/31/2025 10:00 AM CDT Home Care Visit [address] [place] [address] Joey Vora, QA INTERNSHIP 06/04/2025 1:15 PM CDT Office Visit [facility] [address] [place] [address] Kendall Greene MD Three [facility], [address] [place] [address] 06/06/2025 8:00 AM CDT Appointment [address] [place] [place] [address] Shala La, PT [address] [place] [address] 06/07/2025 10:40 AM CDT Office Visit [facility] Family Medicine - [place] [address] [facility] [address] [place] [address] Roseanne Murray NP [address] [place] [address] documented as of this encounter Visit Diagnoses Not on filedocumented in this encounter Additional Health Concerns Assessment Noted Time PHQ-9 Depression Total Score: 4 08/05/20 22 1:27 PM ARROW POINT ATTACHER documented as of this encounter Care Teams Health Concierge Relationship Specialty Start Date End Date Roseanne Murray NP [address] [place] [address] PCP - General NURSE PRACTITIONER 07/31/22 documented as of this encounter
--- OUTSIDE RECORDS SUMMARY | 2025-05-18 10:47 | XMS_ITS | Encounter Summary ---
Author Organization [facility] Address [address] [place] [address] Care Team Providers Care Cigar Tobacco Rehandler Name Role Phone Roseanne Murray SUPERINTENDENT QUARRY Primary Care Provider +1 [phone] Encounter Details Date Type Department Care Team (Late st Contact Info) Description 01/03/2024 MyChart Message Enc [facility] [facility] [address] [place] [address] [facility], [address] [place] [address] BP numbers Social History Tobacco [...] Sex Assigned at Male 09/13/2024 11:12 AM PARTY PLAN SELLING DISTRIBUTOR Legal Sex Male 2:56 PM PARTY PLAN SELLING DISTRIBUTOR Gender Identity Male 01/01/2025 10:14 AM CDT [...] 05/21/2025 9:00 AM CDT Home Care Visit [facility] Home Care [address] [place] [address] Alka Reyes RN 05/22/2025 12:00 PM CDT Home Care Visit [facility] Home Care [address] [place] [address] Joey Vora, MANUFACTURING TEACHER 05/24/2025 11:00 AM CDT Home Care Visit [place] [address] [place] [address] Joey Vora, MANUFACTURING TEACHER 05/29/2025 10:00 AM CDT Home Care Visit [place] [address] [place] [address] Joey Vora, MANUFACTURING TEACHER 05/31/2025 10:00 AM CDT Home Care Visit [place] [address] [place] [address] Joey Vora, MANUFACTURING TEACHER 06/04/2025 1:15 PM CDT Office Visit [facility] [address] [place] [address] Kendall Greene MD Three [facility], [address] [place] [address] 06/06/2025 8:00 AM CDT Appointment [address] [place] [address] Shala La, PT [address] [place] [address] 06/07/2025 10:40 AM CDT Office Visit [facility] Medical Group Family Medicine - [place] [address] [facility] [address] [place] [address] Roseanne Murray NP [address] [place], [place] [address] documented as of this encounter Visit Diagnoses Not on filedocumented in this encounter Additional Health Concerns Assessment Noted Time PHQ-9 Depression Total Score: 4 08/05/20 22 1:27 PM PARTY PLAN SELLING DISTRIBUTOR documented as of this encounter Care Teams Cigar Tobacco Rehandler Relationship Specialty Start Date End Date Roseanne Murray NP [address] [place] [address] PCP - General NURSE PRACTITIONER 07/31/22 documented as of this encounter
--- OUTSIDE RECORDS SUMMARY | 2025-05-18 10:47 | XMS_ITS | Encounter Summary ---
Author Organization [facility] Address [address] [place] [address] Care Team Providers Care Fire Sprinkler Installer Name Role Phone Roseanne Murray NP Primary Care Provider +1 -[phone] Encounter Details Date Type Department Care Team (Late st Contact Info) Description 04/21/2024 Therapy Plan [facility] Medical Group Multispecialty Care - [address], [address] [place] [address] Nirmal Leo MD [address] [place] [address] Social History Tobacco Use Types Packs/Day Years [...] Sex Assigned at Male 09/13/2024 11:12 AM DRIVER RECRUITER Legal Sex Male 2:56 PM DRIVER RECRUITER Gender Identity Male 01/01/2025 10:14 AM CDT [...] 05/21/2025 9:00 AM CDT Home Care Visit [facility] Home Care [address] [place] [address] Alka Reyes RN 05/22/2025 12:00 PM CDT Home Care Visit [facility] Home Care [address] [place] [address] Joey Vora, OIL DEVELOPER 05/24/2025 11:00 AM CDT Home Care Visit [place] [address] [place] [address] Joey Vora, OIL DEVELOPER 05/29/2025 10:00 AM CDT Home Care Visit [place] [address] [place] [address] Joey Vora, OIL DEVELOPER 05/31/2025 10:00 AM CDT Home Care Visit [place] [address] [place] [place] [address] Joey Vora, OIL DEVELOPER 06/04/2025 1:15 PM CDT Office Visit [place] [facility] [address] [place] [address] Kendall Greene MD Three [facility] [address] [place] [address] 06/06/2025 8:00 AM CDT Appointment [address] [place] [address] Shala La, PT [address] [place] [address] 06/07/2025 10:40 AM CDT Office Visit [facility] Medical Group Family Medicine - [place] [address] [facility] [address] [place] [address] Roseanne Murray NP [address] [place] [address] documented as of this encounter Visit Diagnoses Not on filedocumented in this encounter Additional Health Concerns Assessment Noted Time PHQ-9 Depression Total Score: 4 08/05/20 1:27 PM DRIVER RECRUITER documented as of this encounter Care Teams Fire Sprinkler Installer Relationship Specialty Start Date End Date Roseanne Murray NP [address] [place] [address] [place] [address] PCP - General NURSE PRACTITIONER 07/31/22 documented as of this encounter
--- OUTSIDE RECORDS SUMMARY | 2025-05-18 10:47 | XMS_ITS | Encounter Summary ---
Author Organization [facility] Address [address] [place] [address] Care Team Providers Care Crime Lab Analyst Name Role Phone Roseanne Murray REWINDER Primary Care Provider +1 -[phone] Encounter Details Date Type Department Care Team (Late st Contact Info) Description 10/05/2022 Abstract [facility], [address] [address] Jose David MA Social History Tobacco Use [...] Assigned at Male 09/13/2024 11:12 AM MANAGER MONEY Legal Sex Male 2:56 PM MANAGER MONEY Gender Identity Male 01/01/2025 10:14 AM CDT Sexual Orientation Not on file 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 No / Unsure 09/30/2022 2:48 PM MANAGER MONEY documented as of this encounter Functional Status * RETIRED Are you deaf or do you have serious difficulty hearing Answer Date of Assessment Author Status No 08/12/2022 2:05 PM MANAGER MONEY Activ e * RETIRED Are you blind or do you have serious difficulty seeing, even when wearing glasses? Answer Date of Assessment Author Status No 08/12/2022 2:05 PM MANAGER MONEY Activ e * Do you have serious difficulty walking or climbing stairs? Answer Date of Assessment Author Status No 08/12/2022 2:05 PM MANAGER MONEY Melinda Noonan RN Active * Do you have difficulty dressing or bathing? Answer Date of Assessment Author Status No 08/12/2022 2:05 PM MANAGER MONEY Melinda Noonan RN Active * Because of a physical, mental, or emotional condition, do you have difficulty doing errands alone such as visiting a doctor's office or shopping? Answer Date of Assessment Author Status No 08/12/2022 2:05 PM MANAGER MONEY Melinda Noonan RN Active documented as of [...] 05/21/2025 9:00 AM CDT Home Care Visit [facility] Home Care [place] [address] [place] [address] Alka Reyes RN 05/22/2025 12:00 PM CDT Home Care Visit [facility] Home Care [place] [address] [place] [address] Joey Vora PTA 05/24/2025 11:00 AM CDT Home Care Visit [facility] Home Care [place] [address] [place] [address] Joey Vora, LONG LINE TEAMSTER 05/29/2025 10:00 AM CDT Home Care Visit [facility] Home [address] [place] [address] Joey Vora, LONG LINE TEAMSTER 05/31/2025 10:00 AM CDT Home Care Visit [address] [place] [address] Joey Vora, LONG LINE TEAMSTER 06/04/2025 1:15 PM CDT Office Visit [facility] [address] [place] [address] Kendall Greene MD Three [facility] [address] [place] [address] 06/06/2025 8:00 AM CDT Appointment [address] [place] [address] Shala La, PT [address] [place] [address] 06/07/2025 10:40 AM CDT Office Visit [facility] Medical Group Family Medicine - [place] [address] [facility] [address] [place] [address] Roseanne Murray NP [address] [place] [address] [place] [address] documented as of this encounter Procedures Procedure [...] Score: 4 08/05/20 22 1:27 PM MANAGER MONEY documented as of this encounter Care Teams Crime Lab Analyst Relationship Specialty Start Date End Date Roseanne Murray NP [address] [place] [address] [place] [address] PCP - General NURSE PRACTITIONER 07/31/22 documented as of this encounter
--- OUTSIDE RECORDS SUMMARY | 2025-05-18 10:47 | XMS_ITS | Encounter Summary ---
Author Organization [facility] Address [address] [place] [address] Care Team Providers Care Client Director Name Role Phone Roseanne Murray NP Primary Care Provider +1 [phone] Encounter Details Date Type Department Care Team (Late st Contact Info) Description 08/26/[address] [facility] Medical Group Multispecialty Care - [address], [address] [place] [address] Nirmal Leo MD [address] [place] [address] MRI/MRA Social History Tobacco Use Types Packs/Day [...] place to sleep or slept in a residential (including now)? No 04/10/2023 Sex and Gender Information Value Date Recorded Sex Assigned at Male 09/13/2024 11:12 AM SALES PROJECT COORDINATOR Legal Sex Male 2:56 PM SALES PROJECT COORDINATOR Gender Identity Male 01/01/2025 10:14 AM [...] - 08/26/2023 12:24 PM CST Please advise S PROJECT COORDINATOR documented in this encounter Plan of Treatment Upcoming Encounters Date Type Department Care Team (Late st Contact Info) Description 05/21/2025 9:00 AM CDT Home Care Visit [facility] [place] [address] [place] [address] Alka Reyes RN 05/22/2025 12:00 PM CDT Home Care Visit [place] [address] [place] [address] Joey Vora, RESIDENTIAL CONSTRUCTION INSTRUCTOR 05/24/2025 11:00 AM CDT Home Care Visit [place] [address] [place] [address] Joey Vora, RESIDENTIAL CONSTRUCTION INSTRUCTOR 05/29/2025 10:00 AM CDT Home Care Visit [place] [address] [place] [address] Joey Vora, RESIDENTIAL CONSTRUCTION INSTRUCTOR 05/31/2025 10:00 AM CDT Home Care Visit [place] [address] [place] [address] Joey Vora, RESIDENTIAL CONSTRUCTION INSTRUCTOR 06/04/2025 1:15 PM CDT Office Visit [facility] [facility] [address] [place] [address] Kendall Greene MD Three [facility] [address] [place] [address] 06/06/2025 8:[address] [facility] [place] [address] [place] [address] Shala La, PT [address] [place] [address] 06/07/2025 10:40 AM CDT Office Visit [facility] Medical Group Family Medicine - [place] [address] [facility] [address] [place] [address] Roseanne Murray NP [address] [place] [address] [place] [address] documented as of this encounter Visit Diagnoses Not on filedocumented in this encounter Additional Health Concerns Assessment Noted Time PHQ-9 Depression Total Score: 4 08/05/20 22 1:27 PM SALES PROJECT COORDINATOR documented as of this encounter Care Teams Client Director Relationship Specialty Start Date End Date Roseanne Murray NP [address] [place] [address] PCP - General NURSE PRACTITIONER 07/31/22 documented as of this encounter
--- OUTSIDE RECORDS SUMMARY | 2025-05-18 10:47 | XMS_ITS | Encounter Summary ---
Author Organization [facility] Address [address] [place] [address] Care Team Providers Care Processing Associate Name Role Phone Roseanne Murray NP Primary Care Provider +1 -[phone] Encounter Details Date Type Department Care Team (Late st Contact Info) Description 08/09/2022 MyChart Message Enc [facility] Medical Group Family Medicine - [place] [address] [facility] [address] [place] [address] Roseanne Murray NP [address] [place] [address] [place] [address] Depends Social History Tobacco Use [...] Sex Assigned at Male 09/13/2024 11:12 AM FINANCIAL SERVICES CONSULTANT Legal Sex Male 2:56 PM FINANCIAL SERVICES CONSULTANT Gender Identity Male 01/01/2025 10:14 AM CDT Sexual Orientation Not on file COVID-19 Exposure Response Date Recorded In the last 10 days, have yo u been in contact with someone who was confirmed or suspected to have Coronavirus/COVID-19? No / Unsure 08/11/2022 11:43 AM FINANCIAL SERVICES CONSULTANT documented as of this encounter Functional Status * Calculated C-SSRS Risk Score (Lifetime/Recent) Answer Date of Assessment Author Status No Risk Indicated 08/11/2022 12:43 PM FINANCIAL SERVICES CONSULTANT Benjamin Darby RN Active * [place] Suicide Severity Rating Scale (Screener/Recent Self-Report) Question Answer Date of Assessment Author Status 1. Wish to be (Past 1 Month) No 08/11/2022 12:43 PM FINANCIAL SERVICES CONSULTANT Zaina Darby, RN Acti ve 2. Non-Specific Active Suicidal Thoughts (Past 1 Month) No 08/11/2022 12:43 PM FINANCIAL SERVICES CONSULTANT Zaina Darby, RN Acti ve 6. Suicidal Behavior (Lifetime) No 08/11/2022 12:43 PM FINANCIAL SERVICES CONSULTANT Zaina Darby, RN Acti ve documented as of this encounter Mental Status * Question Answer Entry Date Author Status Because of a physical, mental, or emotional condition, do you have serious difficulty concentrating, remembering, or making decisions? Yes 08/12/2022 2:05 PM FINANCIAL SERVICES CONSULTANT Melinda Noonan R N Active documented in this encounter Plan of Treatment Upcoming Encounters Date Type Department Care Team (Late st Contact Info) Description 05/21/2025 9:00 AM CDT Home Care Visit [place] [address] [place] [address] Alka Reyes RN 05/22/2025 12:00 PM CDT Home Care Visit [place] [address] [place] [address] Joey Vora, FIRE EXTINGUISHER CHARGER 05/24/2025 11:00 AM CDT Home Care Visit [place] [address] [place] [address] Joey Vora, FIRE EXTINGUISHER CHARGER 05/29/2025 10:00 AM CDT Home Care Visit [place] [address] [place] [address] Joey Vora, FIRE EXTINGUISHER CHARGER 05/31/2025 10:00 AM CDT Home Care Visit [facility] [address] [place] [address] Joey Vora, FIRE EXTINGUISHER CHARGER 06/04/2025 1:15 PM CDT Office Visit [place] [facility] [address] [place] [address] Kendall Greene MD Three [facility] [address] [place] [address] 06/06/2025 8:00 AM CDT Appointment [address] [place] [address] Shala La, PT [address] [place] [address] 06/07/2025 10:40 AM CDT Office Visit [facility] Medical Group Family Medicine - [place] [address] [facility] [address] [place] [address] Roseanne Murray NP [address] [place] [address] [place] [address] documented as of this encounter Visit Diagnoses Not on filedocumented in this encounter Additional Health Concerns Infection Onset Date Last Indicated Resolved Time COVID-19 Rule Out 08/11/2022 08/11/2022 08/11/2022 3:02 PM FINANCIAL SERVICES CONSULTANT Assessment Noted Time PHQ-9 Depression Total Score: 4 08/05/20 22 1:27 PM FINANCIAL SERVICES CONSULTANT documented as of this encounter Care Teams Processing Associate Relationship Specialty Start Date End Date Roseanne Murray NP [address] [place] [address] [place] [address] PCP - General NURSE PRACTITIONER 07/31/22 documented as of this encounter
--- OUTSIDE RECORDS SUMMARY | 2025-05-18 10:47 | XMS_ITS | Encounter Summary ---
Author Organization [facility] Address [address] [place] [address] Care Team Providers Care Grocery Manager Name Role Phone Roseanne Murray NP Primary Care Provider +1 -[phone] Encounter Details Date Type Department Care Team (Late st Contact Info) Description 02/22/2023 MyChart Message Enc [facility] Medical Group Family Medicine - [place] [address] [facility] [address] [place] [address] Roseanne Murray NP [address] [place] [address] [place] [address] Referral/cough/incre ased weakness Social History Tobacco [...] Sex Assigned at Male 09/13/2024 11:12 AM PERMIT TECHNICIAN Legal Sex Male 2:56 PM PERMIT TECHNICIAN Gender Identity Male 01/01/2025 10:14 AM CDT Sexual Orientation Not on file 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 Answer Date of Assessment Author Status No 08/12/2022 2:05 PM PERMIT TECHNICIAN Activ e * Do you have serious [...] 05/21/2025 9:00 AM CDT Home Care Visit [place] [address] [place] [address] Alka Reyes RN 05/22/2025 12:00 PM CDT Home Care Visit [place] [address] [place] [address] Joey Vora, DIABETOLOGIST 05/24/2025 11:00 AM CDT Home Care Visit [place] [address] [place] [address] Joey Vora, DIABETOLOGIST 05/29/2025 10:00 AM CDT Home Care Visit [address] [place] [address] Joey Vora, DIABETOLOGIST 05/31/2025 10:00 AM CDT Home Care Visit [address] [place] [address] Joey Vora, DIABETOLOGIST 06/04/2025 1:15 PM CDT Office Visit [place] [facility] [address] [place] [address] Kendall Greene MD Three [facility] [address] [place] [address] 06/06/2025 8:00 AM CDT Appointment [place] [address] [place] [address] Shala La, PT [address] [facility] [place] [place] [address] 06/07/2025 10:40 AM CDT Office Visit [facility] Medical Group Family Medicine - [place] [address] [facility] [address] [place] [address] Roseanne Murray NP [address] [place] [address] [place] [address] documented as of this encounter Visit Diagnoses Not on filedocumented in this encounter Additional Health Concerns Assessment Noted Time PHQ-9 Depression Total Score: 4 08/05/20 22 1:27 PM PERMIT TECHNICIAN documented as of this encounter Care Teams Grocery Manager Relationship Specialty Start Date End Date Roseanne Murray NP [address] [place] [address] [place] [address] PCP - General NURSE PRACTITIONER 07/31/22 documented as of this encounter
--- OUTSIDE RECORDS SUMMARY | 2025-05-18 10:47 | XMS_ITS | Encounter Summary ---
Author Organization [facility] Address [address] [place] [address] Care Team Providers Care Chief Pilot Name Role Phone Roseanne Murray NP Primary Care Provider +1 -[phone] Encounter Details Date Type Department Care Team (Late st Contact Info) Description 09/19/2023 MyChart Message Enc [facility] Medical Group Family Medicine - [place] [address] [facility] [address] [place] [address] Roseanne Murray NP [address] [place] [address] [place] [address] Burning eyes Social History Tobacco Use [...] Sex Assigned at Male 09/13/2024 11:12 AM PIZZA HUT ASSISTANT Legal Sex Male 2:56 PM PIZZA HUT ASSISTANT Gender Identity Male 01/01/2025 10:14 AM CDT [...] 05/21/2025 9:00 AM CDT Home Care Visit [facility] Home Care [address] [place] [address] Alka Reyes RN 05/22/2025 12:00 PM CDT Home Care Visit [facility] Home Care [address] [place] [address] Joey Vora, BLENDER SNUFF 05/24/2025 11:00 AM CDT Home Care Visit [address] [place] [address] Miki Voralory Cano, BLENDER SNUFF 05/29/2025 10:00 AM CDT Home Care Visit [address] [place] [address] Joey Vora, BLENDER SNUFF 05/31/2025 10:00 AM CDT Home Care Visit [place] [address] [place] [place] [address] Miki Voralory Cano, BLENDER SNUFF 06/04/2025 1:15 PM CDT Office Visit [place] [facility] [address] [place] [address] Kendall Greene MD Three [facility] [address] [place] [address] 06/06/2025 8:00 AM CDT Appointment [address] [place] [address] Shala La, PT [address] [place] [address] 06/07/2025 10:40 AM CDT Office Visit [facility] Medical Group Family Medicine - [place] [address] [facility] [address] [place] [address] Roseanne Murray NP [address] [place] [address] [place] [address] documented as of this encounter Visit Diagnoses Not on filedocumented in this encounter Additional Health Concerns Assessment Noted Time PHQ-9 Depression Total Score: 4 08/05/20 22 1:27 PM PIZZA HUT ASSISTANT documented as of this encounter Care Teams Chief Pilot Relationship Specialty Start Date End Date Roseanne Murray NP [address] [place] [address] [place] [address] PCP - General NURSE PRACTITIONER 07/31/22 documented as of this encounter
--- OUTSIDE RECORDS SUMMARY | 2025-05-18 10:47 | XMS_ITS | Encounter Summary ---
Author Organization [facility] Address [address] [place] [address] Care Team Providers Care Auto Porter Name Role Phone Roseanne Murray NP Primary Care Provider +1 -[phone] Encounter Details Date Type Department Care Team (Late st Contact Info) Description 03/08/2024 MyChart Message Enc [facility] Medical Group Family Medicine - [place] 7[address] [facility] [address] [place] [address] Roseanne Murray NP [address] [place] [address] [place] [address] Schedule testing Social History Tobacco Use [...] Sex Assigned at Male 09/13/2024 11:12 AM PIPED BUTTONHOLE MACHINE OPERATOR Legal Sex Male 2:56 PM PIPED BUTTONHOLE MACHINE OPERATOR Gender Identity Male 01/01/2025 10:14 AM [...] 05/21/2025 9:00 AM CDT Home Care Visit [facility] Home Care [address] [place] [address] Alka Reyes RN 05/22/2025 12:00 PM CDT Home Care Visit [facility] Home Care [address] [place] [address] Joey Vora, VIDEO TAPE EDITOR 05/24/2025 11:00 AM CDT Home Care Visit [address] [place] [address] Miki Voralory Cano, VIDEO TAPE EDITOR 05/29/2025 10:00 AM CDT Home Care Visit [address] [place] [address] Joey Vora, VIDEO TAPE EDITOR 05/31/2025 10:00 AM CDT Home Care Visit [place] [address] [place] [address] Miki Voralory Cano, VIDEO TAPE EDITOR 06/04/2025 1:15 PM CDT Office Visit [place] [facility] [address] [place] [address] Kendall Greene MD Three [facility] [address] [place] [address] 06/06/2025 8:00 AM CDT Appointment [address] [place] [place] [address] Shala La, PT [address] [place] [address] 06/07/2025 10:40 AM CDT Office Visit [facility] Medical Group Family Medicine - [place] [address] [facility] [address] [place] [address] Roseanne Murray NP [address] [place] [address] [place] [address] documented as of this encounter Visit Diagnoses Not on filedocumented in this encounter Additional Health Concerns Assessment Noted Time PHQ-9 Depression Total Score: 4 08/05/20 22 1:27 PM PIPED BUTTONHOLE MACHINE OPERATOR documented as of this encounter Care Teams Auto Porter Relationship Specialty Start Date End Date Roseanne Murray NP [address] [place] [address] [place] [address] PCP - General NURSE PRACTITIONER 07/31/22 documented as of this encounter
--- OUTSIDE RECORDS SUMMARY | 2025-05-18 10:47 | XMS_ITS | Encounter Summary ---
Author Organization [facility] Address [address] [place] [address] Care Team Providers Care Upholstery Tech Name Role Phone Roseanne Murray NP Primary Care Provider +1 [phone] Encounter Details Date Type Department Care Team (Late st Contact Info) Description 08/31/2024 MyChart Message Enc [facility] Medical [facility] Family Medicine - [place] [address] [facility] [address] [place] [address] Roseanne Murray NP [address] [place] [address] [place] [address] Depends Approval Social History Tobacco Use [...] place to sleep or slept in a [place] health care facility (including now)? No 04/10/2023 Sex and Gender Information Value Date Recorded Sex Assigned at Male 09/13/2024 11:12 AM COPYING MACHINE MECHANIC Legal Sex Male 2:56 PM COPYING MACHINE MECHANIC Gender Identity Male 01/01/2025 10:14 AM CDT [...] 05/21/2025 9:00 AM CDT Home Care Visit [facility] Home Care [address] [place] [address] Alka Reyes RN 05/22/2025 12:00 PM CDT Home Care Visit [facility] Home Care [address] [place] [address] Joey Vora, RESTORATIVE ART EMBALMER 05/24/2025 11:00 AM CDT Home Care Visit [address] [place] [address] Miki Voralory Cano, RESTORATIVE ART EMBALMER 05/29/2025 10:00 AM CDT Home Care Visit [address] [place] [address] Joey Vora, RESTORATIVE ART EMBALMER 05/31/2025 10:00 AM CDT Home Care Visit [place] [address] [place] [address] Miki Voralory Cano, RESTORATIVE ART EMBALMER 06/04/2025 1:15 PM CDT Office Visit [facility] [address] [place] [address] Kendall Greene MD Three [facility] [address] [place] [address] 06/06/2025 8:00 AM CDT Appointment [address] [place] [address] Shala La, PT [address] [place] [address] 06/07/2025 10:40 AM CDT Office Visit [facility] Family Medicine - [place] [address] [facility] [address] [place] [address] Roseanne Murray NP [address] [place] [address] documented as of this encounter Visit Diagnoses Not on filedocumented in this encounter Additional Health Concerns Assessment Noted Time PHQ-9 Depression Total Score: 4 08/05/20 22 1:27 PM COPYING MACHINE MECHANIC documented as of this encounter Care Teams Upholstery Tech Relationship Specialty Start Date End Date Roseanne Murray NP [address] [place] [address] PCP - General NURSE PRACTITIONER 07/31/22 documented as of this encounter
--- OUTSIDE RECORDS SUMMARY | 2025-05-18 10:47 | XMS_ITS | Encounter Summary ---
Author Organization [facility] Address [address] [place] [address] Care Team Providers Care Wool And Pelt Grader Name Role Phone Roseanne Murrya NP Primary Care Provider [phone] [phone] Encounter Details Date Type Department Care Team (Late st Contact Info) Description 08/28/2022 MyCNuro Pharmat Message Enc [facility] Medical [facility] Family Medicine - [place] [address] [facility] [address] [place] [address] Roseanne Murray NP [address] [place] [address] Medicine Options Social History Tobacco Use [...] Sex Assigned at Male 09/13/2024 11:12 AM COIN BOX COLLECTOR Legal Sex Male 2:56 PM COIN BOX COLLECTOR Gender Identity Male 01/01/2025 10:14 AM CDT Sexual Orientation Not on file COVID-19 Exposure Response Date Recorded In the last 10 days, have yo u been in contact with someone who was confirmed or suspected to have Coronavirus/COVID-19? No / Unsure 08/17/2022 2:11 PM COIN BOX COLLECTOR documented as of this encounter Functional Status * RETIRED Are you deaf or do you have serious difficulty hearing Answer Date of Assessment Author Status No 08/12/2022 2:05 PM COIN BOX COLLECTOR Activ e * RETIRED Are you blind or do you have serious difficulty seeing, even when wearing glasses? Answer Date of Assessment Author Status No 08/12/2022 2:05 PM COIN BOX COLLECTOR Activ e * Do you have serious difficulty walking or climbing stairs? Answer Date of Assessment Author Status No 08/12/2022 2:05 PM COIN BOX COLLECTOR Melinda Noonan RN Active * Do you have difficulty dressing or bathing? Answer Date of Assessment Author Status No 08/12/2022 2:05 PM Melinda Headley RN Active * Because of a physical, mental, or emotional condition, do you have difficulty doing errands alone such as visiting a doctor's office or shopping? Answer Date of Assessment Author Status No 08/12/2022 2:05 PM COIN BOX COLLECTOR Melinda Noonan RN Active documented as of [...] he already had home health with Ruddy?? BOX COLLECTOR documented in this encounter Plan of Treatment Upcoming Encounters Date Type Department Care Team (Late st Contact Info) Description 05/21/2025 9:00 AM CDT Home Care Visit [facility] Home Care [address] [place] [address] Alka Reyes RN 05/22/2025 12:00 PM CDT Home Care Visit [place] [address] [place] [address] Joey Vora, GRADUATE TEACHING ASSOCIATE 05/24/2025 11:00 AM CDT Home Care Visit [place] [address] [place] [place] [address] Joey Vora, GRADUATE TEACHING ASSOCIATE 05/29/2025 10:00 AM CDT Home Care Visit [facility] Care [place] [address] [place] [place] [address] Joey Vora, GRADUATE TEACHING ASSOCIATE 05/31/2025 10:00 AM CDT Home Care Visit [address] [place] [address] Joey Vora, GRADUATE TEACHING ASSOCIATE 06/04/2025 1:15 PM CDT Office Visit [facility] [address] [place] [address] Kendall Greene MD [facility], [address] [place] [address] 06/06/2025 8:00 AM CDT Appointment [facility] Home [address] [place] [address] Shala La, PT [address] [place] [address] 06/07/2025 10:40 AM CDT Office Visit [facility] Medical [facility] Family Medicine - [place] [address] [facility] [address] [place] [address] Roseanne Murray NP [address] [place] [address] [place] [address] documented as of this encounter Visit Diagnoses Not on filedocumented in this encounter Additional Health Concerns Assessment Noted Time PHQ-9 Depression Total Score: 4 08/05/20 22 1:27 PM COIN BOX COLLECTOR documented as of this encounter Care Teams Wool And Pelt Grader Relationship Specialty Start Date End Date Roseanne Murray NP [address] [place] [address] [place] [address] PCP - General NURSE PRACTITIONER 07/31/22 documented as of this encounter
--- OUTSIDE RECORDS SUMMARY | 2025-05-18 10:47 | XMS_ITS | Encounter Summary ---
Author Organization [facility] Address [facility] [place] [address] Care Team Providers Care Tick Eradicator Name Role Phone Roseanne Murray NP Primary Care Provider [phone] [phone] Reason for Visit * Reason Onset Date Comments Constipation 04/17/2025 Encounter Details Date Type Department Care Team (Late st Contact Info) Description 04/17/2025 MyChart Message Enc [facility] Medical [facility] Family Medicine - [place] [address] [facility] [address] [place] [address] Roseanne Murray NP [address] [place] [address] [place] [address] Constipation Social History Tobacco Use Types Packs/Day Years [...] place to sleep or slept in a fci (including now)? No 04/10/2023 Sex and Gender Information Value Date Recorded Sex Assigned at Male 09/13/2024 11:12 AM ACCOUNT LEADER Legal Sex Male 2:56 PM ACCOUNT LEADER Gender Identity Male 01/01/2025 10:14 AM CDT [...] Progress Notes * Barbara Ayala MA - 04/19/2025 10:19 AM CDT I spoke with his daughter Cecilia. He is eating and not complaining of any abdominal pain, no nausea, no vomiting. He actually had a very small bm. She will monitor him today and see if he goes any more if not she will try the enema. * Roseanne Murray NP - 04/19/2025 10:16 AM CDT Is he eating? Is he having any complaints of abdominal pain or nausea? May need to try an enema next. * Barbara Ayala MA - 04/19/2025 9:35 AM CDT Daughter called in about dads constipation. Last BM was around 04/13/25. He takes a daily stool softner. Also started giving him Miralax on 04/17/25 along with stool softner. Last night they gave him magnesium citrate. Still no relief. Patient notes that his stomach feels gassy and he is passing gas.What do you suggest they try next? He normally goes daily * Barbara Ayala MA - 04/17/2025 3:16 PM CDT Please advise documented in this encounter Plan of Treatment Upcoming Encounters Date Type Department Care Team (Late st Contact Info) Description 05/21/2025 9:00 AM CDT Home Care Visit [address] [place] [address] Alka Reyes RN 05/22/2025 12:00 PM CDT Home Care Visit [facility] Home [place] [address] [place] [address] Joey Vora, EDUCATIONAL PROGRAM DIRECTOR 05/24/2025 11:00 AM CDT Home Care Visit [address] [place] [address] Joey Vora, EDUCATIONAL PROGRAM DIRECTOR 05/29/2025 10:00 AM CDT Home Care Visit [address] [place] [address] Joey Vora, EDUCATIONAL PROGRAM DIRECTOR 05/31/2025 10:00 AM CDT Home Care Visit [facility] Home Care [place] [address] [place] [address] Joey Vora, EDUCATIONAL PROGRAM DIRECTOR 06/04/2025 1:15 PM CDT Office Visit [facility] [address] [place] [address] Kendall Greene MD Three [facility] [address] [place] [address] 06/06/2025 8:00 AM CDT Appointment [facility] Care [address] [place] [address] Shala La, PT [address] [place] [address] 06/07/2025 10:40 AM CDT Office Visit [facility] Medical Group Family Medicine - [place] [address] [facility] [address] [place] [address] Roseanne Murray NP [address] [place], [place] [address] documented as of this encounter Visit Diagnoses Not on filedocumented in this encounter Additional Health Concerns Assessment Noted Time PHQ-9 Depression Total Score: 15 2 025 2:46 PM CDT documented as of this encounter Care Teams Tick Eradicator Relationship Specialty Start Date End Date Roseanne Murray NP [address] [place] [address] PCP - General NURSE PRACTITIONER 07/31/22 documented as of this encounter
--- OUTSIDE RECORDS SUMMARY | 2025-05-18 10:47 | XMS_ITS | Encounter Summary ---
Author Organization [facility] Address [address] [place] [address] Care Team Providers Care Evaporator Operator Molasses Name Role Phone Roseanne Murray NP Primary Care Provider [phone] Encounter Details Date Type Department Care Team (Late st Contact Info) Description 10/06/2023 SumZero Message Enc [facility] Multispecialty Care - [address], [address] [place] [address] Misha, [facility] Provider CPAP Social History Tobacco Use [...] Sex Assigned at Male 09/13/2024 11:12 AM IMPREGNATOR ELECTROLYTIC CAPACITORS Legal Sex Male 2:56 PM IMPREGNATOR ELECTROLYTIC CAPACITORS Gender Identity Male 01/01/2025 10:14 AM CDT [...] 05/21/2025 9:00 AM CDT Home Care Visit [facility] Home Care [place] [address] [place] [address] Alka Reyes RN 05/22/2025 12:00 PM CDT Home Care Visit [facility] Home Care [place] [address] [place] [address] Joey Vora PTA 05/24/2025 11:00 AM CDT Home Care Visit [place] [address] [place] [address] Joey Vora, COMMERCIAL CONSTRUCTION ESTIMATOR 05/29/2025 10:00 AM CDT Home Care Visit [place] [address] [place] [address] Joey Vora, COMMERCIAL CONSTRUCTION ESTIMATOR 05/31/2025 10:00 AM CDT Home Care Visit [place] [address] [place] [address] Joey Vora, COMMERCIAL CONSTRUCTION ESTIMATOR 06/04/2025 1:15 PM CDT Office Visit [place] [facility] [address] [place] [address] Kendall Greene MD Three [facility] [address] [place] [address] 06/06/2025 8:00 AM CDT Appointment [place] [address] [place] [address] Shala La, PT [address] [place] [address] 06/07/2025 10:40 AM CDT Office Visit [facility] Family [place] - [place] [address] [facility] [address] [place] [address] Roseanne Murray NP [address] [place] [address] [place] [address] documented as of this encounter Visit Diagnoses Not on filedocumented in this encounter Additional Health Concerns Assessment Noted Time PHQ-9 Depression Total Score: 4 08/05/20 22 1:27 PM IMPREGNATOR ELECTROLYTIC CAPACITORS documented as of this encounter Care Teams Evaporator Operator Molasses Relationship Specialty Start Date End Date Roseanne Murray NP [address] [place] [address] [place] [address] PCP - General NURSE PRACTITIONER 07/31/22 documented as of this encounter
--- OUTSIDE RECORDS SUMMARY | 2025-05-18 10:47 | XMS_ITS | Encounter Summary ---
Author Organization [facility] Address [address] [place] [address] Care Team Providers Care Pot Puncher Name Role Phone Roseanne Murray NP Primary Care Provider +1 [phone] Encounter Details Date Type Department Care Team (Late st Contact Info) Description 06/08/2024 Lantronixt Message Enc [facility] Medical [facility] Family Medicine - [place] [address] [facility] [address] [place] [address] Roseanne Murray NP [address] [address] [place] [address] Skin issues Social History Tobacco Use [...] place to sleep or slept in a group home (including now)? No 04/10/2023 Sex and Gender Information Value Date Recorded Sex Assigned at Male 09/13/2024 11:12 AM TALENT PARTNER Legal Sex Male 2:56 PM TALENT PARTNER Gender Identity Male 01/01/2025 10:14 AM CDT [...] 05/21/2025 9:00 AM CDT Home Care Visit [facility] Home Care [address] [place] [address] Alka Reyes RN 05/22/2025 12:00 PM CDT Home Care Visit [facility] Home Care [address] [place] [address] Joey Vora, SHREDDED FILLER HOPPER FEEDER 05/24/2025 11:00 AM CDT Home Care Visit [address] [place] [place] [address] Miki Voralory Cano, SHREDDED FILLER HOPPER FEEDER 05/29/2025 10:00 AM CDT Home Care Visit [address] [place] [place] [address] Joey Vora, SHREDDED FILLER HOPPER FEEDER 05/31/2025 10:00 AM CDT Home Care Visit [place] [address] [place] [address] Miki Voralory Cano, SHREDDED FILLER HOPPER FEEDER 06/04/2025 1:15 PM CDT Office Visit [facility] [facility] [address] [place] [address] Kendall Greene MD Three [facility] [address] [place] [address] 06/06/2025 8:00 AM CDT Appointment [address] [place] [address] Shala La, PT [address] [place] [address] 06/07/2025 10:40 AM CDT Office Visit [facility] Family [place] - [place] [address] [facility] [address] [place] [address] Roseanne Murray NP [address] [place] [address] documented as of this encounter Visit Diagnoses Not on filedocumented in this encounter Additional Health Concerns Assessment Noted Time PHQ-9 Depression Total Score: 4 08/05/20 22 1:27 PM TALENT PARTNER documented as of this encounter Care Teams Pot Puncher Relationship Specialty Start Date End Date Roseanne Murray NP [address] [place] [address] PCP - General NURSE PRACTITIONER 07/31/22 documented as of this encounter
--- OUTSIDE RECORDS SUMMARY | 2025-05-18 10:47 | XMS_ITS | Clinical Summary ---
Author Organization [facility] Address [address] [place] [address] Care Team Providers Care Taker Out Name Role Phone Roseanne Murray NP Primary Care Provider [phone] Allergies No known active allergies Medications senna-docusate (SENOKOT-S) 8.6-50 MG tabletIndicatio ns:stool softener Take 1 tablet by mouth 2 (two) times daily. 90 tablet 1 022 Active Spacer/Aero-Hol ding Chambers DeviceIndicatio ns:Cough, unspecified type Use with Albuterol 1 each 023 Active hydrOXYzine (ATARAX) 10 MG tabletIndicatio ns:Anxiety TAKE 1 TABLET BY MOUTH THREE TIMES DAILY NEEDED FOR ITCHING OR ANXIETY 30 tablet 024 Active prednisoLONE acetate (PRED FORTE) 1 % ophthalmic suspension Place 1 drop into both eyes every 12 (twelve) hours. 024 Active moxifloxacin (VIGAMOX) 0.5 % ophthalmic solution 1 drop 3 (three) times daily. Active HUMALOG 100 UNIT/ML injection (VIAL)Indicatio ns:diabetes Inject 5 Units into the skin 3 (three) times daily with meals. Hold if blood sugar is < 180. 10 mL 3 024 Active albuterol (ACCUNEB) 1.25 MG/3ML nebulizer solutionIndicat ions:Shortness of breath USE 1 VIAL IN NEBULIZER EVERY 6 HOURS NEEDED FOR WHEEZING 90 mL 024 Active NIFEdipine XL (PROCARDIA XL) 90 MG 24 hr tabletIndicatio ns:Hypertension Take 1 tablet (90 mg total) by mouth daily. DO NOT BREAK OR CRUSH TABLET 90 tablet 1 024 Active TRUEPLUS 5-BEVEL PEN NEEDLES 32G X 4 MM MiscIndications :Type 2 diabetes mellitus with stage 3a chronic kidney disease, with long-term current use of insulin ([facility]) INJECT INTO THE SKIN SUBCUTANEOUSLY ONCE AT NIGHT 100 each 024 Active triamcinolone (KENALOG) 0.1 % creamIndication s:Skin Rash APPLY TOPICALLY TO THE AFFECTED AREA(S) TWICE DAILY 80 g 024 Active omeprazole (PRILOSEC) 20 MG capsuleIndicati ons:Acid Indigestion Take 1 capsule by mouth once daily 90 capsule 3 025 Active LANTUS SOLOSTAR 100 UNIT/ML injection (PEN)Indication s:Diabetes Mellitus INJECT 17 UNITS SUBCUTANEOUSLY NIGHTLY AT BEDTIME 15 mL 2 025 Active tamsulosin (FLOMAX) 0.4 MG CapIndications: Enlarged prostate Take 1 capsule by mouth once daily 90 capsule 1 025 Active atorvastatin (LIPITOR) 40 MG tabletIndicatio ns:Hypercholest erolemia Take 1 tablet (40 mg total) by mouth nightly at bedtime. at bedtime 90 tablet 3 025 Active carvedilol (COREG) 12.5 MG tabletIndicatio ns:Hypertension TAKE 1 TABLET BY MOUTH TWICE DAILY FOR HIGH BLOOD PRESSURE 180 tablet 1 025 Active escitalopram (LEXAPRO) 20 MG tabletIndicatio ns:Depression Take 1 tablet by mouth once daily 90 tablet 1 025 Active metFORMIN (GLUCOPHAGE) 500 MG tabletIndicatio ns:Diabetes Mellitus Take 1 tablet by mouth once daily with breakfast 90 tablet 1 025 Active hydroCHLOROthia zide (HYDRODIURIL) 25 MG tabletIndicatio ns:Hypertension Take 1 tablet by mouth once daily 90 tablet 1 025 Active cariprazine (VRAYLAR) 1.5 MG capsuleIndicati ons:major depressive disorder Take 1 capsule (1.5 mg total) by mouth daily. Indications: major depressive disorder 90 capsule 1 025 Active hydrALAZINE (APRESOLINE) 25 MG tabletIndicatio ns:Hypertension TAKE 1 TABLET BY MOUTH EVERY 8 HOURS 90 tablet 025 Active Blood Glucose Monitoring Suppl (ACCU-CHEK GUIDE) w/Device KitIndications: Diabetes Mellitus Indications: Diabetes Use to check blood sugars TID 1 kit 025 Active Glucose Blood (ACCU-CHEK GUIDE TEST) test stripIndication s:Diabetes Mellitus Indications: Diabetes Use to check blood sugars TID 300 strip 3 025 Active SOFTCLIX LANCETS MiscIndications :Diabetes Mellitus Indications: Diabetes Use to check blood sugars TID 300 each 3 025 Active Blood Glucose Monitoring Suppl (ONETOUCH VERIO) w/Device KitIndications: Type 2 diabetes mellitus with other neurologic complication, with long-term current use of insulin ([facility]) Use to check blood sugars TID 1 kit 022 2024 Discontinued(P atient/family declined) Lancets (ONETOUCH DELICA PLUS [id number]) MiscIndications :Type 2 diabetes mellitus with other neurologic complication, with long-term current use of insulin ([facility]CC) 1 Lancet by Does not apply route 3 (three) times daily. 300 each 1 024 2024 Discontinued(P atient/family declined) Glucose Blood (ONETOUCH VERIO) test stripIndication s:Type 2 diabetes mellitus with other neurologic complication, with long-term current use of insulin ([facility]CC) Use to check blood sugar three times daily 300 strip 3 024 2024 Discontinued(P atient/family declined) VRAYLAR 1.5 MG capsuleIndicati ons:Severe recurrent major depression without psychotic features ([facility]CC) TAKE 1 CAPSULE BY MOUTH EVERY OTHER DAY 30 capsule 025 2024 Discontinued(R eorder) hydrALAZINE (APRESOLINE) 25 MG tabletIndicatio ns:Primary hypertension TAKE 1 TABLET BY MOUTH EVERY 8 HOURS 90 tablet 025 2024 Discontinued Active Problems Problem Noted Date Diagnosed Date Severe recurrent major depre ssion without psychotic features ([facility]) 12/13/2024 Overview (01/01/2025): At last office visit [...] clinic that can also be utilized in [place] for mental health needs. Left renal mass [...] disease, with long-term current use of insulin ([facility]) 07/01/2022 Right sided weakness 06/26/2022 Chronic kidney disease, stage 3a 10/27/2021 Cerebrovascular accident (CVA) ([facility]) 02/19/2021 Right leg weakness 12/12/2020 Bence Ayala proteinuria 09/29/2017 Primary hypertension 09/06/2017 Assessment & Plan (01/12/2025 12:06 PM CDT): BP elevated today. Will continue to monitor. Goal for BP to stay below 140/90. Will recheck in 2 weeks. Encounters Date Type Department Care Team Description 05/16/2025 2:00 PM CDT Home Care Visit [facility] [address] [place] [address] Shala La, PT PT INITIAL EVALUATION 05/14/2025 8:30 AM CDT Home Care Visit [facility] [address] [place] [address] Alka Reyes, RN SN OASIS START OF CARE 05/14/2025 Plan of Care Documentation [facility] [address] [address] 05/07/2025 12:20 PM CDT Office Visit [facility] - [place] [address] [facility] [address] [place] [address] Roseanne Murray NP Fall (Patient presents with daughter with c/o increased fall, increased weakness, troubles with stairs. Family request in home PT) 05/07/2025 Travel 04/30/2025 MyChart Message Enc [place] [address] [place], [place] [address] Roseanne Murray NP New blood sugar monitor 04/23/2025 MyChart Message Enc [place] [address] [place], [place] [id number] Roseanne Murray NP Vraylar issues 04/19/2025 Telephone [facility] [address] [place] [address] Roseanne Murray NP Advise 04/19/2025 Orders Only [place] [address] [place] [address] Roseanne Murray NP 04/18/2025 Scan [facility] SR[facility] Scanned, [facility] 04/18/2025 MyChart Message Enc [place] [address] [place], [place] [address] Roseanne Murray NP In home PT 04/17/2025 Scan [facility] Scanned, [facility] 04/17/2025 Telephone [place] [address] [place], [place] [address] Roseanne Murray NP Orders ([employer] for power wheelchair) 04/17/2025 MyChart Message Enc [place] [address] [place] [address] Roseanen Murray NP Constipation 04/05/2025 Telephone [place] [address] [place], [place] [address] Roseanne Murray NP Facial Swelling 03/28/2025 Scan [facility] Scanned, [facility] 03/07/2025 Scan [facility] Scanned, [facility] 03/06/2025 3:00 PM CDT Office Visit [facility] - [place] [address] [facility] [address] [place] [address] Roseanne Murray NP Cough (Caregiver talks about [...] been crying a lot. ) 03/06/2025 Travel from Last 3 Months Immunizations Immunization [...] of experiencing loneliness or isolatio n Never 05/14/2025 OASIS [id number]: Transportation Answer Date Recorded Lack of Transportation (Medical) No 05/14/2025 Lack of Transportation (Non-Medical) No 05/14/2025 Patient Unable or Declines to Respond No 05/14/2025 OASIS B1300: Health Literacy Answer Bob e Recorded Frequency of needing help to read materials from doctor or pharmacy Never 05/14/2025 Humiliation, Afraid, Rape, and Kick questionnair e [...] Sex Assigned at Male 09/13/2024 11:12 AM INSTRUMENT REPAIR TECHNICIAN Legal Sex Male 2:56 PM INSTRUMENT REPAIR TECHNICIAN Gender Identity Male 01/01/2025 10:14 AM CDT Sexual Orientation Not on file Occupation Industry Job Start Date Job End Date disabled Not on file Not on file Not on file Last Filed Vital Signs Vital Sign Reading Time Taken Comments Blood Pressure 172/100 05/16/2025 2:25 PM CDT Pulse 64 05/16/2025 2:02 PM CDT Temperature 36.2 C (97.2 F) 05/16/2025 2:02 PM CDT Respiratory Rate 18 05/16/2025 2:02 PM CDT Oxygen Saturation 98% 05/16/2025 2:02 PM CDT Inhaled Oxygen Concentration - - Weight 84.4 kg (186 lb) 05/07/2025 12:27 PM CDT Height 185.4 cm (6' 1) 05/07/2025 12:27 PM CDT Body Mass Index 24.54 05/07/2025 12:27 PM CDT Plan of Treatment Upcoming Encounters Date Type Department Care Team (Late st Contact Info) Description 05/21/2025 9:00 AM CDT Home Care Visit [place] [address] [place] [address] Alka Reyes RN 05/22/2025 12:00 PM CDT Home Care Visit [facility] [place] [address] [place] [address] Joey Vora, NEONATAL SURGEON 05/24/2025 11:00 AM CDT Home Care Visit [place] [address] [place] [address] Joey Vora, NEONATAL SURGEON 05/29/2025 10:00 AM CDT Home Care Visit [place] [address] [place] [address] Joey Vora, NEONATAL SURGEON 05/31/2025 10:00 AM CDT Home Care Visit [place] [address] [place] [address] Joey Vora, NEONATAL SURGEON 06/04/2025 1:15 PM CDT Office Visit [place] [facility] [facility] [address] [place] [address] Kendall Greene MD [address] [facility] [address] [place] [address] 06/06/2025 8:00 AM CDT Appointment [address] [place] [address] Shala La, PT [address] [place] [address] 06/07/2025 10:40 AM CDT Office Visit [facility] - [place] [address] [facility] [address] [place] [address] Roseanne Murray, K[place] [address] [place] [address] [place] [address] Health Maintenance Due Date Last Done Comments Colorectal Cancer Screening Colonoscopy (10 Years) 1972 Kidney Health Evaluation 1972 Diabetes: Retinopathy Eye Exam 1990 Hepatitis B Vaccines (1 of 3 - 19+ 3-dose series) 1991 Zoster Vaccines (1 of 2) 2022 Hemoglobin A1C 02/19/2025 08/21/2024, 12/0 01/2023, 04/10/2023, Additional history exists COVID-19 Vaccine ( season) 2025 Annual Physical 08/21/2025 08/21/2024 Lipid Panel 01/12/2026 01/12/2025, 12/0 01/2023, 04/11/2023, Additional history exists DTaP, Tdap and Td Vaccines (2 - Td or Tdap) 08/21/2034 08/21/2024 Pneumococcal Vaccine: 50+ Years Completed 07/20/2023 PHQ-2 (Physician Mccamey) Completed 12/13/2024 Hepatitis C Completed 01/12/2025 Meningococcal [...] Procedure Name Priority Date/Time Associated Diagnosis Comments HEPATITIS C ANTIBODY Routine 01/12/2025 12:08 PM CDT Need for hepatitis C screening test LIPID PANEL Routine 01/12/2025 12:08 PM CDT Hyperlipidemia, unspecified hyperlipidemia type HEMOGLOBIN, GLYCOSYLATED Routine 08/21/2024 Type 2 diabetes mellitus with other neurologic complication, with long-term current use of insulin ([facility]) from Last 3 Months or Most Recently Relevant to Health Maintenance Results * (ABNORMAL) LIPID PANEL (01/12/2025 12:08 PM CDT) CHOLESTEROL 206(H) <200 MG/DL 01/12/2025 7:55 PM CDT [facility] TRIGLYCERIDES 78 <150 MG/DL 01/12/2025 7:55 PM CDT [facility] HDL 64 >40 MG/DL 01/12/2025 7:55 PM CDT [facility] LDL-C 126(H) <100 MG/DL 01/12/2025 7:55 PM CDT [facility] VLDL CALCULATION 16 5 - 28 MG/DL 01/12/2025 7:55 PM CDT [facility] CHOL/HDL RATIO 3.2 0.0 - 4.0 01/12/2025 7:55 PM CDT [facility] LDL/HDL 2.0 0.41 - 2.13 01/12/2025 7:55 PM CDT [facility] NON HDL CHOLESTEROL 142(H) <140 MG/DL 01/12/2025 7:55 PM CDT [facility] 01/12/2025 12:0 8 PM CDT Roseanne Murray VP DIRECTOR OF CREATIVE STRATEGY LABORATORY Final Res ult [facility] [address] [place] [address], [place] [phone] * HEPATITIS C ANTIBODY (01/12/2025 12:08 PM CDT) HEPATITIS C AB NON-REACTI VE NON-REACT [place] 01/13/2025 6:02 PM CDT [facility] Comment: ANTIBODIES TO HCV NOT DETECTED. DOES NOT EXCLUDE THE POSSIBILITY OF EXPOSURE TO HCV. 01/12/2025 12:0 8 PM CDT Roseanne Murray VP DIRECTOR OF CREATIVE STRATEGY LABORATORY Final Res ult [facility] [address] [place] [address], [place] [phone] * A1C (BACK OFFICE) (08/21/2024) HGB A1C 5.9 % [address] [place] 08/21/2024 Roseanne Murray VP DIRECTOR OF CREATIVE STRATEGY LABORATORY Final Res ult [address] [place] [address] [place] [address], [place] [phone] from Last 3 Months or Most Recently Relevant to Health Maintenance Insurance [place] [address] [address] Advance Directives * Full Code (Latest Code Status on File) Date Activated Date Inactivated Comments 05/14/2025 1:37 PM * Full Code Date Activated Date Inactivated Comments 04/10/2023 12:56 AM 04/11/2023 4:48 PM * Full Code Date Activated Date Inactivated Comments 11/11/2022 2:26 PM 04/10/2023 12:44 AM * Full Code Date Activated Date Inactivated Comments 08/11/2022 7:19 PM 08/14/2022 6:26 PM Care Teams Taker Out Relationship Specialty Start Date End Date Roseanne Murray NP [address] [place] [address] [place] [address] PCP - General NURSE PRACTITIONER 07/31/22
--- OUTSIDE RECORDS SUMMARY | 2025-05-18 10:47 | XMS_ITS | Encounter Summary ---
Author Organization [facility] Address [address] [place] [address] Care Team Providers Care Warehouse Helper Name Role Phone Roseanne Murray NP Primary Care Provider [phone] Encounter Details Date Type Department Care Team (Latest Contact Info) Description 09/08/2022 [employer] Digital Marketing Intelligence Message Enc [place] [facility] [address] [place] [address] Roel Riojas MD,PHD Blood Pressure [...] Sex Assigned at Male 09/13/2024 11:12 AM WOODWORK SALVAGE INSPECTOR Legal Sex Male 2:56 PM WOODWORK SALVAGE INSPECTOR Gender Identity Male 01/01/2025 10:14 AM CDT Sexual Orientation Not on file 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 No / Unsure 08/17/2022 2:11 PM WOODWORK SALVAGE INSPECTOR documented as of this encounter Functional Status * RETIRED Are you deaf or do you have serious difficulty hearing Answer Date of Assessment Author Status No 08/12/2022 2:05 PM WOODWORK SALVAGE INSPECTOR Activ e * RETIRED Are you blind or do you have serious difficulty seeing, even when wearing glasses? Answer Date of Assessment Author Status No 08/12/2022 2:05 PM WOODWORK SALVAGE INSPECTOR Activ e * Do you have serious difficulty walking or climbing stairs? Answer Date of Assessment Author Status No 08/12/2022 2:05 PM WOODWORK SALVAGE INSPECTOR Melinda Noonan RN Active * Do you have difficulty dressing or bathing? Answer Date of Assessment Author Status No 08/12/2022 2:05 PM WOODWORK SALVAGE INSPECTOR Melinda Noonan RN Active * Because of a physical, mental, or emotional condition, do you have difficulty doing errands alone such as visiting a doctor's office or shopping? Answer Date of Assessment Author Status No 08/12/2022 2:05 PM WOODWORK SALVAGE INSPECTOR Melinda Noonan RN Active documented as of this encounter Mental Status * Because of a physical, mental, or emotional condition, do you have serious difficulty concentrating, remembering, or making decisions? Answer Entry Date Author Status Yes 08/12/2022 2:05 PM WOODWORK SALVAGE INSPECTOR Melinda Noonan RN Active documented in this encounter Progress Notes * Roel Riojas MD,PHD - 09/10/2022 2:58 PM CST Excellent blood pressure. WORK SALVAGE INSPECTOR * Carisa Wilson RN - 09/08/2022 4:20 PM CST . WORK SALVAGE INSPECTOR documented in this encounter Plan of Treatment Upcoming Encounters Date Type Department Care Team (Late st Contact Info) Description 05/21/2025 9:00 AM CDT Home Care Visit [place] [address] [place] [address] Alka Reyes RN 05/22/2025 12:00 PM CDT Home Care Visit [place] [address] [place] [address] Joey Vora, PRESIDENT 05/24/2025 11:00 AM CDT Home Care Visit [place] [address] [place] [address] Joey Vora, PRESIDENT 05/29/2025 10:00 AM CDT Home Care Visit [place] [address] [place] [address] Joey Vora, PRESIDENT 05/31/2025 10:00 AM CDT Home Care Visit [place] [address] [place] [address] Joey Vora, PRESIDENT 06/04/2025 1:15 PM CDT Office Visit [place] [facility] [address] [place] [address] Kendall Greene MD [facility], [address] [place] [address] 06/06/2025 8:00 AM CDT Appointment [place] [address] [place] [address] Shala La, PT [address] [place], [place] [address] 06/07/2025 10:40 AM CDT Office Visit [facility] Family [facility] - [place] [address] [facility] [address] [place] [address] Roseanne Murray NP [address] [place] [address] [place] [address] documented as of this encounter Visit Diagnoses Not on filedocumented in this encounter Additional Health Concerns Assessment Noted Time PHQ-9 Depression Total Score: 4 08/05/20 22 1:27 PM WOODWORK SALVAGE INSPECTOR documented as of this encounter Care Teams Warehouse Helper Relationship Specialty Start Date End Date Roseanne Murray NP [address] [place] [address] PCP - General NURSE PRACTITIONER 07/31/22 documented as of this encounter
--- OUTSIDE RECORDS SUMMARY | 2025-05-18 10:47 | XMS_ITS | Encounter Summary ---
Author Organization [facility] Address [address] [place] [address] Care Team Providers Care Senior Validation Engineer Name Role Phone Roseanne Murray PROFESSOR OF OCEANOGRAPHY Primary Care Provider [phone] Encounter Details Date Type Department Care Team (Late st Contact Info) Description 01/18/2025 MyChart Message Enc [facility] Family Medicine - [place] [address] [address] Misha, [facility] Provider Power wheelchair Social History [...] Sex Assigned at Male 09/13/2024 11:12 AM TEACHERS AIDE Legal Sex Male 2:56 PM TEACHERS AIDE Gender Identity Male 01/01/2025 10:14 AM CDT [...] 05/21/2025 9:00 AM CDT Home Care Visit [facility] [place] [address] [place] [address] Alka Reyes RN 05/22/2025 12:00 PM CDT Home Care Visit [facility] [place] [address] [place] [address] Joey Vora, SUNNI 05/24/2025 11:00 AM CDT Home Care Visit [facility] [place] [address] [place] [address] Joey Vora Jerome, BUTTING SAW OPERATOR 05/29/2025 10:00 AM CDT Home Care Visit [address] [place] [address] Joey Vora Jerome, BUTTING SAW OPERATOR 05/31/2025 10:00 AM CDT Home Care Visit [address] [place] [address] Vora Joey G, BUTTING SAW OPERATOR 06/04/2025 1:15 PM CDT Office Visit [place] [facility] [address] [place] [address] Kendall Greene MD [facility] [address] [place] [address] 06/06/2025 8:00 AM CDT Appointment [address] [place] [place] [address] Shala La, PT [address] [place] [address] 06/07/2025 10:40 AM CDT Office Visit [facility] Family [facility] - [place] [address] [facility] [address] [place] [address] Roseanne Murray NP [address] [place] [address] [place] [address] documented as of this encounter Visit Diagnoses Not on filedocumented in this encounter Additional Health Concerns Assessment Noted Time PHQ-9 Depression Total Score: 15 0416/2 025 2:46 PM CDT documented as of this encounter Care Teams Senior Validation Engineer Relationship Specialty Start Date End Date Roseanne Murray NP [address] [place] [address] [place] [id number] PCP - General NURSE PRACTITIONER 07/31/22 documented as of this encounter
--- OUTSIDE RECORDS SUMMARY | 2025-05-18 10:47 | XMS_ITS | Encounter Summary ---
Author Organization [facility] Address [address] [place] [address] Care Team Providers Care Recycling Director Name Role Phone Roseanne Murray UPKEEP MECHANIC Primary Care Provider [phone] [phone] Encounter Details Date Type Department Care Team (Late st Contact Info) Description 03/09/2023 MyChart Message Enc [facility] Family Medicine - [place] [address] [address] Mychart, [facility] Provider Lab's Social History Tobacco [...] Sex Assigned at Male 09/13/2024 11:12 AM FERRYBOAT OPERATOR Legal Sex Male 2:56 PM FERRYBOAT OPERATOR Gender Identity Male 01/01/2025 10:14 AM CDT Sexual Orientation Not on file 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 Answer Date of Assessment Author Status No 08/12/2022 2:05 PM FERRYBOAT OPERATOR Activ e * Do you have serious difficulty walking or climbing stairs? Answer Date of Assessment Author Status No 08/12/2022 2:05 PM FERRYBOAT OPERATOR Melinda Noonan RN Active * Do you have difficulty dressing or bathing? Answer Date of Assessment Author Status No 08/12/2022 2:05 PM FERRYBOAT OPERATOR Melinda Noonan RN Active * Because [...] 05/21/2025 9:00 AM CDT Home Care Visit [facility] Home Care [address] [place] [address] Alka Reyes RN 05/22/2025 12:00 PM CDT Home Care Visit [facility] [place] [address] [place] [address] Joey Vora, BEAD SUPERVISOR 05/24/2025 11:00 AM CDT Home Care Visit [place] [address] [place] [address] Joey Vora, BEAD SUPERVISOR 05/29/2025 10:00 AM CDT Home Care Visit [facility] Care [place] [address] [place] [address] Joey Vora, BEAD SUPERVISOR 05/31/2025 10:00 AM CDT Home Care Visit [place] [address] [place] [address] Joey Vora, BEAD SUPERVISOR 06/04/2025 1:15 PM CDT Office Visit [facility] [address] [place] [address] Kendall Greene MD Three [facility], [address] [place] [address] 06/06/2025 8:00 AM CDT Appointment [address] [place] [address] Shala La, PT [address] [place] [address] 06/07/2025 10:40 AM CDT Office Visit [facility] Family Medicine - [place] [address]342 [facility] [address] [place] [address] Roseanne Murray NP [address] [place], [place] [address] documented as of this encounter Visit Diagnoses Not on filedocumented in this encounter Additional Health Concerns Assessment Noted Time PHQ-9 Depression Total Score: 4 08/05/20 22 1:27 PM FERRYBOAT OPERATOR documented as of this encounter Care Teams Recycling Director Relationship Specialty Start Date End Date Roseanne Murray NP [address] [place] [address] [place] [address] PCP - General NURSE PRACTITIONER 07/31/22 documented as of this encounter
--- OUTSIDE RECORDS SUMMARY | 2025-05-18 10:47 | XMS_ITS | Encounter Summary ---
Author Organization [facility] Address [address] [place] [address] Care Team Providers Care Delivery Agent Name Role Phone Roseanne Murray NP Primary Care Provider [phone] Encounter Details Date Type Department Care Team (Late st Contact Info) Description 03/07/2024 MyChart Message Enc [facility] Medical [facility] Family Medicine - [place] 7[address] [facility] [address] [place] [address] Roseanne Murray NP [address] [place] [address] Urine test Social History Tobacco Use [...] Sex Assigned at Male 09/13/2024 11:12 AM LOFT PATTERNMAKER Legal Sex Male 2:56 PM LOFT PATTERNMAKER Gender Identity Male 01/01/2025 10:14 AM CDT [...] AM CDT Home Care Visit [facility] Home Care [address] [place] [address] Alka Reyes RN 05/22/2025 12:00 PM CDT Home Care Visit [facility] Home Care [address] [place] [address] Joey Vora, CAREER SERVICES ASSISTANT 05/24/2025 11:00 AM CDT Home Care Visit [address] [place] [address] Miki Voralory Cano, CAREER SERVICES ASSISTANT 05/29/2025 10:00 AM CDT Home Care Visit [address] [place] [address] Joey Vora, CAREER SERVICES ASSISTANT 05/31/2025 10:00 AM CDT Home Care Visit [place] [address] [place] [address] Miki Voralory Cano, CAREER SERVICES ASSISTANT 06/04/2025 1:15 PM CDT Office Visit [place] [facility] [address] [place] [address] Kendall Greene MD Three [facility] [address] [place] [address] 06/06/2025 8:00 AM CDT Appointment [address] [address] Shala La, PT [address] [place] [address] 06/07/2025 10:40 AM CDT Office Visit [facility] Medical Group [place] - [place] 7[address] [facility] [address] [place] [address] Roseanne Murray NP [address] [place] [address] documented as of this encounter Visit Diagnoses Not on filedocumented in this encounter Additional Health Concerns Assessment Noted Time PHQ-9 Depression Total Score: 4 08/05/20 22 1:27 PM LOFT PATTERNMAKER documented as of this encounter Care Teams Delivery Agent Relationship Specialty Start Date End Date Roseanne Murray NP [address] [place] [address] PCP - General NURSE PRACTITIONER 07/31/22 documented as of this encounter
--- OUTSIDE RECORDS SUMMARY | 2025-05-18 10:48 | XMS_ITS | Encounter Summary ---
Author Organization 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 Answer Date of Assessment Author Status No 08/12/2022 2:[address] SPRINKLER Activ e * Do you have serious difficulty walking or climbing stairs? Answer Date of Assessment Author Status No 08/12/2022 2:[address] SPRINKLER Melinda Noonan RN Active * Do you [...] 05/21/2025 9:00 AM CDT Home Care Visit [facility] Home Care [address] [place] [address] Alka Reyes RN 05/22/2025 12:00 PM CDT Home Care Visit [facility] Home Care [address] [place] [address] Joey Vora, SALES FLOOR TEAM MEMBER 05/24/2025 11:00 AM CDT Home Care Visit [address] [place] [address] Joey Vora, SALES FLOOR TEAM MEMBER 05/29/2025 10:00 AM CDT Home Care Visit [facility] Care [address] [place] [address] Joey Vora, SALES FLOOR TEAM MEMBER 05/31/2025 10:00 AM CDT Home Care Visit [address] [address] Joey Vora, SALES FLOOR TEAM MEMBER 06/04/2025 1:15 PM CDT Office Visit [facility] [address] [place] [address] Kendall Greene MD Three [facility], [address] [place] [address] 06/06/2025 8:00 AM CDT Appointment [address] [place] [address] Shala La, PT [address] [place] [address] 06/07/2025 10:40 AM CDT Office Visit [facility] Medical Group Family Medicine - [place] 7342 [facility] [address] [place] [address] Roseanne Murray NP [address] [place] [address] [place] [address] documented as of this encounter Procedures Procedure [...] Total Score: 4 08/05/20 22 1:[address] SPRINKLER documented as of this encounter Care Teams Internetworking Technician Relationship Specialty Start Date End Date Roseanne Murray NP [address] [place] [address] PCP - General NURSE PRACTITIONER 07/31/22 documented as of this encounter
--- OUTSIDE RECORDS SUMMARY | 2025-05-18 10:48 | XMS_ITS | Encounter Summary ---
Author Organization [facility] Address [address] [place] [address] Care Team Providers Care Set Up Inspector Name Role Phone Roseanne Murray NP Primary Care Provider [phone] [phone] Encounter Details Date Type Department Care Team (Late st Contact Info) Description 12/08/2024 MyChart Message Enc [facility] Medical Group Family Medicine - [place] 7342 [facility] [address] [place] [address] Roseanne Murray, [place] [address] [place] [address] Increased Depression Social History Tobacco [...] Sex Assigned at Male 09/13/2024 11:12 AM HEAD OF MARKETING ANALYTICS Legal Sex Male 2:56 PM HEAD OF MARKETING ANALYTICS Gender Identity Male 01/01/2025 10:14 AM CDT [...] 05/21/2025 9:00 AM CDT Home Care Visit [facility] Care [address] [address] Alka Reyes RN 05/22/2025 12:00 PM CDT Home Care Visit [place] [address] [place] [address] Joey Vora, SECURITY ASSESSOR 05/24/2025 11:00 AM CDT Home Care Visit [facility] Care [address] [place] [address] Joey Vora, SECURITY ASSESSOR 05/29/2025 10:00 AM CDT Home Care Visit [facility] Care [address] [place] [address] Joey Vora, SECURITY ASSESSOR 05/31/2025 10:00 AM CDT Home Care Visit [address] [place] [address] Joey Vora, SECURITY ASSESSOR 06/04/2025 1:15 PM CDT Office Visit [facility] [address] [place] [address] Kendall Greene MD [facility], [address] [place] [address] 06/06/2025 8:00 AM CDT Appointment [address] [place] [address] Shala La, PT [address] [place], [place] [address] 06/07/2025 10:40 AM CDT Office Visit [facility] Medical Group Family Medicine [facility] 7[address] [facility] [address] [place] [address] Roseanne Murray NP [address] [place] [address] documented as of this encounter Visit Diagnoses Not on filedocumented in this encounter Additional Health Concerns Assessment Noted Time PHQ-9 Depression Total Score: 4 08/05/20 22 1:27 PM HEAD OF MARKETING ANALYTICS documented as of this encounter Care Teams Set Up Inspector Relationship Specialty Start Date End Date Roseanne Murray NP [address] [place] [address] PCP - General NURSE PRACTITIONER 07/31/22 documented as of this encounter
--- OUTSIDE RECORDS SUMMARY | 2025-05-18 10:48 | XMS_ITS | Encounter Summary ---
Author Organization [facility] Address [address] [place] [address] Care Team Providers Care Manufacturing Engineer Paint Name Role Phone Roseanne Murray NP Primary Care Provider [phone] [phone] Encounter Details Date Type Department Care Team (Late st Contact Info) Description 12/12/2022 MyChart Message Enc [facility] Medical Group Family Medicine - [place] 7342 [facility] [address] [place] [address] Roseanne Murray NP [address] [place] [address] Meds Social History Tobacco Use Types [...] Sex Assigned at Male 09/13/2024 11:12 AM STOVE MOUNTER Legal Sex Male 2:56 PM STOVE MOUNTER Gender Identity Male 01/01/2025 10:14 AM CDT Sexual Orientation Not on file 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 Answer Date of Assessment Author Status No 08/12/2022 2:05 PM STOVE MOUNTER Activ e * Do you have serious difficulty walking or climbing stairs? Answer Date of Assessment Author Status No 08/12/2022 2:05 PM STOVE MOUNTER Melinda Noonan RN Active * Do you [...] 05/21/2025 9:00 AM CDT Home Care Visit [facility] Care [address] [place] [address] Alka Reyes RN 05/22/2025 12:00 PM CDT Home Care Visit [place] [address] [place] [address] Joey Vora, BELL CLERK 05/24/2025 11:00 AM CDT Home Care Visit [address] [place] [place] [address] Joey Vora, BELL CLERK 05/29/2025 10:00 AM CDT Home Care Visit [facility] Care [place] [address] [place] [address] Joey Vora, BELL CLERK 05/31/2025 10:00 AM CDT Home Care Visit [address] [place] [address] Joey Vora, BELL CLERK 06/04/2025 1:15 PM CDT Office Visit [place] [facility] [address] [place] [address] [facility], [address] [place] [address] 06/06/2025 8:00 AM CDT Appointment [address] [place] [place] [address] Shala La, PT [address] [place] [address] 06/07/2025 10:40 AM CDT Office Visit [facility] Family Medicine - [place] 7342 [facility] [address] [place] [address] Roseanne Murray NP [address] [place] [address] documented as of this encounter Visit Diagnoses Not on filedocumented in this encounter Additional Health Concerns Assessment Noted Time PHQ-9 Depression Total Score: 4 08/05/20 22 1:27 PM STOVE MOUNTER documented as of this encounter Care Teams Manufacturing Engineer Paint Relationship Specialty Start Date End Date Roseanne Murray NP [address] [place] [address] PCP - General NURSE PRACTITIONER 07/31/22 documented as of this encounter
--- OUTSIDE RECORDS SUMMARY | 2025-05-18 10:48 | XMS_ITS | Encounter Summary ---
Author Organization [facility] Address [address] [place] [address] Care Team Providers Care Brick Kiln Burner Name Role Phone Roseanne Murray NP Primary Care Provider [phone] [phone] Encounter Details Date Type Department Care Team (Late st Contact Info) Description 10/04/2024 MyChart Message Enc [facility] Medical Group Family Medicine - [place] 7[address] [facility] [address] [place] [address] Roseanne Murray NP [address] [place] [address] Referral to Urology Social History Tobacco [...] place to sleep or slept in a chcf (including now)? No 04/10/2023 Sex and Gender Information Value Date Recorded Sex Assigned at Male 09/13/2024 11:12 AM LUMPIA WRAPPER MAKER Legal Sex Male 2:56 PM LUMPIA WRAPPER MAKER Gender Identity Male 01/01/2025 10:14 AM CDT [...] 3:55 PM CST Ok to place referral. [place] WRAPPER MAKER documented in this encounter Plan of Treatment Upcoming Encounters Date Type Department Care Team (Late st Contact Info) Description 05/21/2025 9:00 AM CDT Home Care Visit [facility] Home Care [address] [address] Alka Reyes RN 05/22/2025 12:00 PM CDT Home Care Visit [facility] Home [place] [address] [place] [address] Joey Vora, RESIDENTIAL CASE MANAGER 05/24/2025 11:00 AM CDT Home Care Visit [facility] Care [place] [address] [place] [address] Joey Vora, RESIDENTIAL CASE MANAGER 05/29/2025 10:00 AM CDT Home Care Visit [facility] Home Care [place] [address] [place] [address] Joey Vora, RESIDENTIAL CASE MANAGER 05/31/2025 10:00 AM CDT Home Care Visit [place] [address] [place] [address] Joey Vora, RESIDENTIAL CASE MANAGER 06/04/2025 1:15 PM CDT Office Visit [facility] [address] [place] [address] Kendall Greene MD [facility], [address] [place] [address] 06/06/2025 8:00 AM CDT Appointment [place] [address] [place] [address] Shala La, PT [address] [place] [address] 06/07/2025 10:40 AM CDT Office Visit [facility] Medical Group Family Medicine [facility] [address] [facility] [address] [place] [address] Roseanne Murray NP [address] [place] [address] documented as of this encounter Visit Diagnoses Not on filedocumented in this encounter Additional Health Concerns Assessment Noted Time PHQ-9 Depression Total Score: 4 08/05/20 22 1:27 PM LUMPIA WRAPPER MAKER documented as of this encounter Care Teams Brick Kiln Burner Relationship Specialty Start Date End Date Roseanne Murray NP [address] [place] [address] PCP - General NURSE PRACTITIONER 07/31/22 documented as of this encounter
--- OUTSIDE RECORDS SUMMARY | 2025-05-18 10:48 | XMS_ITS | Encounter Summary ---
Author Organization [facility] Address [address] [place] [address] Care Team Providers Care Web Development Manager Name Role Phone Roseanne Murray RUMPER Primary Care Provider [phone] [phone] Encounter Details Date Type Department Care Team (Late st Contact Info) Description 12/09/2022 [place] Message Enc [facility] [address] [id number] Misha, [facility] Provider Lab results Social History Tobacco Use [...] Sex Assigned at Male 09/13/2024 11:12 AM TOOLING SPECIALIST Legal Sex Male 2:56 PM TOOLING SPECIALIST Gender Identity Male 01/01/2025 10:14 AM CDT Sexual Orientation Not on file 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 Answer Date of Assessment Author Status No 08/12/2022 2:05 PM TOOLING SPECIALIST Activ e * Do you have serious difficulty walking or climbing stairs? Answer Date of Assessment Author Status No 08/12/2022 2:05 PM TOOLING SPECIALIST Melinda Noonan RN Active * Do [...] 05/21/2025 9:00 AM CDT Home Care Visit [facility] Home Care [address] [place] [address] Alka Reyes RN 05/22/2025 12:00 PM CDT Home Care Visit [facility] Home [place] [address] [place] [address] Joey Vora, MOLD SWABBER 05/24/2025 11:00 AM CDT Home Care Visit [place] [address] [place] [address] Joey Vora, MOLD SWABBER 05/29/2025 10:00 AM CDT Home Care Visit [facility] Home Care [place] [address] [place] [address] Joey Vora, MOLD SWABBER 05/31/2025 10:00 AM CDT Home Care Visit [place] [address] [place] [address] Joey Vora, MOLD SWABBER 06/04/2025 1:15 PM CDT Office Visit [facility] [address] [place] [address] Kendall Greene MD [facility], [address] [place] [address] 06/06/2025 8:00 AM CDT Appointment [address] [place] [address] Shala La, PT [address] [place] [address] 06/07/2025 10:40 AM CDT Office Visit [facility] Group Family [place] - [place] 7342 [facility] [address] [place] [address] Roseanne Murray NP [address] [place], [place] [address] documented as of this encounter Visit Diagnoses Not on filedocumented in this encounter Additional Health Concerns Assessment Noted Time PHQ-9 Depression Total Score: 4 08/05/20 22 1:27 PM TOOLING SPECIALIST documented as of this encounter Care Teams Web Development Manager Relationship Specialty Start Date End Date Roseanne Murray NP [address] [place] [address] PCP - General NURSE PRACTITIONER 07/31/22 documented as of this encounter
--- NOTE | 2025-05-18 10:49 | ED.GENADULT ---
HPI - General Adult General Chief complaint: Weakness Stated complaint: lethargy History of Present Illness HPI narrative: 54-year-old male presents emergency department for evaluation for altered mental status. Patient was more lethargic than his typical baseline this morning when his daughter went to check on him Patient does have a prior history of CVAs with most recent being in 2021. Patient is normally more interactive per family but patient was less responsive today. Patient does open his eyes during the exam. 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 When family arrived they did confirm that patient is now back to his normal baseline. Patient does answer yes and no to questions. Patient denies any pain or complaints and patient was well-appearing at time of evaluation. Related Data Home Medications ?Medication ?Instructions ?Recorded ?Confirmed ?Last Taken ?Type atorvastatin 40 mg tablet (Lipitor) 40 mg PO QHS 08/08/22 05/18/25 05/17/25 History blood sugar diagnostic (OneTouch 11/21/23 03/22/24 Unknown History Verio test strips) carboxymethylcellulose sodium 1 % 1 drp EACH EYE TID 11/21/23 05/18/25 05/17/25 History eye liquid gel drops carvedilol 12.5 mg tablet 12.5 mg PO Q12H 11/21/23 05/18/25 05/18/25 History escitalopram oxalate 20 mg tablet 20 mg PO HS 11/21/23 05/18/25 05/17/25 History hydralazine 25 mg tablet 25 mg PO TID Anxiety,itching 11/21/23 05/18/25 05/18/25 History hydrochlorothiazide 25 mg tablet 25 mg PO DAILY 11/21/23 05/18/25 05/18/25 History insulin glargine 100 unit/mL (3 17 unit subcut HS 11/21/23 05/18/25 Unknown History mL) subcutaneous pen (Lantus Solostar U-100 Insulin) insulin lispro 100 unit/mL 5 unit subcut TIDWM 11/21/23 05/18/25 Unknown History subcutaneous solution (Humalog U-100 Insulin) lancets 33 gauge (OneTouch Delica 11/21/23 03/22/24 Unknown History Plus Lancet) metformin 500 mg tablet 500 mg PO DAILY 11/21/23 05/18/25 05/18/25 History omeprazole 20 mg capsule,delayed 20 mg PO DAILY 11/21/23 05/18/25 05/18/25 History release pen needle, diabetic 32 gauge x 11/21/23 03/22/24 Unknown History (TRUEplus Pen Needle) tamsulosin 0.4 mg capsule 0.4 mg PO DAILY 11/21/23 05/18/25 05/18/25 History triamcinolone acetonide 0.1 % 1 applic topical BID 11/21/23 05/18/25 Unknown History topical cream Allergies Allergy/AdvReac Type Severity Reaction Status Date / Time No Known Allergies Allergy Verified 03/09/25 16:41 Review of Systems Review of Systems: All systems reviewed & are unremarkable except as noted in HPI and below PMFSH Past Medical History Medical History Insulin dependent type 2 diabetes mellitus Chronic anemia Chronic kidney disease, stage 3 Seizure Cerebrovascular accident (05/2022) Residual aphasia and right-sided deficits. Psoriasis Dyslipidemia Essential (primary) hypertension Family History Family History Grandparent Acute myocardial infarction, Onset Age: 65 Other Diabetes mellitus Family history of allergic disorder Family history of coronary artery disease Social History Social History Social History: Surrogate medical decision maker: Alicia Bland (spouse) or Shena Bland (mother). Code status: Full code. Smoking status: Never smoker Alcohol intake: unknown Substance use: never Substance use type: does not use Do You Feel Safe in your Home?: Yes Lack of Transportation: No Lack of Food: Never True Current Housing: I Have Housing Concerned About Future Housing: Decline to Answer Difficulty Paying Gas/Electric Bills: Decline to Answer Difficulty Paying for Meds: Decline to Answer Currently Unemployed: Decline to Answer Education: Don't Know Difficulty w/ Childcare or Family Care: Decline to Answer Living arrangements: with family Occupation/Education: unemployed Spiritual care concerns: No Exam Narrative: APPEARANCE: Resting comfortably but does respond to verbal stimuli HEAD: normocephalic, atraumatic. EYES: PERRLA/EOMI, conjunctivae clear. NOSE: Normal no drainage EARS:TMS clear with good light reflex. THROAT: Pharynx clear, no exudate. NECK: Supple. No adenopathy, no masses. RESPIRATORY: Airway patent, respirations nonlabored. Clear to auscultation bilaterally, no rales, rhonchi, wheezing. CARDIOVASCULAR: Regular rate and rhythm without murmurs rubs or gallops. ABDOMINAL: Soft, nontender, nondistended, normal bowel sounds MUSCULOSKELETAL: Moves all extremities. Strength/ROM intact, No edema, No calf tenderness. NEURO: Right-sided contracture, at his typical neuro baseline per family. SKIN: Warm, dry. Normal Color Course Vital Signs Vital signs: Vital Signs Pulse Rate 65 05/18/25 10:37 Respiratory Rate 17 05/18/25 10:37 Blood Pressure 175/95 H 05/18/25 10:37 Pulse Oximetry 97 05/18/25 10:37 Oxygen Delivery Room Air 05/18/25 10:37 Pulse Rate 64 05/18/25 13:12 Respiratory Rate 17 05/18/25 10:37 Blood Pressure 175/95 H 05/18/25 10:37 Pulse Oximetry 97 05/18/25 10:37 Oxygen Delivery Room Air 05/18/25 10:37 Medical Decision Making MDM Narrative Medical decision making narrative: 54-year-old male presents emergency department for evaluation for episode of altered mental status. Patient is at his normal baseline per family. Patient is afebrile with no leukocytosis hemoglobin 13.4. Patient's INR is 1.1. No acute abnormalities on the patient's ABG. No significant acute abnormalities on the patient's CMP. Patient's CRP was not elevated. UA was negative for infection. Patient was negative for influenza RSV and for COVID. Chest x-ray was negative for pneumonia and head CT was negative for any acute intracranial abnormality. And was hypertensive upon arrival to the emergency department but patient was treated with his morning dose of medications and patient's blood pressure did significantly improved. On re-evaluation patient is resting comfortably. Patient has no complaints. Family was concerned that the patient's diastolic pressure was still mildly elevated. I did emphasize the patient will continue to need his p.m. medications as scheduled. All questions concerns were addressed patient was well-appearing at time of discharge. Differential Diagnosis Differential Diagnosis: TA, CVA, hypertension, UTI, COVID, RSV influenza my hypercapnia Vital Signs Vital Signs: Vital Signs Pulse Rate 65 05/18/25 10:37 Respiratory Rate 17 05/18/25 10:37 Blood Pressure 175/95 H 05/18/25 10:37 Pulse Oximetry 97 05/18/25 10:37 Oxygen Delivery Room Air 05/18/25 10:37 Pulse Rate 64 05/18/25 13:12 Respiratory Rate 17 05/18/25 10:37 Blood Pressure 175/95 H 05/18/25 10:37 Pulse Oximetry 97 05/18/25 10:37 Oxygen Delivery Room Air 05/18/25 10:37 Lab Data Lab results reviewed: Yes I reviewed the patient's lab results. 05/18/25 12:29 05/18/25 12:29 Labs: Lab Results 05/18/25 05/18/25 05/18/25 Range/Units 10:43 12:29 12:41 WBC 7.2 (4.5-10.0) K/mm3 RBC 4.78 (4.6-6.20) M/mm3 Hgb 13.4 L (14.0-18.0) g/dL Hct 42.7 (42.0-52.0) % MCV 89.3 (80-100) fl MCH 28.0 (26-34) pg MCHC 31.4 L (32-36) g/dl RDW 14.4 (11.5-14.5) % Plt Count 175 (150-375) k/mm3 MPV 12.6 H (7.4-10.4) fl Immature Gran % (Auto) 0.3 (0-0.5) % Neut % (Auto) 62.9 (45.5-73.1) % Lymph % (Auto) 21.9 (18.3-44.2) % Darke % (Auto) 7.5 (2.6-8.5) % Eos % (Auto) 6.0 H (0-4.4) % Baso % (Auto) 1.4 H (0.2-1.2) % Lymph # (Auto) 1.58 (0.9-3.2) K/mm3 Darke # (Auto) 0.5 (0.1-0.6) K/mm3 Eos # (Auto) 0.4 H (0-0.3) K/mm3 Baso # (Auto) 0.1 (0.0-0.1) K/mm3 Abs Immat Gran (auto) 0.02 (0.00-0.031) K/mm3 Absolute Neuts (auto) 4.5 (1.3-6.7) K/mm3 Absolute Nucleated RBC 0.000 (0.0-0.012) K/mm3 Nucleated RBC % 0.0 (0.0-0.2) % PT 14.3 (11.1-14.7) Seconds INR 1.1 APTT 34.5 (22.3-36.8) Seconds Methemoglobin (0-1.5) %THb Sodium 140 (137-145) mmol/L Potassium 4.0 (3.4-5.0) mmol/L Chloride 102 (98-107) mmol/L Carbon Dioxide 32 H (22-30) mmol/L Anion Gap 6 (4-12) mmol/L BUN 23 H D (9-20) mg/dL Creatinine 1.18 (0.7-1.3) mg/dL Estim Creat Clear Calc Not Reportable Estimated GFR > 60 (59 - ) Glucose 119 H (65-110) mg/dL POC Capillary Glucose 152 H (65-105) mg/dl Lactic Acid 1.1 (0.7-2.0) mmol/L Calcium 9.3 (8.4-10.2) mg/dL Total Bilirubin 0.3 (0.2-1.3) mg/dL AST 30 (17-59) U/L ALT 54 H (6-50) U/L Alkaline Phosphatase 154 H (38-126) U/L C-Reactive Protein < 0.5 (<1.0) mg/dL Total Protein 7.9 (6.3-8.2) g/dL Albumin 4.1 (3.5-5.1) g/dL Lipase 70 (23-300) U/L Urine Color (Yellow) Urine Appearance (Clear) Urine pH (5.0-9.0) Ur Specific Oaks (1.001-1.035) Urine Protein (Negative) mg/dL Urine Glucose (UA) (Negative) mg/dL Urine Ketones (Negative) mg/dL Ur Blood (Man) (Negative) Urine Nitrate (Negative) Urine Bilirubin (Negative) Urine Urobilinogen (<2.0) mg/dL Add Ur Microanalysis Leukocyte Esterase Rfl (Negative) OSVALDO/UL Urine RBC (0-2) /hpf Urine WBC (0-3) /hpf Ur Squamous Epith Cells (Few) /hpf Urine Bacteria /hpf Urine Casts Influenza A (RT-PCR) Negative (Negative) Influenza B (RT-PCR) Negative (Negative) RSV (RT-PCR) Negative (Negative) SARS-CoV-2 RNA (RT-PCR) Negative (Negative) 05/18/25 05/18/25 Range/Units 13:15 15:11 WBC (4.5-10.0) K/mm3 RBC (4.6-6.20) M/mm3 Hgb (14.0-18.0) g/dL Hct (42.0-52.0) % MCV (80-100) fl MCH (26-34) pg MCHC (32-36) g/dl RDW (11.5-14.5) % Plt Count (150-375) k/mm3 MPV (7.4-10.4) fl Immature Gran % (Auto) (0-0.5) % Neut % (Auto) (45.5-73.1) % Lymph % (Auto) (18.3-44.2) % Darke % (Auto) (2.6-8.5) % Eos % (Auto) (0-4.4) % Baso % (Auto) (0.2-1.2) % Lymph # (Auto) (0.9-3.2) K/mm3 Darke # (Auto) (0.1-0.6) K/mm3 Eos # (Auto) (0-0.3) K/mm3 Baso # (Auto) (0.0-0.1) K/mm3 Abs Immat Gran (auto) (0.00-0.031) K/mm3 Absolute Neuts (auto) (1.3-6.7) K/mm3 Absolute Nucleated RBC (0.0-0.012) K/mm3 Nucleated RBC % (0.0-0.2) % PT (11.1-14.7) Seconds INR APTT (22.3-36.8) Seconds Methemoglobin 0.3 (0-1.5) %THb Sodium (137-145) mmol/L Potassium (3.4-5.0) mmol/L Chloride (98-107) mmol/L Carbon Dioxide (22-30) mmol/L Anion Gap (4-12) mmol/L BUN (9-20) mg/dL Creatinine (0.7-1.3) mg/dL Estim Creat Clear Calc Estimated GFR (59 - ) Glucose (65-110) mg/dL POC Capillary Glucose (65-105) mg/dl Lactic Acid (0.7-2.0) mmol/L Calcium (8.4-10.2) mg/dL Total Bilirubin (0.2-1.3) mg/dL AST (17-59) U/L ALT (6-50) U/L Alkaline Phosphatase (38-126) U/L C-Reactive Protein (<1.0) mg/dL Total Protein (6.3-8.2) g/dL Albumin (3.5-5.1) g/dL Lipase (23-300) U/L Urine Color Yellow (Yellow) Urine Appearance Cloudy H (Clear) Urine pH 7.0 (5.0-9.0) Ur Specific Oaks 1.017 (1.001-1.035) Urine Protein Negative (Negative) mg/dL Urine Glucose (UA) Trace H (Negative) mg/dL Urine Ketones Negative (Negative) mg/dL Ur Blood (Man) Negative (Negative) Urine Nitrate Negative (Negative) Urine Bilirubin Negative (Negative) Urine Urobilinogen 1.0 (<2.0) mg/dL Add Ur Microanalysis Reviewed Leukocyte Esterase Rfl Negative (Negative) OSVALDO/UL Urine RBC 0-2 (0-2) /hpf Urine WBC 0-5 (0-3) /hpf Ur Squamous Epith Cells None seen (Few) /hpf Urine Bacteria None seen /hpf Urine Casts 0-2 Influenza A (RT-PCR) (Negative) Influenza B (RT-PCR) (Negative) RSV (RT-PCR) (Negative) SARS-CoV-2 RNA (RT-PCR) (Negative) ABG Data ABG results: 05/18/25 13:15 Puncture Site Left radial ABG pH 7.404 ABG pCO2 44.8 ABG pO2 75.0 L ABG PO2/FiO2 Ratio 3.57 ABG HCO3 27.4 H ABG O2 Saturation 95.1 ABG O2 Content 18.8 ABG Base Excess 2.2 A-a Gradient 21.1 Oxyhemoglobin 93.5 Carboxyhemoglobin 0.7 Reduced Hemoglobin 5.5 H Total Hemoglobin 14.3 O2 Delivery Device Not Reportable O2 Liters/Min Not Reportable FiO2 21 Imaging Data Radiologist's impression: Impressions Head CT 05/18/25 11:00 IMPRESSION: 1. Old infarcts in the cerebellum, jagruti, and left basal ganglia. 2. Stable moderate nonspecific cerebral white matter disease, which likely represents chronic small vessel ischemic disease. Chest X-Ray 05/18/25 11:10 IMPRESSION: 1. No acute cardiopulmonary findings given portable technique. ECG Data EKG #1: EKG Interpretation: normal rate, sinus rhythm, no ectopy, non-specific ST changes, left axis and no acute changes Discharge Plan Discharge Clinical Impression: Hypertension, Altered mental status Patient Disposition: Home Condition: Stable Instructions: Antibiotic Form, General Patient Instructions Additional Instructions: Continue to take your blood pressure medications as directed. Have close follow-up with your primary care physician. If you have any worsening symptoms then please call or return to the emergency department. Patient Language: Slovenian Prescriptions: No Action atorvastatin [Lipitor] 40 mg tablet 40 mg PO QHS metformin 500 mg tablet 500 mg PO DAILY carvedilol 12.5 mg tablet 12.5 mg PO Q12H hydralazine 25 mg tablet 25 mg PO TID (DME) OneTouch Verio test strips Strip MISCELLANEOUS triamcinolone acetonide 0.1 % cream 1 applic TOPICAL BID Rx Instructions: to rash on legs, and body tamsulosin 0.4 mg capsule 0.4 mg PO DAILY omeprazole 20 mg capsule,delayed release(DR/EC) 20 mg PO DAILY hydrochlorothiazide 25 mg tablet 25 mg PO DAILY escitalopram oxalate 20 mg tablet 20 mg PO HS insulin glargine [Lantus Solostar U-100 Insulin] 100 unit/mL (3 mL) insulin pen 17 unit SUBCUT HS (DME) pen needle, diabetic [TRUEplus Pen Needle] 32 gauge x 5/32 needle MISCELLANEOUS (DME) lancets [OneTouch Delica Plus Lancet] 33 gauge misc MISCELLANEOUS insulin lispro [Humalog U-100 Insulin] 100 unit/mL solution 5 unit subcut TIDWM Rx Instructions: if blood sugar greater than 160 carboxymethylcellulose sodium 1 % Drops, Liquid Gel 1 drp EACH EYE TID acetaminophen 500 mg capsule 1,000 mg PO Q6H PRN (Reason: pain) Qty: 20 0RF Follow-up/Referrals: Terri,MARIANN Ramirez [Primary Care Provider, Unknown]
--- NOTE | 2025-05-18 10:52 | PC.NURSE ---
pt to radiology at this time
[2025-05-18] MEDS: LACTATED RINGERS 1,000 ML 999 ML IV CONT (11:02)
--- NOTE | 2025-05-18 11:35 | PC.NURSE ---
spoke with vascular access for lab draw and second iv placement
[2025-05-18 12:36] LABS: Hematocrit 42.7 % (42.0-52.0); Hemoglobin 13.4 g/dL (14.0-18.0); Immature Granulocyte Percent A 0.3 % (0-0.5); Lymphocytes Absolute Auto 1.58 K/mm3 (0.9-3.2); Mean Corpuscular HGB Conc 31.4 g/dl (32-36); Mean Corpuscular Hemoglobin 28.0 pg (26-34); Mean Corpuscular Volume 89.3 fl (80-100); Nucleated Red Blood Cells Absolute Auto 0.000 K/mm3 (0.0-0.012); Nucleated Red Blood Cells Perc 0.0 % (0.0-0.2); Platelet Count Result 175 k/mm3 (150-375); Red Blood Count 4.78 M/mm3 (4.6-6.20); White Blood Count 7.2 K/mm3 (4.5-10.0)
[2025-05-18 12:49] LABS: Alanine Aminotransferase 54 U/L (6-50); Albumin Level 4.1 g/dL (3.5-5.1); Alkaline Phosphatase 154 U/L (38-126); Anion Gap 6 mmol/L (4-12); Aspartate Amino Transferase 30 U/L (17-59); Bilirubin,Total 0.3 mg/dL (0.2-1.3); Blood Urea Nitrogen 23 mg/dL (9-20); CRP < 0.5 mg/dL (<1.0); Calcium 9.3 mg/dL (8.4-10.2); Carbon Dioxide 32 mmol/L (22-30); Chloride 102 mmol/L (98-107); Estimated Glomerular Filt Rate > 60; Glucose 119 mg/dL (65-110); Lipase 70 U/L (23-300); Potassium 4.0 mmol/L (3.4-5.0); Sodium 140 mmol/L (137-145); Total Protein 7.9 g/dL (6.3-8.2)
[2025-05-18 12:52] LABS: INR 1.1; Prothrombin Time 14.3 Seconds (11.1-14.7)
[2025-05-18 12:53] LABS: Partial Thromboplastin Time 34.5 Seconds (22.3-36.8)
[2025-05-18 13:12] VITALS: PULSE 64
[2025-05-18 13:25] LABS: Influenza A QL RT-PCR Negative (Negative); Influenza B QL RT-PCR Negative (Negative); RSV RNA, RT-PCR Negative (Negative); SARS-CoV-2 RNA PCR Negative (Negative)
[2025-05-18 13:29] LABS: Alveolar/Arterial O2 Gradient 21.1 mmHg; Carboxyhemoglobin 0.7 % THb (0-2.0); Fractional Inspired Oxygen 21 %; HCO3 ABG 27.4 mEq/l (22.0-26.0); Methemoglobin ABG 0.3 %THb (0-1.5); Oxygen Content ABG 18.8 %vol (16.0-22.0); Oxygen Saturation ABG 95.1 % (95.0-100.0); PCO2 ABG 44.8 mmHg (35.0-45.0); PO2 ABG 75.0 mmHg (80.0-100.0); PO2 FiO2 Ratio Arterial Blood 3.57 %; Reduced Hemoglobin 5.5 %THb (0-5.0)
[2025-05-18 13:31] LABS: Modified Allen's Test Pass; Site Drawn LEFT RADIAL
[2025-05-18 15:41] LABS: Add Urine Microscopic? YES; Appearance Urine Cloudy (Clear); Glucose Urine UA Trace mg/dL (Negative); Leukocyte Esterase Ur Negative LEU/UL (Negative); Need Manual Microscopic Reviewed; Nitrate Urine Negative (Negative); Non Pathogenic Casts 0-2; Specific Grav Ur 1.017 (1.001-1.035)
== END 2025-05-18 18:01 | disposition home or self-care (01) ==
PROVIDERS: Emergency Provider Emergency Medicine; PCP Nurse Practitioner
DX: R41.82 Altered mental status, unspecified (principal); I12.9 Hypertensive chronic kidney disease with stage 1 through stage 4 chronic kidney disease, or unspecified chronic kidney disease; Z20.822 Contact with and (suspected) exposure to COVID-19; E11.22 Type 2 diabetes mellitus with diabetic chronic kidney disease; N18.30 Chronic kidney disease, stage 3 unspecified; I69.920 Aphasia following unspecified cerebrovascular disease; I69.951 Hemiplegia and hemiparesis following unspecified cerebrovascular disease affecting right dominant side; D64.9 Anemia, unspecified; Z79.84 Long term (current) use of oral hypoglycemic drugs; Z79.4 Long term (current) use of insulin; Z79.899 Other long term (current) drug therapy; R90.82 White matter disease, unspecified; R94.31 Abnormal electrocardiogram [ECG] [EKG]; I51.7 Cardiomegaly
CPT/HCPCS: 36415; 36600; 70450; 71045; 80053; 81001; 82375; 82805; 82948; 83050; 83605; 83690; 85018; 85025; 85610; 85730; 86140; 87040; 87637; 93005; 96361; 96374; 96376; 99284; A9270; J0360; J7120